=== PATIENT | female | born 1960 | race Caucasian/White ===

== ENCOUNTER → 2016-03-29 | Outpatient (CLI) | payer BC ==
[~2016-03-29] MED LIST: ATOR-22 PO; LISI-729 PO; OMEP40CA PO
[2016-03-29 14:24] LABS: BASO % 0.3 %; BASO ABS # 0.03 K/uL (0-0.2); COMPLETE YES; EOS % 0.4 %; HEMATOCRIT 40.2 % (37-47); IG% 0.8 %; LYMPH % 22.1 %; LYMPH ABS # 2.61 K/uL (1.2-3.4); MEAN CELL VOLUME 92.8 fL (80-100); MEAN CORPUSCULAR HEMOGLOBIN 32.1 pg (25-34); MEAN CORPUSCULAR HGB CONC 34.6 g/dl (32-36); MEAN PLATELET VOLUME 12.1 fL (7.4-10.4); MONO % 7.2 %; NEUT % 69.2 %; PLATELET COUNT 253 K/uL (130-400); RED BLOOD COUNT 4.33 M/uL (4.2-5.4); WHITE BLOOD COUNT 11.83 K/uL (4.8-10.8)
[2016-03-29 14:36] LABS: ALT/SGPT 29 U/L (12-78); AST/SGOT 15 U/L (15-37); BLOOD UREA NITROGEN 17 mg/dl (7-18); BUN/CREATININE RATIO 20.2 (10-20); CALCIUM 8.7 mg/dl (8.5-10.1); CARBON DIOXIDE 27 mmol/L (21-32); CHLORIDE 104 mmol/L (98-107); CREATININE 0.85 mg/dl (0.60-1.20); GLUCOSE 203 mg/dl (70-99); POTASSIUM 3.7 mmol/L (3.5-5.1); SODIUM 141 mmol/L (136-145)
[2016-03-29 14:41] LABS: ALB/GLOB RATIO 1.1 (0.9-2); ALKALINE PHOSPHATASE 72 U/L (45-117); AMYLASE 15 U/L (25-115)
== END | disposition home or self-care (01) ==
LOC: C.LABSPEC 13:22
PROVIDERS: ATTEND Family Medicine
DX: R10.13 Epigastric pain (principal)

== ENCOUNTER → 2016-06-07 | Outpatient (CLI) | payer BC ==
[2016-06-07 19:41] LABS: BASO % 0.2 %; BASO ABS # 0.02 K/uL (0-0.2); COMPLETE YES; EOS % 0.9 %; HEMATOCRIT 42.6 % (37-47); IG% 0.4 %; LYMPH % 32.6 %; LYMPH ABS # 3.17 K/uL (1.2-3.4); MEAN CELL VOLUME 89.5 fL (80-100); MEAN CORPUSCULAR HEMOGLOBIN 31.1 pg (25-34); MEAN CORPUSCULAR HGB CONC 34.7 g/dl (32-36); MEAN PLATELET VOLUME 12.2 fL (7.4-10.4); MONO % 4.5 %; NEUT % 61.4 %; PLATELET COUNT 269 K/uL (130-400); RED BLOOD COUNT 4.76 M/uL (4.2-5.4); WHITE BLOOD COUNT 9.73 K/uL (4.8-10.8)
[2016-06-07 19:47] LABS: ALT/SGPT 31 U/L (12-78); BLOOD UREA NITROGEN 18 mg/dl (7-18); BUN/CREATININE RATIO 22.5 (10-20); CALCIUM 9.7 mg/dl (8.5-10.1); CARBON DIOXIDE 29 mmol/L (21-32); CHLORIDE 98 mmol/L (98-107); CHOLESTEROL 210 mg/dl (0-200); CREATININE 0.81 mg/dl (0.60-1.20); GLUCOSE 320 mg/dl (70-99); POTASSIUM 3.5 mmol/L (3.5-5.1); SODIUM 137 mmol/L (136-145)
[2016-06-07 19:49] LABS: AST/SGOT 14 U/L (15-37); TRIGLYCERIDES 402 mg/dl (0-150)
[2016-06-07 19:57] LABS: ALKALINE PHOSPHATASE 74 U/L (45-117); CHOLESTEROL/HDL RATIO 6.4; HDL CHOLESTEROL 33 mg/dl
[2016-06-08 06:15] LABS: ESTIMATED AVERAGE GLUCOSE 171 mg/dl; HA1C FLAG Normal (Normal)
== END | disposition home or self-care (01) ==
LOC: C.LABSPEC 12:56
PROVIDERS: ATTEND Family Medicine
DX: E11.9 Type 2 diabetes mellitus without complications (principal); I10 Essential (primary) hypertension; F41.1 Generalized anxiety disorder

== ENCOUNTER → 2016-06-10 | Outpatient (CLI) | payer BC | END | disposition home or self-care (01) | LOC: C.LABSPEC 19:12 | PROVIDERS: ATTEND Family Medicine | DX: M54.5 Low back pain (principal) ==

== ENCOUNTER → 2017-06-23 | Outpatient (CLI) | payer BC ==
[2017-06-23 18:32] LABS: ALBUMIN 3.7 gm/dl (3.4-5.0); ALT/SGPT 24 U/L (12-78); AST/SGOT 12 U/L (15-37); BLOOD UREA NITROGEN 15 mg/dl (7-18); CALCIUM 9.7 mg/dl (8.5-10.1); CARBON DIOXIDE 31 mmol/L (21-32); CREATININE 0.75 mg/dl (0.60-1.20); GLUCOSE 149 mg/dl (70-99); POTASSIUM 3.5 mmol/L (3.5-5.1); SODIUM 137 mmol/L (136-145)
[2017-06-23 18:35] LABS: ALKALINE PHOSPHATASE 85 U/L (45-117); TOTAL PROTEIN 7.5 gm/dl (6.4-8.2)
== END | disposition home or self-care (01) ==
LOC: C.LABSPEC 17:57
PROVIDERS: ATTEND Family Medicine
DX: R51 Headache (principal)

== ENCOUNTER 2022-06-09 10:29 | Inpatient (IN) ==
[2022-06-09] MEDS ORDERED: MoRPHine SULFATE 2 MG/ML CARP IV STA (11:06)
[2022-06-09] MEDS ORDERED: ONDANSETRON INJ 2 MG/ML 2 ML VIAL IV STA (11:06)
--- NOTE | 2022-06-09 11:12 | Emergency Department Note ---
History of Present Illness General Chief complaint: Abdominal Pain Stated complaint: ABD PAIN, HAVENT EATEN SINCE TUESDAY Time Seen by Provider: 06/09/22 10:57 History of Present Illness Maximum Pain Intensity: 7 This is a 62-year-old female that presents to the emergency department via pr ivate vehicle with complaints of "abdominal pain, decreased appetite". The patient notes that 2 days ago she began with abdominal discomfort. She notes it is generalized but mainly near the periumbilical region. She notes decreased appetite since Tuesday evening. She notes that she has not had any vomiting or diarrhea. Last stool output was several days ago. She has never had pain like this before. She denies any fevers, chills, chest pain or shortness of breath. No trauma or injury. Patient notes history of cholecystectomy and appendectomy. She notes an allergy to penicillin. She notes type 2 diabetes. Home Medications Medication Instructions Recorded Confirmed Type atorvastatin 20 mg tablet 20 mg PO DAILY 06/09/22 06/09/22 History dulaglutide 0.75 mg/0.5 mL 0 mg subcut WE 06/09/22 06/09/22 History subcutaneous pen injector (Trulicity) duloxetine 60 mg capsule,delayed 60 mg PO DAILY 06/09/22 06/09/22 History release glipizide 5 mg tablet, extended 0 mg PO DAILY 06/09/22 06/09/22 History release 24 hr hydrochlorothiazide 50 mg tablet 50 mg PO BID 06/09/22 06/09/22 History insulin degludec 100 unit/mL (3 35 unit subcut HS 06/09/22 06/09/22 History mL) subcutaneous pen (Tresiba FlexTouch U-100 insulin) lorazepam 0.5 mg tablet 0.5 mg PO HS 06/09/22 06/09/22 History ondansetron HCl 8 mg tablet 8 mg PO DIRECTED PRN Nausea 06/09/22 06/09/22 History pregabalin 50 mg capsule 150 mg PO DAILY 06/09/22 06/09/22 History trazodone 50 mg tablet 50 mg PO HS 06/09/22 06/09/22 History valsartan 320 mg tablet 320 mg PO DAILY 06/09/22 06/09/22 History Allergies Allergy/AdvReac Type Severity Reaction Status Date / Time Penicillins Allergy Intermediate RASH Verified 06/09/22 14:22 celecoxib Allergy Unknown HIVES Verified 06/09/22 14:22 Past Med/Surg History Medical History Diabetes mellitus, type II Hyperlipidemia Hypertension Surgical History History of appendectomy History of cholecystectomy Social History Smoking Status: Current every day smoker Tobacco Type: Cigarettes Hx Alcohol Use: Yes Hx Substance Use: No Preferred Language: Polish Communication Ability: Effective 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 Beliefs That Will Affect Care: None Current Living Situation: Spouse Other Information That Helps Us Care for You: No Feels Safe at Home: Yes Safety Concerns: Feels Safe At This Time Review of Systems A total of 10 systems reviewed and were otherwise negative Physical Exam Vital Signs Vital Signs - 24 hr 06/09/22 10:48 06/09/22 12:43 06/09/22 12:05 Temperature 36.2 C L Temperature Source Temporal Artery Scan Pulse Rate 100 H 101 H Pulse Rate [Apical] 101 H Pulse Rate from SpO2 Sensor Pulse Rhythm [Apical] Respiratory Rate 20 20 Respiratory Effort / Characteristics Non-Labored Spontaneous Non-Labored Spontaneous Respiratory Depth Normal Normal Respiratory Pattern Blood Pressure 121/79 Blood Pressure [Right Arm] 127/69 Blood Pressure Mean 93 Blood Pressure Mean [Right Arm] 88 Blood Pressure Position [Right Arm] Pulse Oximetry 96 88 L Oxygen Delivery Method Room Air Room Air Oxygen Flow Rate Sepsis Recent Fever Within 48 Hours No Sepsis New/Unexplained Change in Mental Status N/A Sepsis Action Taken by Nursing No Action Required 06/09/22 12:10 06/09/22 13:23 06/09/22 12:41 Temperature Temperature Source Pulse Rate 100 H Pulse Rate [Apical] 97 H 99 H Pulse Rate from SpO2 Sensor 97 H Pulse Rhythm [Apical] Respiratory Rate 24 24 24 Respiratory Effort / Characteristics Non-Labored Spontaneous Non-Labored Spontaneous Respiratory Depth Normal Normal Respiratory Pattern Blood Pressure Blood Pressure [Right Arm] 140/88 Blood Pressure Mean Blood Pressure Mean [Right Arm] 105 Blood Pressure Position [Right Arm] Pulse Oximetry 94 94 92 Oxygen Delivery Method Nasal Cannula Nasal Cannula Room Air Oxygen Flow Rate 2 2 Sepsis Recent Fever Within 48 Hours Sepsis New/Unexplained Change in Mental Status Sepsis Action Taken by Nursing 06/09/22 13:23 06/09/22 14:02 06/09/22 17:12 Temperature 36.9 C 38.1 C H Temperature Source Oral Temporal Artery Scan Pulse Rate 100 H Pulse Rate [Apical] 94 H 103 H Pulse Rate from SpO2 Sensor 100 H Pulse Rhythm [Apical] Regular Regular Respiratory Rate 26 H 20 20 Respiratory Effort / Characteristics Non-Labored Spontaneous Normal for Patient Non-Labored Spontaneous Normal for Patient Respiratory Depth Normal Normal Respiratory Pattern Regular Regular Blood Pressure 140/88 Blood Pressure [Right Arm] 125/89 166/80 H Blood Pressure Mean 105 Blood Pressure Mean [Right Arm] 101 108 Blood Pressure Position [Right Arm] Semi-fowlers Semi-fowlers Pulse Oximetry 94 96 95 Oxygen Delivery Method Nasal Cannula Room Air Oxymask Oxygen Flow Rate 2 9 Sepsis Recent Fever Within 48 Hours Sepsis New/Unexplained Change in Mental Status Sepsis Action Taken by Nursing 06/09/22 17:20 Temperature Temperature Source Pulse Rate Pulse Rate [Apical] 99 H Pulse Rate from SpO2 Sensor Pulse Rhythm [Apical] Regular Respiratory Rate 20 Respiratory Effort / Characteristics Non-Labored Spontaneous Normal for Patient Respiratory Depth Normal Respiratory Pattern Regular Blood Pressure Blood Pressure [Right Arm] 134/88 Blood Pressure Mean Blood Pressure Mean [Right Arm] 103 Blood Pressure Position [Right Arm] Semi-fowlers Pulse Oximetry 95 Oxygen Delivery Method Oxymask Oxygen Flow Rate 9 Sepsis Recent Fever Within 48 Hours Sepsis New/Unexplained Change in Mental Status Sepsis Action Taken by Nursing VITAL SIGNS - Vital signs and triage nursing notes were reviewed. GENERAL -62-year-old female appearing her stated age who is in no acute distress. Communicates well with provider and answers questions appropriately. SKIN - Without rashes. No meningeal or petechial rash. HEAD - NC/AT. EYES - Sclera anicteric. NOSE - Midline and without cyanosis. MOUTH/OROPHARYNX - Without perioral cyanosis. NECK - Neck with FROM. LUNGS - Chest wall symmetric without accessory muscle use, intercostals retractions, or central cyanosis. Normal vesicular breath sounds CTA B/L. No wheezes, rales, or rhonchi appreciated. CARDIAC - RRR with S1/S2. No murmur, rubs, or gallops appreciated. ABDOMEN - Abdominal contour normal without pulsations or visible masses. There is guarding but no rigidity. There is diffuse abdominal tenderness throughout the entire abdomen. Bowel sounds normoactive. Mild abdominal distention present on exam. EXTREMITIES - +5/5 strength noted in UE/LE bilaterally. NEUROLOGIC - Cranial nerves II through XII grossly intact. PSYCH - A&O, and cooperates fully with examiner. Pt is very pleasant and interacts well with examiner. Course Administered Medications Metronidazole (Flagyl) 500 mg in 100 mls @ 100 mls/hr IV Q8H [facility] Stop: 06/19/22 21:29 Last Admin: 06/09/22 20:35 Dose: 100 mls/hr Documented By: JUAN ANTONIO Magnesium Sulfate/Dextrose (Magnesium Sulfate / D5w) 1 gm in 100 mls @ 50 mls/hr IV Q2H [facility] Stop: 06/10/22 03:59 Last Admin: 06/09/22 20:22 Dose: 50 mls/hr Documented By: JUAN ANTONIO Parenteral Electrolytes (Normosol-R) 1,000 mls @ 110 mls/hr IV .Q9H6M [facility] Stop: 07/09/22 19:59 Last Admin: 06/09/22 20:13 Dose: 110 mls/hr Documented By: JUAN ANTONIO Miscellaneous (Icu Protocol For Hyperglycemia) 1 each N/A ACHS [facility] Stop: 06/11/22 20:59 Last Admin: 06/09/22 20:33 Dose: 1 each Documented By: JUAN ANTONIO Discontinued Medications Acetaminophen (Acetaminophen 1000 Mg/100 Ml Iv) Confirm Administered Dose 1,000 mg IV .STK-MED ONE Stop: 06/09/22 17:18 Last Admin: 06/09/22 20:04 Dose: Not Given Documented By: JUAN ANTONIO Bupivacaine HCl (Bupivacaine 0.5 % 5 Mg/1 Ml Mpf 30ml Vial) Confirm Administered Dose 30 ml .ROUTE .STK-MED ONE Stop: 06/09/22 16:33 Last Admin: 06/09/22 16:37 Dose: 30 ml Documented By: ALEJANDRA Fentanyl Citrate (Fentanyl Citrate Pf 100 Mcg/2 Ml Vial) 50 mcg IV Q5M PRN PRN Reason: PACU Use Only-Pain Stop: 06/09/22 20:59 Last Admin: 06/09/22 17:57 Dose: 25 mcg Documented By: Admin: 06/09/22 17:52 Dose: 50 mcg Documented By: HIRAM Ciprofloxacin (Cipro / D5w) 400 mg in 200 mls @ 100 mls/hr IV NOW STA; Protocol Stop: 06/09/22 14:48 Last Infusion: 06/09/22 19:49 Dose: 0 mls/hr Documented By: JUAN ANTONIO Admin: 06/09/22 14:30 Dose: 100 mls/hr Documented By: [id number] Metronidazole (Flagyl) 500 mg in 100 mls @ 100 mls/hr IV NOW STA Stop: 06/09/22 13:48 Last Infusion: 06/09/22 19:49 Dose: 0 mls/hr Documented By: JUAN ANTONIO Admin: 06/09/22 13:47 Dose: 100 mls/hr Documented By: PRISCILLA Acetaminophen (Ofirmev) 1,000 mg in 100 mls @ 400 mls/hr IV NOW STA Stop: 06/09/22 17:36 Last Infusion: 06/09/22 19:39 Dose: 0 mls/hr Documented By: JUAN ANTONIO Admin: 06/09/22 17:22 Dose: 400 mls/hr Documented By: HIRAM Ioversol (Optiray 350 100ml) 88 ml IV ONCE ONE Stop: 06/09/22 12:07 Last Admin: 06/09/22 11:57 Dose: 88 ml Documented By: CHANO Morphine Sulfate (Morphine Sulfate 2 Mg/Ml Carp) 2 mg IV NOW STA Stop: 06/09/22 11:07 Last Admin: 06/09/22 11:39 Dose: 2 mg Documented By: MG Co-signed By: PRISCILLA Ondansetron HCl (Ondansetron Inj 2 Mg/Ml 2 Ml Vial) 4 mg IV NOW STA Stop: 06/09/22 11:07 Last Admin: 06/09/22 11:39 Dose: 4 mg Documented By: MG Co-signed By: PRISCILLA Vancomycin HCl (Vancomycin Hcl 1000mg/20ml Vial) Confirm Administered Dose 50 mg .ROUTE .STK-MED ONE Stop: 06/09/22 15:46 Last Admin: 06/09/22 15:54 Dose: 50 mg Documented By: ALEJANDRA Medical Decision Making Laboratory Data 06/09/22 11:15 06/09/22 11:15 Lab Results 06/09/22 06/09/22 06/09/22 Range/Units 11:15 11:15 11:26 WBC 12.09 H (4.8-10.8) K/ul RBC 5.66 H (4.20-5.40) M/uL Hgb 16.8 H (12.0-16.0) g/dl POC Hgb 17.0 H (12.0-16.0) g/dl Hct 47.5 H (37.0-47.0) % POC Hct 50 H (37-47) % MCV 83.9 (80.0-100.0) fL MCH 29.7 (25.0-34.0) pg MCHC 35.4 (32.0-36.0) g/dL RDW Std Deviation 42.8 (36.4-46.3) fL RDW Coeff of Javier 14.1 (11.5-14.5) % Plt Count 275 (130-400) K/uL MPV 12.3 (9.4-12.4) fL Immature Gran % (Auto) 0.4 % Neut % (Auto) 92.3 % Lymph % (Auto) 4.7 % Sauk % (Auto) 1.9 % Eos % (Auto) 0.3 % Baso % (Auto) 0.4 % Neut # (Auto) 11.15 H (1.40-6.50) K/uL Lymph # (Auto) 0.57 L (1.2-3.4) K/uL Sauk # (Auto) 0.23 (0.11-0.59) K/uL Eos # (Auto) 0.04 (0-0.50) K/uL Baso # (Auto) 0.05 (0-0.2) K/uL Immature Gran # (Auto) 0.05 (0.01-0.20) K/uL Echinocytes 2+ POC Sodium 139 (135-144) mmol/L Sodium 139 (136-145) mmol/L POC Potassium 3.8 (3.3-5.0) mmol/L Potassium 3.9 (3.5-5.1) mmol/L POC Chloride 102 (101-112) mmol/L Chloride 104 (98-107) mmol/L Carbon Dioxide 23 (21-32) mmol/L POC Total CO2 24 (24-31) mmol/L Anion Gap 12 H (3-11) POC Anion Gap 18.0 (16-25) mmol/L POC BUN 30 H (7-18) mg/dl BUN 30 H (6-23) mg/dl Creatinine 1.05 (0.6-1.2) mg/dl POC Creatinine 1.0 (0.6-1.3) mg/dl Est Cr Clr Drug Dosing 53.1 ml/min Est GFR ( Amer) 65.5 ml/min Est GFR (Non-Af Amer) 56.5 ml/min BUN/Creatinine Ratio 28.6 H (10-20) Glucose 135 H (70-99(Fasting)) mg/dl POC Glucose (70-99) mg/dl POC Glucose (other) 135 H (70-99) mg/dl Calcium 9.7 (8.6-10.3) mg/dl POC Ioniz Calcium Devante 1.17 (1.12-1.32) mmol/l Magnesium 1.5 L (1.7-2.4) mg/dl Total Bilirubin 1.8 H (0.2-1.0) mg/dl AST 21 (13-39) U/L ALT 18 (7-52) U/L Alkaline Phosphatase 65 (34-104) U/L Total Protein 6.7 (6.0-8.3) gm/dl Albumin 3.8 (3.4-5.0) gm/dl Globulin 2.9 (2.5-4.0) gm/dl Albumin/Globulin Ratio 1.3 (0.9-2) Lipase < 3 L (11-82) U/L Procalcitonin (0-0.5) ng/ml 06/09/22 06/09/22 Range/Units 13:39 17:14 WBC (4.8-10.8) K/ul RBC (4.20-5.40) M/uL Hgb (12.0-16.0) g/dl POC Hgb (12.0-16.0) g/dl Hct (37.0-47.0) % POC Hct (37-47) % MCV (80.0-100.0) fL MCH (25.0-34.0) pg MCHC (32.0-36.0) g/dL RDW Std Deviation (36.4-46.3) fL RDW Coeff of Javier (11.5-14.5) % Plt Count (130-400) K/uL MPV (9.4-12.4) fL Immature Gran % (Auto) % Neut % (Auto) % Lymph % (Auto) % Sauk % (Auto) % Eos % (Auto) % Baso % (Auto) % Neut # (Auto) (1.40-6.50) K/uL Lymph # (Auto) (1.2-3.4) K/uL Sauk # (Auto) (0.11-0.59) K/uL Eos # (Auto) (0-0.50) K/uL Baso # (Auto) (0-0.2) K/uL Immature Gran # (Auto) (0.01-0.20) K/uL Echinocytes POC Sodium (135-144) mmol/L Sodium (136-145) mmol/L POC Potassium (3.3-5.0) mmol/L Potassium (3.5-5.1) mmol/L POC Chloride (101-112) mmol/L Chloride (98-107) mmol/L Carbon Dioxide (21-32) mmol/L POC Total CO2 (24-31) mmol/L Anion Gap (3-11) POC Anion Gap (16-25) mmol/L POC BUN (7-18) mg/dl BUN (6-23) mg/dl Creatinine (0.6-1.2) mg/dl POC Creatinine (0.6-1.3) mg/dl Est Cr Clr Drug Dosing ml/min Est GFR ( Amer) ml/min Est GFR (Non-Af Amer) ml/min BUN/Creatinine Ratio (10-20) Glucose (70-99(Fasting)) mg/dl POC Glucose 124 H (70-99) mg/dl POC Glucose (other) (70-99) mg/dl Calcium (8.6-10.3) mg/dl POC Ioniz Calcium Devante (1.12-1.32) mmol/l Magnesium (1.7-2.4) mg/dl Total Bilirubin (0.2-1.0) mg/dl AST (13-39) U/L ALT (7-52) U/L Alkaline Phosphatase (34-104) U/L Total Protein (6.0-8.3) gm/dl Albumin (3.4-5.0) gm/dl Globulin (2.5-4.0) gm/dl Albumin/Globulin Ratio (0.9-2) Lipase (11-82) U/L Procalcitonin 14.32 H (0-0.5) ng/ml Imaging Data Radiologist's Impression: Abdomen/Pelvis CT 06/09/22 11:06 CT abd pelvis IV con only CLINICAL HISTORY: mid abd pain TECHNIQUE: Helical axial images of the abdomen and pelvis were obtained and displayed. Automated dose lowering techniques and/or adjustment according to patient size were utilized for this exam. This exam was performed with intravenous contrast. CT DOSE: 534.52 mGy.cm COMPARISON: None available at the time of this dictation. FINDINGS: Lower chest: Bibasilar atelectasis versus scarring is seen. Liver: Unremarkable. No focal lesions are seen. Gallbladder and biliary tree: Patient is status post cholecystectomy. No intra- or extrahepatic biliary ductal dilation. Pancreas: The pancreas is atrophic. Spleen: Unremarkable. 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 Kidneys and ureters: Unremarkable. Bladder: Limited evaluation due to underdistention. Reproductive organs: Bilateral tubal ligation clips are noted. Bowel: Bowel wall thickening is noted in the sigmoid with numerous diverticula. There is a rim-enhancing lesion containing stool and air between the uterus and rectum discontinuity of the rectal wall, suggestive of a contained bowel perforation. Patient is status post appendectomy. Lymph nodes Retroperitoneal: Unremarkable. Pelvic: Unremarkable. Mesenteric: Unremarkable. Peritoneum: A small amount of free fluid is seen. A few locules of free air are noted as well. Vessels: Atherosclerotic calcifications are seen. Abdominal wall: Unremarkable. Bones: Degenerative changes in the visualized spine. IMPRESSION: Perforation of the sigmoid colon, likely due to sigmoid diverticulitis. There is an abscess containing stool and air as well as some some uncontained pneumo peritoneum. Mild peritoneal fluid is seen. ACT 112: Negative or not required by law. Electronically signed by: Yunier Mehta M.D. 06/09/2022 12:30 PM MDM Narrative Patient was seen and evaluated as above in room C04. Review was performed of triage nursing notes and vital signs. After obtaining a thorough history and physical examination the above work up was performed. Patient presents to us today for evaluation of abdominal pain. She is tender in the abdomen on exam. Vital signs stable. Options of care were discussed with the patient. IV access was established. Labs were drawn. There is mild leukocytosis without anemia. No emergent metabolic disturbance. Procalcitonin is elevated. Blood culture pending. COVID testing negative. CT scan was obtained of the abdomen and pelvis. There is perforation of the sigmoid colon, likely due to sigmoid diverticulitis. There is an abscess containing stool and air as well as some uncontained pneumoperitoneum. Mild peritoneal fluid is seen. Case then discussed with the general surgery service. They came to evaluate the patient. Noting the patient's penicillin allergy, IV Cipro and Flagyl were ordered. Patient will be taken to the operative suite quite soon. Please refer to further documentation regarding the patient's stay. While here in the ED the patient did receive a small, 2 mg IV morphine dose. She was also given Zofran for any potential nausea. In the evaluation and treatment of this patient the following differential diagnoses were entertained: Acute abdomen, perforation, diverticulitis, dissection, UTI, pyelonephritis, among others. Impression & Plan Perforation of sigmoid colon due to diverticulitis, Periumbilical abdominal pain Discharge Plan Visit Data Chief Complaint: Abdominal Pain Stated Complaint: ABD PAIN, HAVENT EATEN SINCE TUESDAY ED Provider: Cecilia Orellana ED Midlevel Provider: Wilson Flores Discharge Problem: Perforation of sigmoid colon due to diverticulitis, Periumbilical abdominal pain Patient Disposition: Being Evaluated by Surgeon Condition: Good Discharge Instructions Interventions: ED Discharge Assessment Last Done: 06/09/22 13:56
[2022-06-09 11:42] LABS: iSTAT Ionized Calcium 1.17 mmol/l (1.12-1.32); iSTAT Potassium 3.8 mmol/L (3.3-5.0)
[2022-06-09 11:48] LABS: Anion Gap 12 (3-11); BUN Creatinine Ratio 28.6 (10-20); Blood Urea Nitrogen 30 mg/dl (6-23); Calcium 9.7 mg/dl (8.6-10.3); Carbon Dioxide 23 mmol/L (21-32); Chloride 104 mmol/L (98-107); Creatinine Clr Calc Pharmacy 53.1 ml/min; Est GFR (African American) 65.5 ml/min; Est GFR (Non-African American) 56.5 ml/min; Glucose 135 mg/dl (70-99(Fasting)); Potassium 3.9 mmol/L (3.5-5.1); Sodium 139 mmol/L (136-145)
[2022-06-09 11:52] LABS: Hematocrit (blood only) 47.5 % (37.0-47.0); Hemoglobin 16.8 g/dl (12.0-16.0); Mean Corpuscular Hemoglobin 29.7 pg (25.0-34.0); Mean Corpuscular Hgb Conc 35.4 g/dL (32.0-36.0); Mean Corpuscular Volume 83.9 fL (80.0-100.0); Mean Platelet Volume 12.3 fL (9.4-12.4); Platelet Count 275 K/uL (130-400); RDW Coefficient of Variation 14.1 % (11.5-14.5); RDW Standard Deviation 42.8 fL (36.4-46.3); Red Blood Count 5.66 M/uL (4.20-5.40); White Blood Count 12.09 K/ul (4.8-10.8)
[2022-06-09 12:02] LABS: Alanine Aminotransferase 18 U/L (7-52); Albumin Globulin Ratio 1.3 (0.9-2); Albumin Level 3.8 gm/dl (3.4-5.0); Alkaline Phosphatase 65 U/L (34-104); Aspartate Aminotransferase 21 U/L (13-39); Bilirubin,Total 1.8 mg/dl (0.2-1.0); Globulin 2.9 gm/dl (2.5-4.0); Lipase < 3 U/L (11-82); Magnesium 1.5 mg/dl (1.7-2.4); Total Protein 6.7 gm/dl (6.0-8.3)
[2022-06-09] MEDS ORDERED: OPTIRAY 350 100ml IV ONE (12:06)
--- NOTE | 2022-06-09 12:31 | CT Scan Report ---
CT abd pelvis IV con only CLINICAL HISTORY: mid abd pain TECHNIQUE: Helical axial images of the abdomen and pelvis were obtained and displayed. Automated dose lowering techniques and/or adjustment according to patient size were utilized for this exam. This e xam was performed with intravenous contrast. CT DOSE: 534.52 mGy.cm COMPARISON: None available at the time of this dictation. FINDINGS: Lower chest: Bibasilar atelectasis versus scarring is seen. Liver: Unremarkable. No focal lesions are seen. Gallbladder and biliary tree: Patient is status post cholecystectomy. No intra- or extrahepatic bilia ry ductal dilation. Pancreas: The pancreas is atrophic. Spleen: Unremarkable. 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 Kidneys and ureters: Unremarkable. Bladder: Limited evaluation due to underdistention. Reproductive organs: Bilateral tubal ligation clips are noted. Bowel: Bowel wall thickening is noted in the sigmoid with numerous diverticula. There is a rim-enhanc ing lesion containing stool and air between the uterus and rectum discontinuity of the rectal wall, s uggestive of a contained bowel perforation. Patient is status post appendectomy. Lymph nodes Retroperitoneal: Unremarkable. Pelvic: Unremarkable. Mesenteric: Unremarkable. Peritoneum: A small amount of free fluid is seen. A few locules of free air are noted as well. Vessels: Atherosclerotic calcifications are seen. Abdominal wall: Unremarkable. Bones: Degenerative changes in the visualized spine. IMPRESSION: Perforation of the sigmoid colon, likely due to sigmoid diverticulitis. There is an abscess containin g stool and air as well as some some uncontained pneumoperitoneum. Mild peritoneal fluid is seen. ACT 112: Negative or not required by law. Electronically signed by: Yunier Mehta M.D. 06/09/2022 12:30 PM
[2022-06-09 12:40] LABS: Basophils # (auto) 0.05 K/uL (0-0.2); Basophils % (auto) 0.4 %; Echinocytes 2+; Eosinophils # (auto) 0.04 K/uL (0-0.50); Eosinophils % (auto) 0.3 %; Immature Granulocytes # (auto) 0.05 K/uL (0.01-0.20); Immature Granulocytes % (auto) 0.4 %; Lymphocytes # (auto) 0.57 K/uL (1.2-3.4); Lymphocytes % (auto) 4.7 %; Monocytes # (auto) 0.23 K/uL (0.11-0.59); Monocytes % (auto) 1.9 %; Neutrophils # (auto) 11.15 K/uL (1.40-6.50); Neutrophils % (auto) 92.3 %
[2022-06-09] MEDS ORDERED: metroNIDAZOLE 500 MG/100 ML BAG IV STA (12:49)
[2022-06-09] MEDS ORDERED: CIPROFLOXACIN / D5W 400 MG/200 ML BAG IV STA (12:49)
[2022-06-09] MEDS ORDERED: ePHEDrine sulfate 50 MG/ML AMP IV PRN (12:59)
[2022-06-09] MEDS ORDERED: ONDANSETRON INJ 2 MG/ML 2 ML VIAL IV PRN ×2 (12:59→19:37)
[2022-06-09] MEDS ORDERED: HYDROmorphone INJ 1 MG/ML SYRINGE IV PRN (12:59)
[2022-06-09] MEDS ORDERED: ATROPINE SULFATE 0.1 MG/ML 10ML SYR IV PRN (12:59)
[2022-06-09] MEDS ORDERED: MIDAZOLAM HCL 1 MG/ML 2ML VIAL ONE (12:59)
[2022-06-09] MEDS ORDERED: fentaNYL citrate PF 100 MCG/2 ML VIAL ONE (13:00)
--- NOTE | 2022-06-09 13:23 | History & Physical Report ---
Date of Service June 09, 2022 Assessment & Plan (1) Perforation of sigmoid colon due to diverticulitis: (2) Systemic inflammatory response syndrome (SIRS) due to infection: Plan 62-year-old woman with perforated diverticulitis. Systemic inflammatory response syndrome is present. She has tachycardia, elevated white blood cell count, decreased temperature, evidence of intra-abdominal infection on CT scan. I have discussed with her the risks and benefits of exploratory laparotomy with sigmoid resection, washout, and colostomy placement. All her questions were answered, and she is agreeable to proceed. Consent has been obtained. We will take her to the operating room as soon as possible. History of Present Illness Primary Care Provider: Larry Cole DO 62-year-old woman presents to the emergency department with severe abdominal pain starting Tuesday evening. She has not had anything to eat since that time. She denies fevers or chills. She has not had a bowel movement since that time. She states the pain has been increasing. The pain is sharp and stabbing in character. It is mostly in the lower abdomen, but extends to the upper abdomen. CT scan demonstrates perforated diverticulitis with free air and fluid throughout the abdomen. Allergies Allergy/AdvReac Type Severity Reaction Status Date / Time Penicillins Allergy Intermediate RASH Verified 06/09/22 11:43 celecoxib Allergy Unknown HIVES Unverified 06/09/22 11:43 Home Medications Medication Instructions Recorded Confirmed Type atorvastatin 20 mg tablet 20 mg PO DAILY 06/09/22 06/09/22 History dulaglutide 0.75 mg/0.5 mL 0 mg subcut WE 06/09/22 06/09/22 History subcutaneous pen injector (Trulicity) duloxetine 60 mg capsule,delayed 60 mg PO DAILY 06/09/22 06/09/22 History release glipizide 5 mg tablet, extended 0 mg PO DAILY 06/09/22 06/09/22 History release 24 hr hydrochlorothiazide 50 mg tablet 50 mg PO BID 06/09/22 06/09/22 History insulin degludec 100 unit/mL (3 35 unit subcut HS 06/09/22 06/09/22 History mL) subcutaneous pen (Tresiba FlexTouch U-100 insulin) lorazepam 0.5 mg tablet 0.5 mg PO HS 06/09/22 06/09/22 History ondansetron HCl 8 mg tablet 8 mg PO DIRECTED PRN Nausea 06/09/22 06/09/22 History pregabalin 50 mg capsule 150 mg PO DAILY 06/09/22 06/09/22 History trazodone 50 mg tablet 50 mg PO HS 06/09/22 06/09/22 History valsartan 320 mg tablet 320 mg PO DAILY 06/09/22 06/09/22 History Past Med/Surg History Social History Smoking Status: Current every day smoker Tobacco Type: Cigarettes Feels Safe at Home: Yes Review of Systems Review of Systems: All systems reviewed & are unremarkable except as noted in HPI & below Physical Exam Constitutional: WD/WN, vitals as above Eyes: PERRL, conjunctivae normal, anicteric sclerae Neck: trachea midline, no thyromegaly Respiratory: normal respiratory effort, lungs clear to auscultation Cardiovascular: Rate/Rhythm: regular rhythm and + tachycardic Gastrointestinal (Abdomen): Inspection/Auscultation: + abdomen distended Percussion/Palpation: + abdomen tender (Diffusely tender to palpation), + guarding and abdomen soft Skin: no rashes, warm and dry Psychiatric: A+Ox3, euthymic affect Results & Data Results & Data Vital Signs (Past 12 Hours) Vital Signs Temp Pulse Resp BP Pulse Ox O2 Del Method 06/09/22 12:43 101 H 06/09/22 10:48 36.2 C L 100 H 20 121/79 96 Room Air Laboratory Results 06/09/22 06/09/22 06/09/22 Range/Units 11:26 11:15 11:15 WBC 12.09 H (4.8-10.8) K/ul RBC 5.66 H (4.20-5.40) M/uL Hgb 16.8 H (12.0-16.0) g/dl POC Hgb 17.0 H (12.0-16.0) g/dl Hct 47.5 H (37.0-47.0) % POC Hct 50 H (37-47) % MCV 83.9 (80.0-100.0) fL MCH 29.7 (25.0-34.0) pg MCHC 35.4 (32.0-36.0) g/dL RDW Std Deviation 42.8 (36.4-46.3) fL RDW Coeff of Javier 14.1 (11.5-14.5) % Plt Count 275 (130-400) K/uL MPV 12.3 (9.4-12.4) fL Immature Gran % (Auto) 0.4 % Neut % (Auto) 92.3 % Lymph % (Auto) 4.7 % [place] % (Auto) 1.9 % Eos % (Auto) 0.3 % Baso % (Auto) 0.4 % Neut # (Auto) 11.15 H (1.40-6.50) K/uL Lymph # (Auto) 0.57 L (1.2-3.4) K/uL [place] # (Auto) 0.23 (0.11-0.59) K/uL Eos # (Auto) 0.04 (0-0.50) K/uL Baso # (Auto) 0.05 (0-0.2) K/uL Immature Gran # (Auto) 0.05 (0.01-0.20) K/uL Echinocytes 2+ POC Sodium 139 (135-144) mmol/L Sodium 139 (136-145) mmol/L POC Potassium 3.8 (3.3-5.0) mmol/L Potassium 3.9 (3.5-5.1) mmol/L POC Chloride 102 (101-112) mmol/L Chloride 104 (98-107) mmol/L Carbon Dioxide 23 (21-32) mmol/L POC Total CO2 24 (24-31) mmol/L Anion Gap 12 H (3-11) POC Anion Gap 18.0 (16-25) mmol/L POC BUN 30 H (7-18) mg/dl BUN 30 H (6-23) mg/dl Creatinine 1.05 (0.6-1.2) mg/dl POC Creatinine 1.0 (0.6-1.3) mg/dl Est Cr Clr Drug Dosing 53.1 ml/min Est GFR ( Amer) 65.5 ml/min Est GFR (Non-Af Amer) 56.5 ml/min BUN/Creatinine Ratio 28.6 H (10-20) Glucose 135 H (70-99(Fasting)) mg/dl POC Glucose (other) 135 H (70-99) mg/dl Calcium 9.7 (8.6-10.3) mg/dl POC Ioniz Calcium Devante 1.17 (1.12-1.32) mmol/l Magnesium 1.5 L (1.7-2.4) mg/dl Total Bilirubin 1.8 H (0.2-1.0) mg/dl AST 21 (13-39) U/L ALT 18 (7-52) U/L Alkaline Phosphatase 65 (34-104) U/L Total Protein 6.7 (6.0-8.3) gm/dl Albumin 3.8 (3.4-5.0) gm/dl Globulin 2.9 (2.5-4.0) gm/dl Albumin/Globulin Ratio 1.3 (0.9-2) Lipase < 3 L (11-82) U/L SARS-CoV-2, RNA, NAAT 06/09/22 Range/Units 11:13 WBC (4.8-10.8) K/ul RBC (4.20-5.40) M/uL Hgb (12.0-16.0) g/dl POC Hgb (12.0-16.0) g/dl Hct (37.0-47.0) % POC Hct (37-47) % MCV (80.0-100.0) fL MCH (25.0-34.0) pg MCHC (32.0-36.0) g/dL RDW Std Deviation (36.4-46.3) fL RDW Coeff of Javier (11.5-14.5) % Plt Count (130-400) K/uL MPV (9.4-12.4) fL Immature Gran % (Auto) % Neut % (Auto) % Lymph % (Auto) % [place] % (Auto) % Eos % (Auto) % Baso % (Auto) % Neut # (Auto) (1.40-6.50) K/uL Lymph # (Auto) (1.2-3.4) K/uL [place] # (Auto) (0.11-0.59) K/uL Eos # (Auto) (0-0.50) K/uL Baso # (Auto) (0-0.2) K/uL Immature Gran # (Auto) (0.01-0.20) K/uL Echinocytes POC Sodium (135-144) mmol/L Sodium (136-145) mmol/L POC Potassium (3.3-5.0) mmol/L Potassium (3.5-5.1) mmol/L POC Chloride (101-112) mmol/L Chloride (98-107) mmol/L Carbon Dioxide (21-32) mmol/L POC Total CO2 (24-31) mmol/L Anion Gap (3-11) POC Anion Gap (16-25) mmol/L POC BUN (7-18) mg/dl BUN (6-23) mg/dl Creatinine (0.6-1.2) mg/dl POC Creatinine (0.6-1.3) mg/dl Est Cr Clr Drug Dosing ml/min Est GFR ( Amer) ml/min Est GFR (Non-Af Amer) ml/min BUN/Creatinine Ratio (10-20) Glucose (70-99(Fasting)) mg/dl POC Glucose (other) (70-99) mg/dl Calcium (8.6-10.3) mg/dl POC Ioniz Calcium Devante (1.12-1.32) mmol/l Magnesium (1.7-2.4) mg/dl Total Bilirubin (0.2-1.0) mg/dl AST (13-39) U/L ALT (7-52) U/L Alkaline Phosphatase (34-104) U/L Total Protein (6.0-8.3) gm/dl Albumin (3.4-5.0) gm/dl Globulin (2.5-4.0) gm/dl Albumin/Globulin Ratio (0.9-2) Lipase (11-82) U/L SARS-CoV-2, RNA, NAAT Pending Diagnostic Findings CT abd pelvis IV con only CLINICAL HISTORY: mid abd pain TECHNIQUE: Helical axial images of the abdomen and pelvis were obtained and displayed. Automated dose lowering techniques and/or adjustment according to patient size were utilized for this exam. This exam was performed with intravenous contrast. CT DOSE: 534.52 mGy.cm COMPARISON: None available at the time of this dictation. FINDINGS: Lower chest: Bibasilar atelectasis versus scarring is seen. Liver: Unremarkable. No focal lesions are seen. Gallbladder and biliary tree: Patient is status post cholecystectomy. No intra- or extrahepatic biliary ductal dilation. Pancreas: The pancreas is atrophic. Spleen: Unremarkable. 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 Kidneys and ureters: Unremarkable. Bladder: Limited evaluation due to underdistention. Reproductive organs: Bilateral tubal ligation clips are noted. Bowel: Bowel wall thickening is noted in the sigmoid with numerous diverticula. There is a rim-enhancing lesion containing stool and air between the uterus and rectum discontinuity of the rectal wall, suggestive of a contained bowel perforation. Patient is status post appendectomy. Lymph nodes Retroperitoneal: Unremarkable. Pelvic: Unremarkable. Mesenteric: Unremarkable. Peritoneum: A small amount of free fluid is seen. A few locules of free air are noted as well. Vessels: Atherosclerotic calcifications are seen. Abdominal wall: Unremarkable. Bones: Degenerative changes in the visualized spine. IMPRESSION: Perforation of the sigmoid colon, likely due to sigmoid diverticulitis. There is an abscess containing stool and air as well as some some uncontained pneumoperitoneum. Mild peritoneal fluid is seen.
--- NOTE | 2022-06-09 14:10 | Anesthesiology Consultation ---
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 History Surgery Operation Date: 06/09/22 09:10 Proposed Procedures p Exploratory Laparotomy, Sigmoid Resection, Colostomy Placement - Paul Cedillo MD Height/Weight Height: 5 ft 2 in Weight: 78.2 kg Allergies Allergy/AdvReac Type Severity Reaction Status Date / Time Penicillins Allergy Intermediate RASH Verified 06/09/22 11:43 celecoxib Allergy Unknown HIVES Unverified 06/09/22 11:43 Medications Home Medications Medication Instructions Recorded Confirmed Last Taken atorvastatin 20 mg tablet 20 mg PO DAILY 06/09/22 06/09/22 Unknown dulaglutide 0.75 mg/0.5 mL 0 mg subcut WE 06/09/22 06/09/22 Unknown subcutaneous pen injector (Trulicity) duloxetine 60 mg capsule,delayed 60 mg PO DAILY 06/09/22 06/09/22 Unknown release glipizide 5 mg tablet, extended 0 mg PO DAILY 06/09/22 06/09/22 Unknown release 24 hr hydrochlorothiazide 50 mg tablet 50 mg PO BID 06/09/22 06/09/22 Unknown insulin degludec 100 unit/mL (3 35 unit subcut HS 06/09/22 06/09/22 Unknown mL) subcutaneous pen (Tresiba FlexTouch U-100 insulin) lorazepam 0.5 mg tablet 0.5 mg PO HS 06/09/22 06/09/22 Unknown ondansetron HCl 8 mg tablet 8 mg PO DIRECTED PRN Nausea 06/09/22 06/09/22 Unknown pregabalin 50 mg capsule 150 mg PO DAILY 06/09/22 06/09/22 Unknown trazodone 50 mg tablet 50 mg PO HS 06/09/22 06/09/22 Unknown valsartan 320 mg tablet 320 mg PO DAILY 06/09/22 06/09/22 Unknown NPO Date Last Intake of Fluids: 06/09/22 Time Last Intake of Fluids: 10:00 Last Intake of Fluids Comment: sips of water Date Last Intake of Solids: 06/07/22 Social History Smoking Status: Current every day smoker Physical Exam Vital Signs Last Vital Signs Temp 98.4 F 06/09/22 14:02 Pulse 94 H 06/09/22 14:02 Resp 20 06/09/22 14:02 BP 125/89 06/09/22 14:02 Pulse Ox 96 06/09/22 14:02 O2 Del Method Room Air 06/09/22 14:02 O2 Flow Rate 2 06/09/22 13:23 Testing Laboratory Results 06/09/22 11:15 06/09/22 11:15 06/09/22 11:26 POC Glucose (other) 135 H Electrocardiogram Date: 06/09/22 Poor data quality, interpretation may be adversely affected Normal sinus rhythm with sinus arrhythmia, rate 99 bpm Possible Left atrial enlargement Borderline ECG When compared with ECG of 04-JAN-2015 20:27, Nonspecific T wave abnormality now evident in Lateral leads
--- NOTE | 2022-06-09 14:22 | Electrocardiogram Report ---
Test Reason : Blood Pressure : / mmHG Vent. Rate : 099 BPM Atrial Rate : 099 BPM P-R Int : 140 ms QRS Dur : 078 ms QT Int : 340 ms P-R-T Axes : 040 -15 069 degrees QTc Int : 436 ms Poor data quality, interpretation may be adversely affected Normal sinus rhythm with sinus arrhythmia Possible Left atrial enlargement Nonspecific ST abnormality Borderline ECG When compared with ECG of 04-JAN-2015 20:27, Nonspecific T wave abnormality now evident in Lateral leads Confirmed by John Schrader ([id number]) on 06/09/2022 2:22:09 PM Referred By: REFERRED SELF Confirmed By:Jonn Schrader
[2022-06-09] MEDS ORDERED: VANCOMYCIN HCL 1000MG/20ML VIAL ONE (15:45)
[2022-06-09] MEDS ORDERED: PROPOFOL IV EMULSION 10 MG/ML 20 ML VIAL IV ONE (16:13)
[2022-06-09] MEDS ORDERED: SUCCINYLCHOLINE CHLORIDE 20 MG/ML 10 ML VIAL IV ONE (16:13)
[2022-06-09] MEDS ORDERED: PHENYLEPHRINE HCL 10 MG/ML VIAL ONE (16:13)
[2022-06-09] MEDS ORDERED: DEXAMETHASONE SOD INJ 4 MG/ML VIAL ONE (16:13)
[2022-06-09] MEDS ORDERED: LIDOCAINE 2% MPF LOCAL 5 ML VIAL ONE (16:13)
[2022-06-09] MEDS ORDERED: PHENYLEPHRINE 100MCG/ML 5ML SYR ONE (16:13)
[2022-06-09] MEDS ORDERED: ROCURONIUM BROMIDE 10 MG/ML 5 ML VIAL IV ONE (16:13)
[2022-06-09] MEDS ORDERED: BUPIVACAINE 0.5 % 5 MG/1 ML MPF 30ML VIAL ONE (16:32)
[2022-06-09] MEDS ORDERED: ONDANSETRON INJ 2 MG/ML 2 ML VIAL ONE (16:32)
[2022-06-09] MEDS ORDERED: SUGAMMADEX SODIUM 200 MG/2 ML VIAL IV ONE (16:53)
[2022-06-09] MEDS ORDERED: HYDROmorphone INJ 1 MG/ML SYRINGE ONE (16:54)
--- NOTE | 2022-06-09 17:05 | Post Operative Brief Note ---
Immediate Post Op Note v1 Date of Surgery June 09, 2022 Pre & Post Diagnosis Operation Date: 06/09/22 09:10 Pre-Op Diagnosis: Perforation of sigmoid colon due to diverticulitis, systemic inflammatory response syndrome due to infection Post-Op Diagnosis: Perforation of sigmoid colon due to diverticulitis, systemic inflammatory response syndrome due to infection I identified the patient and participated in the time-out.: Yes Procedure Operation Date: 06/09/22 09:10 Actual Procedures p Exploratory Laparotomy, Sigmoid Resection, Colostomy Placement - Paul Cedillo MD Surgeon Paul Cedillo MD Chin Strap Maker VALENCIA Ballard assisted with tissue retraction, camera op, closure Estimated Blood Loss 100 Findings Consistent with Post-Op Diagnosis Severe inflammation of the sigmoid colon and inflammation of the left colon; large perforation in the low sigmoid with stool in the peritoneal cavity Drains Suero Catheter (clear, edelmira colored urine noted. Kenisha TATE made aware, anesthesia to monitor urine output during surgery), Vince-Deluca Drain (19 mexican) and [place] Drain (5/8 inch)
--- NOTE | 2022-06-09 17:13 | Operative Report ---
Post Operative Report Pre & Post Diagnosis Operation Date: 06/09/22 09:10 Pre-Op Diagnosis: Perforation of sigmoid colon due to diverticulitis, systemic inflammatory response syndrome due to infection Post-Op Diagnosis: Perforation of sigmoid colon due to diverticulitis, systemic inflammatory response syndrome due to infection I identified the patient and participated in the time-out.: Yes Procedure Operation Date: 06/09/22 09:10 Actual Procedures p Exploratory Laparotomy, Sigmoid Resection, Colostomy Placement - Paul Cedillo MD Surgeon Paul Cedillo MD Application Security Developer VALENCIA Ballard assisted with tissue retraction, camera op, closure Estimated Blood Loss 100 Findings Consistent with Post-Op Diagnosis Severe inflammatory change of the sigmoid colon; large perforation in the low sigmoid with stool in the cul-de-sac; inflammatory change of the small bowel and left colon; diverticulosis could be palpated in the entire colon Specimens Sigmoid colon Drains 19 Latvian round JENNI drain Anesthesia Type General Complications No immediate complications Description of Procedure Patient was taken to the operating room, placed supine on the operating table. A timeout is performed, perioperative antibiotics were administered, SCD boots were placed. After adequate anesthesia and analgesia was obtained, a Suero catheter was placed, the patient was placed in lithotomy position, and she was prepped and draped in a normal sterile fashion. Midline incision was made in the lower abdomen carried down to the level of the fascia. The fascia was opened at the umbilicus and the incision was opened to its fullest extent. We encountered murky and inflammatory fluid in this location. This was suctioned free. The omentum was reflected up and the small bowel was run. Approaching the pelvis, the drainage turned to feculent drainage. The sigmoid colon was identified and was noted to be severely scarred to the pelvic sidewall as well as the left side of the uterus and fallopian tube. A Bookwalter retractor was placed. The feculent drainage was suctioned free. We began along the white line of Toldt along the left colon and started to mobilize the colon moving down towards the sigmoid colon. This was done with blunt dissection and Bovie electrocautery. Care was taken to avoid any injury to the ureter. The colon was carefully dissected free from the fallopian tube and the uterus. Once we are able to reflect the sigmoid colon medially a large perforation in the lateral side of the sigmoid on the left was appreciated, and it was noted that there was formed stool sitting in the cul-de-sac outside the colon. This was removed. Distal to this large perforation, normal appearing rectum could be palpated and seen. A HARRISON stapler was used to transect the colon at the level of the descending sigmoid colon junction. The LigaSure device was then used to dissect the sigmoid colon mesentery. Large vessels were oversewn with 3-0 silk suture. We took the mesentery down to a point just distal to the large perforation in the left lateral sigmoid. I was able to get a TA stapler across below the perforation. This was fired and the sigmoid colon was removed from the body. When the TA stapler was removed, it was noted to have misfired. The rectal stump was closed with interrupted 3-0 silk suture and was oversewn with a 2-0 Prolene, the ends of which were left long to find the rectal stump in the subsequent operation. At this point, more stool was removed, and the pelvis and abdomen were copiously irrigated with multiple liters of fluid containing vancomycin. This was all suctioned free. Hemostasis at this point was excellent. The left colon was then mobilized off the white line of Toldt using the Bovie electrocautery, and additional mesentery was taken to allow the left colon to reach for the end colostomy. Once this is completed, a 19 Latvian round JENNI drain was placed through separate stab incision and was placed in the cul-de-sac and reaching up the left pelvic sidewall. This was secured with 3-0 nylon suture. A hoh of skin was removed in the left lower quadrant and the fat was taken do wn to the fascia. The fascia was incised in a cruciate manner to allow the colostomy to be delivered through. This was done carefully. The colon was attached to the fascia in 2 locations with 3-0 silk suture. At this point the abdomen was copiously irrigated once again. The fascia was closed with a running #1 PDS. A Roma drain was placed in the incision, and the incision was closed with surgical clips. The ostomy was then matured in a Gloria fashion with 3-0 Vicryl suture. Dressings were applied, and an ostomy appliance was applied. She tolerated the procedure without complication, was transferred in stable condition to the PACU. All instrument, needle, and sponge counts were correct at the end of the case. My assistant sales manager was necessary throughout the procedure for tissue retraction, possible camera operation, and closure of the wounds. I understand that section 1842(b)(7)(D) of the Social Security act generally prohibits Medicare physician fee schedule payment for the services of assistants at surgery in teaching hospitals when qualified residents are available to furnish such services. I certify that the services for which payment is claimed were medically necessary and that no qualified resident was available to perform the services. I further understand that these services are subject to postpayment review by the Medicare carrier. I attest to the content of the Intraoperative Record and any orders documented therein. Any exceptions are noted below.
[2022-06-09] MEDS ORDERED: ACETAMINOPHEN 1000 MG/100 ML IV IV ONE (17:17)
[2022-06-09] MEDS ORDERED: ACETAMINOPHEN 1,000 MG/100 ML VIAL IV STA (17:22)
[2022-06-09] MEDS: fentaNYL citrate PF 100 MCG/2 ML VIAL IV PRN ×2 (17:52→17:57)
--- NOTE | 2022-06-09 18:34 | Anesthesiology Progress Note ---
Date of Service June 09, 2022 Anesthesia Post Procedure Vital Signs Vital Signs: Temp Pulse Pulse Resp BP BP Pulse Ox 06/09/22 18:00 108 H 20 149/70 H 95 06/09/22 17:50 99 H 20 155/85 H 96 06/09/22 17:40 101 H 20 167/80 H 96 06/09/22 17:30 97 H 20 142/76 H 95 06/09/22 17:20 99 H 20 134/88 95 06/09/22 17:12 38.1 C H 103 H 20 166/80 H 95 06/09/22 14:02 36.9 C 94 H 20 125/89 96 06/09/22 13:23 100 H 26 H 140/88 94 06/09/22 12:41 100 H 24 92 06/09/22 13:23 99 H 24 140/88 94 06/09/22 12:10 97 H 24 94 06/09/22 12:05 101 H 20 127/69 88 L 06/09/22 12:43 101 H 06/09/22 10:48 36.2 C L 100 H 20 121/79 96 O2 Del Method O2 Flow Rate 06/09/22 18:00 Nasal Cannula 4 06/09/22 17:50 Nasal Cannula 4 06/09/22 17:40 Oxymask 6 06/09/22 17:30 Oxymask 6 06/09/22 17:20 Oxymask 9 06/09/22 17:12 Oxymask 9 06/09/22 14:02 Room Air 06/09/22 13:23 Nasal Cannula 2 06/09/22 12:41 Room Air 06/09/22 13:23 Nasal Cannula 2 06/09/22 12:10 Nasal Cannula 2 06/09/22 12:05 Room Air 06/09/22 12:43 06/09/22 10:48 Room Air Pain Intensity Abdomen: Pain Intensity: 6 Transfer of Care Handoff Completed per policy Notes Mental Status: participated in evaluation and see notes below Patient Amnestic to Procedure: Yes Nausea / Vomiting: adequately controlled Pain: adequately controlled Airway Patency, RR, SpO2: see Notes below BP & HR: stable & adequate Hydration State: stable & adequate Anesthetic Complications: no major complications apparent Notes: Pt suffered perforated diverticulum, had colectomy, colostomy under GA. Was awake in PACU postop, c/o pain. Medicated with small dose of fentanyl. Subsequently, pt is stuporous manifesting airway obstruction and arterial oxygen desaturation. Pt would benefit from SICU admission at this time. Presented case to PA covering SICU who agreed to evaluate pt for SICU admission. Staff to notify surgeon.
--- NOTE | 2022-06-09 18:52 | Communication Note ---
Date of Service: June 09, 2022 Hospital medicine consulted to see patient. Patient seen and examined in the PACU 62-year-old woman with history of diabetes, hypertension, laparoscopic a ppendectomy in 1996 who presents to the ER with abdominal pain since Tuesday and has not eaten since. Evaluation in the ER noted tachycardia, fever, WBC of 12,[address] abdomen and pelvis showing perforated diverticulitis with free air and fluid in the abdomen. Patient is currently status post exploratory laparotomy, sigmoid resection and colostomy placement by Dr. Cedillo. On exam, General: Drowsy ENMT: External ear and nose normal, oropharynx normal Respiratory: On nasal cannula, transmitted sounds Cardiovascular: Tachycardic, regular rhythm, S1 S2 Gastrointestinal (Abdomen): Dressing over surgical site, JENNI drain in situ, colostomy in place Musculoskeletal: No pedal edema Genitourinary: Suero in situ Neurologic: Drowsy. Limited exam at this time Psychiatric: Unable to assess at this time Labs notable for WBC of 12.09, hemoglobin of 16.8, magnesium of 1.5, total bilirubin of 1.8, procalcitonin of 14.3. Sepsis Perforated sigmoid colon likely perforated diverticulitis Status post ex lap with sigmoid resection and colostomy. Patient going to be transferred from PACU to ICU We will continue to follow. Continue IV antibiotics N.p.o. for now. Monitor respiration mental status as patient recovers from anesthesia. We will keep on insulin sliding scale for now and maintain optimal glycemic control. Check lactate. IV fluids for now. Other plans as detailed by Barbie Marte PA-C
--- NOTE | 2022-06-09 18:55 | Consultation ---
Date of Consultation June 09, 2022 Assessment & Plan (1) Perforation of sigmoid colon due to diverticulitis: (2) Sepsis: S/P exploratory laparotomy, sigmoid resection, colostomy placement 06/09/[address] Cedillo after presenting to ER with complaint of abdominal pain x 2 days In ER noted to be febrile, tachycardic, leukocytosis, elevated procalcitonin CT Abd/pelvis: Perforation of the sigmoid colon, likely due to sigmoid diverticulitis. There is an abscess containing stool and air as well as some some uncontained pneumoperitoneum. Mild peritoneal fluid is seen. Patient did receive IV Cipro, Flagyl, vancomycin In PACU patient requiring IV pain medication and noted to be stuporous and having oxygen desaturations. Patient transferred to ICU for further observation and treatment Recommend continuing IV antibiotics. 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 Glycemic control per ICU protocol (4) Hypomagnesemia: Magnesium: 1.5 Replace and monitor (5) Hypertension: Hold home valsartan, HCTZ (6) Hyperlipidemia: Hold home atorvastatin Pt was seen and care coordinated with Dr Singh. See addendum I spent a total of 70 minutes reviewing notes, outpatient records, labs, medication, coordinating, documenting and providing care for this patient excluding time spent in the performance of separately billed services. Supervising Physician Co-Signing Physician Notes Date of Service: June 09, 2022 Hospital medicine consulted to see patient. Patient seen and examined in the PACU 62-year-old woman with history of diabetes, hypertension, laparoscopic appendectomy in 1996 who presents to the ER with abdominal pain since Tuesday and has not eaten since. Evaluation in the ER noted tachycardia, fever, WBC of 12,[address] abdomen and pelvis showing perforated diverticulitis with free air and fluid in the abdomen. Patient is currently status post exploratory laparotomy, sigmoid resection and colostomy placement by Dr. Cedillo. On exam, General: Drowsy ENMT: External ear and nose normal, oropharynx normal Respiratory: On nasal cannula, transmitted sounds Cardiovascular: Tachycardic, regular rhythm, S1 S2 Gastrointestinal (Abdomen): Dressing over surgical site, JENNI drain in situ, colostomy in place Musculoskeletal: No pedal edema Genitourinary: Suero in situ Neurologic: Drowsy. Limited exam at this time Psychiatric: Unable to assess at this time Labs notable for WBC of 12.09, hemoglobin of 16.8, magnesium of 1.5, total bilirubin of 1.8, procalcitonin of 14.3. Sepsis Perforated sigmoid colon likely perforated diverticulitis Status post ex lap with sigmoid resection and colostomy. Patient going to be transferred from PACU to ICU We will continue to follow. Continue IV antibiotics N.p.o. for now. Monitor respiration mental status as patient recovers from anesthesia. We will keep on insulin sliding scale for now and maintain optimal glycemic control. Check lactate. IV fluids for now. Other plans as detailed by Barbie Marte PA-C History of Present Illness Requesting Physician: Dr. Paul Cedillo Reason for Consultation: Postop medical management Attending Physician: Dr. Paul Cedillo History of Present Illness Patient is 62-year-old female with PMH DM II, HLD, HTN seen in medical consultation s/p exploratory laparotomy, sigmoid resection, colostomy placement today by Dr. Cedillo after presenting to ER with complaint of abdominal pain x 2 days. History obtained from chart review. In ER was tachycardic, had leukocytosis and CT scan abdomen pelvis showed perforation of sigmoid colon, abscess containing stool and air, pneumoperitoneum. She was taken directly to OR. In PACU patient requiring IV pain medication and noted to be stuporous and having oxygen desaturations. Patient transferred to ICU for further observation and treatment. Patient did receive IV Cipro, Flagyl, vancomycin. Currently patient drowsy, awakens to voice however unable to provide history. Allergies Allergy/AdvReac Type Severity Reaction Status Date / Time Penicillins Allergy Intermediate RASH Verified 06/09/22 14:22 celecoxib Allergy Unknown HIVES Verified 06/09/22 14:22 Home Medications Medication Instructions Recorded Confirmed Type atorvastatin 20 mg tablet 20 mg PO DAILY 06/09/22 06/09/22 History dulaglutide 0.75 mg/0.5 mL 0 mg subcut WE 06/09/22 06/09/22 History subcutaneous pen injector (Trulicity) duloxetine 60 mg capsule,delayed 60 mg PO DAILY 06/09/22 06/09/22 History release glipizide 5 mg tablet, extended 0 mg PO DAILY 06/09/22 06/09/22 History release 24 hr hydrochlorothiazide 50 mg tablet 50 mg PO BID 06/09/22 06/09/22 History insulin degludec 100 unit/mL (3 35 unit subcut HS 06/09/22 06/09/22 History mL) subcutaneous pen (Tresiba FlexTouch U-100 insulin) lorazepam 0.5 mg tablet 0.5 mg PO HS 06/09/22 06/09/22 History ondansetron HCl 8 mg tablet 8 mg PO DIRECTED PRN Nausea 06/09/22 06/09/22 History pregabalin 50 mg capsule 150 mg PO DAILY 06/09/22 06/09/22 History trazodone 50 mg tablet 50 mg PO HS 06/09/22 06/09/22 History valsartan 320 mg tablet 320 mg PO DAILY 06/09/22 06/09/22 History Patient History Medical History Diabetes mellitus, type II Hyperlipidemia Hypertension Surgical History History of appendectomy History of cholecystectomy Social History Smoking Status: Current every day smoker Tobacco Type: Cigarettes Hx Alcohol Use: Yes Hx Substance Use: No Preferred Language: Luxembourgish Communication Ability: Effective Book Author Required: No Beliefs That Will Affect Care: None Current Living Situation: Spouse Other Information That Helps Us Care for You: No Feels Safe at Home: Yes Safety Concerns: Feels Safe At This Time Review of Systems Review of Systems: Unobtainable due to reduced consciousness Physical Exam Physical Exam: Per Dr Singh Results & Data Vital Signs (Past 12 Hours) Vital Signs Temp Pulse Pulse Resp BP BP Pulse Ox 06/09/22 18:50 37.5 C 103 H 18 112/85 95 06/09/22 18:30 110 H 18 135/72 95 06/09/22 18:20 113 H 18 123/74 94 06/09/22 18:10 37.8 C H 121 H 18 92/64 L 95 06/09/22 18:40 104 H 18 122/63 95 06/09/22 18:00 108 H 20 149/70 H 95 06/09/22 17:50 99 H 20 155/85 H 96 06/09/22 17:40 101 H 20 167/80 H 96 06/09/22 17:30 97 H 20 142/76 H 95 06/09/22 17:20 99 H 20 134/88 95 06/09/22 17:12 38.1 C H 103 H 20 166/80 H 95 06/09/22 14:02 36.9 C 94 H 20 125/89 96 06/09/22 13:23 100 H 26 H 140/88 94 06/09/22 12:41 100 H 24 92 06/09/22 13:23 99 H 24 140/88 94 06/09/22 12:10 97 H 24 94 06/09/22 12:05 101 H 20 127/69 88 L 06/09/22 12:43 101 H 06/09/22 10:48 36.2 C L 100 H 20 121/79 96 O2 Del Method O2 Flow Rate 06/09/22 18:50 Nasal Cannula 4 06/09/22 18:30 Nasal Cannula 4 06/09/22 18:20 Nasal Cannula 4 06/09/22 18:10 Nasal Cannula 4 06/09/22 18:40 Nasal Cannula 4 06/09/22 18:00 Nasal Cannula 4 06/09/22 17:50 Nasal Cannula 4 06/09/22 17:40 Oxymask 6 06/09/22 17:30 Oxymask 6 06/09/22 17:20 Oxymask 9 06/09/22 17:12 Oxymask 9 06/09/22 14:02 Room Air 06/09/22 13:23 Nasal Cannula 2 06/09/22 12:41 Room Air 06/09/22 13:23 Nasal Cannula 2 06/09/22 12:10 Nasal Cannula 2 06/09/22 12:05 Room Air 06/09/22 12:43 06/09/22 10:48 Room Air Laboratory Results Short CBC 06/09/22 Range/Units 11:15 WBC 12.09 H (4.8-10.8) K/ul Hgb 16.8 H (12.0-16.0) g/dl Hct 47.5 H (37.0-47.0) % Plt Count 275 (130-400) K/uL BMP 06/09/22 11:15 Sodium 139 Potassium 3.9 Chloride 104 Carbon Dioxide 23 BUN 30 H Creatinine 1.05 Glucose 135 H Calcium 9.7 Liver Function 06/09/22 Range/Units 11:15 Total Bilirubin 1.8 H (0.2-1.0) mg/dl AST 21 (13-39) U/L ALT 18 (7-52) U/L Alkaline Phosphatase 65 (34-104) U/L Albumin 3.8 (3.4-5.0) gm/dl Diagnostic Findings Abdomen/Pelvis CT 06/09/22 11:06 CT abd pelvis IV con only CLINICAL HISTORY: mid abd pain TECHNIQUE: Helical axial images of the abdomen and pelvis were obtained and displayed. Automated dose lowering techniques and/or adjustment according to patient size were utilized for this exam. This exam was performed with intravenous contrast. CT DOSE: 534.52 mGy.cm COMPARISON: None available at the time of this dictation. FINDINGS: Lower chest: Bibasilar atelectasis versus scarring is seen. Liver: Unremarkable. No focal lesions are seen. Gallbladder and biliary tree: Patient is status post cholecystectomy. No intra- or extrahepatic biliary ductal dilation. Pancreas: The pancreas is atrophic. Spleen: Unremarkable. 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 Kidneys and ureters: Unremarkable. Bladder: Limited evaluation due to underdistention. Reproductive organs: Bilateral tubal ligation clips are noted. Bowel: Bowel wall thickening is noted in the sigmoid with numerous diverticula. There is a rim-enhancing lesion containing stool and air between the uterus and rectum discontinuity of the rectal wall, suggestive of a contained bowel perforation. Patient is status post appendectomy. Lymph nodes Retroperitoneal: Unremarkable. Pelvic: Unremarkable. Mesenteric: Unremarkable. Peritoneum: A small amount of free fluid is seen. A few locules of free air are noted as well. Vessels: Atherosclerotic calcifications are seen. Abdominal wall: Unremarkable. Bones: Degenerative changes in the visualized spine. IMPRESSION: Perforation of the sigmoid colon, likely due to sigmoid diverticulitis. There is an abscess containing stool and air as well as some some uncontained pneumoperitoneum. Mild peritoneal fluid is seen. ACT 112: Negative or not required by law. Electronically signed by: Yunier Mehta M.D. 06/09/2022 12:30 PM
--- NOTE | 2022-06-09 19:10 | Critical Care Consultation ---
Date of Consultation June 09, 2022 Assessment & Plan (1) Hypomagnesemia: (2) Diabetes mellitus, type II: (3) Systemic inflammatory response syndrome (SIRS) due to infection: (4) Perforation of sigmoid colon due to diverticulitis: (5) Obtundation: (6) Postoperative hypoxia: (7) Hyperlipidemia: (8) Hypertension: (9) Anxiety: (10) Acute pain: Plan Reason Critically Ill: 62 YOF POD #0 HD#0 from exploratory laparotomy with colostomy in the setting of ruptured sigmoid colon. ICU consulted by PACU Anesthesia for obtundation and hypoxia. Status improving on arrival to the ICU. Neuro - Obtundatioin, Anxiety, Acute Pain CAM ICU: - Likely in the setting of delayed emergence and/or narcosis in PACU- patient required jaw thrust and NPA- she is now more awake and conversant - May have higher risk for delirium- maintain normal sleep wake cycles, frequent re-orientations, lights off at night, attempt to minimize interruptions - No focal deficits - No sustained hypotensive/hypoxia events noted on records - follow and support- no indication for imaging at this time - Anxiety- continue duloxetine when able - For her pain control post-surgical- currently with SUPERVISING NURSE- start when she is more awake to use - PRN dosing if needed - Rescue Narcan is available Cardiac - SIRS, HTN, HLD - Sirs in the setting of perforated bowel- follow organ dysfunction urine output - ID section below - Hold ARB follow renal function- PRN iv antihypertensives if needed Respiratory - Postoperative hypoxia, previous smoker - as above likely related to delayed emergence and/or narcosis - improved NPA removed- wean oxygen - ICS q1 - Consideration for BiPAP if needed GI - Sigmoid perforation, Colostomy, GERD - POD #0- drain management per surgery - wound/ostomy care - follow output - remain NPO - PPI daily IV RENAL/LYTES - KAIN, Hypomag, - KAIN PERFORMANCE TESTER 1.05 baseline 0.9-0.8- hydrate with Normosol follow - replete magnesium - rest of electrolytes per ICU protocol - No acute needs - Suero for accurate FIDENCIO ENDO - DMII - NPO- insulin sliding scale per ICU protocol Goal <180mg/Dl HEME - No acute needs ID - Perforated sigmoid colon secondary to diverticulitis- complicated - Portillo stool in peritoneal cavity- will cover with- allergy to PCN with Rash- evaluate when more awake- for now continue with Cipro and Flagyl - follow for worsening to sepsis/shock - Clinical course worsens consider adding antifungal - Await cultures LINES/IV ACCESS - Nimo CHAVARRIA Continue use of these lines DVT PROPHYLAXIS - SCDS DISPO: ICU care for neurological exam, respiratory support and hemodynamic monitoring I have personally spent 50 minutes of critical care time in the direct ma nagement of this patient. This is a life/limb threatening event. This includes time spent evaluating patient, direct bedside care, chart review, placing orders, interpretation of diagnostic studies, discussion with consultants, patient, and family members, as well as other required patient management activities. This time is exclusive of all separately billable procedures, and teaching time and separate from and in addition to any other critical care service time. Thank you for allowing us to participate in the care of this patient. Please refer to my attending physician's documentation for any further recommendations. History of Present Illness Reason for Consultation: obtundation/hypoxia following operative course Requesting Physician: Wilbur Ivan MD Attending Physician: Paul Cedillo History of Present Illness 62 YOF who is HD #0 and POD#0 from exploratory laparotomy with sigmoid resection and colostomy placement secondary to large perforation of the sigmoid colon. Gross contamination of stool noted in peritoneal cavity per surgical report. ICU was consulted by Anesthesia as patient reportedly was having difficulty waking up and need for closer monitoring overnight. On arrival to the PACU information was gathered from the MANAGING ATTORNEY and RESTORATIVE CARE TECHNICIAN. Reports that patient was recovering well in the PACU and then had episode of hypoxia that was likely to to obstruction from obtundation- she had jaw thrust performed as well as placement of Nasopharyngeal airway. Patient did receive Fentanyl earlier. She was reversed with Sugammadex following procedure. Induction with Rocuronium, Versed, Propofol. No significant sustained hypotension noted on review of records. Patient SPo2 noted at this time is 94%. HR 100s and BP adequate. Skin is warm and dry. Patient does awaken to voice but drifts back off to sleep easily and not following commands well. She is however moving all her extremities and was able to remove her NPA and NC to wipe her nose. Primary team was notified and orders for transfer to ICU placed. Brief discussion with surgical PA-C. Patient will be admitted to ICU continue metabolic enchephalopathy/obtundation workup, support ventilation and oxygenation. Currently no need for vasoactive medications. Patient arrived to ICU 1919- patient is more awake and conversant, she still drifts off to sleep but is able to hold conversation, without focal deficits and on minimal oxygen. Wean as approriate COVID on admission: NEGATIVE CODE: FULL Primary service: General Surgery Consultations: Medicine Allergies Allergy/AdvReac Type Severity Reaction Status Date / Time Penicillins Allergy Intermediate RASH Verified 06/09/22 14:22 celecoxib Allergy Unknown HIVES Verified 06/09/22 14:22 Home Medications Medication Instructions Recorded Confirmed Type atorvastatin 20 mg tablet 20 mg PO DAILY 06/09/22 06/09/22 History dulaglutide 0.75 mg/0.5 mL 0 mg subcut WE 06/09/22 06/09/22 History subcutaneous pen injector (Trulicity) duloxetine 60 mg capsule,delayed 60 mg PO DAILY 06/09/22 06/09/22 History release glipizide 5 mg tablet, extended 0 mg PO DAILY 06/09/22 06/09/22 History release 24 hr hydrochlorothiazide 50 mg tablet 50 mg PO BID 06/09/22 06/09/22 History insulin degludec 100 unit/mL (3 35 unit subcut HS 06/09/22 06/09/22 History mL) subcutaneous pen (Tresiba FlexTouch U-100 insulin) lorazepam 0.5 mg tablet 0.5 mg PO HS 06/09/22 06/09/22 History ondansetron HCl 8 mg tablet 8 mg PO DIRECTED PRN Nausea 06/09/22 06/09/22 History pregabalin 50 mg capsule 150 mg PO DAILY 06/09/22 06/09/22 History trazodone 50 mg tablet 50 mg PO HS 06/09/22 06/09/22 History valsartan 320 mg tablet 320 mg PO DAILY 06/09/22 06/09/22 History Patient History Medical History Diabetes mellitus, type II Hyperlipidemia Hypertension Surgical History History of appendectomy History of cholecystectomy Social History Smoking Status: Current every day smoker Tobacco Type: Cigarettes Hx Alcohol Use: Yes Hx Substance Use: No Preferred Language: Syriac Communication Ability: Effective Sail Cutter Required: No Beliefs That Will Affect Care: None Current Living Situation: Spouse Other Information That Helps Us Care for You: No Feels Safe at Home: Yes Safety Concerns: Feels Safe At This Time Review of Systems Review of Systems: REVIEW OF SYSTEMS: Unable to perform secondary to patient obtundation Physical Exam Physical Exam: PHYSICAL EXAM: General: obtunded, awakens to voice, not following commands Head: Normocephalic, atraumatic ENT: PERRLA, EOMI, no pharyngeal exudate, mucous membranes dry Neuro: Obtunded, moving all extremities, localizes discomfort, not following commands Chest: equal rise and fall of the chest, decreased in bases, strong cough, hypoxia Cardiac: Regular rate and rhythm, telemetry reviewed- sinus tachycardia no ectopy, skin warm dry, cap refill <3 seconds, peripheral pulses +2, no murmur, no edema GI: Abdominal binder on, with JENNI drain draining serous sang drainage, colostomy present, mucous : Suero to gravity Extremities: Normal inspection, no peripheral edema or erythema, calfs non tender to palpation Skin: no rash or erythema Results & Data Results & Data Vital Signs (Past 12 Hours) Vital Signs Temp Pulse Pulse Resp BP BP Pulse Ox 06/09/22 18:50 37.5 C 103 H 18 112/85 95 06/09/22 18:30 110 H 18 135/72 95 06/09/22 18:20 113 H 18 123/74 94 06/09/22 18:10 37.8 C H 121 H 18 92/64 L 95 06/09/22 18:40 104 H 18 122/63 95 06/09/22 18:00 108 H 20 149/70 H 95 06/09/22 17:50 99 H 20 155/85 H 96 06/09/22 17:40 101 H 20 167/80 H 96 06/09/22 17:30 97 H 20 142/76 H 95 06/09/22 17:20 99 H 20 134/88 95 06/09/22 17:12 38.1 C H 103 H 20 166/80 H 95 06/09/22 14:02 36.9 C 94 H 20 125/89 96 06/09/22 13:23 100 H 26 H 140/88 94 06/09/22 12:41 100 H 24 92 06/09/22 13:23 99 H 24 140/88 94 06/09/22 12:10 97 H 24 94 06/09/22 12:05 101 H 20 127/69 88 L 06/09/22 12:43 101 H 06/09/22 10:48 36.2 C L 100 H 20 121/79 96 O2 Del Method O2 Flow Rate 06/09/22 18:50 Nasal Cannula 4 06/09/22 18:30 Nasal Cannula 4 06/09/22 18:20 Nasal Cannula 4 06/09/22 18:10 Nasal Cannula 4 06/09/22 18:40 Nasal Cannula 4 06/09/22 18:00 Nasal Cannula 4 06/09/22 17:50 Nasal Cannula 4 06/09/22 17:40 Oxymask 6 06/09/22 17:30 Oxymask 6 06/09/22 17:20 Oxymask 9 06/09/22 17:12 Oxymask 9 06/09/22 14:02 Room Air 06/09/22 13:23 Nasal Cannula 2 06/09/22 12:41 Room Air 06/09/22 13:23 Nasal Cannula 2 06/09/22 12:10 Nasal Cannula 2 06/09/22 12:05 Room Air 06/09/22 12:43 06/09/22 10:48 Room Air Laboratory Results Laboratory Results - last 24 hr 06/09/22 06/09/22 06/09/22 11:13 11:15 11:15 WBC 12.09 H RBC 5.66 H Hgb 16.8 H POC Hgb Hct 47.5 H POC Hct MCV 83.9 MCH 29.7 MCHC 35.4 RDW Std Deviation 42.8 RDW Coeff of Javier 14.1 Plt Count 275 MPV 12.3 Immature Gran % (Auto) 0.4 Neut % (Auto) 92.3 Lymph % (Auto) 4.7 Dillon % (Auto) 1.9 Eos % (Auto) 0.3 Baso % (Auto) 0.4 Neut # (Auto) 11.15 H Lymph # (Auto) 0.57 L Dillon # (Auto) 0.23 Eos # (Auto) 0.04 Baso # (Auto) 0.05 Immature Gran # (Auto) 0.05 Echinocytes 2+ POC Sodium Sodium 139 POC Potassium Potassium 3.9 POC Chloride Chloride 104 Carbon Dioxide 23 POC Total CO2 Anion Gap 12 H POC Anion Gap POC BUN BUN 30 H Creatinine 1.05 POC Creatinine Est Cr Clr Drug Dosing 53.1 Est GFR ( Amer) 65.5 Est GFR (Non-Af Amer) 56.5 BUN/Creatinine Ratio 28.6 H Glucose 135 H POC Glucose POC Glucose (other) Calcium 9.7 POC Ioniz Calcium Devante Magnesium 1.5 L Total Bilirubin 1.8 H AST 21 ALT 18 Alkaline Phosphatase 65 Total Protein 6.7 Albumin 3.8 Globulin 2.9 Albumin/Globulin Ratio 1.3 Lipase < 3 L Procalcitonin SARS-CoV-2, RNA, NAAT Pending 06/09/22 06/09/22 06/09/22 11:26 13:39 17:14 WBC RBC Hgb POC Hgb 17.0 H Hct POC Hct 50 H MCV MCH MCHC RDW Std Deviation RDW Coeff of Javier Plt Count MPV Immature Gran % (Auto) Neut % (Auto) Lymph % (Auto) Dillon % (Auto) Eos % (Auto) Baso % (Auto) Neut # (Auto) Lymph # (Auto) Dillon # (Auto) Eos # (Auto) Baso # (Auto) Immature Gran # (Auto) Echinocytes POC Sodium 139 Sodium POC Potassium 3.8 Potassium POC Chloride 102 Chloride Carbon Dioxide POC Total CO2 24 Anion Gap POC Anion Gap 18.0 POC BUN 30 H BUN Creatinine POC Creatinine 1.0 Est Cr Clr Drug Dosing Est GFR ( Amer) Est GFR (Non-Af Amer) BUN/Creatinine Ratio Glucose POC Glucose 124 H POC Glucose (other) 135 H Calcium POC Ioniz Calcium Devante 1.17 Magnesium Total Bilirubin AST ALT Alkaline Phosphatase Total Protein Albumin Globulin Albumin/Globulin Ratio Lipase Procalcitonin 14.32 H SARS-CoV-2, RNA, NAAT Diagnostic Findings Abdomen/Pelvis CT 06/09/22 11:06 CT abd pelvis IV con only CLINICAL HISTORY: mid abd pain TECHNIQUE: Helical axial images of the abdomen and pelvis were obtained and displayed. Automated dose lowering techniques and/or adjustment according to patient size were utilized for this exam. This exam was performed with intravenous contrast. CT DOSE: 534.52 mGy.cm COMPARISON: None available at the time of this dictation. FINDINGS: Lower chest: Bibasilar atelectasis versus scarring is seen. Liver: Unremarkable. No focal lesions are seen. Gallbladder and biliary tree: Patient is status post cholecystectomy. No intra- or extrahepatic biliary ductal dilation. Pancreas: The pancreas is atrophic. Spleen: Unremarkable. 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 Kidneys and ureters: Unremarkable. Bladder: Limited evaluation due to underdistention. Reproductive organs: Bilateral tubal ligation clips are noted. Bowel: Bowel wall thickening is noted in the sigmoid with numerous diverticula. There is a rim-enhancing lesion containing stool and air between the uterus and rectum discontinuity of the rectal wall, suggestive of a contained bowel perforation. Patient is status post appendectomy. Lymph nodes Retroperitoneal: Unremarkable. Pelvic: Unremarkable. Mesenteric: Unremarkable. Peritoneum: A small amount of free fluid is seen. A few locules of free air are noted as well. Vessels: Atherosclerotic calcifications are seen. Abdominal wall: Unremarkable. Bones: Degenerative changes in the visualized spine. IMPRESSION: Perforation of the sigmoid colon, likely due to sigmoid diverticulitis. There is an abscess containing stool and air as well as some some uncontained pneumoperitoneum. Mild peritoneal fluid is seen. ACT 112: Negative or not required by law. Electronically signed by: Yunier Mehta M.D. 06/09/2022 12:30 PM Medications Administered Discontinued Medications Bupivacaine HCl (Bupivacaine 0.5 % 5 Mg/1 Ml Mpf 30ml Vial) Confirm Administered Dose 30 ml .ROUTE .STK-MED ONE Stop: 06/09/22 16:33 Last Admin: 06/09/22 16:37 Dose: 30 ml Documented By: ALEJANDRA Fentanyl Citrate (Fentanyl Citrate Pf 100 Mcg/2 Ml Vial) 50 mcg IV Q5M PRN PRN Reason: PACU Use Only-Pain Stop: 06/09/22 20:59 Last Admin: 06/09/22 17:57 Dose: 25 mcg Documented By: Admin: 06/09/22 17:52 Dose: 50 mcg Documented By: HIRAM Ciprofloxacin (Cipro / D5w) 400 mg in 200 mls @ 100 mls/hr IV NOW STA; Protocol Stop: 06/09/22 14:48 Last Admin: 06/09/22 14:30 Dose: 100 mls/hr Documented By: [id number] Metronidazole (Flagyl) 500 mg in 100 mls @ 100 mls/hr IV NOW STA Stop: 06/09/22 13:48 Last Admin: 06/09/22 13:47 Dose: 100 mls/hr Documented By: PRISCILLA Acetaminophen (Ofirmev) 1,000 mg in 100 mls @ 400 mls/hr IV NOW STA Stop: 06/09/22 17:36 Last Admin: 06/09/22 17:22 Dose: 400 mls/hr Documented By: HIRAM Ioversol (Optiray 350 100ml) 88 ml IV ONCE ONE Stop: 06/09/22 12:07 Last Admin: 06/09/22 11:57 Dose: 88 ml Documented By: CHANO Morphine Sulfate (Morphine Sulfate 2 Mg/Ml Carp) 2 mg IV NOW STA Stop: 06/09/22 11:07 Last Admin: 06/09/22 11:39 Dose: 2 mg Documented By: MG Co-signed By: PRISCILLA Ondansetron HCl (Ondansetron Inj 2 Mg/Ml 2 Ml Vial) 4 mg IV NOW STA Stop: 06/09/22 11:07 Last Admin: 06/09/22 11:39 Dose: 4 mg Documented By: MG Co-signed By: PRISCILLA Vancomycin HCl (Vancomycin Hcl 1000mg/20ml Vial) Confirm Administered Dose 50 mg .ROUTE .STK-MED ONE Stop: 06/09/22 15:46 Last Admin: 06/09/22 15:54 Dose: 50 mg Documented By: ALEJADNRA Coding Level of Care Code 56633 CRITICAL CARE 1ST 30-74M Diagnoses Hypomagnesemia E83.42 Diabetes mellitus, type II E11.9 Systemic inflammatory response syndrome (SIRS) due to infection Perforation of sigmoid colon due to diverticulitis K57.20 Obtundation R40.1 Postoperative hypoxia R09.02; Z98.890 Hyperlipidemia E78.5 Hypertension I10 Anxiety F41.9 Acute pain R52
[2022-06-09] MEDS ORDERED: LACTATED RINGER'S 1,000 ML IV SCH (19:37)
[2022-06-09] MEDS ORDERED: MoRPHine SULFATE PCA 30 MG/30 ML IV PRN (19:37)
[2022-06-09] MEDS ORDERED: SODIUM CHLORIDE 0.9% 1000ML 1,000 ML IV SCH (19:37)
[2022-06-09] MEDS ORDERED: PROMETHAZINE HCL 12.5 MG in SODIUM CHLORIDE 0.9% 50 ML IV PRN (19:37)
[2022-06-09] MEDS: PLASMA-LYTE A 1,000 ML IV SCH (20:13)
[2022-06-09] MEDS: MAGNESIUM SULFATE / D5W 1 GM/100 ML BAG IV SCH ×3 (20:22→23:56)
[2022-06-09] MEDS ORDERED: GLUCOSE 40% GEL 15 GM TUBE PO PRN (20:29)
[2022-06-09] MEDS ORDERED: GLUCOSE 10 TAB/TUBE PO PRN (20:29)
[2022-06-09] MEDS ORDERED: DEXTROSE 50% 50 ML SYRINGE IV PRN (20:29)
[2022-06-09] MEDS ORDERED: GLUCAGON FOR INJ 1 MG VIAL SQ PRN (20:29)
[2022-06-09] MEDS ORDERED: CARBOHYDRATES FOR HYPOGLYCEMIA PO PRN (20:29)
[2022-06-09 20:32] LABS: BUN Creatinine Ratio 32.6 (10-20); Calcium 8.6 mg/dl (8.6-10.3); Creatinine Clr Calc Pharmacy 64.8 ml/min; Est GFR (African American) 83.3 ml/min; Est GFR (Non-African American) 71.9 ml/min; Potassium 4.1 mmol/L (3.5-5.1)
[2022-06-09] MEDS: ICU Protocol for HYPERglycemia SCH (20:33)
[2022-06-09] MEDS: metroNIDAZOLE 500 MG/100 ML BAG IV SCH (20:35)
[2022-06-09 20:40] LABS: Basophils % (auto) 0.9 %; Echinocytes 2+; Eosinophils # (auto) 0.06 K/uL (0-0.50); Eosinophils % (auto) 0.6 %; Hematocrit (blood only) 45.5 % (37.0-47.0); Hemoglobin 15.4 g/dl (12.0-16.0); Immature Granulocytes # (auto) 0.08 K/uL (0.01-0.20); Immature Granulocytes % (auto) 0.7 %; Lymphocytes # (auto) 0.26 K/uL (1.2-3.4); Lymphocytes % (auto) 2.4 %; Mean Corpuscular Hemoglobin 29.7 pg (25.0-34.0); Mean Corpuscular Hgb Conc 33.8 g/dL (32.0-36.0); Mean Corpuscular Volume 87.8 fL (80.0-100.0); Mean Platelet Volume 12.1 fL (9.4-12.4); Monocytes # (auto) 0.28 K/uL (0.11-0.59); Monocytes % (auto) 2.6 %; Neutrophils # (auto) 9.91 K/uL (1.40-6.50); Neutrophils % (auto) 92.8 %; Platelet Count 235 K/uL (130-400); RDW Coefficient of Variation 14.3 % (11.5-14.5); Red Blood Count 5.18 M/uL (4.20-5.40); Toxic Vacuolation 1+; White Blood Count 10.69 K/ul (4.8-10.8)
[2022-06-09] MEDS: CIPROFLOXACIN / D5W 400 MG/200 ML BAG IV SCH (21:43)
[2022-06-09] MEDS ORDERED: cefUROXime 1,500 MG in DEXTROSE 5% 100 ML IV SCH (22:00)
[2022-06-10] MEDS: INSULIN ASPART PER UNIT CHARGE SC SCH ×4 (00:04→20:55)
[2022-06-10] MEDS: MAGNESIUM SULFATE / D5W 1 GM/100 ML BAG IV SCH (01:59)
[2022-06-10] MEDS ORDERED: CIPROFLOXACIN / D5W 400 MG/200 ML BAG IV SCH (02:30)
[2022-06-10] MEDS: metroNIDAZOLE 500 MG/100 ML BAG IV SCH ×3 (05:19→20:37)
[2022-06-10] MEDS: PLASMA-LYTE A 1,000 ML IV SCH ×2 (05:20→21:40)
[2022-06-10] MEDS: CIPROFLOXACIN / D5W 400 MG/200 ML BAG IV SCH ×3 (05:36→20:37)
[2022-06-10] MEDS ORDERED: ICU ELECTROLYTE REPLACEMENT PROTOCOL SCH (06:00)
[2022-06-10 06:05] LABS: Hematocrit (blood only) 39.5 % (37.0-47.0); Hemoglobin 13.3 g/dl (12.0-16.0); Mean Corpuscular Hemoglobin 29.6 pg (25.0-34.0); Mean Corpuscular Hgb Conc 33.7 g/dL (32.0-36.0); Mean Corpuscular Volume 87.8 fL (80.0-100.0); Mean Platelet Volume 11.8 fL (9.4-12.4); Platelet Count 214 K/uL (130-400); RDW Coefficient of Variation 14.1 % (11.5-14.5); RDW Standard Deviation 44.9 fL (36.4-46.3); White Blood Count 7.71 K/ul (4.8-10.8)
[2022-06-10 06:27] LABS: Albumin Globulin Ratio 1.1 (0.9-2); Albumin Level 2.7 gm/dl (3.4-5.0); BUN Creatinine Ratio 31.4 (10-20); Bilirubin,Total 0.7 mg/dl (0.2-1.0); Calcium 8.2 mg/dl (8.6-10.3); Creatinine Clr Calc Pharmacy 54.7 ml/min; Est GFR (African American) 67.8 ml/min; Est GFR (Non-African American) 58.5 ml/min; Globulin 2.5 gm/dl (2.5-4.0); Magnesium 2.9 mg/dl (1.7-2.4); Potassium 3.9 mmol/L (3.5-5.1); Total Protein 5.2 gm/dl (6.0-8.3)
[2022-06-10 06:32] LABS: Basophils # (auto) 0.03 K/uL (0-0.2); Basophils % (auto) 0.4 %; Echinocytes 2+; Immature Granulocytes # (auto) 0.03 K/uL (0.01-0.20); Immature Granulocytes % (auto) 0.4 %; Lymphocytes # (auto) 0.37 K/uL (1.2-3.4); Lymphocytes % (auto) 4.8 %; Monocytes # (auto) 0.27 K/uL (0.11-0.59); Monocytes % (auto) 3.5 %; Neutrophils # (auto) 7.01 K/uL (1.40-6.50); Neutrophils % (auto) 90.9 %; Toxic Vacuolation 1+
[2022-06-10 07:03] LABS: Estimated Average Glucose 154 mg/dl
[2022-06-10] MEDS: POTASSIUM CHLORIDE / WTR 10 MEQ/100 ML PLCT IV SCH ×4 (07:24→10:34)
--- NOTE | 2022-06-10 07:39 | XRay Report ---
XR chest 1V portable CLINICAL HISTORY: Postoperative hypoxia. COMPARISON STUDY: Chest radiograph January 04, 2015. FINDINGS: There is cardiomegaly with pulmonary vascular congestion. Mild elevation of the left hemidi aphragm is again noted. There is a trace left pleural effusion. There are minimal bibasilar opacities which favor atelectasis. No pneumothorax. IMPRESSION: 1. Cardiomegaly with pulmonary vascular congestion a trace left pleural effusion. 2. Bibasilar opacities which favor atelectasis. ACT 112: Negative or not required by law. Electronically signed by: Ronak Ferrell M.D. 06/10/2022 7:38 AM
--- NOTE | 2022-06-10 07:48 | Critical Care Progress Note ---
Date of Service June 10, 2022 Assessment & Plan (1) Hypomagnesemia: (2) Diabetes mellitus, type II: (3) Systemic inflammatory response syndrome (SIRS) due to infection: (4) Perforation of sigmoid colon due to diverticulitis: (5) Obtundation: (6) Postoperative hypoxia: (7) Hypertension: (8) Hyperlipidemia: (9) Anxiety: (10) Acute pain: Plan Reason Critically Ill: 62 YOF with past medical history of anxiety, HTN, HLD, DMII who is POD #1 HD#1 from exploratory laparotomy with colostomy placement in the setting of ruptured sigmoid colon presumed 2/2 diverticulitis. ICU consulted by PACU Anesthesia for obtundation and hypoxia. Status clinically improved on arrival to the ICU. Neuro -Obtundation, Anxiety, Acute Pain * CAM ICU: - Currently awake/conversant - Obtundation likely a/w delayed anesthesia emergence +/- narcosis in PACU (s/p jaw thrust and NPA) - May have higher risk for delirium- maintain normal sleep wake cycles, frequent re-orientations, lights off at night, attempt to minimize interruptions - No focal deficits appreciated - No sustained hypotensive/hypoxia events recorded * Anxiety- restart Duloxetine when possible (off NPO) * Pain Mgmt: MARINE SURVEYOR started this AM, PRN dosing, Narcan ordered Cardiac -SIRS,HTN, HLD * Noted to be SIRS + in setting of perforated bowel - Follow for organ dysfunction, monitor urine output (24 hr UO currently 676 mL) - Detailed further in ID - ARB held, follow renal function: Cr 1.02 (from 0.8), BUN 32 H, GFR 58.5 (from 71) * HTN - IV antihypertensives if needed, currently normotensive Respiratory -Postoperative hypoxia, previous smoker * Postoperative Hypoxia - Delayed emergence vs narcosis - Clinically improved and NPA removed - Wean O2 as tolerated, turned down to 3L NC at 0800 - Encouraged frequent incentive spirometry, educated patient on use - Consider BiPAP if needed * Smoking Hx: prior 1 PPD smoker GI -Sigmoid perforation, Colostomy, GERD * Sigmoid perforation/Colostomy placement - POD #1 - Drain managed by surgical team, intact and draining serosanguineous fluid - Colostomy intact w/o blood in the ostomy bag, stoma pink in color - Continue wound/ostomy care * NPO * No active bowel sounds, consider 2/2 to recent surgery, follow clinically * GERD - Continue PPI daily Renal/Electrolytes -KAIN, Hypomagnesemia * KAIN - Cr 1.02 (from 0.8), BUN 32 H, GFR 58.5 (from 71) - Patient hydrated with Normosol, currently 50 mL/hr - Continue to follow kidney function * Hypomagnesemia - Repleted - Continue ICU electrolyte protocol * Potassium replacement - No acute needs * Suero for accurate [facility] -DMII * DMII - Currently NPO - Insulin per ICU protocol (goal < 180 mg/Dl) HEME - No acute needs ID - Sigmoid Perforation 2/2 Diverticulitis * Sigmoid Perforation - Portillo stool noted in peritoneal cavity - Patient allergy to PCN - Currently receiving Ciprofloxacin/Flagyl coverage - Follow for acute development of sepsis/shock - Would consider antifungal if clinical picture deteriorated - Cultures pending Lines/ IVs: PIV/Suero (continue use) DVT Ppx: COVID: Negative Code Status: Full Primary: General Surgery Consultations: Medicine Disposition: ICU, respiratory support, hemodynamic monitoring Thank you for allowing us to participate in the care of this patient. Please refer to my attending physician's documentation for any further recommendations. Admission and Anticipated Discharge Date Admission Date: June 09, 2022 Supervising Physician Co-Signing Physician Notes Dr. Campbell was the resident-physician during care of patient. I separately evaluated patient for lopez portions of the history and the exam. I was present during the critical portion of medical decision making, and I discussed the case with the resident. I generally agree with the findings and plan except for any additions/exceptions noted. Patient seen and examined at bedside. No acute distress, no adverse events overnight Patient saturation was 93-94% on 3 L I went down to 2 L. She did complain of abdominal pain. She has been using incentive spirometry She was smoking prior to the procedure. Denies any chest pain, no shortness of breath No headache, no blurry vision No flatulence Constitutional: No acute distress HEENT: EOMI, PERRLA Respiratory system: Decreased air entry bilaterally, no wheeze, no rhonchi, positive mild crackles bilateral lower lobes CVS: S1-S2 positive, no murmurs or gallops Abdomen: Soft, nontender, nondistended, deep least bowel sounds x4, positive colostomy, JENNI drain in place Extremities: +2 pulses bilaterally radialis/ dorsalis pedis, no cyanosis, no edema Neuro: Awake alert oriented x3 Psych: Normal mood and affect G/U: Positive Suero --Prophylaxis VTE: Lovenox GI: Pantoprazole Lines: Peripheral Diet: N.p.o. Plan: In/out: Positive for liters, urine output and 46 Go down on IV fluids to 50 mL/h. Continue with incentive spirometry Continue with Cipro and Flagyl for perforated bowel. Kalemia being replaced Keep O2 saturation between 90-92%. Can use BiPAP nightly and as needed shortness of breath Patient hemodynamically stable to be downgrade to medical floor Please note the above document was generated using voice recognition software. It may contain grammatical, syntax or spelling errors.Any formal questions or concerns about the content, text or information contained within the body of this dictation should be directly addressed to the provider for clarification. Subjective 62F with past medical history of anxiety, HTN, HLD, DMII who is POD #1 HD#1 from exploratory laparotomy with colostomy placement in the setting of ruptured sigmoid colon presumed 2/2 diverticulitis. ICU consulted by PACU Anesthesia for obtundation and hypoxia. Today, patient notes that she is feeling okay. She started experiencing pain this morning around 6:30 and her MARINE SURVEYOR pump was started, which has since helped her pain. She denies any fevers or chills, chest pain or pleuritic pain. She endorses using her incentive spirometer and states she does not feel dyspneic. Reviewed spirometry goals and patient demonstrated understanding. Medications: Reviewed Allergies: Reviewed Review of Systems Review of Systems: As per HPI Physical Exam Physical Exam: General: Awake, responds to questions and commands, slow to speak, flat affect Head: NCAT Neuro: Moving all extremities symmetrically, following commands Chest: Non-labored, bilateral crackles, no wheezing, oxygenating at 91% on 4L NC Cardiac: RRR, normal S1/S2, no MRG Extremities: Capillary refill < 3 s, 2+ peripheral pulses, no LE edema GI: JENNI drain intact, draining serosanguinous fluid, colostomy intact w/ non-bloo dy drainage, hypoactive bowel sounds throughout : Suero intact Skin: No rash or erythema, no erythema/purulence at surgical sites Results & Data Results & Data Vital Signs (Past 12 Hours) Vital Signs Temp Pulse Resp BP Pulse Ox O2 Del Method O2 Flow Rate 06/10/22 06:00 78 20 96 06/10/22 06:00 114/50 L 06/10/22 05:00 84 22 99/54 L 96 06/10/22 04:00 36.7 C 85 20 95/52 L 94 Nasal Cannula 3 06/10/22 03:03 85 22 92/61 L 95 Nasal Cannula 3 06/10/22 02:00 85 19 101/53 L 96 Nasal Cannula 3 06/10/22 01:04 82 20 99/51 L 92 Nasal Cannula 3 06/10/22 00:00 36.9 C 86 25 H 101/55 L 94 Nasal Cannula 06/09/22 23:00 88 19 103/61 96 Nasal Cannula 06/10/22 00:00 81 06/09/22 22:30 89 20 95 Nasal Cannula 2 06/09/22 22:00 91 H 18 111/57 L 94 3 06/09/22 21:30 82 17 94 Nasal Cannula 3 06/09/22 21:00 92 H 20 123/88 95 3 06/09/22 20:30 93 H 18 95 4 06/09/22 20:13 37.4 C 97 H 19 129/70 96 06/09/22 20:00 103 H 06/09/22 20:00 Nasal Cannula 4 FiO2 06/10/22 06:00 06/10/22 06:00 06/10/22 05:00 06/10/22 04:00 06/10/22 03:03 06/10/22 02:00 06/10/22 01:04 06/10/22 00:00 3 06/09/22 23:00 3 06/10/22 00:00 06/09/22 22:30 06/09/22 22:00 06/09/22 21:30 06/09/22 21:00 06/09/22 20:30 06/09/22 20:13 06/09/22 20:00 06/09/22 20:00 Diagnostic Findings Abdomen/Pelvis CT 06/09/22 11:06 CT abd pelvis IV con only CLINICAL HISTORY: mid abd pain TECHNIQUE: Helical axial images of the abdomen and pelvis were obtained and displayed. Automated dose lowering techniques and/or adjustment according to patient size were utilized for this exam. This exam was performed with intra venous contrast. CT DOSE: 534.52 mGy.cm COMPARISON: None available at the time of this dictation. FINDINGS: Lower chest: Bibasilar atelectasis versus scarring is seen. Liver: Unremarkable. No focal lesions are seen. Gallbladder and biliary tree: Patient is status post cholecystectomy. No intra- or extrahepatic biliary ductal dilation. Pancreas: The pancreas is atrophic. Spleen: Unremarkable. 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 Kidneys and ureters: Unremarkable. Bladder: Limited evaluation due to underdistention. Reproductive organs: Bilateral tubal ligation clips are noted. Bowel: Bowel wall thickening is noted in the sigmoid with numerous diverticula. There is a rim-enhancing lesion containing stool and air between the uterus and rectum discontinuity of the rectal wall, suggestive of a contained bowel perforation. Patient is status post appendectomy. Lymph nodes Retroperitoneal: Unremarkable. Pelvic: Unremarkable. Mesenteric: Unremarkable. Peritoneum: A small amount of free fluid is seen. A few locules of free air are noted as well. Vessels: Atherosclerotic calcifications are seen. Abdominal wall: Unremarkable. Bones: Degenerative changes in the visualized spine. IMPRESSION: Perforation of the sigmoid colon, likely due to sigmoid diverticulitis. There is an abscess containing stool and air as well as some some uncontained pneumoperitoneum. Mild peritoneal fluid is seen. Chest X-Ray 06/09/22 19:39 XR chest 1V portable CLINICAL HISTORY: Postoperative hypoxia. COMPARISON STUDY: Chest radiograph January 04, 2015. FINDINGS: There is cardiomegaly with pulmonary vascular congestion. Mild elevation of the left hemidiaphragm is again noted. There is a trace left pleural effusion. There are minimal bibasilar opacities which favor atelectasis. No pneumothorax. IMPRESSION: 1. Cardiomegaly with pulmonary vascular congestion a trace left pleural effusion. 2. Bibasilar opacities which favor atelectasis. Resident Activity Tracking Resident Involvement: Resident Care Provided Care Provided: Adult [facility] Medicine
[2022-06-10] MEDS: ICU Protocol for HYPERglycemia SCH ×2 (08:28→12:48)
[2022-06-10] MEDS: ENOXAPARIN INJ 40 MG/0.4 ML SYR SQ SCH (08:29)
--- NOTE | 2022-06-10 08:33 | Billing Data ---
Date of Service June 10, 2022 Coding Level of Care Code 08504 SUB INP/OBS CARE MIN
[2022-06-10] MEDS: PANTOprazole 40 MG in SYRINGE 0 ML IV SCH (10:34)
--- NOTE | 2022-06-10 12:41 | Surgery Progress Note ---
Date of Service June 10, 2022 Assessment & Plan (1) Perforation of sigmoid colon due to diverticulitis: (2) Systemic inflammatory response syndrome (SIRS) due to infection: (3) Peritonitis: Plan: Feculent peritonitis secondary to perforated sigmoid diverticulitis (4) Pulmonary insufficiency following surgery: Plan: resolved hemodynamically stable now on 2-3 liters of oxygen via nasal cannula Plan POD # 1 s/p ex lap, Hartmans with end colostomy -avss - hemodynamically stable - postop pain moderate, controlled with Morphine CUSTOMER ENGAGEMENT ANALYST - no n,v - leukcoytosis resolved - drain with serosangunieous output Plan: Okay for downgrade out of ICU to pcu/telemetry Continue Morhpine CUSTOMER ENGAGEMENT ANALYST as needed for pain Clear liquids aditi drain to suction IV fluids IV cipro/flagyl Continue Suero for today Highly encouraged oob to chair today Lovenox and scds for DVT prophylaxis repeat am labs appreciate ICU and hospitalist assistance Dr. Cedillo has seen and examined pt, agrees with above. Admission and Anticipated Discharge Date Admission Date: June 09, 2022 Subjective feeling okay moderate postop pain no n,v no chest pain or shortness of breath per nurse using CUSTOMER ENGAGEMENT ANALYST for pain management on 2-3 liters oxygen via nasal cannula okay for downgrade out of ICU from olericulturist Physical Exam Constitutional: + obese, cooperative and + lethargic; no acute distress Neck: normal visual inspection and trachea midline Respiratory: no labored breathing and no retractions Auscultation: + diminished lung sounds; no crackles, no rales, no rhonchi and no wheezes Cardiovascular: Rate/Rhythm: regular rate and regular rhythm Heart Sounds: normal S1 and normal S2 Gastrointestinal (Abdomen): Inspection/Auscultation: abdomen normal to i nspection, + abdominal surgical incision (midline incision covered with clean/dry/dressing) and + abdominal surgical drain present (serosanguineous drainage); abdomen not distended Percussion/Palpation: + abdomen tender (generalized tenderness) and abdomen soft; no guarding, abdomen not rigid and abdomen not firm Colostomy which is pink : serosanguineous drainage out of ostomy, no stool Skin: no rashes, warm and dry Psychiatric: Orientation: alert and oriented x 3 Mood: + irritable mood Results & Data Vital Signs (Past 12 Hours) Vital Signs Temp Pulse Resp BP Pulse Ox O2 Del Method O2 Flow Rate 03/23/23 08:00 Nasal Cannula 3 06/10/22 10:30 81 20 92 06/10/22 10:30 128/61 06/10/22 10:01 84 24 93 06/10/22 10:01 105/78 06/10/22 10:00 82 18 94 06/10/22 09:45 119/66 06/10/22 09:45 82 22 94 06/10/22 09:30 115/70 06/10/22 09:30 80 19 94 06/10/22 09:15 80 22 93 06/10/22 09:15 120/66 06/10/22 09:00 79 22 93 06/10/22 09:00 129/72 06/10/22 08:45 120/63 06/10/22 08:45 77 21 92 06/10/22 08:31 109/52 L 06/10/22 08:31 78 22 93 Nasal Cannula 3 06/10/22 08:15 122/67 06/10/22 08:15 79 22 91 06/10/22 08:00 77 27 H 93 06/10/22 08:00 106/54 L 06/10/22 07:45 76 21 93 06/10/22 07:45 110/66 06/10/22 07:00 73 18 93 Nasal Cannula 4 06/10/22 07:00 105/55 L 06/10/22 06:00 78 20 96 06/10/22 06:00 114/50 L 06/10/22 05:00 84 22 99/54 L 96 06/10/22 04:00 36.7 C 85 20 95/52 L 94 Nasal Cannula 3 06/10/22 03:03 85 22 92/61 L 95 Nasal Cannula 3 06/10/22 02:00 85 19 101/53 L 96 Nasal Cannula 3 06/10/22 01:04 82 20 99/51 L 92 Nasal Cannula 3 Laboratory Results 06/10/22 06/10/22 06/10/22 Range/Units 08:27 05:48 05:48 WBC (4.8-10.8) K/ul RBC (4.20-5.40) M/uL Hgb (12.0-16.0) g/dl Hct (37.0-47.0) % MCV (80.0-100.0) fL MCH (25.0-34.0) pg MCHC (32.0-36.0) g/dL RDW Std Deviation (36.4-46.3) fL RDW Coeff of Javier (11.5-14.5) % Plt Count (130-400) K/uL MPV (9.4-12.4) fL Immature Gran % (Auto) % Neut % (Auto) % Lymph % (Auto) % [place] % (Auto) % Eos % (Auto) % Baso % (Auto) % Neut # (Auto) (1.40-6.50) K/uL Lymph # (Auto) (1.2-3.4) K/uL [place] # (Auto) (0.11-0.59) K/uL Eos # (Auto) (0-0.50) K/uL Baso # (Auto) (0-0.2) K/uL Immature Gran # (Auto) (0.01-0.20) K/uL Toxic Vacuolation Echinocytes Sodium 137 (136-145) mmol/L Potassium 3.9 (3.5-5.1) mmol/L Chloride 101 (98-107) mmol/L Carbon Dioxide 29 (21-32) mmol/L Anion Gap 7 (3-11) BUN 32 H (6-23) mg/dl Creatinine 1.02 (0.6-1.2) mg/dl Est Cr Clr Drug Dosing 54.7 ml/min Est GFR ( Amer) 67.8 ml/min Est GFR (Non-Af Amer) 58.5 ml/min BUN/Creatinine Ratio 31.4 H (10-20) Glucose 150 H (70-99(Fasting)) mg/dl POC Glucose 151 H (70-99) mg/dl Estimat Average Glucose 154 mg/dl Hemoglobin A1c 7.0 H (4.5-5.6) % Lactate (0.4-2.0) mmol/L Calcium 8.2 L (8.6-10.3) mg/dl Phosphorus 4.0 (2.5-4.9) mg/dl Magnesium 2.9 H (1.7-2.4) mg/dl Total Bilirubin 0.7 D (0.2-1.0) mg/dl AST 15 (13-39) U/L ALT 12 (7-52) U/L Alkaline Phosphatase 53 (34-104) U/L Total Protein 5.2 L D (6.0-8.3) gm/dl Albumin 2.7 L (3.4-5.0) gm/dl Globulin 2.5 (2.5-4.0) gm/dl Albumin/Globulin Ratio 1.1 (0.9-2) Procalcitonin (0-0.5) ng/ml Nasal Screen MRSA (PCR) (Negative) SARS-CoV-2, RNA, NAAT (NEGATIVE) 06/10/22 06/10/22 06/09/22 Range/Units 05:48 05:29 23:58 WBC 7.71 (4.8-10.8) K/ul RBC 4.50 (4.20-5.40) M/uL Hgb 13.3 (12.0-16.0) g/dl Hct 39.5 (37.0-47.0) % MCV 87.8 (80.0-100.0) fL MCH 29.6 (25.0-34.0) pg MCHC 33.7 (32.0-36.0) g/dL RDW Std Deviation 44.9 (36.4-46.3) fL RDW Coeff of Javier 14.1 (11.5-14.5) % Plt Count 214 (130-400) K/uL MPV 11.8 (9.4-12.4) fL Immature Gran % (Auto) 0.4 % Neut % (Auto) 90.9 % Lymph % (Auto) 4.8 % [place] % (Auto) 3.5 % Eos % (Auto) 0.0 % Baso % (Auto) 0.4 % Neut # (Auto) 7.01 H (1.40-6.50) K/uL Lymph # (Auto) 0.37 L (1.2-3.4) K/uL [place] # (Auto) 0.27 (0.11-0.59) K/uL Eos # (Auto) 0.00 (0-0.50) K/uL Baso # (Auto) 0.03 (0-0.2) K/uL Immature Gran # (Auto) 0.03 (0.01-0.20) K/uL Toxic Vacuolation 1+ Echinocytes 2+ Sodium (136-145) mmol/L Potassium (3.5-5.1) mmol/L Chloride (98-107) mmol/L Carbon Dioxide (21-32) mmol/L Anion Gap (3-11) BUN (6-23) mg/dl Creatinine (0.6-1.2) mg/dl Est Cr Clr Drug Dosing ml/min Est GFR ( Amer) ml/min Est GFR (Non-Af Amer) ml/min BUN/Creatinine Ratio (10-20) Glucose (70-99(Fasting)) mg/dl POC Glucose 138 H 245 H (70-99) mg/dl Estimat Average Glucose mg/dl Hemoglobin A1c (4.5-5.6) % Lactate (0.4-2.0) mmol/L Calcium (8.6-10.3) mg/dl Phosphorus (2.5-4.9) mg/dl Magnesium (1.7-2.4) mg/dl Total Bilirubin (0.2-1.0) mg/dl AST (13-39) U/L ALT (7-52) U/L Alkaline Phosphatase (34-104) U/L Total Protein (6.0-8.3) gm/dl Albumin (3.4-5.0) gm/dl Globulin (2.5-4.0) gm/dl Albumin/Globulin Ratio (0.9-2) Procalcitonin (0-0.5) ng/ml Nasal Screen MRSA (PCR) (Negative) SARS-CoV-2, RNA, NAAT (NEGATIVE) 06/09/22 06/09/22 06/09/22 Range/Units 20:02 20:02 20:02 WBC 10.69 (4.8-10.8) K/ul RBC 5.18 (4.20-5.40) M/uL Hgb 15.4 (12.0-16.0) g/dl Hct 45.5 (37.0-47.0) % MCV 87.8 (80.0-100.0) fL MCH 29.7 (25.0-34.0) pg MCHC 33.8 (32.0-36.0) g/dL RDW Std Deviation 46.0 (36.4-46.3) fL RDW Coeff of Javier 14.3 (11.5-14.5) % Plt Count 235 (130-400) K/uL MPV 12.1 (9.4-12.4) fL Immature Gran % (Auto) 0.7 % Neut % (Auto) 92.8 % Lymph % (Auto) 2.4 % [place] % (Auto) 2.6 % Eos % (Auto) 0.6 % Baso % (Auto) 0.9 % Neut # (Auto) 9.91 H (1.40-6.50) K/uL Lymph # (Auto) 0.26 L (1.2-3.4) K/uL [place] # (Auto) 0.28 (0.11-0.59) K/uL Eos # (Auto) 0.06 (0-0.50) K/uL Baso # (Auto) 0.10 (0-0.2) K/uL Immature Gran # (Auto) 0.08 (0.01-0.20) K/uL Toxic Vacuolation 1+ Echinocytes 2+ Sodium 137 (136-145) mmol/L Potassium 4.1 (3.5-5.1) mmol/L Chloride 104 (98-107) mmol/L Carbon Dioxide 25 (21-32) mmol/L Anion Gap 8 (3-11) BUN 28 H (6-23) mg/dl Creatinine 0.86 (0.6-1.2) mg/dl Est Cr Clr Drug Dosing 64.8 ml/min Est GFR ( Amer) 83.3 ml/min Est GFR (Non-Af Amer) 71.9 ml/min BUN/Creatinine Ratio 32.6 H (10-20) Glucose 198 H (70-99(Fasting)) mg/dl POC Glucose (70-99) mg/dl Estimat Average Glucose mg/dl Hemoglobin A1c (4.5-5.6) % Lactate 1.7 (0.4-2.0) mmol/L Calcium 8.6 (8.6-10.3) mg/dl Phosphorus (2.5-4.9) mg/dl Magnesium (1.7-2.4) mg/dl Total Bilirubin (0.2-1.0) mg/dl AST (13-39) U/L ALT (7-52) U/L Alkaline Phosphatase (34-104) U/L Total Protein (6.0-8.3) gm/dl Albumin (3.4-5.0) gm/dl Globulin (2.5-4.0) gm/dl Albumin/Globulin Ratio (0.9-2) Procalcitonin (0-0.5) ng/ml Nasal Screen MRSA (PCR) (Negative) SARS-CoV-2, RNA, NAAT (NEGATIVE) 06/09/22 06/09/22 06/09/22 Range/Units 20:00 19:30 17:14 WBC (4.8-10.8) K/ul RBC (4.20-5.40) M/uL Hgb (12.0-16.0) g/dl Hct (37.0-47.0) % MCV (80.0-100.0) fL MCH (25.0-34.0) pg MCHC (32.0-36.0) g/dL RDW Std Deviation (36.4-46.3) fL RDW Coeff of Javier (11.5-14.5) % Plt Count (130-400) K/uL MPV (9.4-12.4) fL Immature Gran % (Auto) % Neut % (Auto) % Lymph % (Auto) % [place] % (Auto) % Eos % (Auto) % Baso % (Auto) % Neut # (Auto) (1.40-6.50) K/uL Lymph # (Auto) (1.2-3.4) K/uL [place] # (Auto) (0.11-0.59) K/uL Eos # (Auto) (0-0.50) K/uL Baso # (Auto) (0-0.2) K/uL Immature Gran # (Auto) (0.01-0.20) K/uL Toxic Vacuolation Echinocytes Sodium (136-145) mmol/L Potassium (3.5-5.1) mmol/L Chloride (98-107) mmol/L Carbon Dioxide (21-32) mmol/L Anion Gap (3-11) BUN (6-23) mg/dl Creatinine (0.6-1.2) mg/dl Est Cr Clr Drug Dosing ml/min Est GFR ( Amer) ml/min Est GFR (Non-Af Amer) ml/min BUN/Creatinine Ratio (10-20) Glucose (70-99(Fasting)) mg/dl POC Glucose 186 H 124 H (70-99) mg/dl Estimat Average Glucose mg/dl Hemoglobin A1c (4.5-5.6) % Lactate (0.4-2.0) mmol/L Calcium (8.6-10.3) mg/dl Phosphorus (2.5-4.9) mg/dl Magnesium (1.7-2.4) mg/dl Total Bilirubin (0.2-1.0) mg/dl AST (13-39) U/L ALT (7-52) U/L Alkaline Phosphatase (34-104) U/L Total Protein (6.0-8.3) gm/dl Albumin (3.4-5.0) gm/dl Globulin (2.5-4.0) gm/dl Albumin/Globulin Ratio (0.9-2) Procalcitonin (0-0.5) ng/ml Nasal Screen MRSA (PCR) Negative (Negative) SARS-CoV-2, RNA, NAAT (NEGATIVE) 06/09/22 06/09/22 Range/Units 13:39 11:13 WBC (4.8-10.8) K/ul RBC (4.20-5.40) M/uL Hgb (12.0-16.0) g/dl Hct (37.0-47.0) % MCV (80.0-100.0) fL MCH (25.0-34.0) pg MCHC (32.0-36.0) g/dL RDW Std Deviation (36.4-46.3) fL RDW Coeff of Javier (11.5-14.5) % Plt Count (130-400) K/uL MPV (9.4-12.4) fL Immature Gran % (Auto) % Neut % (Auto) % Lymph % (Auto) % [place] % (Auto) % Eos % (Auto) % Baso % (Auto) % Neut # (Auto) (1.40-6.50) K/uL Lymph # (Auto) (1.2-3.4) K/uL [place] # (Auto) (0.11-0.59) K/uL Eos # (Auto) (0-0.50) K/uL Baso # (Auto) (0-0.2) K/uL Immature Gran # (Auto) (0.01-0.20) K/uL Toxic Vacuolation Echinocytes Sodium (136-145) mmol/L Potassium (3.5-5.1) mmol/L Chloride (98-107) mmol/L Carbon Dioxide (21-32) mmol/L Anion Gap (3-11) BUN (6-23) mg/dl Creatinine (0.6-1.2) mg/dl Est Cr Clr Drug Dosing ml/min Est GFR ( Amer) ml/min Est GFR (Non-Af Amer) ml/min BUN/Creatinine Ratio (10-20) Glucose (70-99(Fasting)) mg/dl POC Glucose (70-99) mg/dl Estimat Average Glucose mg/dl Hemoglobin A1c (4.5-5.6) % Lactate (0.4-2.0) mmol/L Calcium (8.6-10.3) mg/dl Phosphorus (2.5-4.9) mg/dl Magnesium (1.7-2.4) mg/dl Total Bilirubin (0.2-1.0) mg/dl AST (13-39) U/L ALT (7-52) U/L Alkaline Phosphatase (34-104) U/L Total Protein (6.0-8.3) gm/dl Albumin (3.4-5.0) gm/dl Globulin (2.5-4.0) gm/dl Albumin/Globulin Ratio (0.9-2) Procalcitonin 14.32 H (0-0.5) ng/ml Nasal Screen MRSA (PCR) (Negative) SARS-CoV-2, RNA, NAAT NEGATIVE (NEGATIVE)
--- NOTE | 2022-06-10 13:53 | Hospitalist Progress Note ---
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 She is being managed for the following: Perforation of sigmoid colon due to diverticulitis: Sepsis POA: Feculent peritonitis 2/2 perforated sigmoid diverticulitis: In ER noted to be febrile, tachycardic, leukocytosis, elevated procalcitonin Admitting CTAP w/ Perforation of the sigmoid colon, likely due to sigmoid diverticulitis. There is an abscess containing stool and air as well as some some uncontained pneumoperitoneum. Mild peritoneal fluid is seen. S/P exploratory laparotomy, sigmoid resection, colostomy placement 06/09/[address] Cedillo Being managed per Sx. on iv atb, pain mx, drain mx, IVF. c/w iv antibiotic. Diabetes mellitus, type II: Hold home medicines, a1c 7.0; SSI while in hospital. Hypomagnesemia: Admitting Magnesium: 1.5. Replace and monitor Hypertension: home valsartan, HCTZ on d/t low BP, resume as BP improves consistently. Hyperlipidemia: resume home statin when started/tolerating po diet. DVT Px: Enoxaparin. Admission and Anticipated Discharge Date Admission Date: June 09, 2022 Subjective Pt seen and examined at bedside as a f/u of medical Mx for s/p ex. lap/sigmoid resection/colostomy placement 06/09/[address] Cedillo for Perforation of sigmoid colon due to diverticulitis. 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 Pt has been afebrile last several hours. Per RN, pt is doing fairly ok after pain meds have been started, 40 ml SS output via JENNI drain since AM. Physical Exam Physical Exam: GENERAL: Alert and oriented x3. NAD, on 3L NC O2. HEENT: No pallor, no icterus. Pupils equal, round and reactive to light. Oral mucosa moist. NECK: No JVD, no neck masses. HEART: S1 and S2 heard. Regular rate and rhythm. No murmur, no gallop. RESPIRATORY SYSTEM: Normal AP diameter. No accessory muscle use. No wheezing, no crackles. ABDOMEN: Soft, bowel sounds present, no distention. Clean dressing - no soakage. JENNI drain - minimal serosanguinous collection noted. Colostomy in place. CENTRAL NERVOUS SYSTEM: No facial droop. Speech is clear. Obeys simple commands. Moves extremities. EXTREMITIES: No edema, no erythema seen. Results & Data Results & Data Vital Signs (Past 12 Hours) Vital Signs Temp Pulse Resp BP Pulse Ox O2 Del Method O2 Flow Rate 06/10/22 08:00 Nasal Cannula 3 06/10/22 10:30 81 20 92 06/10/22 10:30 128/61 06/10/22 10:01 84 24 93 06/10/22 10:01 105/78 06/10/22 10:00 82 18 94 06/10/22 09:45 119/66 06/10/22 09:45 82 22 94 06/10/22 09:30 115/70 06/10/22 09:30 80 19 94 06/10/22 09:15 80 22 93 06/10/22 09:15 120/66 06/10/22 09:00 79 22 93 06/10/22 09:00 129/72 06/10/22 08:45 120/63 06/10/22 08:45 77 21 92 06/10/22 08:31 109/52 L 06/10/22 08:31 78 22 93 Nasal Cannula 3 06/10/22 08:15 122/67 06/10/22 08:15 79 22 91 06/10/22 08:00 77 27 H 93 06/10/22 08:00 106/54 L 06/10/22 07:45 76 21 93 06/10/22 07:45 110/66 06/10/22 07:00 73 18 93 Nasal Cannula 4 06/10/22 07:00 105/55 L 06/10/22 06:00 78 20 96 06/10/22 06:00 114/50 L 06/10/22 05:00 84 22 99/54 L 96 06/10/22 04:00 36.7 C 85 20 95/52 L 94 Nasal Cannula 3 06/10/22 03:03 85 22 92/61 L 95 Nasal Cannula 3 06/10/22 02:00 85 19 101/53 L 96 Nasal Cannula 3
[2022-06-11] MEDS: INSULIN ASPART PER UNIT CHARGE SC SCH ×5 (00:54→20:56)
[2022-06-11] MEDS: metroNIDAZOLE 500 MG/100 ML BAG IV SCH ×3 (04:43→20:58)
[2022-06-11] MEDS: CIPROFLOXACIN / D5W 400 MG/200 ML BAG IV SCH ×3 (04:43→20:57)
[2022-06-11 06:09] LABS: Basophils # (auto) 0.02 K/uL (0-0.2); Basophils % (auto) 0.2 %; Eosinophils # (auto) 0.09 K/uL (0-0.50); Hematocrit (blood only) 35.6 % (37.0-47.0); Hemoglobin 11.8 g/dl (12.0-16.0); Immature Granulocytes # (auto) 0.04 K/uL (0.01-0.20); Immature Granulocytes % (auto) 0.5 %; Lymphocytes # (auto) 0.38 K/uL (1.2-3.4); Lymphocytes % (auto) 4.4 %; Mean Corpuscular Hemoglobin 29.8 pg (25.0-34.0); Mean Corpuscular Hgb Conc 33.1 g/dL (32.0-36.0); Mean Corpuscular Volume 89.9 fL (80.0-100.0); Mean Platelet Volume 12.3 fL (9.4-12.4); Monocytes # (auto) 0.35 K/uL (0.11-0.59); Neutrophils # (auto) 7.82 K/uL (1.40-6.50); Neutrophils % (auto) 89.9 %; Platelet Count 190 K/uL (130-400); RDW Coefficient of Variation 14.4 % (11.5-14.5); RDW Standard Deviation 47.4 fL (36.4-46.3); Red Blood Count 3.96 M/uL (4.20-5.40)
[2022-06-11 06:29] LABS: Albumin Globulin Ratio 1.1 (0.9-2); Albumin Level 2.7 gm/dl (3.4-5.0); BUN Creatinine Ratio 30.6 (10-20); Bilirubin,Total 0.4 mg/dl (0.2-1.0); Calcium 8.1 mg/dl (8.6-10.3); Creatinine Clr Calc Pharmacy 90.1 ml/min; Est GFR (African American) 111.2 ml/min; Globulin 2.5 gm/dl (2.5-4.0); Phosphorus 2.7 mg/dl (2.5-4.9); Potassium 4.5 mmol/L (3.5-5.1); Total Protein 5.2 gm/dl (6.0-8.3)
[2022-06-11] MEDS: DULoxetine HCL 60 MG CAP PO SCH (09:37)
[2022-06-11] MEDS: ENOXAPARIN INJ 40 MG/0.4 ML SYR SQ SCH ×2 (09:37→09:56)
[2022-06-11] MEDS: VALSARTAN 80 MG TAB PO SCH (09:37)
[2022-06-11] MEDS: PREGABALIN 150 MG CAP PO SCH (09:39)
[2022-06-11] MEDS ORDERED: oxyCODONE/ACETAMINOPHEN 5mg/325mg TAB PO PRN ×2 (09:41)
--- NOTE | 2022-06-11 09:51 | Surgery Progress Note ---
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 Taveras covering this weekend Dr. Cedillo has seen and examined pt, agrees with above. Admission and Anticipated Discharge Date Admission Date: June 09, 2022 Subjective feeling okay today pain controlled no n,v tolerated clear liquids this morning ostomy bag changed this morning but not any stool output yet has been OOB to chair no chest pain or shortness of breath Physical Exam Constitutional: WD/WN, vitals as above no acute distress and not ill appearing Neck: normal visual inspection and trachea midline Respiratory: normal respiratory effort; no respiratory distress Gastrointestinal (Abdomen): Inspection/Auscultation: abdomen normal to inspection, + abdominal surgical incision (clean/dry/intact with nahum and antonio drain) and + abdominal surgical drain present (serosanguineous drainage); abdomen not distended Percussion/Palpation: + abdomen tender (generalized and at midline incision) and abdomen soft; no guarding and abdomen not rigid LLQ colostomy beefy red without any drainage in bag currently (just changed) Skin: no rashes, warm and dry Psychiatric: Orientation: alert and oriented x 3 Results & Data Vital Signs (Past 12 Hours) Vital Signs Temp Pulse Resp BP Pulse Ox O2 Del Method O2 Flow Rate 06/11/22 08:55 Nasal Cannula 2 06/11/22 08:00 65 06/11/22 06:00 65 18 95 06/11/22 06:00 127/69 06/11/22 05:00 76 18 95 06/11/22 04:00 74 14 91 06/11/22 04:00 100/62 06/11/22 00:00 68 06/11/22 03:00 76 14 95 06/11/22 02:00 74 16 95 06/11/22 02:00 110/60 06/11/22 01:00 70 16 87 L 06/11/22 00:00 80 21 94 06/10/22 23:00 78 18 95 06/11/22 03:49 37.3 C 06/10/22 23:15 37.1 C 06/10/22 22:00 70 16 94 06/10/22 22:00 107/63 Laboratory Results 06/11/22 06/11/22 06/11/22 Range/Units 06:25 05:34 05:34 WBC 8.70 (4.8-10.8) K/ul RBC 3.96 L (4.20-5.40) M/uL Hgb 11.8 L (12.0-16.0) g/dl Hct 35.6 L (37.0-47.0) % MCV 89.9 (80.0-100.0) fL MCH 29.8 (25.0-34.0) pg MCHC 33.1 (32.0-36.0) g/dL RDW Std Deviation 47.4 H (36.4-46.3) fL RDW Coeff of Javier 14.4 (11.5-14.5) % Plt Count 190 (130-400) K/uL MPV 12.3 (9.4-12.4) fL Immature Gran % (Auto) 0.5 % Neut % (Auto) 89.9 % Lymph % (Auto) 4.4 % [place] % (Auto) 4.0 % Eos % (Auto) 1.0 % Baso % (Auto) 0.2 % Neut # (Auto) 7.82 H (1.40-6.50) K/uL Lymph # (Auto) 0.38 L (1.2-3.4) K/uL [place] # (Auto) 0.35 (0.11-0.59) K/uL Eos # (Auto) 0.09 (0-0.50) K/uL Baso # (Auto) 0.02 (0-0.2) K/uL Immature Gran # (Auto) 0.04 (0.01-0.20) K/uL Sodium 135 L (136-145) mmol/L Potassium 4.5 (3.5-5.1) mmol/L Chloride 102 (98-107) mmol/L Carbon Dioxide 28 (21-32) mmol/L Anion Gap 5 (3-11) BUN 19 (6-23) mg/dl Creatinine 0.62 D (0.6-1.2) mg/dl Est Cr Clr Drug Dosing 90.1 ml/min Est GFR ( Amer) 111.2 ml/min Est GFR (Non-Af Amer) 96.0 ml/min BUN/Creatinine Ratio 30.6 H (10-20) Glucose 137 H (70-99(Fasting)) mg/dl POC Glucose 134 H (70-99) mg/dl Calcium 8.1 L (8.6-10.3) mg/dl Phosphorus 2.7 D (2.5-4.9) mg/dl Magnesium 2.0 (1.7-2.4) mg/dl Total Bilirubin 0.4 (0.2-1.0) mg/dl AST 16 (13-39) U/L ALT 10 (7-52) U/L Alkaline Phosphatase 49 (34-104) U/L Total Protein 5.2 L (6.0-8.3) gm/dl Albumin 2.7 L (3.4-5.0) gm/dl Globulin 2.5 (2.5-4.0) gm/dl Albumin/Globulin Ratio 1.1 (0.9-2) 06/10/22 06/10/22 06/10/22 Range/Units 23:39 20:17 13:48 WBC (4.8-10.8) K/ul RBC (4.20-5.40) M/uL Hgb (12.0-16.0) g/dl Hct (37.0-47.0) % MCV (80.0-100.0) fL MCH (25.0-34.0) pg MCHC (32.0-36.0) g/dL RDW Std Deviation (36.4-46.3) fL RDW Coeff of Javier (11.5-14.5) % Plt Count (130-400) K/uL MPV (9.4-12.4) fL Immature Gran % (Auto) % Neut % (Auto) % Lymph % (Auto) % [place] % (Auto) % Eos % (Auto) % Baso % (Auto) % Neut # (Auto) (1.40-6.50) K/uL Lymph # (Auto) (1.2-3.4) K/uL [place] # (Auto) (0.11-0.59) K/uL Eos # (Auto) (0-0.50) K/uL Baso # (Auto) (0-0.2) K/uL Immature Gran # (Auto) (0.01-0.20) K/uL Sodium (136-145) mmol/L Potassium (3.5-5.1) mmol/L Chloride (98-107) mmol/L Carbon Dioxide (21-32) mmol/L Anion Gap (3-11) BUN (6-23) mg/dl Creatinine (0.6-1.2) mg/dl Est Cr Clr Drug Dosing ml/min Est GFR ( Amer) ml/min Est GFR (Non-Af Amer) ml/min BUN/Creatinine Ratio (10-20) Glucose (70-99(Fasting)) mg/dl POC Glucose 142 H 149 H 160 H (70-99) mg/dl Calcium (8.6-10.3) mg/dl Phosphorus (2.5-4.9) mg/dl Magnesium (1.7-2.4) mg/dl Total Bilirubin (0.2-1.0) mg/dl AST (13-39) U/L ALT (7-52) U/L Alkaline Phosphatase (34-104) U/L Total Protein (6.0-8.3) gm/dl Albumin (3.4-5.0) gm/dl Globulin (2.5-4.0) gm/dl Albumin/Globulin Ratio (0.9-2)
[2022-06-11] MEDS ORDERED: Nursing to Pharmacy Communication SCH (10:30)
[2022-06-11] MEDS: PANTOprazole 40 MG in SYRINGE 0 ML IV SCH (11:18)
--- NOTE | 2022-06-11 15:14 | Hospitalist Progress Note ---
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 She is being managed for the following: Perforation of sigmoid colon due to diverticulitis: Sepsis POA: Feculent peritonitis 2/2 perforated sigmoid diverticulitis: In ER noted to be febrile, tachycardic, leukocytosis, elevated procalcitonin Admitting CTAP w/ Perforation of the sigmoid colon, likely due to sigmoid diverticulitis. There is an abscess containing stool and air as well as some some uncontained pneumoperitoneum. Mild peritoneal fluid is seen. S/P exploratory laparotomy, sigmoid resection, colostomy placement 06/09/[address] Cedillo Being managed per Sx. on iv atb, pain mx, drain mx, IVF. c/w iv antibiotic. Diabetes mellitus, type II: Hold home medicines, a1c 7.0; SSI while in hospital. Hypomagnesemia: Admitting Magnesium: 1.5. Replace and monitor Hypertension: home HCTZ on d/t low BP, resume as BP improves consistently. Valsartan resumed today. Hyperlipidemia: Resume statin. DVT Px: Enoxaparin. Admission and Anticipated Discharge Date Admission Date: June 09, 2022 Subjective Pt seen and examined at bedside as a f/u of medical Mx for s/p ex. lap/sigmoid resection/colostomy placement 06/09/[address] Cedillo for Perforation of sigmoid colon due to diverticulitis. Pt was sitting up in chair, on 2 L nasal cannula oxygen, alert and awake, appears not in acute distress and denies any pain, more humorous today and was not able to get much ROS. Upon discussing with RN and Occupational Therapy who just had evaluated prior to me, patient appears to be doing fine and oriented x3 . Semisolid fecal Stoma output noted. Scant serosanguineous collection in JENNI drain noted. appears tolerating clear liquid diet. Appears pain under control. Physical Exam Physical Exam: GENERAL: Alert and awake. NAD, on 2L NC O2. HEENT: No pallor, no icterus. Pupils equal, round and reactive to light. Oral mucosa moist. NECK: No JVD, no neck masses. HEART: S1 and S2 heard. Regular rate and rhythm. No murmur, no gallop. RESPIRATORY SYSTEM: Normal AP diameter. No accessory muscle use. No wheezing, no crackles. ABDOMEN: Soft, bowel sounds present, no distention. Clean dressing - no soakage. EJNNI drain -scant serosanguinous collection noted. Colostomy bag with fecal material. CENTRAL NERVOUS SYSTEM: No facial droop. Speech is clear. Obeys simple commands. Moves extremities. EXTREMITIES: No edema, no erythema seen. Results & Data Results & Data Vital Signs (Past 12 Hours) Vital Signs Temp Pulse Pulse Resp BP BP Pulse Ox 06/11/22 12:43 37.0 C 74 20 105/61 92 06/11/22 08:00 36.9 C 74 17 124/68 95 06/11/22 08:55 06/11/22 08:00 65 06/11/22 06:00 65 18 95 06/11/22 06:00 127/69 06/11/22 05:00 76 18 95 06/11/22 04:00 74 14 91 06/11/22 04:00 100/62 06/11/22 03:49 37.3 C O2 Del Method O2 Flow Rate 06/11/22 12:43 Nasal Cannula 2 06/11/22 08:00 Nasal Cannula 2 06/11/22 08:55 Nasal Cannula 2 06/11/22 08:00 06/11/22 06:00 06/11/22 06:00 06/11/22 05:00 06/11/22 04:00 06/11/22 04:00 06/11/22 03:49
[2022-06-11] MEDS: PLASMA-LYTE A 1,000 ML IV SCH (17:46)
[2022-06-11] MEDS: NALOXONE HCL 0.4 MG/1 ML VIAL/CARP IV PRN ×4 (20:32→20:48)
--- NOTE | 2022-06-11 20:47 | Communication Note ---
Date of Service: June 11, 2022 8:35 PM Notified by RN of patient obtunded state. 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 Last dose was around noon time as per RN. O2 sats 90% on 8 L SBP 100s Some initial improvement in mentation after Narcan administration as per RN. BiPAP initiated by ICU provider due to end-tidal CO2 of 66 noted on patient's Alaris pump as per RN. Chest x-ray as per interpretation congestion AP Encephalopathy Multifactorial : Hypoxemic, hypercapnic respiratory failure secondary to pulmonary congestion Possible OHS, probable underlying narcotic sensitivity (similar circumstances noted postop 2 days ago requiring postop ICU monitoring on review of records) Ciprofloxacin and neuropsychotropic meds possibly contributory Baseline ABG Continue BiPAP Stop IV fluid Lasix albumin given borderline BP, nebs stat Stop narcotics for now, additional Narcan as needed Stop ciprofloxacin given anticholinergic effect, utilize Ertapenem as alternative Rx Appropriate to hold neuropsychotropic meds for now until patient more awake Pulmonary consult if without improvement. ADDENDUM : 06/12, 730AM Patient updated of overnight developments over the phone. Patient queried about possible sleep apnea concerns for patient. Patient snores during sleep as per . No witnessed apneic events during sleep at home as per account. Patient advised to mention symptoms to patient's PCP on follow-up to discuss outpatient testing for possible sleep disordered breathing possibly predisposing patient to hypoventilation.
[2022-06-11] MEDS ORDERED: XOPENEX/ATROVENT 1.25mg/0.5MG NEB COMBO NEB STA (21:22)
[2022-06-11 21:27] LABS: Base Excess ABG 3.6 mEq/L (-9-1.8); HCO3 ABG 32 mmol/L (19-24); Oxygen Saturation ABG 97.3 % (90-95); PCO2 ABG 65 mmHg (35-46); PO2 ABG 83 mmHg (80-95)
[2022-06-11] MEDS ORDERED: ACETAMINOPHEN 325 MG TAB PO PRN (21:27)
--- NOTE | 2022-06-11 21:33 | XRay Report ---
SINGLE VIEW CHEST CLINICAL HISTORY: Hypoxia. FINDINGS: An AP, portable, upright chest radiograph is compared to study dated 06/09/2022. The examina tion is degraded by portable technique and patient rotation. The heart is mildly enlarged. There is prominence of the pulmonary vasculature. The lungs and pleural spaces are clear noting bibasilar atel ectasis. No large pleural effusion or pneumothorax is seen. The skeletal structures are osteopenic. T he bony thorax is grossly intact. Degenerative change is noted in the spine. Cholecystectomy clips ar e seen in the right upper quadrant. IMPRESSION: 1. Cardiomegaly with prominence of the pulmonary vasculature. Correlate clinically for evidence of fl uid overload/mild congestive change. 2. No airspace consolidation or large pleural effusion is identified. ACT 112: Negative or not required by law. Electronically signed by: Bryant Nagel M.D. 06/11/2022 9:31 PM
[2022-06-11] MEDS ORDERED: IPRATROPIUM BROMIDE NEB SOLN 0.02% 2.5 ML VIAL INH STA (21:35)
[2022-06-11] MEDS ORDERED: LEVALBUTEROL 1.25MG/0.5ML NEB INH STA (21:35)
[2022-06-11 21:39] LABS: Allen Test POS (Pos)
[2022-06-11] MEDS ORDERED: FUROSEMIDE INJ 20 MG/2 ML VIAL IV ONE (21:45)
[2022-06-11] MEDS ORDERED: ALBUMIN 25% 12.5 GM/50 ML VIAL IV ONE (21:45)
[2022-06-11 22:54] LABS: Allen Test POS (Pos); Base Excess ABG 0.9 mEq/L (-9-1.8); HCO3 ABG 31 mmol/L (19-24); PCO2 ABG 80 mmHg (35-46); PO2 ABG 96 mmHg (80-95)
[2022-06-11] MEDS ORDERED: NALOXONE HCL 0.4 MG/1 ML VIAL/CARP IV STA (23:39)
[2022-06-12] MEDS ORDERED: NALOXONE HCL 0.4 MG/1 ML VIAL/CARP IV STA (00:03)
[2022-06-12] MEDS ORDERED: methylPREDNISolone 20 MG in SYRINGE 0 ML IV ONE (00:20)
[2022-06-12] MEDS: ERTAPENEM SODIUM 1,000 MG in SYRINGE 0 ML IV SCH ×2 (00:25→23:39)
[2022-06-12 01:13] LABS: iSTAT Allen Test Pass; iSTAT Art Bld Gas pCO2 Correct 58 mmHg (35-46); iSTAT Art Bld Gas pH Corrected 7.362 (7.35-7.45); iSTAT Arterial Blood Gas HCO3 33 meg/L (19-24); iSTAT Arterial Blood Gas pCO2 58 mmHg (35-46); iSTAT Arterial Blood Gas pH 7.36 (7.35-7.45); iSTAT Arterial Blood Gas pO2 91 mmHg (80-95); iSTAT Arterial Blood Gas pO2 C 91; iSTAT Carbon Dioxide 34 mmol/L (24-31); iSTAT FiO2 45 %; iSTAT Hematocrit 34 % (37-47); iSTAT Hemoglobin 11.6 g/dl (12.0-16.0); iSTAT Potassium 4.6 mmol/L (3.3-5.0); iSTAT Site R Brachial; iSTAT Sodium 134 mmol/L (135-144)
[2022-06-12 01:19] LABS: Hematocrit (blood only) 36.7 % (37.0-47.0); Hemoglobin 11.7 g/dl (12.0-16.0); Mean Corpuscular Hemoglobin 29.6 pg (25.0-34.0); Mean Corpuscular Hgb Conc 31.9 g/dL (32.0-36.0); Mean Corpuscular Volume 92.9 fL (80.0-100.0); Mean Platelet Volume 11.8 fL (9.4-12.4); Platelet Count 228 K/uL (130-400); RDW Coefficient of Variation 14.4 % (11.5-14.5); RDW Standard Deviation 48.5 fL (36.4-46.3); Red Blood Count 3.95 M/uL (4.20-5.40); White Blood Count 9.08 K/ul (4.8-10.8)
[2022-06-12 01:27] LABS: Albumin Level 2.8 gm/dl (3.4-5.0); BUN Creatinine Ratio 22.5 (10-20); Bilirubin,Total 0.3 mg/dl (0.2-1.0); Calcium 8.2 mg/dl (8.6-10.3); Creatinine Clr Calc Pharmacy 78.6 ml/min; Est GFR (African American) 105.1 ml/min; Est GFR (Non-African American) 90.7 ml/min; Globulin 2.8 gm/dl (2.5-4.0); Magnesium 1.9 mg/dl (1.7-2.4); Phosphorus 3.8 mg/dl (2.5-4.9); Potassium 4.8 mmol/L (3.5-5.1); Total Protein 5.6 gm/dl (6.0-8.3)
[2022-06-12 01:35] LABS: Basophils # (auto) 0.03 K/uL (0-0.2); Basophils % (auto) 0.3 %; Eosinophils # (auto) 0.06 K/uL (0-0.50); Eosinophils % (auto) 0.7 %; Immature Granulocytes # (auto) 0.06 K/uL (0.01-0.20); Immature Granulocytes % (auto) 0.7 %; Lymphocytes # (auto) 0.31 K/uL (1.2-3.4); Lymphocytes % (auto) 3.4 %; Monocytes # (auto) 0.44 K/uL (0.11-0.59); Monocytes % (auto) 4.8 %; Neutrophils # (auto) 8.18 K/uL (1.40-6.50); Neutrophils % (auto) 90.1 %; RBC Morphology Unremarkable
--- NOTE | 2022-06-12 01:37 | CT Scan Report ---
Exam(s): CT HEAD Without Contrast EXAM: CT Head Without Intravenous Contrast CLINICAL HISTORY: Reason for exam: ams. TECHNIQUE: Axial computed tomography images of the head/brain without intravenous contrast. CTDI is 81.99 mGy and DLP is 1400.53 mGy-cm. Automated exposure control was utilized for the study. A dose lowering technique was utilized adhering to the principles of ALARA. COMPARISON: No relevant prior studies available. FINDINGS: Brain: The cerebral and cerebellar sulci are mildly prominent consistent with mild brain atrophy. There are a few areas of decreased attenuation in the deep cerebral white matter consistent with mild small vessel ischemic/degenerative changes. No hemorrhage. Ventricles: Unremarkable. No ventriculomegaly. Bones/joints: Unremarkable. No acute fracture. Soft tissues: Unremarkable. Vasculature: Atherosclerotic disease. Sinuses: Unremarkable as visualized. No acute sinusitis. Mastoid air cells: Unremarkable as visualized. No mastoid effusion. IMPRESSION: No acute findings in the head/brain. Electronically signed by: Quincy Huerta MD 06/12/22 01:36 AM
[2022-06-12] MEDS ORDERED: MAGNESIUM SULFATE / D5W 1 GM/100 ML BAG IV ONE (01:45)
--- NOTE | 2022-06-12 08:04 | Surgery Progress Note ---
Date of Service June 12, 2022 Assessment & Plan (1) Perforation of sigmoid colon due to diverticulitis: Plan: Status post Rubio's procedure on 06/09/2022 (postop day #3) Continue analgesics Continue antiemetics Maintain patient on liquids until improved bowel function is noted Discussed with patient's the importance of increasing activity/mobilization Episode of obtundation/confusion noted last night. Patient was placed on BiPAP by medical service as it was felt she may have been suffering from hypercapnic respiratory failure. Patient also had narcotic pain medications discontinued and Narcan administered. A CT scan of the head was without acute intracranial findings. Antibiotics were switched to ertapenem. This episode appears to have resolved as patient was without any neurologic deficits, obtundation, or confusion at the time of my interview with her Lovenox is in place for DVT prevention Admission and Anticipated Discharge Date Admission Date: June 09, 2022 Supervising Physician Co-Signing Physician Notes pnt s&e, s/p rubio's. pain controlled, awaiting ostomy function. labs unremarkable. continue fulls. Subjective Patient seen sitting in a bedside chair. She denies any fevers, shakes, or chills. She denies any nausea or vomiting. She does note that she does not have much of an appetite. She does note some abdominal tenderness. Patient had an episode of confusion/obtundation last night which appears to have resolved. Physical Exam Respiratory: normal respiratory effort; no respiratory distress and no labored breathing Cardiovascular: Rate/Rhythm: regular rate and regular rhythm Gastrointestinal (Abdomen): Abdomen is soft with minimal distention. Ostomy is noted to be pink and viable with little in the collection bag. Appropriate tenderness noted near surgical incision Neurologic: Patient is alert and oriented x3. She is able to move all 4 extremities and follows simple commands without noted deficits Results & Data Vital Signs (Past 12 Hours) Vital Signs Temp Pulse Pulse Resp BP Pulse Ox O2 Del Method 06/12/22 00:00 93 H 06/12/22 04:00 36.9 C 78 20 135/75 96 06/12/22 03:00 77 22 92 06/12/22 02:00 78 19 96 06/12/22 01:00 79 20 99 06/12/22 00:00 95 H 18 111/67 98 06/12/22 00:00 36.5 C 111/67 06/12/22 03:25 80 21 93 06/11/22 23:51 91 H 22 93 06/11/22 23:00 94 H 16 96 06/11/22 22:00 91 H 16 93 06/11/22 22:00 102/77 06/11/22 21:00 89 18 97 06/11/22 20:00 100 H 16 89 L 06/11/22 20:00 120/85 06/11/22 22:12 93 H 21 97 06/11/22 22:15 BiPAP 06/11/22 21:45 90 18 90 BiPAP 06/11/22 21:05 94 H 34 H 95 FiO2 06/12/22 00:00 06/12/22 04:00 06/12/22 03:00 06/12/22 02:00 06/12/22 01:00 06/12/22 00:00 06/12/22 00:00 06/12/22 03:25 40 06/11/22 23:51 55 06/11/22 23:00 06/11/22 22:00 06/11/22 22:00 06/11/22 21:00 06/11/22 20:00 06/11/22 20:00 06/11/22 22:12 55 06/11/22 22:15 55 06/11/22 21:45 45 06/11/22 21:05 45 PG Care Time/CCT Total # of Minutes Spent Total Time Spent with Patient: Total time spent is greater than 50% in coordination of care (as documented) at patient's floor/unit and/or counseling patient: Coding Level of Care Code 91931 Post Operative Follow-Up Diagnoses Perforation of sigmoid colon due to diverticulitis K57.20
[2022-06-12] MEDS: DULoxetine HCL 60 MG CAP PO SCH (08:32)
[2022-06-12] MEDS: VALSARTAN 80 MG TAB PO SCH (08:32)
[2022-06-12] MEDS: ENOXAPARIN INJ 40 MG/0.4 ML SYR SQ SCH (08:33)
[2022-06-12] MEDS: INSULIN ASPART PER UNIT CHARGE SC SCH ×4 (08:35→19:46)
[2022-06-12] MEDS: PANTOprazole 40 MG in SYRINGE 0 ML IV SCH (12:51)
--- NOTE | 2022-06-12 14:54 | Hospitalist Progress Note ---
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 She is being managed for the following: Perforation of sigmoid colon due to diverticulitis: Sepsis POA: Feculent peritonitis 2/ perforated sigmoid diverticulitis: In ER noted to be febrile, tachycardic, leukocytosis, elevated procalcitonin Admitting CTAP w/ Perforation of the sigmoid colon, likely due to sigmoid diverticulitis. There is an abscess containing stool and air as well as some some uncontained pneumoperitoneum. Mild peritoneal fluid is seen. S/P exploratory laparotomy, sigmoid resection, colostomy placement 06/09/[address] Cedillo Being managed per Sx. on iv atb, pain mx, drain mx. c/w iv antibiotic. Switched to Ertapenem on 06/12; can switch back to cipro and metron on DC; when need for opiates pain meds are decreased significantly. Can use toradol for pain Mx. 06/09 Operative abdominal Cx: pending, f/u Likely metabolic and toxic encephalopathy Hypercapnic respiratory failure Possible OHS with possible underlying narcotic sensitivity Patient was noted to be obtunded overnight of 06/11 - 06/12 [similar event noted 2 days prior to this date requiring postop ICU monitoring], PaCO2 was elevated, Narcan was given with some improvement in mentation. CT head with no acute finding. --> Avoid opioids, can use Tylenol or Toradol for pain management, hold home neuropsychotropic meds for now, sleep study as outpatient ---> resolved. Diabetes mellitus, type II: Hold home medicines, a1c 7.0; SSI while in hospital. Hypomagnesemia: Admitting Magnesium: 1.5. Replace and monitor Hypertension: home HCTZ on d/t low BP, resume as BP improves consistently. c/w Valsartan Hyperlipidemia: c/w statin. DVT Px: Enoxaparin. Admission and Anticipated Discharge Date Admission Date: June 09, 2022 Subjective Pt seen and examined at bedside as a f/u of medical Mx for s/p ex. lap/sigmoid resection/colostomy placement 06/09/[address] Cedillo for Perforation of sigmoid colon due to diverticulitis. Pt was sitting up in a bedside chair, on 2 L nasal cannula oxygen, alert and awake, appears not in acute distress and reports pain under control, endorses poor appetite/hunger. Stoma bag w/ no output. JENNI drain w/ scant serosanguineous collection noted. Overnight, had an episode of confusion likely 2/2 CO2 narcosis likely 2/2 to narcotics pain meds, some improvement w/ narcan administration. Was put on BPAP overnight. Resolved in AM at bedside exam. Physical Exam Physical Exam: GENERAL: Alert, oriented x 3. NAD, on 2L NC O2. HEENT: No pallor, no icterus. Pupils equal, round and reactive to light. Oral mucosa moist. NECK: No JVD, no neck masses. HEART: S1 and S2 heard. Regular rate and rhythm. No murmur, no gallop. RESPIRATORY SYSTEM: Normal AP diameter. No accessory muscle use. No wheezing, b/b crackles. ABDOMEN: Soft, bowel sounds present, no distention. Clean dressing - no soakage. JENNI drain -scant serosanguinous collection noted. Colostomy bag with fecal material. CENTRAL NERVOUS SYSTEM: No facial droop. Speech is clear. Obeys simple commands. Moves extremities. EXTREMITIES: No edema, no erythema seen. Results & Data Results & Data Vital Signs (Past 12 Hours) Vital Signs Temp Pulse Pulse Resp BP BP Pulse Ox 06/12/22 13:06 129/70 06/12/22 13:06 75 23 98 06/12/22 13:00 68 15 95 06/12/22 12:00 70 19 96 06/12/22 11:00 73 20 95 06/12/22 10:00 75 15 96 06/12/22 09:00 76 15 95 06/12/22 08:00 75 25 H 94 06/12/22 07:27 80 20 96 06/12/22 07:27 121/65 06/12/22 07:00 63 16 97 06/12/22 08:00 06/12/22 08:00 36.4 C L 73 16 121/65 97 06/12/22 04:00 36.9 C 78 20 135/75 96 06/12/22 03:00 77 22 92 06/12/22 03:25 80 21 93 O2 Del Method O2 Flow Rate FiO2 06/12/22 13:06 06/12/22 13:06 06/12/22 13:00 06/12/22 12:00 06/12/22 11:00 06/12/22 10:00 06/12/22 09:00 06/12/22 08:00 06/12/22 07:27 06/12/22 07:27 06/12/22 07:00 06/12/22 08:00 Nasal Cannula 2 06/12/22 08:00 Nasal Cannula 2 06/12/22 04:00 06/12/22 03:00 06/12/22 03:25 40
[2022-06-13] MEDS: VALSARTAN 80 MG TAB PO SCH (00:33)
--- NOTE | 2022-06-13 05:24 | Surgery Progress Note ---
Date of Service June 13, 2022 Assessment & Plan (1) Perforation of sigmoid colon due to diverticulitis: Plan: Status post Rubio's procedure on 06/09/2022 (postop day #4) Continue analgesics Continue antiemetics Diet advanced to full liquids yesterday. Consideration be given to further advancing diet as ostomy appears to be functioning Increase activity as able Elevated blood pressure is being managed by the hospitalist service Episode of obtundation/confusion on 06/12/2022. There is been no noted recurrence of this issue. Lovenox is in place for DVT prevention Admission and Anticipated Discharge Date Admission Date: June 09, 2022 Supervising Physician Co-Signing Physician Notes pnt s&e, s/p rubio's. pain controlled, ostomy productive of stool and gas. labs unremarkable. advance to low fiber diet. medicine managing blood pressure. Subjective Patient currently denies any significant abdominal pain. She denies any nausea or vomiting. She denies any shortness of breath. Discussed with nurse attending the patient and only issue overnight was elevated blood pressure which the hospitalist are managing. Physical Exam Gastrointestinal (Abdomen): Abdomen is soft and nondistended. There is minimal pain with palpation. Patient's ostomy is pink and viable with a large amount of semiformed stool in the collection bag. Results & Data Vital Signs (Past 12 Hours) Vital Signs Temp Pulse Resp BP Pulse Ox O2 Del Method O2 Del Method 06/13/22 04:05 36.6 C 86 22 177/97 H 95 Nasal Cannula 06/13/22 00:09 170/95 H 06/12/22 23:47 36.9 C 86 20 170/103 H 94 Nasal Cannula 06/12/22 21:01 Nasal Cannula 06/12/22 19:00 Nasal Cannula 06/12/22 19:44 36.8 C 78 22 154/64 H 93 Nasal Cannula O2 Flow Rate 06/13/22 04:05 2 06/13/22 00:09 06/12/22 23:47 2 06/12/22 21:01 06/12/22 19:00 06/12/22 19:44 2 PG Care Time/CCT Total # of Minutes Spent Total Time Spent with Patient: Total time spent is greater than 50% in coordination of care (as documented) at patient's floor/unit and/or counseling patient: Coding Level of Care Code 18665 Post Operative Follow-Up Diagnoses Perforation of sigmoid colon due to diverticulitis K57.20
[2022-06-13] MEDS ORDERED: amLODIPine BESYLATE 5 MG TAB PO SCH (05:40)
--- NOTE | 2022-06-13 05:44 | Communication Note ---
Date of Service: June 13, 2022 Made aware by RN of uncontrolled blood pressure. SBP 170s in AM. No response to early administration of max dose of Valsartan. Patient sleeping as per RN. AP Hypertensive urgency Initiate amlodipine (Unable to resume HCTZ for now given hyponatremia on blood work yesterday) Will relay to AM provider.
[2022-06-13 06:14] LABS: BUN Creatinine Ratio 34.5 (10-20); Calcium 8.5 mg/dl (8.6-10.3); Est GFR (African American) 115.7 ml/min; Est GFR (Non-African American) 99.8 ml/min
[2022-06-13 06:42] LABS: Hematocrit (blood only) 38.2 % (37.0-47.0); Hemoglobin 12.5 g/dl (12.0-16.0); Mean Corpuscular Hemoglobin 29.3 pg (25.0-34.0); Mean Corpuscular Hgb Conc 32.7 g/dL (32.0-36.0); Mean Corpuscular Volume 89.7 fL (80.0-100.0); Mean Platelet Volume 11.4 fL (9.4-12.4); Platelet Count 285 K/uL (130-400); RDW Coefficient of Variation 13.8 % (11.5-14.5); RDW Standard Deviation 45.1 fL (36.4-46.3); Red Blood Count 4.26 M/uL (4.20-5.40); White Blood Count 9.32 K/ul (4.8-10.8)
[2022-06-13] MEDS: ATORVASTATIN 20 MG TAB PO SCH (07:53)
[2022-06-13] MEDS: ENOXAPARIN INJ 40 MG/0.4 ML SYR SQ SCH (07:53)
[2022-06-13] MEDS: DULoxetine HCL 60 MG CAP PO SCH (07:53)
[2022-06-13] MEDS: PREGABALIN 150 MG CAP PO SCH (07:58)
[2022-06-13] MEDS: INSULIN ASPART PER UNIT CHARGE SC SCH ×4 (07:59→20:44)
[2022-06-13] MEDS: hydroCHLOROthiazide 25 MG TAB PO SCH ×2 (09:20→20:45)
[2022-06-13] MEDS: PANTOprazole 40 MG in SYRINGE 0 ML IV SCH (11:44)
[2022-06-13 14:41] LABS: A calco-baum cmplx NotReported Not Detected (NotDetected); Bact fragilis Not Reported Not Detected (NotDetected); C auris Not Reported Not Detected (NotDetected); Calbicans Not Reported Not Detected (NotDetected); Candida glabrata Not Reported Not Detected (NotDetected); Candida krusei Not Reported Not Detected (NotDetected); Cneoformans/gatti Not Reported Not Detected (NotDetected); Cparapsilosis Not Reported Not Detected (NotDetected); Ctropicalis Not Reported Not Detected (NotDetected); E cloacae compx Not Reported Not Detected (NotDetected); Efaecalis Not Reported Not Detected (NotDetected); Efaecium Not Reported Not Detected (NotDetected); Enterobacterales Not Reported Not Detected (NotDetected); Escherichia coli Not Reported Not Detected (NotDetected); H influenzae Not Reported Not Detected (NotDetected); K aerogenes Not Reported Not Detected (NotDetected); Koxytoca Not Reported Not Detected (NotDetected); Kpneumoniae grp Not Reported Not Detected (NotDetected); Lmonocyt Not Reported Not Detected (NotDetected); N meningitidis Not Reported Not Detected (NotDetected); P aeruginosa Not Reported Not Detected (NotDetected); Proteus spp Not Reported Not Detected (NotDetected); Salmonella spp Not Reported Not Detected (NotDetected); Smarcescens Not Reported Not Detected (NotDetected); Staph lugdunensis Not Reported Not Detected (NotDetected); Staph spp. Not Reported Not Detected (NotDetected); Staphaureus Not Reported Not Detected (NotDetected); Staphepi Not Reported Not Detected (NotDetected); Stenmaltophilia Not Reported Not Detected (NotDetected); Strep agal(GrpB) Not Reported Not Detected (NotDetected); Strep pneum Not Reported Not Detected (NotDetected); Strep pyog (GrpA) Not Reported Not Detected (NotDetected); Strep spp Not Reported Not Detected (NotDetected)
--- NOTE | 2022-06-13 14:59 | Hospitalist Progress Note ---
Date of Service June 13, 2022 Assessment & Plan (1) Peritonitis: Plan 62 yo F w/ PMH of DM, HTN, laparoscopic appendectomy in 1996 presented to ED w/ abdominal pain since 2-3 days [employer] and was found to have perforation of sigmoid colon likely due to sigmoid diverticulitis. She is being managed for the following: Perforation of sigmoid colon due to diverticulitis: Sepsis POA: Feculent peritonitis 2/2 perforated sigmoid diverticulitis: Gram negative bacteremia: 1 of 4 (06/09) Blood Cx +ve for GNB on 06/13; Will repeat Bl Cx. Pt already on appropriate ATB. follow c/s. In ER noted to be febrile, tachycardic, leukocytosis, elevated procalcitonin Admitting CTAP w/ Perforation of the sigmoid colon, likely due to sigmoid diverticulitis. There is an abscess containing stool and air as well as some some uncontained pneumoperitoneum. Mild peritoneal fluid is seen. S/P exploratory laparotomy, sigmoid resection, colostomy placement 06/09/[address] Cedillo Being managed per Sx. on iv atb, pain mx, drain mx. c/w iv antibiotic. Switched to Ertapenem on 06/12; can switch back to cipro and metron on DC; when need for opiates pain meds are decreased significantly. Can use toradol for pain Mx. 06/09 Operative abdominal Cx: pending, f/u Likely metabolic and toxic encephalopathy Hypercapnic respiratory failure Possible OHS with possible underlying narcotic sensitivity Patient was noted to be obtunded overnight of 06/11 - 06/12 [similar event noted 2 days prior to this date requiring postop ICU monitoring], PaCO2 was elevated, Narcan was given with some improvement in mentation. CT head with no acute finding. --> Avoid opioids, can use Tylenol or Toradol for pain management, hold home neuropsychotropic meds for now, sleep study as outpatient ---> resolved. Diabetes mellitus, type II: Hold home medicines, a1c 7.0; SSI while in hospital. Hypomagnesemia: Admitting Magnesium: 1.5. Replace and monitor Hypertension: c/w Valsartan and HCTZ Hyperlipidemia: c/w statin. DVT Px: Enoxaparin. Admission and Anticipated Discharge Date Admission Date: June 09, 2022 Subjective Pt seen and examined at bedside as a f/u of medical Mx for s/p ex. lap/sigmoid resection/colostomy placement 06/09/[address] Cedillo for Perforation of sigmoid colon due to diverticulitis. Pt was sitting up in a bedside chair, on 2 L nasal cannula oxygen, alert and alcides ke, appears not in acute distress and reports pain under control,appears tolerating diet well. Stoma bag w/ some feculent output. JENNI drain w/ scant serosanguineous collection noted. Physical Exam Physical Exam: GENERAL: Alert, oriented x 3. NAD, on 2L NC O2. HEENT: No pallor, no icterus. Pupils equal, round and reactive to light. Oral mucosa moist. NECK: No JVD, no neck masses. HEART: S1 and S2 heard. Regular rate and rhythm. No murmur, no gallop. RESPIRATORY SYSTEM: Normal AP diameter. No accessory muscle use. No wheezing, b/b crackles. ABDOMEN: Soft, bowel sounds present, no distention. Clean dressing - no soakage. JENNI drain -scant serosanguinous collection noted. Colostomy bag with fecal material. CENTRAL NERVOUS SYSTEM: No facial droop. Speech is clear. Obeys simple commands. Moves extremities. EXTREMITIES: No edema, no erythema seen. Results & Data Results & Data Vital Signs (Past 12 Hours) Vital Signs Temp Pulse Resp BP Pulse Ox O2 Del Method O2 Flow Rate 06/13/22 12:10 36.5 C 74 24 138/89 98 Nasal Cannula 2 06/13/22 08:00 Nasal Cannula 2 06/13/22 09:20 76 153/87 H 06/13/22 08:00 36.8 C 76 20 170/107 H 95 Nasal Cannula 2 06/13/22 04:05 36.6 C 86 22 177/97 H 95 Nasal Cannula 2
[2022-06-13] MEDS: ERTAPENEM SODIUM 1,000 MG in SYRINGE 0 ML IV SCH (23:40)
[2022-06-14 06:24] LABS: BUN Creatinine Ratio 25.9 (10-20); Calcium 8.7 mg/dl (8.6-10.3); Creatinine Clr Calc Pharmacy 96.1 ml/min; Est GFR (African American) 113.7 ml/min; Est GFR (Non-African American) 98.1 ml/min; Magnesium 1.6 mg/dl (1.7-2.4); Phosphorus 2.6 mg/dl (2.5-4.9); Potassium 3.5 mmol/L (3.5-5.1)
[2022-06-14] MEDS: hydroCHLOROthiazide 25 MG TAB PO SCH ×2 (08:11→20:28)
[2022-06-14] MEDS: ATORVASTATIN 20 MG TAB PO SCH (08:11)
[2022-06-14] MEDS: ENOXAPARIN INJ 40 MG/0.4 ML SYR SQ SCH (08:11)
[2022-06-14] MEDS: DULoxetine HCL 60 MG CAP PO SCH (08:11)
[2022-06-14] MEDS: MAGNESIUM OXIDE 400 MG TAB PO SCH ×2 (08:12→23:48)
[2022-06-14] MEDS: VALSARTAN 80 MG TAB PO SCH (08:12)
[2022-06-14] MEDS: INSULIN ASPART PER UNIT CHARGE SC SCH ×4 (08:14→20:26)
[2022-06-14] MEDS: PREGABALIN 150 MG CAP PO SCH (08:14)
--- NOTE | 2022-06-14 09:44 | Surgery Progress Note ---
Date of Service June 14, 2022 Assessment & Plan (1) Perforation of sigmoid colon due to diverticulitis: (2) Systemic inflammatory response syndrome (SIRS) due to infection: (3) Peritonitis: Plan: Feculent peritonitis secondary to perforated sigmoid diverticulitis (4) Pulmonary insufficiency following surgery: Plan: Acute postoperatively resolved hemodynamically stable now off O2 Plan POD # 5 s/p ex lap, Sigmoid resection with end colostomy - avss - hemodynamically stable - postop pain moderate - no n,v - leukocytosis resolved - drain with serosanguineous output Plan: advance diet as tolerated OOB ambulate PT/OT case management - waiting for rehab placement remove drain prior to discharge to rehab Admission and Anticipated Discharge Date Admission Date: June 09, 2022 Subjective s/p ex. lap/sigmoid resection/colostomy placement 06/09/22 for Perforation of sigmoid colon due to diverticulitis. alert and awake, appears not in acute distress and reports pain under control,appears tolerating diet well. Stoma bag w/ some feculent output. JENNI drain w/ scant serosanguineous collection noted. Physical Exam Gastrointestinal (Abdomen): Inspection/Auscultation: abdomen normal to inspection, + abdominal surgical incision (clean/dry/intact with nahum and antonio drain) and + abdominal surgical drain present (serosanguineous drainage); abdomen not distended Percussion/Palpation: + abdomen tender (generalized and at midline incision) Results & Data Vital Signs (Past 12 Hours) Vital Signs Temp Pulse Resp BP Pulse Ox O2 Del Method O2 Flow Rate 06/14/22 05:24 36.4 C L 18 93 Room Air 06/14/22 05:24 149/83 H 06/13/22 23:45 36.8 C 151/99 H 96 Nasal Cannula 2 06/13/22 23:45 77 17 06/13/22 23:00 66 15 06/13/22 23:51 87
[2022-06-14] MEDS: PANTOprazole 40 MG in SYRINGE 0 ML IV SCH (12:14)
--- NOTE | 2022-06-14 17:08 | Hospitalist Progress Note ---
Date of Service June 14, 2022 Assessment & Plan (1) Peritonitis: Plan 62 yo F w/ PMH of DM, HTN, laparoscopic appendectomy in 1996 presented to ED w/ abdominal pain since 2-3 days [employer] and was found to have perforation of sigmoid colon likely due to sigmoid diverticulitis. She is being managed for the following: Perforation of sigmoid colon due to diverticulitis: Sepsis POA: Feculent peritonitis 2/ perforated sigmoid diverticulitis: Gram negative bacteremia: 1 of 4 (06/09) Blood Cx +ve for GNB on 06/13; f/u 06/13 repeat Bl Cx. Pt already on appropriate ATB. follow c/s. In ER noted to be febrile, tachycardic, leukocytosis, elevated procalcitonin Admitting CTAP w/ Perforation of the sigmoid colon, likely due to sigmoid diverticulitis. There is an abscess containing stool and air as well as some some uncontained pneumoperitoneum. Mild peritoneal fluid is seen. S/P exploratory laparotomy, sigmoid resection, colostomy placement 06/09/[address] Cedillo Being managed per Sx. on iv atb, pain mx, drain mx. c/w iv antibiotic. Switched to Ertapenem on 06/12; can switch back to cipro and metron on DC; when need for opiates pain meds are decreased significantly. Can use toradol for pain Mx. 06/09 Operative abdominal Cx: pending, f/u Likely metabolic and toxic encephalopathy Hypercapnic respiratory failure Possible OHS with possible underlying narcotic sensitivity Patient was noted to be obtunded overnight of 06/11 - 06/12 [similar event noted 2 days prior to this date requiring postop ICU monitoring], PaCO2 was elevated, Narcan was given with some improvement in mentation. CT head with no acute finding. --> Avoid opioids, can use Tylenol or Toradol for pain management, hold home neuropsychotropic meds for now, sleep study as outpatient ---> resolved. Diabetes mellitus, type II: Hold home medicines, a1c 7.0; SSI while in hospital. Hypomagnesemia: Admitting Magnesium: 1.5. Replace and monitor Hypertension: c/w Valsartan and HCTZ Hyperlipidemia: c/w statin. DVT Px: Enoxaparin. Dispo: per primary team Admission and Anticipated Discharge Date Admission Date: June 09, 2022 Subjective Pt seen and examined at bedside as a f/u of medical Mx for s/p ex. lap/sigmoid resection/colostomy placement 06/09/[address] Cedillo for Perforation of sigmoid colon due to diverticulitis. Pt was sitting up in a bedside chair, on RA, alert and awake, appears not in acute distress and reports pain under control, appears tolerating diet well. Stoma bag w/ some feculent output. JENNI drain w/ scant serosanguineous collection noted. Physical Exam Physical Exam: GENERAL: Alert, oriented x 3. NAD, on RA HEENT: No pallor, no icterus. Pupils equal, round and reactive to light. Oral mucosa moist. NECK: No JVD, no neck masses. HEART: S1 and S2 heard. Regular rate and rhythm. No murmur, no gallop. RESPIRATORY SYSTEM: Normal AP diameter. No accessory muscle use. No wheezing, b/b crackles. ABDOMEN: Soft, bowel sounds present, no distention. Clean dressing - no soakage. JENNI drain -scant serosanguinous collection noted. Colostomy bag with fecal material. CENTRAL NERVOUS SYSTEM: No facial droop. Speech is clear. Obeys simple commands. Moves extremities. EXTREMITIES: No edema, no erythema seen. Results & Data Results & Data Vital Signs (Past 12 Hours) Vital Signs Temp Pulse Resp BP BP Pulse Ox O2 Del Method 06/14/22 12:00 76 22 123/71 91 Room Air 06/14/22 08:00 36.8 C 85 18 167/85 H 92 Room Air 06/14/22 08:00 Room Air 06/14/22 08:00 36.8 C 85 18 167/85 H 92 Room Air 06/14/22 05:24 36.4 C L 18 93 Room Air 06/14/22 05:24 149/83 H
[2022-06-14] MEDS: ERTAPENEM SODIUM 1,000 MG in SYRINGE 0 ML IV SCH (23:48)
[2022-06-15 06:27] LABS: BUN Creatinine Ratio 25.9 (10-20); Calcium 8.5 mg/dl (8.6-10.3); Creatinine Clr Calc Pharmacy 102.2 ml/min; Est GFR (African American) 116.4 ml/min; Est GFR (Non-African American) 100.4 ml/min; Magnesium 1.6 mg/dl (1.7-2.4); Potassium 3.3 mmol/L (3.5-5.1)
[2022-06-15] MEDS: DULoxetine HCL 60 MG CAP PO SCH (07:45)
[2022-06-15] MEDS: ATORVASTATIN 20 MG TAB PO SCH (07:45)
[2022-06-15] MEDS: ENOXAPARIN INJ 40 MG/0.4 ML SYR SQ SCH (07:45)
[2022-06-15] MEDS: hydroCHLOROthiazide 25 MG TAB PO SCH ×2 (07:46→20:41)
[2022-06-15] MEDS: VALSARTAN 80 MG TAB PO SCH (07:46)
[2022-06-15] MEDS: MAGNESIUM OXIDE 400 MG TAB PO SCH ×2 (07:46→20:41)
[2022-06-15] MEDS: PREGABALIN 150 MG CAP PO SCH (07:49)
[2022-06-15] MEDS: INSULIN ASPART PER UNIT CHARGE SC SCH ×4 (07:49→20:44)
[2022-06-15] MEDS ORDERED: POTASSIUM CHLORIDE CRTAB 20 MEQ TABCR PO STA (08:14)
[2022-06-15] MEDS: MAGNESIUM SULFATE / D5W 1 GM/100 ML BAG IV SCH ×2 (08:39→10:42)
--- NOTE | 2022-06-15 09:09 | Surgery Progress Note ---
Date of Service June 15, 2022 Assessment & Plan (1) Perforation of sigmoid colon due to diverticulitis: (2) Systemic inflammatory response syndrome (SIRS) due to infection: (3) Peritonitis: Plan: Feculent peritonitis secondary to perforated sigmoid diverticulitis (4) Pulmonary insufficiency following surgery: Plan: Acute postoperatively resolved hemodynamically stable now off O2 Plan POD # 6 s/p ex lap, Sigmoid resection with end colostomy - avss - hemodynamically stable - postop pain moderate - no n,v - leukocytosis resolved - drain with serosanguineous output Plan: advance diet as tolerated OOB ambulate PT/OT Discharge to rehab today Removed Antonio, remove JENNI drain prior to discharge follow-up in clinic at the end of the week for staple removal Admission and Anticipated Discharge Date Admission Date: June 09, 2022 Subjective doing fairly well today. Tolerating diet. Advancing activity. No nausea or vomiting. No fevers or chills. Ostomy working. Physical Exam Gastrointestinal (Abdomen): Inspection/Auscultation: abdomen normal to inspection, + abdominal surgical incision (clean/dry/intact with nahum and antonio drain) and + abdominal surgical drain present (serosanguineous drainage); abdomen not distended Percussion/Palpation: + abdomen tender (generalized and at midline incision) Results & Data Vital Signs (Past 12 Hours) Vital Signs Temp Pulse Pulse Resp BP BP Pulse Ox 06/15/22 08:00 06/15/22 08:00 36.5 C 77 25 H 124/70 90 06/15/22 05:00 72 14 06/15/22 04:19 132/74 06/15/22 04:19 36.6 C 80 19 93 06/15/22 04:00 72 15 06/15/22 01:00 70 16 93 06/14/22 23:59 36.5 C 115/64 06/14/22 23:59 77 18 87 L 06/15/22 00:00 69 06/14/22 22:13 O2 Del Method O2 Flow Rate 06/15/22 08:00 Room Air 06/15/22 08:00 Room Air 06/15/22 05:00 06/15/22 04:19 06/15/22 04:19 Nasal Cannula 1 06/15/22 04:00 06/15/22 01:00 Nasal Cannula 2 06/14/22 23:59 06/14/22 23:59 06/15/22 00:00 06/14/22 22:13 Nasal Cannula 1
[2022-06-15] MEDS ORDERED: INSULIN ASPART PER UNIT CHARGE SC ONE (09:57)
[2022-06-15] MEDS: PANTOprazole 40 MG in SYRINGE 0 ML IV SCH (11:35)
--- NOTE | 2022-06-15 14:35 | Hospitalist Progress Note ---
Date of Service June 15, 2022 Assessment & Plan (1) Peritonitis: Plan 62 yo F w/ PMH of DM, HTN, laparoscopic appendectomy in 1996 presented to ED w/ abdominal pain since 2-3 days [employer]PRES[employer] and was found to have perforation of sigmoid colon likely due to sigmoid diverticulitis. She is being managed for the following: Perforation of sigmoid colon due to diverticulitis: Sepsis POA: Feculent peritonitis 2/2 perforated sigmoid diverticulitis: Gram negative bacteremia: 1 of 4 (06/09) Blood Cx +ve for GNB on 06/13; f/u 06/13 repeat Bl Cx. Pt already on appropriate ATB. follow c/s. In ER noted to be febrile, tachycardic, leukocytosis, elevated procalcitonin Admitting CTAP w/ Perforation of the sigmoid colon, likely due to sigmoid diverticulitis. There is an abscess containing stool and air as well as some some uncontained pneumoperitoneum. Mild peritoneal fluid is seen. S/P exploratory laparotomy, sigmoid resection, colostomy placement 06/09/[address] Cedillo Being managed per Sx. on iv atb, pain mx, drain mx. c/w iv antibiotic. Switched to Ertapenem on 06/12; can switch back to cipro and metron on DC; when need for opiates pain meds are decreased significantly. Can use toradol for pain Mx. 06/09 Operative abdominal Cx: Bacteroides fragilis Pt being discharged today, Patient will need to follow-up with PCP within a week time to follow-up on the culture and sensitivity of 06/09/2022 blood culture to make sure that she is on appropriate antibiotics. Likely metabolic and toxic encephalopathy Hypercapnic respiratory failure Possible OHS with possible underlying narcotic sensitivity Patient was noted to be obtunded overnight of 06/11 - 06/12 [similar event noted 2 days prior to this date requiring postop ICU monitoring], PaCO2 was elevated, Narcan was given with some improvement in mentation. CT head with no acute finding. --> Avoid opioids, can use Tylenol or Toradol for pain management, hold home neuropsychotropic meds for now, sleep study as outpatient ---> resolved. Diabetes mellitus, type II: Hold home medicines, a1c 7.0; SSI while in hospital. Hypomagnesemia: Admitting Magnesium: 1.5. Replace and monitor Hypertension: c/w Valsartan and HCTZ Hyperlipidemia: c/w statin. DVT Px: Enoxaparin. Dispo: per primary team Admission and Anticipated Discharge Date Admission Date: June 09, 2022 Subjective Pt seen and examined at bedside as a f/u of medical Mx for s/p ex. lap/sigmoid resection/colostomy placement 06/09/[address] Cedillo for Perforation of sigmoid colon due to diverticulitis. Pt was lying in bed, on RA, alert and awake, appears not in acute distress and reports pain under control, appears tolerating low fiber diet well. Stoma bag w/ some feculent output. Physical Exam Physical Exam: GENERAL: Alert, oriented x 3. NAD, on RA HEENT: No pallor, no icterus. Pupils equal, round and reactive to light. Oral mucosa moist. NECK: No JVD, no neck masses. HEART: S1 and S2 heard. Regular rate and rhythm. No murmur, no gallop. RESPIRATORY SYSTEM: Normal AP diameter. No accessory muscle use. No wheezing, b/b crackles. ABDOMEN: Soft, bowel sounds present, no distention. Clean dressing - no soakage. Colostomy bag with fecal material. CENTRAL NERVOUS SYSTEM: No facial droop. Speech is clear. Obeys simple commands. Moves extremities. EXTREMITIES: No edema, no erythema seen. Results & Data Results & Data Vital Signs (Past 12 Hours) Vital Signs Temp Pulse Pulse Resp BP BP Pulse Ox 06/15/22 08:00 06/15/22 08:00 36.5 C 77 25 H 124/70 90 06/15/22 05:00 72 14 06/15/22 04:19 132/74 06/15/22 04:19 36.6 C 80 19 93 06/15/22 04:00 72 15 O2 Del Method O2 Flow Rate 06/15/22 08:00 Room Air 06/15/22 08:00 Room Air 06/15/22 05:00 06/15/22 04:19 06/15/22 04:19 Nasal Cannula 1 06/15/22 04:00
--- NOTE | 2022-06-15 16:19 | XRay Report ---
SINGLE VIEW PELVIS; 2 VIEWS RIGHT HIP; 2 VIEWS LEFT HIP CLINICAL HISTORY: Fall. FINDINGS: An AP view of the pelvis with AP and frog leg views of the right and left hip are correlate d with pelvic CT dated 06/09/2022. The skeletal structures are osteopenic. There is no radiographic ev idence of acute fracture involving the hips or bony pelvis. Mild degenerative change is noted in the hip joints. The sacroiliac joints are normal. Enthesophytes arise from the anterior superior iliac sp gilles. There are midline skin clips projecting over the pelvis. A surgical drain is seen in the pelvis and there is a left lower quadrant ostomy. No bowel obstruction is seen. There is atherosclerotic ca lcification of the femoral arteries. IMPRESSION: No acute bony abnormality is identified. Electronically signed by: Bryant Nagel M.D. 06/15/2022 4:18 PM
[2022-06-16] MEDS: ERTAPENEM SODIUM 1,000 MG in SYRINGE 0 ML IV SCH (00:24)
[2022-06-16] MEDS: hydroCHLOROthiazide 25 MG TAB PO SCH ×2 (07:48→21:28)
[2022-06-16] MEDS: VALSARTAN 80 MG TAB PO SCH (07:48)
[2022-06-16] MEDS: DULoxetine HCL 60 MG CAP PO SCH (07:49)
[2022-06-16] MEDS: ATORVASTATIN 20 MG TAB PO SCH (07:49)
[2022-06-16] MEDS: MAGNESIUM OXIDE 400 MG TAB PO SCH ×2 (07:49→21:28)
[2022-06-16] MEDS: ENOXAPARIN INJ 40 MG/0.4 ML SYR SQ SCH (07:51)
[2022-06-16] MEDS: PREGABALIN 150 MG CAP PO SCH (07:54)
[2022-06-16] MEDS: INSULIN ASPART PER UNIT CHARGE SC SCH ×4 (07:54→21:27)
[2022-06-16] MEDS: PANTOprazole 40 MG in SYRINGE 0 ML IV SCH (11:38)
[2022-06-16] MEDS: PANTOprazole 40 MG TAB PO SCH (11:47)
--- NOTE | 2022-06-16 12:10 | Hospitalist Progress Note ---
Date of Service June 16, 2022 Assessment & Plan (1) Peritonitis: Plan 62 yo F w/ PMH of DM, HTN, laparoscopic appendectomy in 1996 presented to ED w/ abdominal pain since 2-3 days [employer] and was found to have perforation of sigmoid colon likely due to sigmoid diverticulitis. She is being managed for the following: Perforation of sigmoid colon due to diverticulitis: Sepsis POA: Feculent peritonitis 2/2 perforated sigmoid diverticulitis: Gram negative bacteremia: 1 of 4 (06/09) Blood Cx +ve for GNB on 06/13; f/u 06/13 repeat Bl Cx. Pt already on appropriate ATB. follow c/s. In ER noted to be febrile, tachycardic, leukocytosis, elevated procalcitonin Admitting CTAP w/ Perforation of the sigmoid colon, likely due to sigmoid diverticulitis. There is an abscess containing stool and air as well as some some uncontained pneumoperitoneum. Mild peritoneal fluid is seen. S/P exploratory laparotomy, sigmoid resection, colostomy placement 06/09/[address] Cedillo Being managed per Sx. on iv atb, pain mx, drain mx. c/w iv antibiotic. Switched to Ertapenem on 06/12; can switch back to cipro and metron on DC; 06/09 Operative abdominal Cx: Bacteroides fragilis Discussion done with microbiology lab regarding the blood culture results. Pinp oint growth noted in the culture; unable to identify and provide sensitivity at this time. Will need follow-up with her primary care doctor after discharge to follow-up on the results. Discharged on ciprofloxacin and Flagyl for now. Likely metabolic and toxic encephalopathy Hypercapnic respiratory failure Possible OHS with possible underlying narcotic sensitivity Patient was noted to be obtunded overnight of 06/11 - 06/12 [similar event noted 2 days prior to this date requiring postop ICU monitoring], PaCO2 was elevated, Narcan was given with some improvement in mentation. CT head with no acute finding. --> Avoid opioids, can use Tylenol or Toradol for pain management, hold home neuropsychotropic meds for now, sleep study as outpatient ---> resolved. Diabetes mellitus, type II: Hold home medicines, a1c 7.0; SSI while in hospital. Hypomagnesemia: Admitting Magnesium: 1.5. Replaced and monitor Hypertension: c/w Valsartan and HCTZ Hyperlipidemia: c/w statin. DVT Px: Enoxaparin. Dispo: per primary team Admission and Anticipated Discharge Date Admission Date: June 09, 2022 Subjective Patient seen and examined at bedside. She is sitting up on the chair at the side of the bed; not in any distress. She denies any cough, fever, chills or leg swelling. Review of Systems Review of Systems: All systems reviewed & are unremarkable except as noted in Subjective Physical Exam Physical Exam: GENERAL: Alert, oriented x 3. NAD, on RA HEENT: No pallor, no icterus. Pupils equal, round and reactive to light. Oral mucosa moist. NECK: No JVD, no neck masses. HEART: S1 and S2 heard. Regular rate and rhythm. No murmur, no gallop. RESPIRATORY SYSTEM: Normal AP diameter. No accessory muscle use. No wheezing, b/b crackles. ABDOMEN: Soft, bowel sounds present, no distention. Clean dressing - no soakage. Colostomy bag with fecal material. CENTRAL NERVOUS SYSTEM: No facial droop. Speech is clear. Obeys simple comman ds. Moves extremities. EXTREMITIES: No edema, no erythema seen. Results & Data Results & Data Vital Signs (Past 12 Hours) Vital Signs Temp Pulse Resp BP Pulse Ox O2 Del Method 06/16/22 11:02 36.5 C 75 18 98/57 L 96 Room Air 06/16/22 04:30 37.2 C 81 24 138/74 93 Room Air Laboratory Results Laboratory Results WBC 9.32 K/ul (4.8-10.8) 06/13/22 05:30 RBC 4.26 M/uL (4.20-5.40) 06/13/22 05:30 Hgb 12.5 g/dl (12.0-16.0) 06/13/22 05:30 POC Hgb 11.6 g/dl (12.0-16.0) L 06/12/22 01:00 Hct 38.2 % (37.0-47.0) 06/13/22 05:30 POC Hct 34 % (37-47) L 06/12/22 01:00 MCV 89.7 fL (80.0-100.0) 06/13/22 05:30 MCH 29.3 pg (25.0-34.0) 06/13/22 05:30 MCHC 32.7 g/dL (32.0-36.0) 06/13/22 05:30 RDW Std Deviation 45.1 fL (36.4-46.3) 06/13/22 05:30 RDW Coeff of Javier 13.8 % (11.5-14.5) 06/13/22 05:30 Plt Count 285 K/uL (130-400) 06/13/22 05:30 MPV 11.4 fL (9.4-12.4) 06/13/22 05:30 Immature Gran % (Auto) 0.7 % 06/12/22 00:41 Neut % (Auto) 90.1 % 06/12/22 00:41 Lymph % (Auto) 3.4 % 06/12/22 00:41 Searcy % (Auto) 4.8 % 06/12/22 00:41 Eos % (Auto) 0.7 % 06/12/22 00:41 Baso % (Auto) 0.3 % 06/12/22 00:41 Neut # (Auto) 8.18 K/uL (1.40-6.50) H 06/12/22 00:41 Lymph # (Auto) 0.31 K/uL (1.2-3.4) L 06/12/22 00:41 Searcy # (Auto) 0.44 K/uL (0.11-0.59) 06/12/22 00:41 Eos # (Auto) 0.06 K/uL (0-0.50) 06/12/22 00:41 Baso # (Auto) 0.03 K/uL (0-0.2) 06/12/22 00:41 Immature Gran # (Auto) 0.06 K/uL (0.01-0.20) 06/12/22 00:41 Toxic Vacuolation 1+ 06/10/22 05:48 RBC Morphology Unremarkable 06/12/22 00:41 Echinocytes 2+ 06/10/22 05:48 Sample Site R Brachial 06/12/22 01:00 POC pH 7.36 (7.35-7.45) 06/12/22 01:00 POC pCO2 58 mmHg (35-46) H 06/12/22 01:00 POC pO2 91 mmHg (80-95) 06/12/22 01:00 POC HCO3 33 becky/L (19-24) H 06/12/22 01:00 POC Total CO2 34 mmol/L (24-31) H 06/12/22 01:00 POC Base Excess 7.0 becky/L (-9-1.8) H 06/12/22 01:00 ABG pH 7.20 (7.35-7.45) L 06/11/22 22:44 ABG pH (Temp Correct) 7.362 (7.35-7.45) 06/12/22 01:00 ABG pCO2 80 mmHg (35-46) H 06/11/22 22:44 ABG pCO2 (Temp Corrct 58 mmHg (35-46) H 06/12/22 01:00 ABG pO2 96 mmHg (80-95) H 06/11/22 22:44 POC ABG pO2 at Pt Temp 91 06/12/22 01:00 ABG HCO3 31 mmol/L (19-24) H 06/11/22 22:44 POC ABG O2 Sat 96.0 % (90-95) H 06/12/22 01:00 ABG O2 Saturation 98.0 % (90-95) H 06/11/22 22:44 ABG Base Excess 0.9 mEq/L (-9-1.8) 06/11/22 22:44 Blayne Test Pass 06/12/22 01:00 Oxygen Given FiO2 55% 06/11/22 22:44 O2 Delivery Device BIPAP 06/12/22 01:00 POC O2 Rate 20 06/12/22 01:00 POC FiO2 45 % 06/12/22 01:00 IPAP 20 06/12/22 01:00 POC Sodium 134 mmol/L (135-144) L 06/12/22 01:00 Sodium 133 mmol/L (136-145) L 06/15/22 05:25 POC Potassium 4.6 mmol/L (3.3-5.0) 06/12/22 01:00 Potassium 3.3 mmol/L (3.5-5.1) L 06/15/22 05:25 POC Chloride 102 mmol/L (101-112) 06/09/22 11:26 Chloride 91 mmol/L (98-107) L 06/15/22 05:25 Carbon Dioxide 33 mmol/L (21-32) H 06/15/22 05:25 POC Total CO2 24 mmol/L (24-31) 06/09/22 11:26 Anion Gap 9 (3-11) 06/15/22 05:25 POC Anion Gap 18.0 mmol/L (16-25) 06/09/22 11:26 POC BUN 30 mg/dl (7-18) H 06/09/22 11:26 BUN 14 mg/dl (6-23) 06/15/22 05:25 Creatinine 0.54 mg/dl (0.6-1.2) L 06/15/22 05:25 POC Creatinine 1.0 mg/dl (0.6-1.3) 06/09/22 11:26 Est Cr Clr Drug Dosing 102.2 ml/min 06/15/22 05:25 Est GFR ( Amer) 116.4 ml/min 06/15/22 05:25 Est GFR (Non-Af Amer) 100.4 ml/min 06/15/22 05:25 BUN/Creatinine Ratio 25.9 (10-20) H 06/15/22 05:25 Glucose 188 mg/dl (70-99(Fasting)) H 06/15/22 05:25 POC Glucose 181 mg/dl (70-99) H 06/16/22 11:05 POC Glucose (other) 135 mg/dl (70-99) H 06/09/22 11:26 Estimat Average Glucose 154 mg/dl 06/10/22 05:48 Hemoglobin A1c 7.0 % (4.5-5.6) H 06/10/22 05:48 Lactate 1.7 mmol/L (0.4-2.0) 06/09/22 20:02 Calcium 8.5 mg/dl (8.6-10.3) L 06/15/22 05:25 POC Ioniz Calcium Devante 1.17 mmol/l (1.12-1.32) 06/09/22 11:26 Phosphorus 2.6 mg/dl (2.5-4.9) 06/14/22 05:34 Magnesium 1.6 mg/dl (1.7-2.4) L 06/15/22 05:25 Total Bilirubin 0.3 mg/dl (0.2-1.0) 06/12/22 00:41 AST 15 U/L (13-39) 06/12/22 00:41 ALT 10 U/L (7-52) 06/12/22 00:41 Alkaline Phosphatase 58 U/L (34-104) 06/12/22 00:41 Ammonia 41.0 umol/L (18-72) 06/12/22 00:47 Total Protein 5.6 gm/dl (6.0-8.3) L 06/12/22 00:41 Albumin 2.8 gm/dl (3.4-5.0) L 06/12/22 00:41 Globulin 2.8 gm/dl (2.5-4.0) 06/12/22 00:41 Albumin/Globulin Ratio 1.0 (0.9-2) 06/12/22 00:41 Lipase < 3 U/L (11-82) L 06/09/22 11:15 Procalcitonin 14.32 ng/ml (0-0.5) H 06/09/22 13:39 Nasal Screen MRSA (PCR) Negative (Negative) 06/09/22 20:00 SARS-CoV-2, RNA, NAAT NEGATIVE (NEGATIVE) 06/15/22 19:00 Bld Cult ID Panel PCR PCR Panel Negative (NotDetected) 06/09/22 13:38 Impressions Abdomen/Pelvis CT 06/09/22 11:06 CT abd pelvis IV con only CLINICAL HISTORY: mid abd pain TECHNIQUE: Helical axial images of the abdomen and pelvis were obtained and displayed. Automated dose lowering techniques and/or adjustment according to patient size were utilized for this exam. This exam was performed with intravenous contrast. CT DOSE: 534.52 mGy.cm COMPARISON: None available at the time of this dictation. FINDINGS: Lower chest: Bibasilar atelectasis versus scarring is seen. Liver: Unremarkable. No focal lesions are seen. Gallbladder and biliary tree: Patient is status post cholecystectomy. No intra- or extrahepatic biliary ductal dilation. Pancreas: The pancreas is atrophic. Spleen: Unremarkable. 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 Kidneys and ureters: Unremarkable. Bladder: Limited evaluation due to underdistention. Reproductive organs: Bilateral tubal ligation clips are noted. Bowel: Bowel wall thickening is noted in the sigmoid with numerous diverticula. There is a rim-enhancing lesion containing stool and air between the uterus and rectum discontinuity of the rectal wall, suggestive of a contained bowel perforation. Patient is status post appendectomy. Lymph nodes Retroperitoneal: Unremarkable. Pelvic: Unremarkable. Mesenteric: Unremarkable. Peritoneum: A small amount of free fluid is seen. A few locules of free air are noted as well. Vessels: Atherosclerotic calcifications are seen. Abdominal wall: Unremarkable. Bones: Degenerative changes in the visualized spine. IMPRESSION: Perforation of the sigmoid colon, likely due to sigmoid diverticulitis. There is an abscess containing stool and air as well as some some uncontained pneumoperitoneum. Mild peritoneal fluid is seen. ACT 112: Negative or not required by law. Electronically signed by: Yunier Mehta M.D. 06/09/2022 12:30 PM Chest X-Ray 06/11/22 20:39 SINGLE VIEW CHEST CLINICAL HISTORY: Hypoxia. FINDINGS: An AP, portable, upright chest radiograph is compared to study dated 06/09/2022. The examination is degraded by portable technique and patient rotatio n. The heart is mildly enlarged. There is prominence of the pulmonary vasculature. The lungs and pleural spaces are clear noting bibasilar atelectasis. No large pleural effusion or pneumothorax is seen. The skeletal structures are osteopenic. The bony thorax is grossly intact. Degenerative change is noted in the spine. Cholecystectomy clips are seen in the right upper quadrant. IMPRESSION: 1. Cardiomegaly with prominence of the pulmonary vasculature. Correlate clinically for evidence of fluid overload/mild congestive change. 2. No airspace consolidation or large pleural effusion is identified. ACT 112: Negative or not required by law. Electronically signed by: Bryant Nagel M.D. 06/11/2022 9:[address] 06/12/22 00:26 Exam(s): CT HEAD Without Contrast EXAM: CT Head Without Intravenous Contrast CLINICAL HISTORY: Reason for exam: ams. TECHNIQUE: Axial computed tomography images of the head/brain without intravenous contrast. CTDI is 81.99 mGy and DLP is 1400.53 mGy-cm. Automated exposure control was utilized for the study. A dose lowering technique was utilized adhering to the principles of ALARA. COMPARISON: No relevant prior studies available. FINDINGS: Brain: The cerebral and cerebellar sulci are mildly prominent consistent with mild brain atrophy. There are a few areas of decreased attenuation in the deep cerebral white matter consistent with mild small vessel ischemic/degenerative changes. No hemorrhage. Ventricles: Unremarkable. No ventriculomegaly. Bones/joints: Unremarkable. No acute fracture. Soft tissues: Unremarkable. Vasculature: Atherosclerotic disease. Sinuses: Unremarkable as visualized. No acute sinusitis. Mastoid air cells: Unremarkable as visualized. No mastoid effusion. IMPRESSION: No acute findings in the head/brain. Electronically signed by: Quincy Huerta MD 06/12/22 01:36 AM Hip/Pelvis X-Ray 06/15/22 15:27 SINGLE VIEW PELVIS; 2 VIEWS RIGHT HIP; 2 VIEWS LEFT HIP CLINICAL HISTORY: Fall. FINDINGS: An AP view of the pelvis with AP and frog leg views of the right and left hip are correlated with pelvic CT dated 06/09/2022. The skeletal structures are osteopenic. There is no radiographic evidence of acute fracture involving the hips or bony pelvis. Mild degenerative change is noted in the hip joints. The sacroiliac joints are normal. Enthesophytes arise from the anterior superior iliac spines. There are midline skin clips projecting over the pelvis. A surgical drain is seen in the pelvis and there is a left lower quadrant ostomy. No bowel obstruction is seen. There is atherosclerotic calcification of the femoral arteries. IMPRESSION: No acute bony abnormality is identified. Electronically signed by: Bryant Nagel M.D. 06/15/2022 4:18 PM
--- NOTE | 2022-06-16 15:55 | Surgery Progress Note ---
Date of Service June 16, 2022 Assessment & Plan (1) Perforation of sigmoid colon due to diverticulitis: (2) Systemic inflammatory response syndrome (SIRS) due to infection: (3) Peritonitis: Plan: Feculent peritonitis secondary to perforated sigmoid diverticulitis (4) Pulmonary insufficiency following surgery: Plan: Acute postoperatively resolved hemodynamically stable now off O2 Plan POD # 7 s/p ex lap, Sigmoid resection with end colostomy - avss - hemodynamically stable - postop pain moderate - no n,v - leukocytosis resolved Plan: awaiting placement for rehab Admission and Anticipated Discharge Date Admission Date: June 09, 2022 Subjective doing well. no complaints Physical Exam Gastrointestinal (Abdomen): Inspection/Auscultation: abdomen normal to inspection and + abdominal surgical incision (clean/dry/intact with nahum); abdomen not distended Percussion/Palpation: + abdomen tender (generalized and at midline incision) Results & Data Vital Signs (Past 12 Hours) Vital Signs Temp Pulse Resp BP Pulse Ox O2 Del Method 06/16/22 11:02 36.5 C 75 18 98/57 L 96 Room Air 06/16/22 04:30 37.2 C 81 24 138/74 93 Room Air
[2022-06-17] MEDS: ERTAPENEM SODIUM 1,000 MG in SYRINGE 0 ML IV SCH (00:23)
[2022-06-17] MEDS: hydroCHLOROthiazide 25 MG TAB PO SCH (07:46)
[2022-06-17] MEDS: ATORVASTATIN 20 MG TAB PO SCH (07:47)
[2022-06-17] MEDS: PANTOprazole 40 MG TAB PO SCH (07:47)
[2022-06-17] MEDS: VALSARTAN 80 MG TAB PO SCH (07:47)
[2022-06-17] MEDS: DULoxetine HCL 60 MG CAP PO SCH (07:47)
[2022-06-17] MEDS: INSULIN ASPART PER UNIT CHARGE SC SCH ×2 (07:53→12:18)
[2022-06-17] MEDS: ENOXAPARIN INJ 40 MG/0.4 ML SYR SQ SCH (07:53)
[2022-06-17] MEDS: PREGABALIN 150 MG CAP PO SCH (07:53)
--- NOTE | 2022-06-17 12:27 | Hospitalist Progress Note ---
Date of Service June 17, 2022 Assessment & Plan (1) Peritonitis: Plan 62 yo F w/ PMH of DM, HTN, laparoscopic appendectomy in 1996 presented to ED w/ abdominal pain since 2-3 days [employer] and was found to have perforation of sigmoid colon likely due to sigmoid diverticulitis. She is being managed for the following: Perforation of sigmoid colon due to diverticulitis: Sepsis POA: Feculent peritonitis 2/2 perforated sigmoid diverticulitis: Gram negative bacteremia: 1 of 4 (06/09) Blood Cx +ve for GNB on 06/13; f/u 06/13 repeat Bl Cx. Pt already on appropriate ATB. follow c/s. In ER noted to be febrile, tachycardic, leukocytosis, elevated procalcitonin Admitting CTAP w/ Perforation of the sigmoid colon, likely due to sigmoid diverticulitis. There is an abscess containing stool and air as well as some some uncontained pneumoperitoneum. Mild peritoneal fluid is seen. S/P exploratory laparotomy, sigmoid resection, colostomy placement 06/09/[address] Cedillo Being managed per Sx. on iv atb, pain mx, drain mx. c/w iv antibiotic. Switched to Ertapenem on 06/12; can switch back to cipro and metron on DC; 06/09 Operative abdominal Cx: Bacteroides fragilis Discussion done with microbiology lab regarding the blood culture results. Pinp oint growth noted in the culture; unable to identify and provide sensitivity at this time. Will need follow-up with her primary care doctor after discharge to follow-up on the results. Discharged on ciprofloxacin and Flagyl for now. Likely metabolic and toxic encephalopathy Hypercapnic respiratory failure Possible OHS with possible underlying narcotic sensitivity Patient was noted to be obtunded overnight of 06/11 - 06/12 [similar event noted 2 days prior to this date requiring postop ICU monitoring], PaCO2 was elevated, Narcan was given with some improvement in mentation. CT head with no acute finding. --> Avoid opioids, can use Tylenol or Toradol for pain management, hold home neuropsychotropic meds for now, sleep study as outpatient ---> resolved. Diabetes mellitus, type II: Hold home medicines, a1c 7.0; SSI while in hospital. Hypomagnesemia: Admitting Magnesium: 1.5. Replaced and monitor Hypertension: c/w Valsartan and HCTZ Hyperlipidemia: c/w statin. DVT Px: Enoxaparin. Dispo: per primary team Admission and Anticipated Discharge Date Admission Date: June 09, 2022 Subjective Patient seen and examined at bedside. She is comfortably sitting up on the side of the chair; not in any distress. She denies any fever, chills, chest pain or abdominal pain. Review of Systems Review of Systems: All systems reviewed & are unremarkable except as noted in Subjective Physical Exam Physical Exam: GENERAL: Alert, oriented x 3. NAD, on RA HEENT: No pallor, no icterus. Pupils equal, round and reactive to light. Oral mucosa moist. NECK: No JVD, no neck masses. HEART: S1 and S2 heard. Regular rate and rhythm. No murmur, no gallop. RESPIRATORY SYSTEM: Normal AP diameter. No accessory muscle use. No wheezing, b/b crackles. ABDOMEN: Soft, bowel sounds present, no distention. Clean dressing - no soakage. Colostomy bag with fecal material. CENTRAL NERVOUS SYSTEM: No facial droop. Speech is clear. Obeys simple commands. Moves extremities. EXTREMITIES: No edema, no erythema seen. Results & Data Results & Data Vital Signs (Past 12 Hours) Vital Signs Temp Pulse Pulse Resp BP BP Pulse Ox 06/17/22 11:49 36.7 C 66 20 99/56 L 92 06/17/22 08:00 66 25 H 06/17/22 07:39 68 22 100 06/17/22 07:39 110/62 06/17/22 07:00 67 17 06/17/22 08:25 06/17/22 07:25 36.6 C 06/17/22 04:33 37 C 66 18 115/63 97 O2 Del Method O2 Flow Rate 06/17/22 11:49 Room Air 06/17/22 08:00 06/17/22 07:39 Room Air 06/17/22 07:39 06/17/22 07:00 06/17/22 08:25 Room Air 06/17/22 07:25 06/17/22 04:33 Nasal Cannula 2 Laboratory Results Laboratory Results WBC 9.32 K/ul (4.8-10.8) 06/13/22 05:30 RBC 4.26 M/uL (4.20-5.40) 06/13/22 05:30 Hgb 12.5 g/dl (12.0-16.0) 06/13/22 05:30 POC Hgb 11.6 g/dl (12.0-16.0) L 06/12/22 01:00 Hct 38.2 % (37.0-47.0) 06/13/22 05:30 POC Hct 34 % (37-47) L 06/12/22 01:00 MCV 89.7 fL (80.0-100.0) 06/13/22 05:30 MCH 29.3 pg (25.0-34.0) 06/13/22 05:30 MCHC 32.7 g/dL (32.0-36.0) 06/13/22 05:30 RDW Std Deviation 45.1 fL (36.4-46.3) 06/13/22 05:30 RDW Coeff of Javier 13.8 % (11.5-14.5) 06/13/22 05:30 Plt Count 285 K/uL (130-400) 06/13/22 05:30 MPV 11.4 fL (9.4-12.4) 06/13/22 05:30 Immature Gran % (Auto) 0.7 % 06/12/22 00:41 Neut % (Auto) 90.1 % 06/12/22 00:41 Lymph % (Auto) 3.4 % 06/12/22 00:41 Beltrami % (Auto) 4.8 % 06/12/22 00:41 Eos % (Auto) 0.7 % 06/12/22 00:41 Baso % (Auto) 0.3 % 06/12/22 00:41 Neut # (Auto) 8.18 K/uL (1.40-6.50) H 06/12/22 00:41 Lymph # (Auto) 0.31 K/uL (1.2-3.4) L 06/12/22 00:41 Beltrami # (Auto) 0.44 K/uL (0.11-0.59) 06/12/22 00:41 Eos # (Auto) 0.06 K/uL (0-0.50) 06/12/22 00:41 Baso # (Auto) 0.03 K/uL (0-0.2) 06/12/22 00:41 Immature Gran # (Auto) 0.06 K/uL (0.01-0.20) 06/12/22 00:41 Toxic Vacuolation 1+ 06/10/22 05:48 RBC Morphology Unremarkable 06/12/22 00:41 Echinocytes 2+ 06/10/22 05:48 Sample Site R Brachial 06/12/22 01:00 POC pH 7.36 (7.35-7.45) 06/12/22 01:00 POC pCO2 58 mmHg (35-46) H 06/12/22 01:00 POC pO2 91 mmHg (80-95) 06/12/22 01:00 POC HCO3 33 becky/L (19-24) H 06/12/22 01:00 POC Total CO2 34 mmol/L (24-31) H 06/12/22 01:00 POC Base Excess 7.0 becky/L (-9-1.8) H 06/12/22 01:00 ABG pH 7.20 (7.35-7.45) L 06/11/22 22:44 ABG pH (Temp Correct) 7.362 (7.35-7.45) 06/12/22 01:00 ABG pCO2 80 mmHg (35-46) H 06/11/22 22:44 ABG pCO2 (Temp Corrct 58 mmHg (35-46) H 06/12/22 01:00 ABG pO2 96 mmHg (80-95) H 06/11/22 22:44 POC ABG pO2 at Pt Temp 91 06/12/22 01:00 ABG HCO3 31 mmol/L (19-24) H 06/11/22 22:44 POC ABG O2 Sat 96.0 % (90-95) H 06/12/22 01:00 ABG O2 Saturation 98.0 % (90-95) H 06/11/22 22:44 ABG Base Excess 0.9 mEq/L (-9-1.8) 06/11/22 22:44 Blayne Test Pass 06/12/22 01:00 Oxygen Given FiO2 55% 06/11/22 22:44 O2 Delivery Device BIPAP 06/12/22 01:00 POC O2 Rate 20 06/12/22 01:00 POC FiO2 45 % 06/12/22 01:00 IPAP 20 06/12/22 01:00 POC Sodium 134 mmol/L (135-144) L 06/12/22 01:00 Sodium 133 mmol/L (136-145) L 06/15/22 05:25 POC Potassium 4.6 mmol/L (3.3-5.0) 06/12/22 01:00 Potassium 3.3 mmol/L (3.5-5.1) L 06/15/22 05:25 POC Chloride 102 mmol/L (101-112) 06/09/22 11:26 Chloride 91 mmol/L (98-107) L 06/15/22 05:25 Carbon Dioxide 33 mmol/L (21-32) H 06/15/22 05:25 POC Total CO2 24 mmol/L (24-31) 06/09/22 11:26 Anion Gap 9 (3-11) 06/15/22 05:25 POC Anion Gap 18.0 mmol/L (16-25) 06/09/22 11:26 POC BUN 30 mg/dl (7-18) H 06/09/22 11:26 BUN 14 mg/dl (6-23) 06/15/22 05:25 Creatinine 0.54 mg/dl (0.6-1.2) L 06/15/22 05:25 POC Creatinine 1.0 mg/dl (0.6-1.3) 06/09/22 11:26 Est Cr Clr Drug Dosing 102.2 ml/min 06/15/22 05:25 Est GFR ( Amer) 116.4 ml/min 06/15/22 05:25 Est GFR (Non-Af Amer) 100.4 ml/min 06/15/22 05:25 BUN/Creatinine Ratio 25.9 (10-20) H 06/15/22 05:25 Glucose 188 mg/dl (70-99(Fasting)) H 06/15/22 05:25 POC Glucose 259 mg/dl (70-99) H 06/17/22 11:20 POC Glucose (other) 135 mg/dl (70-99) H 06/09/22 11:26 Estimat Average Glucose 154 mg/dl 06/10/22 05:48 Hemoglobin A1c 7.0 % (4.5-5.6) H 06/10/22 05:48 Lactate 1.7 mmol/L (0.4-2.0) 06/09/22 20:02 Calcium 8.5 mg/dl (8.6-10.3) L 06/15/22 05:25 POC Ioniz Calcium Devante 1.17 mmol/l (1.12-1.32) 06/09/22 11:26 Phosphorus 2.6 mg/dl (2.5-4.9) 06/14/22 05:34 Magnesium 1.6 mg/dl (1.7-2.4) L 06/15/22 05:25 Total Bilirubin 0.3 mg/dl (0.2-1.0) 06/12/22 00:41 AST 15 U/L (13-39) 06/12/22 00:41 ALT 10 U/L (7-52) 06/12/22 00:41 Alkaline Phosphatase 58 U/L (34-104) 06/12/22 00:41 Ammonia 41.0 umol/L (18-72) 06/12/22 00:47 Total Protein 5.6 gm/dl (6.0-8.3) L 06/12/22 00:41 Albumin 2.8 gm/dl (3.4-5.0) L 06/12/22 00:41 Globulin 2.8 gm/dl (2.5-4.0) 06/12/22 00:41 Albumin/Globulin Ratio 1.0 (0.9-2) 06/12/22 00:41 Lipase < 3 U/L (11-82) L 06/09/22 11:15 Procalcitonin 14.32 ng/ml (0-0.5) H 06/09/22 13:39 Nasal Screen MRSA (PCR) Negative (Negative) 06/09/22 20:00 SARS-CoV-2, RNA, NAAT NEGATIVE (NEGATIVE) 06/15/22 19:00 Bld Cult ID Panel PCR PCR Panel Negative (NotDetected) 06/09/22 13:38 Impressions Abdomen/Pelvis CT 06/09/22 11:06 CT abd pelvis IV con only CLINICAL HISTORY: mid abd pain TECHNIQUE: Helical axial images of the abdomen and pelvis were obtained and displayed. Automated dose lowering techniques and/or adjustment according to patient size were utilized for this exam. This exam was performed with intravenous contrast. CT DOSE: 534.52 mGy.cm COMPARISON: None available at the time of this dictation. FINDINGS: Lower chest: Bibasilar atelectasis versus scarring is seen. Liver: Unremarkable. No focal lesions are seen. Gallbladder and biliary tree: Patient is status post cholecystectomy. No intra- or extrahepatic biliary ductal dilation. Pancreas: The pancreas is atrophic. Spleen: Unremarkable. 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 Kidneys and ureters: Unremarkable. Bladder: Limited evaluation due to underdistention. Reproductive organs: Bilateral tubal ligation clips are noted. Bowel: Bowel wall thickening is noted in the sigmoid with numerous diverticula. There is a rim-enhancing lesion containing stool and air between the uterus and rectum discontinuity of the rectal wall, suggestive of a contained bowel perforation. Patient is status post appendectomy. Lymph nodes Retroperitoneal: Unremarkable. Pelvic: Unremarkable. Mesenteric: Unremarkable. Peritoneum: A small amount of free fluid is seen. A few locules of free air are noted as well. Vessels: Atherosclerotic calcifications are seen. Abdominal wall: Unremarkable. Bones: Degenerative changes in the visualized spine. IMPRESSION: Perforation of the sigmoid colon, likely due to sigmoid diverticulitis. There is an abscess containing stool and air as well as some some uncontained pneumope ritoneum. Mild peritoneal fluid is seen. ACT 112: Negative or not required by law. Electronically signed by: Yunier Mehta M.D. 06/09/2022 12:30 PM Chest X-Ray 06/11/22 20:39 SINGLE VIEW CHEST CLINICAL HISTORY: Hypoxia. FINDINGS: An AP, portable, upright chest radiograph is compared to study dated 06/09/2022. The examination is degraded by portable technique and patient rotation. The heart is mildly enlarged. There is prominence of the pulmonary vasculature. The lungs and pleural spaces are clear noting bibasilar atelectasis. No large pleural effusion or pneumothorax is seen. The skeletal structures are osteopenic. The bony thorax is grossly intact. Degenerative change is noted in the spine. Cholecystectomy clips are seen in the right upper quadrant. IMPRESSION: 1. Cardiomegaly with prominence of the pulmonary vasculature. Correlate clinically for evidence of fluid overload/mild congestive change. 2. No airspace consolidation or large pleural effusion is identified. ACT 112: Negative or not required by law. Electronically signed by: Bryant Nagel M.D. 06/11/2022 9:[address] 06/12/22 00:26 Exam(s): CT HEAD Without Contrast EXAM: CT Head Without Intravenous Contrast CLINICAL HISTORY: Reason for exam: ams. TECHNIQUE: Axial computed tomography images of the head/brain without intravenous contrast. CTDI is 81.99 mGy and DLP is 1400.53 mGy-cm. Automated exposure control was utilized for the study. A dose lowering technique was utilized adhering to the principles of ALARA. COMPARISON: No relevant prior studies available. FINDINGS: Brain: The cerebral and cerebellar sulci are mildly prominent consistent with mild brain atrophy. There are a few areas of decreased attenuation in the deep cerebral white matter consistent with mild small vessel ischemic/degenerative changes. No hemorrhage. Ventricles: Unremarkable. No ventriculomegaly. Bones/joints: Unremarkable. No acute fracture. Soft tissues: Unremarkable. Vasculature: Atherosclerotic disease. Sinuses: Unremarkable as visualized. No acute sinusitis. Mastoid air cells: Unremarkable as visualized. No mastoid effusion. IMPRESSION: No acute findings in the head/brain. Electronically signed by: Quincy Huerta MD 06/12/22 01:36 AM Hip/Pelvis X-Ray 06/15/22 15:27 SINGLE VIEW PELVIS; 2 VIEWS RIGHT HIP; 2 VIEWS LEFT HIP CLINICAL HISTORY: Fall. FINDINGS: An AP view of the pelvis with AP and frog leg views of the right and left hip are correlated with pelvic CT dated 06/09/2022. The skeletal structures are osteopenic. There is no radiographic evidence of acute fracture involving the hips or bony pelvis. Mild degenerative change is noted in the hip joints. The sacroiliac joints are normal. Enthesophytes arise from the anterior superior iliac spines. There are midline skin clips projecting over the pelvis. A surgical drain is seen in the pelvis and there is a left lower quadrant ostomy. No bowel obstruction is seen. There is atherosclerotic calcification of the femoral arteries. IMPRESSION: No acute bony abnormality is identified. Electronically signed by: Bryant Nagel M.D. 06/15/2022 4:18 PM
--- NOTE | 2022-06-17 12:51 | Surgery Progress Note ---
Date of Service June 17, 2022 Assessment & Plan (1) Perforation of sigmoid colon due to diverticulitis: (2) Systemic inflammatory response syndrome (SIRS) due to infection: (3) Peritonitis: Plan: Feculent peritonitis secondary to perforated sigmoid diverticulitis (4) Pulmonary insufficiency following surgery: Plan: Acute postoperatively resolved hemodynamically stable now off O2 Plan POD # 8 s/p ex lap, Sigmoid resection with end colostomy - avss - hemodynamically stable - postop pain moderate - no n,v - leukocytosis resolved Plan: awaiting placement for rehab Admission and Anticipated Discharge Date Admission Date: June 09, 2022 Subjective doing well. no complaints Physical Exam Gastrointestinal (Abdomen): Inspection/Auscultation: abdomen normal to inspection and + abdominal surgical incision (clean/dry/intact with nahum); abdomen not distended Percussion/Palpation: + abdomen tender (generalized and at midline incision) Results & Data Vital Signs (Past 12 Hours) Vital Signs Temp Pulse Pulse Resp BP BP Pulse Ox 06/17/22 11:49 36.7 C 66 20 99/56 L 92 06/17/22 08:00 66 25 H 06/17/22 07:39 68 22 100 06/17/22 07:39 110/62 06/17/22 07:00 67 17 06/17/22 08:25 06/17/22 07:25 36.6 C 06/17/22 04:33 37 C 66 18 115/63 97 O2 Del Method O2 Flow Rate 06/17/22 11:49 Room Air 06/17/22 08:00 06/17/22 07:39 Room Air 06/17/22 07:39 06/17/22 07:00 06/17/22 08:25 Room Air 06/17/22 07:25 06/17/22 04:33 Nasal Cannula 2
--- NOTE | 2022-06-18 10:15 | Discharge Summary ---
Date of Service June 18, 2022 Admission HPI Per Admitting Provider 62-year-old woman presents to the emergency department with severe abdominal pain starting Tuesday evening. She has not had anything to eat since that time. She denies fevers or chills. She has not had a bowel movement since that time. She states the pain has been increasing. The pain is sharp and stabbing in character. It is mostly in the lower abdomen, but extends to the upper abdomen. CT scan demonstrates perforated diverticulitis with free air and fluid throughout the abdomen. Principal Diagnosis Perforated sigmoid diverticulitis with peritonitis Discharge Data Allergies Allergy/AdvReac Type Severity Reaction Status Date / Time Penicillins Allergy Intermediate RASH Verified 06/09/22 14:22 celecoxib Allergy Unknown HIVES Verified 06/09/22 14:22 morphine AdvReac Severe CO2 Verified 06/12/22 04:45 narcosis Consultations 06/09/22 19:37 Consult Hospitalist Routine Consult Insulation Worker Routine Procedures Performed Operation Date: 06/09/22 09:10 Actual Procedures p Exploratory Laparotomy, Sigmoid Resection, Colostomy Placement - Paul Cedillo MD Ordered Studies 06/09/22 11:06 CT abd pelvis IV con only Stat 06/12/22 00:26 CT head/brain wo con Stat Hospital Course (1) Perforation of sigmoid colon due to diverticulitis: Patient was taken to operating room for exploratory laparotomy for bowel resection and colostomy formation with abdominal washout by Dr. Cedillo on . Patient was found to have perforated sigmoid diverticulitis with feculent peritonitis. She tolerated procedure without difficulty and was transferred to PACU. She became obtunded and hypoxic in PACU in which ICU team was called to evaluate patient. She was transferred to ICU from PACU for close observation overnight. She was hemodynamically stable and no further events transpired overnight. She was on oxygen via nasal cannula of 2-3 Liters. POD # 1 avss, hemodynamically stable, moderate postop pain, some sweat in colostomy bag. Diet was advanced to clear liquids. She was stable for downgrade to medical floor out of ICU. She was kept on IV Cipro and flagyl, GARBAGE STOKER Morphine as needed for pain, antiemetics, wagner catheter, Lovenox and SCDs for DVT prophylaxis. Hospitalist was also consulted postoperative for comanagement based on comorbidities. SHe did fairly well postoperatively, diet advanced to full liquids on POD # 2. She had another episode of confusion/obtundation on POD # 3 however with negative imaging and felt to be due to possible OHS vs narcosis. GARBAGE STOKER was discontinued. Diet advanced to low fiber diet on POD # 4. POD # 4 patient had some hypertensive urgency which was managed by hospitalist team. Case management, wound care, PT/OT were consulted. Patient was waiting for rehab placement. She was discharged to rehab on POD # 8 in stable condition. Omari drain and Maribel drain in incision were removed prior to discharge. She was hypotensive the day before discharge and hospitalist discontinued hydrochlorothiazide and decreased Valsartan dose to 160mg once daily. She was discharged with Cipro/flagyl for 7 more days and pain management as needed. CLose follow-up with surgery office and pcp office recommended (2) Systemic inflammatory response syndrome (SIRS) due to infection: resolved postoperatively (3) Peritonitis: Feculent peritonitis secondary to perforated sigmoid diverticulitis resolved postoperatively (4) Pulmonary insufficiency following surgery: Acute postoperatively and on POD# 3 ? OHS vs narcosis, GARBAGE STOKER was discontinued and narcotics avoided Total Time Total Time Spent Total Time Spent (In Minutes): 30 Total Time Includes: Examination of the Patient, Discharge Planning and Medication Reconciliation Discharge Plan Discharge Items Patient Disposition: Transfer Inpatient Rehab Fac Reason For Visit: PERFORATED SIGMOID COLON Discharge Diagnosis: Perforated sigmoid colon/diverticulitis Condition on Discharge: Good Activity: Per Instructions section Non-emergency contact: Primary Care Provider and Surgeon Call non-emergency contact if: you have any medication questions, your pain is not controlled, your pain is worsening, your pain is concerning for you, you have a fever, your temperature is above 101, your wound has increased redness, your wound has increased drainage and your wound pain has increased Follow-up/Referrals: Paul Cedillo MD [Physician] - Larry Cole DO [Primary Care Provider] - Diet: Regular Addtl Attending Provider Instructions: Post-Surgical ~Discharge Instructions Activity Recommendations: - lifting limitation: (10 pounds for at least 6 weeks), - exercise/sex/sports limit: (nonstrenuous for 6 weeks), - driving or machine use limit: (none for 1 week or until pain free), - Shower/bathe limit: (may shower) Diet: - Resume previous diet SPECIAL CARE INSTRUCTIONS: - May shower. No submerging underwater. Let water run over area and pat dry. - Surgical nahum will be removed in office. - Drain site will heal on its own from inside out. keep dressing on and change daily or as needed to keep clean and dry. - Call the surgeon's office with any questions or concerns - - (ex. temperature higher than 101 degrees F, excessive bleeding or pain). MEDICATIONS: - Resume previous medications unless instructed otherwise by your surgeon. - May alternate extra strength Tylenol and Ibuprofen as needed for mild to moderate pain -650 mg Tylenol every 6 hours as needed - Ibuprofen 600 mg every 6 hours as needed (take with food) - Percocet 1 tab every 6 hours as needed for moderate to severe pain. Take as directed. FOLLOW UP VISIT: - If not already scheduled, please call the office to schedule a one week follow-up appointment. Office number Addtl [facility]orem[facility] Provider Instructions: Follow-up with your PCP within a week time and likely you will need labs CBC/CMP/magnesium/phosphorus. Also you will need to follow-up on the final results including culture and sensitivity of the blood culture obtained on 06/09/2022 at hospital. This is to make sure that you are on appropriate antibiotics and evaluate if you need different antibiotics. You are prescribed ciprofloxacin and Flagyl for 7 more days. You will benefit from sleep study as outpatient. Coordinate with pcp office to set up this test. Your BP was found to be on lower side. Please stop hydrochlorothiazide. Decrease Valsartan dose to 160mg once daily. Pending Studies at Discharge: No Stand-Alone Forms: My [facility] Skilled Items Patient informed of condition?: Yes DNR: No Discharge Level of Care: Acute rehab Communicable Disease: No Discharge Prognosis: Improving Lines: None Urinary Catheter: No Medications and DC Order Prescriptions: New oxycodone-acetaminophen [Percocet] 5-325 mg tablet 1 tab PO Q6H PRN (Reason: pain) Qty: 15 0RF ciprofloxacin HCl 500 mg tablet 500 mg PO BID 7 Days Qty: 14 0RF metronidazole 500 mg tablet 500 mg PO Q8H 7 Days Qty: 21 0RF valsartan 160 mg tablet 160 mg PO DAILY Qty: 30 0RF Continued atorvastatin 20 mg tablet 20 mg PO DAILY Qty: 30 0RF trazodone 50 mg tablet 50 mg PO HS Qty: 30 0RF ondansetron HCl 8 mg tablet 8 mg PO DIRECTED PRN (Reason: Nausea) Qty: 6 0RF lorazepam 0.5 mg tablet 0.5 mg PO HS Qty: 30 0RF duloxetine 60 mg Capsule,Delayed Release(Dr/Ec) 60 mg PO DAILY Qty: 30 0RF pregabalin 50 mg capsule 150 mg PO DAILY Qty: 30 0RF Rx Instructions: PER DR 1ST insulin degludec [Tresiba FlexTouch U-100] 100 unit/mL (3 mL) insulin pen 35 unit SUBCUT HS Qty: 15 0RF Trulicity 0.75 mg/0.5 mL pen injector 0 mg SUBCUT WE Qty: 30 0RF Rx Instructions: the day varies Changed glipizide 5 mg tablet extended release 24hr 5 mg PO DAILY Qty: 60 0RF Rx Instructions: 360 mg for 90 day supply Discontinued hydrochlorothiazide 50 mg tablet 50 mg PO BID valsartan 320 mg tablet 320 mg PO DAILY Discharge Orders: Discharge Order (Routine); Ordered 06/17/22 Ordered By: Paul Tenorio/Other Patient Handouts: High Blood Sugar (Hyperglycemia), Hypoglycemia (Low Blood Sugar), Managing Type 2 Diabetes Admission Data Admit Date/Time: 06/09/22 17:30 Attending Provider: Paul Cedillo Admit Provider: Paul Cedillo Primary Care Provider: Larry Coel Other Providers: Crys Reynolds ; Iza Brewer I. ; Leena Calero ; Zechariah aPge ; Felicia Koehler ; Cat Black ; Karena Garcia ; Angel Villalobos ; Mayank Watkins ; Evan Nice ; Alannah Palencia ; Jayro Hu ; Barbie Marte ; Sara Shoemaker ; Jackie Ingram ; Won Wellington ; Carina Lopez ; Sandra Celestin ; Dorinda Flores ; Katarzyna Singh I. ; Abram Choi ; Felipe Kc ; Kimberly Carroll ; Joyce Gross ; Werner Patel ; Carlos Louise ; Andre Saeed ; Marck Villalobos ; Alla Hagen ; Jovani East ; Juvencio Camacho [place] Other Interventions: Discharge Summary Assessment (RN) Last Done: 06/17/22 15:43
== END 2022-06-17 16:50 | DRG 853 ==
LOC: ED 10:29 → 1E 13:56 → ED 13:56 → 1E 17:30

== ENCOUNTER 2023-07-08 20:01 | Inpatient (IN) ==
[2023-07-08 20:42] LABS: iSTAT Creatinine 3.2 mg/dl (0.6-1.3); iSTAT Hemoglobin 13.9 g/dl (12.0-16.0); iSTAT Ionized Calcium 1.11 mmol/l (1.12-1.32); iSTAT Potassium 3.6 mmol/L (3.3-5.0)
--- NOTE | 2023-07-08 20:43 | Emergency Department Note ---
Impression & Plan Acute respiratory failure with hypoxia and hypercarbia, Influenza A, KAIN (acute kidney injury) ED Provider Note NAME: MOISES FARLEY AGE: 63 SEX: F : 1960 ARRIVES VIA: Walk-In INFORMANT: Patient, ED PROVIDER(S): Stanislav Julio MD CHIEF COMPLAINT: Disorientation, stumbling, hypoxia MEDICAL DECISION MAKING: Patient presents with due to concern for disorientation found to be hypoxic in triage. IV was established and blood work is obtained along with sepsis protocols IV fluids procalcitonin lactate blood cultures CT of the head and VBG. Patient's blood work shows a normal white count with a normal H&H and platelet count. Reviewed the patient's chest x-ray does show concern for right lower lobe pneumonia. Cefepime ordered. Patient with a VBG pH is 7.21 with a pCO2 of 58 patient was to be placed on BiPAP. The patient was tolerating 2 to 4 L nasal cannula prior to this. Patient's creatinine of 2.84 which is an increase from prior. The patient was ordered a total of 3 L of IV fluids. Initial troponin 104. Lactate is 3. Procalcitonin is not elevated. I did reevaluate the patient and was comfortable on BiPAP and was a RT about titrating her oxygen to the low 90s. I did speak with Dr. Villalobos inpatient medicine service and the patient was admitted to the medicine service by Dr. Villalobos. Critical Care: I have personally spent 75 minutes of critical care time in direct management of this patient. This includes bedside care, interpretation of diagnostic studies, and testing, discussion with consultants, patient, and family members, and other require inpatient management activities. This 75 minutes is in excess of all separately billable procedures. Discussion w/ other healthcare providers: Respiratory therapists Dr. Villalobos [facility] medicine service Prior /Outside records reviewed: I reviewed a discharge summary from June 18, 2022 patient had a perforation of sigmoid colon secondary to diverticulitis and exploratory laparotomy bowel resection colostomy formation and washout. Differential diagnosis: Infection, dehydration, metabolic abnormality, hypo/hyperglycemia, electrolyte imbalance, anemia, UTI, pneumonia, thyroid dysfunction among others were considered. Diagnostics, as interpreted by me: ECG: Sinus, rate of 69, normal intervals, normal axis no ST elevations, PVC noted. Cardiac monitoring: An order was placed for continuous cardiac monitoring. The monitor shows a rate of 72 with sinus rhythm. Patient was placed on pulse oximetry Medical decision rules: Curb 65 score Imaging studies: I informally interpreted the patient's chest x-ray shows right lower lobe pneumonia with formal report to follow. HPI: Patient presents due to concern for disorientation and stumbling. The patient returned home from work around 1 PM and the was concerned. The patient states that she does not have any chest pains or shortness of breath. The patient does not wear oxygen at home but was noted to be hypoxic in triage to 82% was placed on 2 L nasal cannula. Patient's states that when she returned home from work today she was very sleepy and stumbling. He states that she slept all afternoon. He states that he did have difficulty getting her into the car in order to drive her here. No reported alcohol use but the patient does smoke. No formal history of COPD and the patient does not use inhalers or oxygen. Patient has had cough but it has been nonproductive. No known sick contacts or recent travel. 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 No vomiting or diarrhea. Patient denies any focal numbness tingling or weakness no reported slurred speech or facial droop. No falls or trauma. Patient denies any urinary symptoms. Patient does have a colostomy bag and states that it has been draining normally. Patient states that she does have some mild upper abdominal discomfort but she states that this is because of her coughing. PAST MEDICAL HISTORY: See Below PAST SURGICAL HISTORY: See Below SOCIAL HISTORY: See Below HOME MEDICATIONS: See Below ALLERGIES: See Below VITALS: See Below PHYSICAL EXAMINATION: GENERAL: Appears sleepy but follows commands and opens eyes. EYE EXAM: Normal conjunctiva. PERRL, no anisocoria and EOM's grossly intact w/o pain. OROPHARYNX: Moist mucus membranes, grossly normal dentition. NECK: Trachea midline, no stridor. LUNGS: Decreased breath sounds throughout. Normal chest wall mechanics. HEART: NSR, no MRG. ABDOMEN: Abdomen soft, non-tender, colostomy in the left abdomen noted with brown stool, no masses, no rebound or guarding. BACK: No CVA TTP. SKIN: No rashes and no bruising. UPPER EXTREMITIES: Upper extremities are grossly normal. LOWER EXTREMITIES: Grossly normal, no edema. NEURO EXAM: A&O x3, cranial nerves II-XII grossly intact, normal speech, moves all 4 extremities. Good [id number], no drift and no sensory deficits. Past Med/Surg History Medical History Pulmonary insufficiency following surgery Peritonitis Periumbilical abdominal pain Acute pain Postoperative hypoxia Obtundation Hypomagnesemia Sepsis Diabetes mellitus, type II Systemic inflammatory response syndrome (SIRS) due to infection Perforation of sigmoid colon due to diverticulitis Hypertension Hyperlipidemia Surgical History History of cholecystectomy History of appendectomy Social History Smoking Status: Unknown if ever smoked Tobacco Type: Cigarettes Hx Alcohol Use: Yes Hx Substance Use: No Preferred Language: Dutch Communication Ability: Effective 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 Beliefs That Will Affect Care: None Current Living Situation: Spouse Feels Safe at Home: Yes Assistive Devices: None Allergies Allergies Allergy/AdvReac Type Severity Reaction Status Date / Time Penicillins Allergy Intermediate RASH Verified 07/08/23 21:23 celecoxib Allergy Unknown HIVES Verified 07/08/23 21:23 morphine AdvReac Severe CO2 Verified 07/08/23 21:23 narcosis Home Meds Home Medications Medication Instructions Recorded Confirmed azithromycin 250 mg tablet 250 mg PO DAILY 07/08/23 07/08/23 citalopram 20 mg tablet 40 mg PO DAILY 07/08/23 07/08/23 dulaglutide 0.75 mg/0.5 mL 0.75 mg subcut WK 07/08/23 07/08/23 subcutaneous pen injector ([facility]) duloxetine 60 mg capsule,delayed 60 mg PO DAILY 07/08/23 07/08/23 release hydrochlorothiazide 50 mg tablet 50 mg PO DAILY 07/08/23 07/08/23 insulin degludec 100 unit/mL (3 43 unit subcut QAM 07/08/23 07/08/23 mL) subcutaneous pen (Tresiba FlexTouch U-100 insulin) insulin lispro 200 unit/mL (3 mL) 10 unit subcut TIDM 07/08/23 07/08/23 subcutaneous pen (Humalog KwikPen U-200 Insulin) lisinopril 20 mg tablet 20 mg PO DAILY 07/08/23 07/08/23 meclizine 25 mg tablet 25 mg PO TID PRN Dizziness 07/08/23 07/08/23 metoclopramide HCl 10 mg tablet 10 mg PO DIRECTED PRN NEEDED 07/08/23 07/08/23 (Reglan) omeprazole 40 mg capsule,delayed 40 mg PO DAILY 07/08/23 07/08/23 release ondansetron HCl 8 mg tablet 8 mg PO DIRECTED PRN 07/08/23 07/08/23 NAUSEA/VOMITING valsartan 320 mg tablet 320 mg PO DAILY 07/08/23 07/08/23 Previous Rx's Medication Instructions Recorded atorvastatin 20 mg tablet 20 mg PO DAILY #30 tabs 06/17/22 glipizide 5 mg tablet, extended 5 mg PO DAILY #60 tabs 06/17/22 release 24 hr lorazepam 0.5 mg tablet 0.5 mg PO HS #30 tabs 06/17/22 trazodone 50 mg tablet 50 mg PO HS #30 tabs 06/17/22 Results & Data (ED) Vital Signs Vital Signs - 24 hr 07/08/23 20:08 07/08/23 20:20 07/08/23 20:22 Temperature 36.5 C Temperature Source Temporal Artery Scan Pulse Rate 76 72 69 Pulse Rate from SpO2 Sensor 70 Pulse Rhythm Respiratory Rate 18 20 Respiratory Effort / Characteristics Non-Labored Spontaneous Respiratory Depth Normal Respiratory Pattern Blood Pressure 73/44 L 85/59 L Blood Pressure Mean 53 67 Pulse Oximetry 82 L 93 Oxygen Delivery Method Room Air Nasal Cannula Oxygen Flow Rate 4 Fraction of Inspired Oxygen Sepsis Recent Fever Within 48 Hours No Sepsis New/Unexplained Change in Mental Status No Sepsis Action Taken by Nursing No Action Required 07/08/23 20:30 07/08/23 20:40 07/08/23 20:41 Temperature Temperature Source Pulse Rate 71 65 Pulse Rate from SpO2 Sensor 67 76 Pulse Rhythm Respiratory Rate 18 21 Respiratory Effort / Characteristics Respiratory Depth Respiratory Pattern Blood Pressure 91/57 L 89/57 L 89/57 L Blood Pressure Mean 68 67 68 Pulse Oximetry 97 97 Oxygen Delivery Method Nasal Cannula Nasal Cannula Oxygen Flow Rate 4 4 Fraction of Inspired Oxygen Sepsis Recent Fever Within 48 Hours Sepsis New/Unexplained Change in Mental Status Sepsis Action Taken by Nursing 07/08/23 20:50 07/08/23 21:12 07/08/23 21:20 Temperature Temperature Source Pulse Rate 68 68 65 Pulse Rate from SpO2 Sensor 64 70 Pulse Rhythm Respiratory Rate 20 17 15 Respiratory Effort / Characteristics Non-Labored Spontaneous Respiratory Depth Normal Respiratory Pattern Regular Blood Pressure 94/63 L 103/59 L Blood Pressure Mean 73 73 Pulse Oximetry 97 96 96 Oxygen Delivery Method Nasal Cannula Nasal Cannula Oxygen Flow Rate 4 2 Fraction of Inspired Oxygen 30 Sepsis Recent Fever Within 48 Hours Sepsis New/Unexplained Change in Mental Status Sepsis Action Taken by Nursing 07/08/23 21:20 07/08/23 21:40 07/08/23 21:50 Temperature Temperature Source Pulse Rate 65 65 66 Pulse Rate from SpO2 Sensor 65 65 61 Pulse Rhythm Respiratory Rate 17 16 14 Respiratory Effort / Characteristics Respiratory Depth Respiratory Pattern Blood Pressure 118/58 L 101/44 L 96/50 L Blood Pressure Mean 78 63 65 Pulse Oximetry 96 97 95 Oxygen Delivery Method BiPAP BiPAP BiPAP Oxygen Flow Rate Fraction of Inspired Oxygen Sepsis Recent Fever Within 48 Hours Sepsis New/Unexplained Change in Mental Status Sepsis Action Taken by Nursing 07/08/23 22:00 07/08/23 22:10 07/08/23 22:20 Temperature Temperature Source Pulse Rate 70 68 65 Pulse Rate from SpO2 Sensor 66 69 64 Pulse Rhythm Respiratory Rate 13 12 15 Respiratory Effort / Characteristics Respiratory Depth Respiratory Pattern Blood Pressure 93/49 L 93/47 L 106/57 L Blood Pressure Mean 63 62 73 Pulse Oximetry 94 95 98 Oxygen Delivery Method BiPAP BiPAP BiPAP Oxygen Flow Rate Fraction of Inspired Oxygen Sepsis Recent Fever Within 48 Hours Sepsis New/Unexplained Change in Mental Status Sepsis Action Taken by Nursing 07/08/23 22:30 07/08/23 22:34 07/08/23 22:40 Temperature Temperature Source Pulse Rate 68 67 66 Pulse Rate from SpO2 Sensor 67 63 Pulse Rhythm Regular Respiratory Rate 12 14 12 Respiratory Effort / Characteristics Respiratory Depth Respiratory Pattern Blood Pressure 85/55 L 109/59 L Blood Pressure Mean 65 75 Pulse Oximetry 95 95 98 Oxygen Delivery Method BiPAP BiPAP BiPAP Oxygen Flow Rate Fraction of Inspired Oxygen Sepsis Recent Fever Within 48 Hours Sepsis New/Unexplained Change in Mental Status Sepsis Action Taken by Nursing 07/08/23 22:50 Temperature Temperature Source Pulse Rate 69 Pulse Rate from SpO2 Sensor 69 Pulse Rhythm Respiratory Rate 12 Respiratory Effort / Characteristics Respiratory Depth Respiratory Pattern Blood Pressure 117/59 L Blood Pressure Mean 78 Pulse Oximetry 91 Oxygen Delivery Method BiPAP Oxygen Flow Rate Fraction of Inspired Oxygen Sepsis Recent Fever Within 48 Hours Sepsis New/Unexplained Change in Mental Status Sepsis Action Taken by [facility] Medications Current Medication List: was personally reviewed by me Laboratory Data Attestation: I reviewed the patient's lab results. 07/08/23 19:20 07/08/23 23:11 Lab Results 07/08/23 07/08/23 07/08/23 Range/Units 19:20 20:30 20:33 WBC 5.89 (4.8-10.8) K/ul RBC 4.59 (4.20-5.40) M/uL Hgb 14.1 (12.0-16.0) g/dl POC Hgb 13.9 (12.0-16.0) g/dl Hct 42.1 (37.0-47.0) % POC Hct 41 (37-47) % MCV 91.7 (80.0-100.0) fL MCH 30.7 (25.0-34.0) pg MCHC 33.5 (32.0-36.0) g/dL RDW Std Deviation 46.2 (36.4-46.3) fL RDW Coeff of Javier 13.5 (11.5-14.5) % Plt Count 180 (130-400) K/uL MPV 11.5 (9.4-12.4) fL Immature Gran % (Auto) 0.7 % Neut % (Auto) 68.2 % Lymph % (Auto) 21.1 % Avery % (Auto) 9.0 % Eos % (Auto) 0.7 % Baso % (Auto) 0.3 % Neut # (Auto) 4.02 (1.40-6.50) K/uL Lymph # (Auto) 1.24 (1.20-3.40) K/uL Avery # (Auto) 0.53 (0.11-0.59) K/uL Eos # (Auto) 0.04 (0.00-0.50) K/uL Baso # (Auto) 0.02 (0.00-0.20) K/uL Immature Gran # (Auto) 0.04 (0.01-0.20) K/uL PT 10.1 (9.0-12.0) Seconds INR 0.9 (0.9-1.1) APTT 30 (21-31) Seconds PTT Ratio 1.1 VBG pH 7.21 L (7.36-7.41) VBG pCO2 58 H (38-50) mmHg VBG pO2 51 mmHg VBG HCO3 23 mmol/L VBG O2 Saturation 73.4 % VBG Base Excess -5.5 mEq/L POC Sodium 137 (135-144) mmol/L Sodium 137 (136-145) mmol/L POC Potassium 3.6 (3.3-5.0) mmol/L Potassium 3.5 (3.5-5.1) mmol/L POC Chloride 99 L (101-112) mmol/L Chloride 100 (98-107) mmol/L Carbon Dioxide 24 (21-32) mmol/L POC Total CO2 25 (24-31) mmol/L Anion Gap 13 H (3-11) POC Anion Gap 18.0 (16-25) mmol/L POC BUN 36 H (7-18) mg/dl BUN 41 H (6-23) mg/dl Creatinine 2.84 H (0.6-1.2) mg/dl POC Creatinine 3.2 H (0.6-1.3) mg/dl Est Cr Clr Drug Dosing 19.9 ml/min Est GFR ( Amer) 19.5 ml/min Est GFR (Non-Af Amer) 16.8 ml/min BUN/Creatinine Ratio 14.4 (10-20) Glucose 226 H (70-99(Fasting)) mg/dl POC Glucose (other) 220 H (70-99) mg/dl Estimat Average Glucose 137 mg/dl Hemoglobin A1c 6.4 H (4.5-5.6) % Lactate (0.4-2.0) mmol/L Calcium 8.7 (8.6-10.3) mg/dl POC Ioniz Calcium Devante 1.11 L (1.12-1.32) mmol/l Magnesium 2.2 (1.7-2.4) mg/dl Total Bilirubin 0.3 (0.2-1.0) mg/dl Direct Bilirubin 0.1 (0-0.2) mg/dl AST 18 (13-39) U/L ALT 17 (7-52) U/L Alkaline Phosphatase 59 (34-104) U/L Troponin I High Sens 104.1 H* (0-14) pg/ml Total Protein 6.8 (6.0-8.3) gm/dl Albumin 3.9 (3.4-5.0) gm/dl Procalcitonin 0.14 (0-0.5) ng/ml SARS-CoV-2 (PCR) (Negative) Influenza Type A (PCR) (Neg) Influenza Type B (PCR) (Neg) RSV (RT-PCR) (Neg) 07/08/23 07/08/23 Range/Units 20:38 21:38 WBC (4.8-10.8) K/ul RBC (4.20-5.40) M/uL Hgb (12.0-16.0) g/dl POC Hgb (12.0-16.0) g/dl Hct (37.0-47.0) % POC Hct (37-47) % MCV (80.0-100.0) fL MCH (25.0-34.0) pg MCHC (32.0-36.0) g/dL RDW Std Deviation (36.4-46.3) fL RDW Coeff of Javier (11.5-14.5) % Plt Count (130-400) K/uL MPV (9.4-12.4) fL Immature Gran % (Auto) % Neut % (Auto) % Lymph % (Auto) % Avery % (Auto) % Eos % (Auto) % Baso % (Auto) % Neut # (Auto) (1.40-6.50) K/uL Lymph # (Auto) (1.20-3.40) K/uL Avery # (Auto) (0.11-0.59) K/uL Eos # (Auto) (0.00-0.50) K/uL Baso # (Auto) (0.00-0.20) K/uL Immature Gran # (Auto) (0.01-0.20) K/uL PT (9.0-12.0) Seconds INR (0.9-1.1) APTT (21-31) Seconds PTT Ratio VBG pH (7.36-7.41) VBG pCO2 (38-50) mmHg VBG pO2 mmHg VBG HCO3 mmol/L VBG O2 Saturation % VBG Base Excess mEq/L POC Sodium (135-144) mmol/L Sodium (136-145) mmol/L POC Potassium (3.3-5.0) mmol/L Potassium (3.5-5.1) mmol/L POC Chloride (101-112) mmol/L Chloride (98-107) mmol/L Carbon Dioxide (21-32) mmol/L POC Total CO2 (24-31) mmol/L Anion Gap (3-11) POC Anion Gap (16-25) mmol/L POC BUN (7-18) mg/dl BUN (6-23) mg/dl Creatinine (0.6-1.2) mg/dl POC Creatinine (0.6-1.3) mg/dl Est Cr Clr Drug Dosing ml/min Est GFR ( Amer) ml/min Est GFR (Non-Af Amer) ml/min BUN/Creatinine Ratio (10-20) Glucose (70-99(Fasting)) mg/dl POC Glucose (other) (70-99) mg/dl Estimat Average Glucose mg/dl Hemoglobin A1c (4.5-5.6) % Lactate 3.0 H* (0.4-2.0) mmol/L Calcium (8.6-10.3) mg/dl POC Ioniz Calcium Devante (1.12-1.32) mmol/l Magnesium (1.7-2.4) mg/dl Total Bilirubin (0.2-1.0) mg/dl Direct Bilirubin (0-0.2) mg/dl AST (13-39) U/L ALT (7-52) U/L Alkaline Phosphatase (34-104) U/L Troponin I High Sens (0-14) pg/ml Total Protein (6.0-8.3) gm/dl Albumin (3.4-5.0) gm/dl Procalcitonin (0-0.5) ng/ml SARS-CoV-2 (PCR) NEGATIVE (Negative) Influenza Type A (PCR) Positive A (Neg) Influenza Type B (PCR) Negative (Neg) RSV (RT-PCR) Negative (Neg) Administered Medications Albumin Human (Albumin 25%) 25 gm in 100 mls @ 50 mls/hr IV ONE ONE Stop: 07/09/23 00:53 Last Admin: 07/09/23 00:22 Dose: 50 mls/hr Documented By: AKP Insulin Aspart (Insulin Aspart Per Unit Charge) 0 units SC Q6 [facility] Stop: 08/08/23 00:12 Last Admin: 07/09/23 00:31 Dose: 4 units Documented By: HOLLI Co-signed By: KAVON Insulin Glargine (Lantus Per Unit Charge) 5 units SQ HS [facility] Stop: 08/08/23 00:12 Last Admin: 07/09/23 00:32 Dose: 5 units Documented By: AKTristan Co-signed By: KAVON Discontinued Medications Albuterol (Albut/Ipratrop 3mg/0.5mg Neb 3 Ml Vial) 12 ml NEB ONE ONE; Protocol Stop: 07/08/23 20:35 Last Admin: 07/08/23 21:18 Dose: 12 ml Documented By: RAJINDER Sodium Chloride (Nss) 1,000 mls @ 999 mls/hr IV .Q1H1M ONE Stop: 07/08/23 21:34 Last Infusion: 07/09/23 00:18 Dose: Infused Documented By: Admin: 07/08/23 21:41 Dose: 999 mls/hr Documented By: Infusion: 07/08/23 21:41 Dose: Infused Documented By: Admin: 07/08/23 20:44 Dose: 999 mls/hr Documented By: IDA Cefepime HCl (Maxipime) 2,000 mg in 20 mls @ 5 mls/min IV NOW STA; Protocol Stop: 07/08/23 21:05 Last Admin: 07/08/23 21:40 Dose: 5 mls/min Documented By: IDA Sodium Chloride (Nss) 1,000 mls @ 999 mls/hr IV .Q1H1M ONE Stop: 07/08/23 22:03 Last Infusion: 07/09/23 00:18 Dose: Infused Documented By: Admin: 07/08/23 22:22 Dose: 999 mls/hr Documented By: IDA Sodium Chloride (Nss) 1,000 mls @ 999 mls/hr IV .Q1H1M ONE Stop: 07/09/23 00:22 Last Admin: 07/08/23 23:23 Dose: Not Given Documented By: IDA Methylprednisolone (Methylprednisolone 125 Mg/2 Ml Vial) 125 mg IV NOW STA Stop: 07/08/23 20:35 Last Admin: 07/08/23 20:44 Dose: 125 mg Documented By: KMO Imaging Data Radiologist's Impression: Head CT 07/08/23 20:34 Exam(s): CT HEAD Without Contrast EXAM: CT Head Without Intravenous Contrast CLINICAL HISTORY: Reason for exam: disorientation. TECHNIQUE: Axial computed tomography images of the head/brain without intravenous contrast. CTDI is 35.92 mGy and DLP is 624.41 mGy-cm. Automated exposure control was utilized for the study. A dose lowering technique was utilized adhering to the principles of ALARA. COMPARISON: 06/12/22 FINDINGS: Brain: Stable generalized parenchymal volume loss and chronic small vessel ischemic disease. Shen-white matter differentiation maintained. No hemorrhage, mass-effect, or parenchymal edema. Ventricles: Unremarkable. No hydrocephalus. Bones/joints: Unremarkable. No acute fracture. Soft tissues: Unremarkable. Vasculature: Intracranial atherosclerosis. Sinuses: Unremarkable as visualized. No acute sinusitis. Mastoid air cells: Unremarkable as visualized. No mastoid effusion. IMPRESSION: No acute intracranial process. Electronically signed by: Jorge Farrell M.D. 07/08/23 21:23 PM Discharge Plan Visit Data Chief Complaint: TIA Symptoms Stated Complaint: LETHARGIC, DISORIENTED/CONFUSED, DIZZY, MEM LOSS ED Provider: Stanislav Julio Discharge Problem: Acute respiratory failure with hypoxia and hypercarbia, Influenza A, KAIN (acute kidney injury) Discharge Instructions Interventions: ED Discharge Assessment Last Done: 07/08/23 23:26
[2023-07-08] MEDS: SODIUM CHLORIDE 0.9% 1,000 ML IV ONE ×3 (20:44→23:23)
[2023-07-08] MEDS: methylPREDNISolone 125 MG/2 ML VIAL IV STA (20:44)
[2023-07-08 20:49] LABS: Base Excess VBG -5.5 mEq/L; HCO3 VBG 23 mmol/L; Oxygen Saturation VBG 73.4 %; PCO2 VBG 58 mmHg (38-50); PO2 VBG 51 mmHg; pH VBG 7.21 (7.36-7.41)
[2023-07-08 20:59] LABS: Hematocrit (blood only) 42.1 % (37.0-47.0); Hemoglobin 14.1 g/dl (12.0-16.0); Mean Corpuscular Hemoglobin 30.7 pg (25.0-34.0); Mean Corpuscular Hgb Conc 33.5 g/dL (32.0-36.0); Mean Corpuscular Volume 91.7 fL (80.0-100.0); Mean Platelet Volume 11.5 fL (9.4-12.4); Platelet Count 180 K/uL (130-400); RDW Coefficient of Variation 13.5 % (11.5-14.5); RDW Standard Deviation 46.2 fL (36.4-46.3); Red Blood Count 4.59 M/uL (4.20-5.40); White Blood Count 5.89 K/ul (4.8-10.8)
[2023-07-08] MEDS: ALBUT/IPRATROP 3MG/0.5MG NEB 3 ML VIAL NEB ONE (21:18)
--- NOTE | 2023-07-08 21:23 | CT Scan Report ---
Exam(s): CT HEAD Without Contrast EXAM: CT Head Without Intravenous Contrast CLINICAL HISTORY: Reason for exam: disorientation. TECHNIQUE: Axial computed tomography images of the head/brain without intravenous contrast. CTDI is 35.92 mGy and DLP is 624.41 mGy-cm. Automated exposure control was utilized for the study. A dose lowering technique was utilized adhering to the principles of ALARA. COMPARISON: 06/12/22 FINDINGS: Brain: Stable generalized parenchymal volume loss and chronic small vessel ischemic disease. Shen-white matter differentiation maintained. No hemorrhage, mass-effect, or parenchymal edema. Ventricles: Unremarkable. No hydrocephalus. Bones/joints: Unremarkable. No acute fracture. Soft tissues: Unremarkable. Vasculature: Intracranial atherosclerosis. Sinuses: Unremarkable as visualized. No acute sinusitis. Mastoid air cells: Unremarkable as visualized. No mastoid effusion. IMPRESSION: No acute intracranial process. Electronically signed by: Jorge Farrell M.D. 07/08/23 21:23 PM
[2023-07-08 21:31] LABS: Influenza A virus by PCR Positive (Neg); Influenza B virus by PCR Negative (Neg); RSV by PCR Negative (Neg); SARS CoV2 RNA(COVID-19) Ceph NEGATIVE (Negative)
[2023-07-08 21:33] LABS: Albumin Level 3.9 gm/dl (3.4-5.0); BUN Creatinine Ratio 14.4 (10-20); Basophils # (auto) 0.02 K/uL (0.00-0.20); Basophils % (auto) 0.3 %; Bilirubin Direct 0.1 mg/dl (0-0.2); Bilirubin,Total 0.3 mg/dl (0.2-1.0); Calcium 8.7 mg/dl (8.6-10.3); Creatinine Clr Calc Pharmacy 19.9 ml/min; Eosinophils # (auto) 0.04 K/uL (0.00-0.50); Eosinophils % (auto) 0.7 %; Est GFR (African American) 19.5 ml/min; Est GFR (Non-African American) 16.8 ml/min; Immature Granulocytes # (auto) 0.04 K/uL (0.01-0.20); Immature Granulocytes % (auto) 0.7 %; Lymphocytes # (auto) 1.24 K/uL (1.20-3.40); Lymphocytes % (auto) 21.1 %; Magnesium 2.2 mg/dl (1.7-2.4); Monocytes # (auto) 0.53 K/uL (0.11-0.59); Neutrophils # (auto) 4.02 K/uL (1.40-6.50); Neutrophils % (auto) 68.2 %; Potassium 3.5 mmol/L (3.5-5.1); Total Protein 6.8 gm/dl (6.0-8.3)
[2023-07-08] MEDS: CEFEPIME 2,000 MG/20 ML VIAL IV STA (21:40)
[2023-07-08 21:45] LABS: INR 0.9 (0.9-1.1); Partial Thromboplastin Ratio 1.1; Partial Thromboplastin Time 30 Seconds (21-31); Prothrombin Time 10.1 Seconds (9.0-12.0); Troponin I High Sensitivity 104.1 pg/ml (0-14)
[2023-07-08 22:53] LABS: Estimated Average Glucose 137 mg/dl; Hemoglobin A1C 6.4 % (4.5-5.6)
--- NOTE | 2023-07-08 22:56 | History & Physical Report ---
Date of Service July 08, 2023 Assessment & Plan (1) Encephalopathy: Plan: Multifactorial: Hypoxemic, hypercapnic respiratory failure secondary to influenza pneumonia possible CHF, possible underlying sleep disordered breathing/OHS, hypercapnia noted on multiple blood gases last year ARF secondary to hypovolemia, right-sided hydronephrosis Neuropsychotropic medications contributory hyperlipidemia, on statin Rx DM2 on insulin requiring, well-controlled as of hemoglobin A1c of 7 last year NAFLD, no overt decompensation hx colonic polyp dysplasia, patient [place] [facility] ongoing tobacco abuse PCU Tweak BiPAP settings ABG Baseline UA, monitor creatinine response to IV albumin (preferred over crystalloid given concern for CHF) Appropriate to hold home BP meds for now given hypotension Hold neuropsychotropic medications given encephalopathy Pulmonary consult if without improvement Outpatient sleep study TTE Re: Hypotension, possible CHF Tamiflu once patient able to swallow safely Urology consult Re: Right hydronephrosis Basal bolus insulin adjusted for n.p.o. status, ISS BG goal 1 10-1 40, update hemoglobin A1c DVT prophylaxis. Heparin subcu Full code Patient requesting updates providers. Mr. Kris Alfonso, contact #[phone]. Total critical care time was 45 minutes. Text document was generated using [email or web address] voice recognition software. It may contain grammatical or spelling errors. Kindly contact undersigned for clarification of any documentation item in question. History of Present Illness Chief Complaint: Altered mental status Primary Care Provider: Larry Cole, History obtained from patient's family, and records. Limited history from patient secondary to obtunded state. Medical history significant for hypertension, hyperlipidemia, DM2 on insulin requiring, NAFLD, colonic polyp dysplasia, chronic back pain, ongoing tobacco abuse. Last confinement May 2022 under General Surgery service for perforated sigmoid diverticulitis status post surgery. 1 week history of cough, headache, SOB, and flulike symptoms along with her hu sband. Patient seen at [facility] in [place]. Outpatient COVID-19, flu and RSV tests were negative last week. Patient completed azithromycin course. Cough symptoms improved as per . Patient looked tired when she came home from work yesterday afternoon as per . Noted to be very sleepy, had to be dragged to dinner as per . Subsequently noted to be stumbling, speech somewhat slurred. Patient snores according to although no apneic episodes witnessed at home. Patient brought to ER for further evaluation. SBP 70s, O2 sats 80s upon arrival at the ER. BiPAP initiated, Solu-Medrol, cefepime, and neb treatment administered at the ER. Medical History as above Surgical History : BTL, cholecystectomy, appendectomy, sigmoid resection/colostomy placement Family History : DM Personal/Social history : 1 pack daily, occasional EtOH intake, home care Allergies Allergy/AdvReac Type Severity Reaction Status Date / Time Penicillins Allergy Intermediate RASH Verified 07/08/23 21:23 celecoxib Allergy Unknown HIVES Verified 07/08/23 21:23 morphine AdvReac Severe CO2 Verified 07/08/23 21:23 narcosis Home Medications Medication Instructions Recorded Confirmed Type atorvastatin 20 mg tablet 20 mg PO DAILY #30 tabs 06/17/22 07/08/23 Rx glipizide 5 mg tablet, extended 5 mg PO DAILY #60 tabs 06/17/22 07/08/23 Rx release 24 hr lorazepam 0.5 mg tablet 0.5 mg PO HS #30 tabs 06/17/22 07/08/23 Rx trazodone 50 mg tablet 50 mg PO HS #30 tabs 06/17/22 07/08/23 Rx azithromycin 250 mg tablet 250 mg PO DAILY 07/08/23 07/08/23 History citalopram 20 mg tablet 40 mg PO DAILY 07/08/23 07/08/23 History dulaglutide 0.75 mg/0.5 mL 0.75 mg subcut WK 07/08/23 07/08/23 History subcutaneous pen injector (Trulicity) duloxetine 60 mg capsule,delayed 60 mg PO DAILY 07/08/23 07/08/23 History release hydrochlorothiazide 50 mg tablet 50 mg PO DAILY 07/08/23 07/08/23 History insulin degludec 100 unit/mL (3 43 unit subcut QAM 07/08/23 07/08/23 History mL) subcutaneous pen (Tresiba FlexTouch U-100 insulin) insulin lispro 200 unit/mL (3 mL) 10 unit subcut TIDM 07/08/23 07/08/23 History subcutaneous pen (Humalog KwikPen U-200 Insulin) lisinopril 20 mg tablet 20 mg PO DAILY 07/08/23 07/08/23 History meclizine 25 mg tablet 25 mg PO TID PRN Dizziness 07/08/23 07/08/23 History metoclopramide HCl 10 mg tablet 10 mg PO DIRECTED PRN NEEDED 07/08/23 07/08/23 History (Reglan) omeprazole 40 mg capsule,delayed 40 mg PO DAILY 07/08/23 07/08/23 History release ondansetron HCl 8 mg tablet 8 mg PO DIRECTED PRN 07/08/23 07/08/23 History NAUSEA/VOMITING valsartan 320 mg tablet 320 mg PO DAILY 07/08/23 07/08/23 History Past Med/Surg History Medical History Pulmonary insufficiency following surgery Peritonitis Periumbilical abdominal pain Acute pain Postoperative hypoxia Obtundation Hypomagnesemia Sepsis Diabetes mellitus, type II Systemic inflammatory response syndrome (SIRS) due to infection Perforation of sigmoid colon due to diverticulitis Hypertension Hyperlipidemia Surgical History History of cholecystectomy History of appendectomy Social History Smoking Status: Unknown if ever smoked Tobacco Type: Cigarettes Hx Alcohol Use: Yes Hx Substance Use: No Preferred Language: Qatari Communication Ability: Effective Taxation Inspector Required: No Beliefs That Will Affect Care: None Current Living Situation: Spouse Feels Safe at Home: Yes Assistive Devices: None Review of Systems Review of Systems: Could not be reliably obtained secondary to obtunded state Physical Exam Physical Exam: GENERAL: Obtunded, obese, no respiratory distress SKIN: Normal color, warm HEENT: [place]imm[place] palpebral conjunctivae, no ptosis, dry buccal mucosa, BiPAP in place NECK : Supple, short neck, no tenderness CHEST : Decreased breath sounds, no overt wheezes, no tenderness HEART : RRR, no obvious murmurs ABDOMEN: Some distention, ostomy noted, nontender EXTREMITIES : Minimal LE swelling, no LE tenderness, no other conspicuous deformities noted NEUROLOGIC : Obtunded, no facial asymmetry, gait and stance not assessed Results & Data Results & Data Vital Signs (Past 12 Hours) Vital Signs Temp Pulse Resp BP Pulse Ox O2 Del Method O2 Flow Rate 07/08/23 22:34 67 14 95 BiPAP 07/08/23 22:30 68 12 85/55 L 95 BiPAP 07/08/23 22:20 65 15 106/57 L 98 BiPAP 07/08/23 22:10 68 12 93/47 L 95 BiPAP 07/08/23 22:00 70 13 93/49 L 94 BiPAP 07/08/23 21:50 66 14 96/50 L 95 BiPAP 07/08/23 21:40 65 16 101/44 L 97 BiPAP 07/08/23 21:20 65 17 118/58 L 96 BiPAP 07/08/23 21:20 65 15 96 07/08/23 21:12 68 17 103/59 L 96 Nasal Cannula 2 07/08/23 20:50 68 20 94/63 L 97 Nasal Cannula 4 07/08/23 20:41 89/57 L 07/08/23 20:40 65 21 89/57 L 97 Nasal Cannula 4 07/08/23 20:30 71 18 91/57 L 97 Nasal Cannula 4 07/08/23 20:22 69 07/08/23 20:20 72 20 85/59 L 93 Nasal Cannula 4 07/08/23 20:08 36.5 C 76 18 73/44 L 82 L Room Air FiO2 07/08/23 22:34 07/08/23 22:30 07/08/23 22:20 07/08/23 22:10 07/08/23 22:00 07/08/23 21:50 07/08/23 21:40 07/08/23 21:20 07/08/23 21:20 30 07/08/23 21:12 07/08/23 20:50 07/08/23 20:41 07/08/23 20:40 07/08/23 20:30 07/08/23 20:22 07/08/23 20:20 07/08/23 20:08 Laboratory Results Laboratory Results WBC 5.89 K/ul (4.8-10.8) 07/08/23 19:20 RBC 4.59 M/uL (4.20-5.40) 07/08/23 19:20 Hgb 14.1 g/dl (12.0-16.0) 07/08/23 19:20 POC Hgb 13.9 g/dl (12.0-16.0) 07/08/23 20:30 Hct 42.1 % (37.0-47.0) 07/08/23 19:20 POC Hct 41 % (37-47) 07/08/23 20:30 MCV 91.7 fL (80.0-100.0) 07/08/23 19:20 MCH 30.7 pg (25.0-34.0) 07/08/23 19:20 MCHC 33.5 g/dL (32.0-36.0) 07/08/23: RDW Std Deviation 46.2 fL (36.4-46.3) 07/08/23 19:20 RDW Coeff of Javier 13.5 % (11.5-14.5) 07/08/23: Plt Count 180 K/uL (130-400) 07/08/23 19:20 MPV 11.5 fL (9.4-12.4) 07/08/23 19:20 Immature Gran % (Auto) 0.7 % 07/08/23 19:20 Neut % (Auto) 68.2 % 07/08/23 19:20 Lymph % (Auto) 21.1 % 07/08/23 19:20 Evangeline % (Auto) 9.0 % 07/08/23 19:20 Eos % (Auto) 0.7 % 07/08/23 19:20 Baso % (Auto) 0.3 % 07/08/23 19:20 Neut # (Auto) 4.02 K/uL (1.40-6.50) 07/08/23 19:20 Lymph # (Auto) 1.24 K/uL (1.20-3.40) 07/08/23 19:20 Evangeline # (Auto) 0.53 K/uL (0.11-0.59) 07/08/23 19:20 Eos # (Auto) 0.04 K/uL (0.00-0.50) 07/08/23 19:20 Baso # (Auto) 0.02 K/uL (0.00-0.20) 07/08/23 19:20 Immature Gran # (Auto) 0.04 K/uL (0.01-0.20) 07/08/23 19:20 PT 10.1 Seconds (9.0-12.0) 07/08/23 19:20 INR 0.9 (0.9-1.1) 07/08/23 19:20 APTT 30 Seconds (21-31) 07/08/23 19:20 PTT Ratio 1.1 07/08/23 19:20 VBG pH 7.21 (7.36-7.41) L 07/08/23 20:33 VBG pCO2 58 mmHg (38-50) H 07/08/23 20:33 VBG pO2 51 mmHg 07/08/23 20:33 VBG HCO3 23 mmol/L 07/08/23 20:33 VBG O2 Saturation 73.4 % 07/08/23 20:33 VBG Base Excess -5.5 mEq/L 07/08/23 20:33 POC Sodium 137 mmol/L (135-144) 07/08/23 20:30 Sodium 137 mmol/L (136-145) 07/08/23 19:20 POC Potassium 3.6 mmol/L (3.3-5.0) 07/08/23 20:30 Potassium 3.5 mmol/L (3.5-5.1) 07/08/23 19:20 POC Chloride 99 mmol/L (101-112) L 07/08/23 20:30 Chloride 100 mmol/L (98-107) 07/08/23 19:20 Carbon Dioxide 24 mmol/L (21-32) 07/08/23 19:20 POC Total CO2 25 mmol/L (24-31) 07/08/23 20:30 Anion Gap 13 (3-11) H 07/08/23 19:20 POC Anion Gap 18.0 mmol/L (16-25) 07/08/23 20:30 POC BUN 36 mg/dl (7-18) H 07/08/23 20:30 BUN 41 mg/dl (6-23) H 07/08/23 19:20 Creatinine 2.84 mg/dl (0.6-1.2) H 07/08/23 19:20 POC Creatinine 3.2 mg/dl (0.6-1.3) H 07/08/23 20:30 Est Cr Clr Drug Dosing 19.9 ml/min 07/08/23 19:20 Est GFR ( Amer) 19.5 ml/min 07/08/23 19:20 Est GFR (Non-Af Amer) 16.8 ml/min 07/08/23 19:20 BUN/Creatinine Ratio 14.4 (10-20) 07/08/23 19:20 Glucose 226 mg/dl (70-99(Fasting)) H 07/08/23 19:20 POC Glucose (other) 220 mg/dl (70-99) H 07/08/23 20:30 Estimat Average Glucose 137 mg/dl 07/08/23 19:20 Hemoglobin A1c 6.4 % (4.5-5.6) H 07/08/23 19:20 Lactate 3.0 mmol/L (0.4-2.0) H* 07/08/23 21:38 Calcium 8.7 mg/dl (8.6-10.3) 07/08/23 19:20 POC Ioniz Calcium Devante 1.11 mmol/l (1.12-1.32) L 07/08/23 20:30 Magnesium 2.2 mg/dl (1.7-2.4) 07/08/23 19:20 Total Bilirubin 0.3 mg/dl (0.2-1.0) 07/08/23 19:20 Direct Bilirubin 0.1 mg/dl (0-0.2) 07/08/23 19:20 AST 18 U/L (13-39) 07/08/23 19:20 ALT 17 U/L (7-52) 07/08/23 19:20 Alkaline Phosphatase 59 U/L (34-104) 07/08/23 19:20 Troponin I High Sens 104.1 pg/ml (0-14) H* 07/08/23 19:20 Total Protein 6.8 gm/dl (6.0-8.3) 07/08/23 19:20 Albumin 3.9 gm/dl (3.4-5.0) 07/08/23 19:20 Procalcitonin 0.14 ng/ml (0-0.5) 07/08/23 19:20 SARS-CoV-2 (PCR) NEGATIVE (Negative) 07/08/23 20:38 Influenza Type A (PCR) Positive (Neg) A 07/08/23 20:38 Influenza Type B (PCR) Negative (Neg) 07/08/23 20:38 RSV (RT-PCR) Negative (Neg) 07/08/23 20:[address] 07/08/23 20:34 Exam(s): CT HEAD Without Contrast EXAM: CT Head Without Intravenous Contrast CLINICAL HISTORY: Reason for exam: disorientation. TECHNIQUE: Axial computed tomography images of the head/brain without intravenous contrast. CTDI is 35.92 mGy and DLP is 624.41 mGy-cm. Automated exposure control was utilized for the study. A dose lowering technique was utilized adhering to the principles of ALARA. COMPARISON: 06/12/22 FINDINGS: Brain: Stable generalized parenchymal volume loss and chronic small vessel ischemic disease. Shen-white matter differentiation maintained. No hemorrhage, mass-effect, or parenchymal edema. Ventricles: Unremarkable. No hydrocephalus. Bones/joints: Unremarkable. No acute fracture. Soft tissues: Unremarkable. Vasculature: Intracranial atherosclerosis. Sinuses: Unremarkable as visualized. No acute sinusitis. Mastoid air cells: Unremarkable as visualized. No mastoid effusion. IMPRESSION: No acute intracranial process. Electronically signed by: Jorge Farrell M.D. 07/08/23 21:[address] chest: Interseptal thickening could relate to atelectasis and/or pulmonary edema. CT abdomen pelvis: 1. Mild right hydronephrosis with no visualized nephrolithiasis. 2. Punctate nonobstructing left renal calculus. No left hydronephrosis. 3. There is a left lower quadrant colostomy with a small parastomal hernia. Diagnostic Findings EKG as per my interpretation : Rate 70, NSR, LAD, LAFB, no ischemia, PVCs
[2023-07-08] MEDS ORDERED: PROMETHAZINE HCL 6.25 MG in SODIUM CHLORIDE 0.9% 50 ML IV PRN (23:01)
[2023-07-08 23:52] LABS: BUN Creatinine Ratio 15.9 (10-20); Calcium 8.1 mg/dl (8.6-10.3); Creatinine Clr Calc Pharmacy 24.3 ml/min; Est GFR (African American) 24.9 ml/min; Est GFR (Non-African American) 21.5 ml/min
[2023-07-09 00:08] LABS: Troponin I High Sensitivity 110.9 pg/ml (0-14)
[2023-07-09 00:09] LABS: Thyroid Stimulating Hormone 0.966 uIu/ml (0.300-4.500)
[2023-07-09] MEDS ORDERED: GLUCOSE 40% GEL 15 GM TUBE PO PRN (00:13)
[2023-07-09] MEDS ORDERED: CARBOHYDRATES FOR HYPOGLYCEMIA PO PRN (00:13)
[2023-07-09] MEDS ORDERED: GLUCOSE 10 TAB/TUBE PO PRN (00:13)
[2023-07-09] MEDS ORDERED: DEXTROSE 50% 50 ML SYRINGE IV PRN (00:13)
[2023-07-09] MEDS ORDERED: GLUCAGON FOR INJ 1 MG VIAL SQ PRN (00:13)
[2023-07-09] MEDS: ALBUMIN 25% 25 GM/100 ML VIAL IV ONE ×2 (00:22→01:47)
[2023-07-09] MEDS: INSULIN ASPART PER UNIT CHARGE SC SCH ×2 (00:31→16:14)
[2023-07-09] MEDS: LANTUS PER UNIT CHARGE SQ SCH (00:32)
--- NOTE | 2023-07-09 00:40 | CT Scan Report ---
Exam(s): CT ABDOMEN + PELVIS Without Contrast EXAM: CT Abdomen and Pelvis Without Intravenous Contrast CLINICAL HISTORY: Pain. TECHNIQUE: Axial computed tomography images of the abdomen and pelvis without intravenous contrast. CTDI is 22.25 mGy and DLP is 1395.28 mGy-cm. Automated exposure control was utilized for the study. A dose lowering technique was utilized adhering to the principles of ALARA. COMPARISON: CT abdomen and pelvis 01/19/2023 FINDINGS: Lung bases: Unremarkable. No mass. No consolidation. ABDOMEN: Liver: Unremarkable. Gallbladder and bile ducts: Cholecystectomy. No ductal dilation. Pancreas: Unremarkable. No ductal dilation. Spleen: Unremarkable. No splenomegaly. Adrenals: Unremarkable. No mass. Kidneys and ureters: Mild right hydronephrosis with no visualized nephrolithiasis. Punctate nonobstructing left renal calculus. No left hydronephrosis. Stomach and bowel: Unremarkable. No obstruction. No mucosal thickening. PELVIS: Appendix: Appendectomy. Bladder: Unremarkable. No stones. Reproductive: Unremarkable as visualized. ABDOMEN and PELVIS: Intraperitoneal space: Unremarkable. No free air. No significant fluid collection. Bones/joints: There are degenerative changes of the spine. No acute fracture. No dislocation. Soft tissues: There is a left lower quadrant colostomy with a small parastomal hernia. Vasculature: Mild atherosclerosis. No abdominal aortic aneurysm. Lymph nodes: Unremarkable. No enlarged lymph nodes. IMPRESSION: 1. Mild right hydronephrosis with no visualized nephrolithiasis. 2. Punctate nonobstructing left renal calculus. No left hydronephrosis. 3. There is a left lower quadrant colostomy with a small parastomal hernia. Electronically signed by: Iza Geller MD 07/09/23 00:39 AM
[2023-07-09 00:54] LABS: Base Excess ABG -3.1 mEq/L (-9-1.8); HCO3 ABG 27 mmol/L (19-24); Oxygen Saturation ABG 96.5 % (90-95); PCO2 ABG 72 mmHg (35-46); PO2 ABG 91 mmHg (80-95)
[2023-07-09 00:55] LABS: Allen Test Pos (Pos)
[2023-07-09 00:56] LABS: pH ABG 7.18 (7.35-7.45)
[2023-07-09 00:59] LABS: Appearance Urine Clear (Clear); Bacteria Urine Automated None Seen (None Seen); Bilirubin Urine Negative (Negative); Blood Urine Negative (Negative); Color Urine Yellow; Glucose Urine UA Negative (Negative); Ketones Urine Negative (Negative); Leukocyte Esterase Urine Negative (Negative); Nitrite Urine Negative (Negative); Protein Urine 1+ (Negative); RBC Urine Automated 0-2 /hpf (0-2); Specific Gravity Urine 1.015 (1.000-1.030); Urobilinogen Urine Negative (Negative); WBC Urine Automated 0-5 /hpf (0-5)
[2023-07-09 01:00] LABS: Amphetamines+Metham, Urine Neg (Neg); Barbiturates, Urine Neg (Neg); Benzodiazepine, Urine Neg (Neg); Cocaine, Urine Neg (Neg); MDMA (Ecstacy), Urine Neg (Neg); Marijuana, Urine Neg (Neg); Methadone, Urine Neg (Neg); Opiate, Urine Neg (Neg); Phencyclidine, Urine Neg (Neg)
--- NOTE | 2023-07-09 01:05 | CT Scan Report ---
Exam(s): CT CHEST Without Contrast EXAM: CT Chest Without Intravenous Contrast CLINICAL HISTORY: Hypoxia. TECHNIQUE: Axial computed tomography images of the chest without intravenous contrast. CTDI is 22.25 mGy and DLP is 1385 mGy-cm. Automated exposure control was utilized for the study. A dose lowering technique was utilized adhering to the principles of ALARA. COMPARISON: No relevant prior studies available. FINDINGS: Lungs: Interseptal thickening could relate to atelectasis and/or pulmonary edema. No mass. Pleural space: Unremarkable. No pneumothorax. No significant effusion. Heart: Unremarkable. No cardiomegaly. No significant pericardial effusion. No significant coronary artery calcifications. Bones/joints: There are degenerative changes of the spine. No acute fracture. No dislocation. Soft tissues: Unremarkable. Vasculature: Mild atherosclerosis. No thoracic aortic aneurysm. Lymph nodes: Unremarkable. No enlarged lymph nodes. IMPRESSION: Interseptal thickening could relate to atelectasis and/or pulmonary edema. Electronically signed by: Iza Geller MD 07/09/23 01:04 AM
[2023-07-09 01:35] LABS: Mucus Urine Present (None Prsent)
[2023-07-09 02:24] LABS: Allen Test Pos (Pos); Base Excess ABG -2.6 mEq/L (-9-1.8); HCO3 ABG 27 mmol/L (19-24); Oxygen Saturation ABG 99.2 % (90-95); PCO2 ABG 67 mmHg (35-46); PO2 ABG 113 mmHg (80-95); pH ABG 7.21 (7.35-7.45)
[2023-07-09] MEDS: ATROPINE SULFATE 0.1 MG/ML 10ML SYR IV ONE (02:37)
--- NOTE | 2023-07-09 02:38 | Communication Note ---
Date of Service: July 09, 2023 2:30 AM Patient noted to have episodic bradycardia Heart rate 30s, SBP 90s. Code purple called. Heart rate and BP improved after 1 dose atropine. AP Symptomatic bradycardia ? Secondary to respiratory acidosis Atropine as needed symptomatic bradycardia
[2023-07-09] MEDS: ATROPINE SULFATE 0.1 MG/ML 10ML SYR IV STA (03:33)
[2023-07-09 05:57] LABS: HCO3 VBG 28 mmol/L; Oxygen Saturation VBG 93.9 %; PCO2 VBG 71 mmHg (38-50); PO2 VBG 73 mmHg
--- NOTE | 2023-07-09 06:13 | Electrocardiogram Report ---
Test Reason : Blood Pressure : / mmHG Vent. Rate : 069 BPM Atrial Rate : 069 BPM P-R Int : 170 ms QRS Dur : 084 ms QT Int : 438 ms P-R-T Axes : 049 002 010 degrees QTc Int : 469 ms Sinus rhythm with sinus arrhythmia with occasional Premature ventricular complexes Otherwise normal ECG When compared with ECG of 09-JUN-2022 13:19, Premature ventricular complexes are now Present T wave inversion less evident in Lateral leads Confirmed by John Schrader ([id number]) on 07/09/2023 6:13:02 AM Referred By: REFERRED SELF Confirmed By:Jonn Schrader
[2023-07-09] MEDS: HEPARIN SOD 5,000 UNIT/0.5 ML VIAL SQ SCH (06:16)
--- NOTE | 2023-07-09 06:16 | Electrocardiogram Report ---
Test Reason : Blood Pressure : / mmHG Vent. Rate : 053 BPM Atrial Rate : 053 BPM P-R Int : 172 ms QRS Dur : 090 ms QT Int : 476 ms P-R-T Axes : 044 018 -03 degrees QTc Int : 446 ms Sinus bradycardia with marked sinus arrhythmia Otherwise normal ECG When compared with ECG of 08-JUL-2023 20:22, Premature ventricular complexes are no longer Present Confirmed by John Schrader ([id number]) on 07/09/2023 6:15:53 AM Referred By: REFERRED SELF Confirmed By:Jonn Schrader
[2023-07-09 06:28] LABS: BUN Creatinine Ratio 21.7 (10-20); Calcium 8.3 mg/dl (8.6-10.3); Creatinine Clr Calc Pharmacy 37.1 ml/min; Est GFR (African American) 41.6 ml/min; Est GFR (Non-African American) 35.9 ml/min; Potassium 4.4 mmol/L (3.5-5.1); Troponin I High Sensitivity 90.6 pg/ml (0-14)
[2023-07-09] MEDS: ATROPINE SULFATE 0.1 MG/ML 10ML SYR IV PRN (06:37)
--- NOTE | 2023-07-09 07:10 | XRay Report ---
SINGLE VIEW CHEST CLINICAL HISTORY: Sepsis. FINDINGS: An AP, portable, upright chest radiograph is compared to study dated 06/11/2022. The heart i s enlarged noting atherosclerotic calcification of the thoracic aorta. There is mild pulmonary vascul ar congestion. Bibasilar opacities are noted. No large pleural effusion or pneumothorax is seen. The skeletal structures are osteopenic. The bony thorax is grossly intact. IMPRESSION: 1. Cardiomegaly with mild pulmonary vascular congestion. 2. Bibasilar airspace opacities likely represent scarring/atelectasis. Correlate clinically for evide nce of a superimposed infectious/inflammatory pneumonitis. Radiographic follow-up is recommended. ACT 112: Negative or not required by law. Electronically signed by: Bryant Nagel M.D. 07/09/2023 7:09 AM
[2023-07-09 07:13] LABS: Base Excess ABG -0.7 mEq/L (-9-1.8); HCO3 ABG 27 mmol/L (19-24); Oxygen Saturation ABG 99.5 % (90-95); PCO2 ABG 61 mmHg (35-46); PO2 ABG 107 mmHg (80-95); pH ABG 7.26 (7.35-7.45)
[2023-07-09 07:38] LABS: Allen Test Pos (Pos)
--- NOTE | 2023-07-09 08:54 | Hospitalist Progress Note ---
Date of Service July 09, 2023 Assessment & Plan (1) Encephalopathy: Plan Pt is a 63yoF with PMHx significant for history of diabetes, hypertension presenting from home with increased lethargy. Acute on Chronic hypoxic and Hypercapnic Respiratory failure Influenza Infection Pt presented with lethargy from home Hypoxemic, hypercapnic respiratory failure secondary to influenza, pneumonia, possible CHF, possible underlying sleep disordered breathing/OHS ABG with pH of 7.18, pCO2 72, HCO3 of 27 on admission hypercapnia noted on multiple blood gases last year Chest XR with bilateral airspace opacities CT chest noting interseptal thickening suggestive of pulm edema/atelectasis +Influenza A Blood Cx x2 pending On bipap, tamiflu for influenza A, supportive treatments Pulmonology consulted, appreciate recs Improving Altered Mental Status Acute metabolic/toxic encephalopathy Likely in setting of above Head CT unremarkable Tox screen negative Neuropsychotropic medications contributory Continue bipap, improving Bradycardia HR noted as low into the 30s Received atropine, ordered prn EKG on arrival sinus with PACs Echo EF 50%, otherwise unremarkable Cardiology consulted, appreciate recs Elevated Trop Demand ischemia Trops elevated and downtrended EKG on arrival sinus with PACs Echo EF 50%, otherwise unremarkable Cardiology consulted, appreciate recs Doubt ACS, likely elevated in setting of above Hydronephrosis, right Nephrolithiasis, nonobstructive Noted on CT abd/pelvis Urology consulted, appreciate recs Acute renal Failure Cr elevated at 2.84 on admission Likely secondary to hypovolemia, right-sided hydronephrosis Was on scheduled albumin while cardiac status unknown, concern for CHF based on CT chest Holding home nephrotoxic meds Improving, consider gentle hydration as needed HTN Holding home hctz, and both APURVA/ARB? in setting of hypotension Pt will need med reconciled as appears to be on both APURVA and ARB hyperlipidemia on statin Rx DMII insulin requiring hgba1c of 6.4 Hold home meds Basal/bolus while hospitalized resume home meds on discharge NAFLD no overt decompensation hx colonic polyp dysplasia patient follows [place] [facility] Tobacco abuse Encourage cessation Likely contributory to presentation Mood Holding home lorazepam as contributory Also on cymbalta with celexa and trazodone Diet: DMII/HH DVT prophylaxis: Heparin subcu Dispo: PT/OT ordered Admission and Anticipated Discharge Date Admission Date: July 08, 2023 Subjective Pt seen in the AM about 8:30. Resting comfortably, bipap in place. Unable to be aroused. Code purple overnight for bradycardia into the 30s. Notified by nursing that pt's had called twice this AM. Pt's called at about 8:45AM and updated. Review of Systems Review of Systems: Unobtainable due to reduced consciousness Physical Exam Physical Exam: General: unarousable Psych: mood and affect could not be determined HEENT: NC/AT, bipap in place CV: RRR Resp: bipap on Abdomen: Soft Results & Data Results & Data Vital Signs (Past 12 Hours) Vital Signs Temp Pulse Pulse Resp BP BP Pulse Ox 07/09/23 08:31 36.2 C L 07/09/23 07:30 36.0 C L 55 L 24 161/84 H 96 07/09/23 07:15 07/09/23 07:01 66 26 H 93 07/09/23 03:40 36.5 C 65 22 142/78 H 95 07/09/23 03:32 59 L 145/85 H 07/09/23 03:07 43 L 24 92 07/09/23 01:00 68 97 07/09/23 00:51 07/09/23 00:13 36.3 C L 18 110/70 93 07/09/23 00:12 83 07/08/23 23:45 77 12 92 07/08/23 23:26 68 30 H 101/74 100 07/08/23 23:00 81 15 109/56 L 90 07/08/23 22:50 69 12 117/59 L 91 07/08/23 22:40 66 12 109/59 L 98 07/08/23 22:34 67 14 95 07/08/23 22:30 68 12 85/55 L 95 07/08/23 22:20 65 15 106/57 L 98 07/08/23 22:10 68 12 93/47 L 95 07/08/23 22:00 70 13 93/49 L 94 07/08/23 21:50 66 14 96/50 L 95 07/08/23 21:40 65 16 101/44 L 97 07/08/23 21:20 65 17 118/58 L 96 07/08/23 21:20 65 15 96 07/08/23 21:12 68 17 103/59 L 96 07/08/23 20:50 68 20 94/63 L 97 O2 Del Method O2 Flow Rate FiO2 07/09/23 08:31 07/09/23 07:30 BiPAP 30 07/09/23 07:15 BiPAP 30 07/09/23 07:01 40 07/09/23 03:40 BiPAP 07/09/23 03:32 07/09/23 03:07 40 07/09/23 01:00 07/09/23 00:51 BiPAP 07/09/23 00:13 CPAP 07/09/23 00:12 07/08/23 23:45 40 07/08/23 23:26 BiPAP 07/08/23 23:00 BiPAP 07/08/23 22:50 BiPAP 07/08/23 22:40 BiPAP 07/08/23 22:34 BiPAP 07/08/23 22:30 BiPAP 07/08/23 22:20 BiPAP 07/08/23 22:10 BiPAP 07/08/23 22:00 BiPAP 07/08/23 21:50 BiPAP 07/08/23 21:40 BiPAP 07/08/23 21:20 BiPAP 07/08/23 21:20 30 07/08/23 21:12 Nasal Cannula 2 07/08/23 20:50 Nasal Cannula 4
[2023-07-09] MEDS: ALBUMIN 25% 25 GM/100 ML VIAL IV SCH (09:30)
[2023-07-09] MEDS: OSELTAMIVIR PHOSPHATE SUSP 30 MG/5 ML UDP PO SCH ×2 (09:57→20:45)
--- NOTE | 2023-07-09 10:14 | Urology Consultation ---
Date of Consultation July 09, 2023 Assessment & Plan (1) KAIN (acute kidney injury): Plan Acutely ill patient with upper respiratory infection/influenza I believe her creatinine is a response to her current illness and not a urological issue Given her improvement already this supports that feeling No involvement required or indicated at this time History of Present Illness Attending Physician: Jackie Ingram MD History of Present Illness Patient admitted acutely ill with a respiratory illness and abdominal discomfort from progressive coughing In the midst of this admission she was found to have KAIN and his CT was read as having mild hydronephrosis I have personally reviewed and interpreted the CT and I would state that her hydronephrosis is truly minimal if present at all I do not believe this even remotely explains her current KAIN She has already had a substantial improvement in creatinine with simple supportive care and hydration Her respiratory status is gradually improving but she remains on BiPAP She is otherwise hemodynamically stable at present Urine is clear with a Suero catheter in place Allergies Allergy/AdvReac Type Severity Reaction Status Date / Time Penicillins Allergy Intermediate RASH Verified 07/08/23 21:23 celecoxib Allergy Unknown HIVES Verified 07/08/23 21:23 morphine AdvReac Severe CO2 Verified 07/08/23 21:23 narcosis Home Medications Medication Instructions Recorded Confirmed Type atorvastatin 20 mg tablet 20 mg PO DAILY #30 tabs 06/17/22 07/08/23 Rx glipizide 5 mg tablet, extended 5 mg PO DAILY #60 tabs 06/17/22 07/08/23 Rx release 24 hr lorazepam 0.5 mg tablet 0.5 mg PO HS #30 tabs 06/17/22 07/08/23 Rx trazodone 50 mg tablet 50 mg PO HS #30 tabs 06/17/22 07/08/23 Rx azithromycin 250 mg tablet 250 mg PO DAILY 07/08/23 07/08/23 History citalopram 20 mg tablet 40 mg PO DAILY 07/08/23 07/08/23 History dulaglutide 0.75 mg/0.5 mL 0.75 mg subcut WK 07/08/23 07/08/23 History subcutaneous pen injector (Trulicity) duloxetine 60 mg capsule,delayed 60 mg PO DAILY 07/08/23 07/08/23 History release hydrochlorothiazide 50 mg tablet 50 mg PO DAILY 07/08/23 07/08/23 History insulin degludec 100 unit/mL (3 43 unit subcut QAM 07/08/23 07/08/23 History mL) subcutaneous pen (Tresiba FlexTouch U-100 insulin) insulin lispro 200 unit/mL (3 mL) 10 unit subcut TIDM 07/08/23 07/08/23 History subcutaneous pen (Humalog KwikPen U-200 Insulin) lisinopril 20 mg tablet 20 mg PO DAILY 07/08/23 07/08/23 History meclizine 25 mg tablet 25 mg PO TID PRN Dizziness 07/08/23 07/08/23 History metoclopramide HCl 10 mg tablet 10 mg PO DIRECTED PRN NEEDED 07/08/23 07/08/23 History (Reglan) omeprazole 40 mg capsule,delayed 40 mg PO DAILY 07/08/23 07/08/23 History release ondansetron HCl 8 mg tablet 8 mg PO DIRECTED PRN 07/08/23 07/08/23 History NAUSEA/VOMITING valsartan 320 mg tablet 320 mg PO DAILY 07/08/23 07/08/23 History Patient History Medical History Pulmonary insufficiency following surgery Peritonitis Periumbilical abdominal pain Acute pain Postoperative hypoxia Obtundation Hypomagnesemia Sepsis Diabetes mellitus, type II Systemic inflammatory response syndrome (SIRS) due to infection Perforation of sigmoid colon due to diverticulitis Hypertension Hyperlipidemia Surgical History History of cholecystectomy History of appendectomy Social History Smoking Status: Unknown if ever smoked Tobacco Type: Cigarettes Hx Alcohol Use: Yes Hx Substance Use: No Preferred Language: Italian Communication Ability: Effective Change Management Consultant Required: No Beliefs That Will Affect Care: None Current Living Situation: Spouse Feels Safe at Home: Yes Assistive Devices: None Physical Exam Physical Exam: No CVA tenderness on the right or the left Urine clear, Suero in place Results & Data Vital Signs (Past 12 Hours) Vital Signs Temp Pulse Pulse Resp BP BP Pulse Ox 07/09/23 08:31 36.2 C L 07/09/23 07:30 36.0 C L 55 L 24 161/84 H 96 07/09/23 07:15 07/09/23 07:01 66 26 H 93 07/09/23 03:40 36.5 C 65 22 142/78 H 95 07/09/23 03:32 59 L 145/85 H 07/09/23 03:07 43 L 24 92 07/09/23 01:00 68 97 07/09/23 00:51 07/09/23 00:13 36.3 C L 18 110/70 93 07/09/23 00:12 83 07/08/23 23:45 77 12 92 07/08/23 23:26 68 30 H 101/74 100 07/08/23 23:00 81 15 109/56 L 90 07/08/23 22:50 69 12 117/59 L 91 07/08/23 22:40 66 12 109/59 L 98 07/08/23 22:34 67 14 95 07/08/23 22:30 68 12 85/55 L 95 07/08/23 22:20 65 15 106/57 L 98 O2 Del Method FiO2 07/09/23 08:31 07/09/23 07:30 BiPAP 30 07/09/23 07:15 BiPAP 30 07/09/23 07:01 40 07/09/23 03:40 BiPAP 07/09/23 03:32 07/09/23 03:07 40 07/09/23 01:00 07/09/23 00:51 BiPAP 07/09/23 00:13 CPAP 07/09/23 00:12 07/08/23 23:45 40 07/08/23 23:26 BiPAP 07/08/23 23:00 BiPAP 07/08/23 22:50 BiPAP 07/08/23 22:40 BiPAP 07/08/23 22:34 BiPAP 07/08/23 22:30 BiPAP 07/08/23 22:20 BiPAP PG Care Time/CCT Total # of Minutes Spent Total Time Spent with Patient: Total time spent is greater than 50% in coordination of care (as documented) at patient's floor/unit and/or counseling patient: Coding Level of Care Code 15396 IN/OBS CONSULT LVL 3,45M Diagnoses KAIN (acute kidney injury) N17.9
[2023-07-09 12:56] LABS: Base Excess ABG 0.6 mEq/L (-9-1.8); HCO3 ABG 27 mmol/L (19-24); Oxygen Saturation ABG 98.4 % (90-95); PCO2 ABG 50 mmHg (35-46); PO2 ABG 114 mmHg (80-95); pH ABG 7.34 (7.35-7.45)
[2023-07-09 12:57] LABS: Allen Test Pos (Pos)
--- NOTE | 2023-07-09 13:44 | Cardiology Consultation ---
Date of Consultation July 09, 2023 Assessment & Plan (1) Bradycardia: (2) Encephalopathy: (3) KAIN (acute kidney injury): (4) Influenza A: (5) Acute respiratory failure with hypoxia and hypercarbia: (6) Acute hyperglycemia: (7) Tobacco abuse: Plan 07/09/23: -Significant bradycardia noted, but asymptomatic. Heart rates are lower while sleeping. Will need ESTELA evaluation. -She is not on any AVN blockers. She also does not have any cardiac history. -Echocardiogram completed today. Qualitatively EF 50% (low-normal) without valvular abnormalities. Unable to calculate pulmonary hypertension. -SB secondary to acute respiratory acidosis. Continue to monitor on telemetry. -Will need a Zio Monitor at discharge -Will also need outpatient Cardiology follow up as well. Case discussed with Dr. Mcclain I spent a total of 50 minutes on the date of service in preparation, delivery, and documentation of the care provided to this patient, excluding any time spent in the performance of separately billed services. ARIELLE Wood Department of Cardiology, [facility] This chart was completed in part utilizing Speech Voice Recognition Software. Grammatical errors, random word insertions, pronoun errors, and incomplete sentences are an occasional consequence of this system due to software limitations, ambient noise, and hardware issues. Any formal questions or concerns about the content, text, or information contained within the body of this dictation should be directly addressed to the provider for clarification. Supervising Physician Co-Signing Physician Notes 63-year-old female with known history of hypertension , diabetes mellitus .obesity tobacco use presents with altered mental status was noted to be in acute respiratory failure with hypercapnia and hypoxia since her admission has been in sinus bradycardia overnight on telemetry noted to be with a heart rate of 30 bpm sinus bradycardia she did receive a dose of atropine however at that time patient was lethargic could not assess her symptoms. On review of telemetry today morning her heart rate is improved up to 50s to 70s Sinus bradycardia in the setting of acute respite metabolic derangements with hypercapnia hypoxia and and multiple sedating medications and sleep apnea. She is now asymptomatic with heart rate of 60s to 70s avoid AV hardeep blockers reviewed echocardiogram which shows borderline EF no significant valvular abnormalities . Recommend outpatient Zio patch monitor avoid AV hardeep blockers and follow-up with cardiology as outpatient. I have reviewed the advanced practitioner's documentation on the date of service referenced in note, and I agree with, and take responsibility for the plan of care. I spent a total of [30] minutes coordinating, documenting, and providing care for this patient excluding time spent in the performance of separately billed services or time spent by another provider. History of Present Illness Reason for Consultation: Bradycardia Requesting Physician: Jackie Ingram MD Attending Physician: Dr. Mcclain History of Present Illness Presented to [facility] on 07/07 with cough, headache, shortness of breath, and flu- like symptoms x 1 week. Patient obtunded in the ED, placed on BiPAP for hypoxia. reported that she came home from work and napped for a long time. When she woke she was confused about the time of day. They went to dinner and she couldn't properly hold the utinsels. She was also drowsy. On 07/08, patient noted to have symptomatic bradycardia with rates in the 30s at 2:30 a.m. Code purpled called. Treated with 1 dose of Atropine and her heart rate improved. This morning patient is resting in bed wearing 3LNC. Mental status has much improved.Her ABG has shown improvement with BiPAP. states she does snore, but unsure if she stops breathing while asleep. She smokes about 1 PPD. No interest in quitting. Has a non-productive cough. Allergies Allergy/AdvReac Type Severity Reaction Status Date / Time Penicillins Allergy Intermediate RASH Verified 07/08/23 21:23 celecoxib Allergy Unknown HIVES Verified 07/08/23 21:23 morphine AdvReac Severe CO2 Verified 07/08/23 21:23 narcosis Home Medications Medication Instructions Recorded Confirmed Type atorvastatin 20 mg tablet 20 mg PO DAILY #30 tabs 06/17/22 07/08/23 Rx glipizide 5 mg tablet, extended 5 mg PO DAILY #60 tabs 06/17/22 07/08/23 Rx release 24 hr lorazepam 0.5 mg tablet 0.5 mg PO HS #30 tabs 06/17/22 07/08/23 Rx trazodone 50 mg tablet 50 mg PO HS #30 tabs 06/17/22 07/08/23 Rx azithromycin 250 mg tablet 250 mg PO DAILY 07/08/23 07/08/23 History citalopram 20 mg tablet 40 mg PO DAILY 07/08/23 07/08/23 History dulaglutide 0.75 mg/0.5 mL 0.75 mg subcut WK 07/08/23 07/08/23 History subcutaneous pen injector (Trulicity) duloxetine 60 mg capsule,delayed 60 mg PO DAILY 07/08/23 07/08/23 History release hydrochlorothiazide 50 mg tablet 50 mg PO DAILY 07/08/23 07/08/23 History insulin degludec 100 unit/mL (3 43 unit subcut QAM 07/08/23 07/08/23 History mL) subcutaneous pen (Tresiba FlexTouch U-100 insulin) insulin lispro 200 unit/mL (3 mL) 10 unit subcut TIDM 07/08/23 07/08/23 History subcutaneous pen (Humalog KwikPen U-200 Insulin) lisinopril 20 mg tablet 20 mg PO DAILY 07/08/23 07/08/23 History meclizine 25 mg tablet 25 mg PO TID PRN Dizziness 07/08/23 07/08/23 History metoclopramide HCl 10 mg tablet 10 mg PO DIRECTED PRN NEEDED 07/08/23 07/08/23 History (Reglan) omeprazole 40 mg capsule,delayed 40 mg PO DAILY 07/08/23 07/08/23 History release ondansetron HCl 8 mg tablet 8 mg PO DIRECTED PRN 07/08/23 07/08/23 History NAUSEA/VOMITING valsartan 320 mg tablet 320 mg PO DAILY 07/08/23 07/08/23 History Patient History Medical History (Updated 07/09/23 @ 14:30 by Kerwin Zheng MD) Tobacco abuse Pulmonary insufficiency following surgery Peritonitis Periumbilical abdominal pain Acute pain Postoperative hypoxia Obtundation Hypomagnesemia Sepsis Diabetes mellitus, type II Systemic inflammatory response syndrome (SIRS) due to infection Perforation of sigmoid colon due to diverticulitis Hypertension Hyperlipidemia Surgical History History of cholecystectomy History of appendectomy Social History Smoking Status: Unknown if ever smoked Tobacco Type: Cigarettes Hx Alcohol Use: Yes Hx Substance Use: No Preferred Language: Yoruba Communication Ability: Effective Steam Shovel Operator Required: No Beliefs That Will Affect Care: None Current Living Situation: Spouse Feels Safe at Home: Yes Assistive Devices: None Review of Systems Review of Systems: All systems reviewed & are unremarkable except as noted in HPI & below Physical Exam Constitutional: WD/WN, vitals as above Respiratory: normal respiratory effort, lungs clear to auscultation (3 LNC) Auscultation: lungs clear to auscultation bilaterally Cardiovascular: Rate/Rhythm: + bradycardic Heart Sounds: normal S1 and normal S2 Extremities: normal capillary refill; no edema Musculoskeletal: no cyanosis or clubbing, extremities motor strength 5/5 Neurologic: PERRL, EOMI, accommodation nl, no face palsy, no dysarthria A&O x3 Results & Data Vital Signs (Past 12 Hours) Vital Signs Temp Pulse Pulse Resp BP Pulse Ox O2 Del Method 07/09/23 11:14 36.5 C 50 L 30 H 162/74 H 99 BiPAP 07/09/23 10:24 70 22 93 07/09/23 08:31 36.2 C L 07/09/23 07:30 36.0 C L 55 L 24 161/84 H 96 BiPAP 07/09/23 07:15 BiPAP 07/09/23 07:01 66 26 H 93 07/09/23 03:40 36.5 C 65 22 142/78 H 95 BiPAP 07/09/23 03:32 59 L 145/85 H 07/09/23 03:07 43 L 24 92 FiO2 07/09/23 11:14 07/09/23 10:24 30 07/09/23 08:31 07/09/23 07:30 30 07/09/23 07:15 30 07/09/23 07:01 40 07/09/23 03:40 07/09/23 03:32 07/09/23 03:07 40 Laboratory Results Cardiac Enzymes 07/08/23 07/08/23 07/09/23 Range/Units 19:20 23:11 05:32 AST 18 (13-39) U/L Troponin I High Sens 104.1 H* 110.9 H* 90.6 H* D (0-14) pg/ml Coagulation 07/08/23 Range/Units 19:20 PT 10.1 (9.0-12.0) Seconds APTT 30 (21-31) Seconds CBC 07/08/23 Range/Units 19:20 WBC 5.89 (4.8-10.8) K/ul RBC 4.59 (4.20-5.40) M/uL Hgb 14.1 (12.0-16.0) g/dl Hct 42.1 (37.0-47.0) % Plt Count 180 (130-400) K/uL Neut # (Auto) 4.02 (1.40-6.50) K/uL Lymph # (Auto) 1.24 (1.20-3.40) K/uL [place] # (Auto) 0.53 (0.11-0.59) K/uL Eos # (Auto) 0.04 (0.00-0.50) K/uL Baso # (Auto) 0.02 (0.00-0.20) K/uL Comprehensive Metabolic Panel 07/08/23 07/08/23 07/09/23 Range/Units 19:20 23:11 05:32 Sodium 137 137 140 (136-145) mmol/L Potassium 3.5 4.0 4.4 (3.5-5.1) mmol/L Chloride 100 107 108 H (98-107) mmol/L Carbon Dioxide 24 25 26 (21-32) mmol/L BUN 41 H 37 H 33 H (6-23) mg/dl Creatinine 2.84 H 2.32 H D 1.52 H D (0.6-1.2) mg/dl Glucose 226 H 209 H 233 H (70-99(Fasting)) mg/dl Calcium 8.7 8.1 L 8.3 L (8.6-10.3) mg/dl Direct Bilirubin 0.1 (0-0.2) mg/dl AST 18 (13-39) U/L ALT 17 (7-52) U/L Alkaline Phosphatase 59 (34-104) U/L Total Protein 6.8 (6.0-8.3) gm/dl Albumin 3.9 (3.4-5.0) gm/dl Intake and Output 07/08/23 07/09/23 07/09/23 22:59 06:59 14:59 Intake Total 949.05 / 3116.05 2167 / 3116.05 100 / 100 Output Total 1000 / 1000 Balance 949.05 / 2116.05 1167 / 2116.05 100 / 100 Intake: IV 949.05 / 3116.05 2167 / 3116.05 100 / 100 Albumin 25% 25 gm In 100 ml @ 167 / 167 100 / 100 50 mls/hr IV Q8H [facility] Rx#: [id number] Sodium Chloride 0.9% 1,000 ml @ 949.05 / 2949.05 2000 / 2949.05 999 mls/hr IV .Q1H1M ONE Rx#: [id number] Output: Urine Amount (Catheter) 1000 / 1000 Suero/Indwelling 1000 / 1000 Other: Weight 82 kg Weight Measurement Method Built in [facility] Diagnostic Findings Telemetry Reviewed 07/09/23: SB 30-40s Echo 07/09/23 EKG 07/09/23 SB with SA 53 bpm EKG 07/08/23 NSR [address] 07/08/23 Interseptal thickening could relate to atelectasis and/or pulmonary edema. CT Abd/Pelvis 07/08/23 IMPRESSION: 1. Mild right hydronephrosis with no visualized nephrolithiasis. 2. Punctate nonobstructing left renal calculus. No left hydronephrosis. 3. There is a left lower quadrant colostomy with a small parastomal hernia. Head CT 07/08/23 IMPRESSION: No acute intracranial process
--- NOTE | 2023-07-09 13:54 | Pulmonary Consultation ---
Date of Consultation July 09, 2023 Assessment & Plan (1) Acute respiratory failure with hypoxia and hypercarbia: Patient has acute hypoxic and hypercapnic respiratory failure likely due to underlying viral pneumonia in a patient with morbid obesity and possible COPD. Agree with symptomatic treatment at this time and BiPAP as needed. Upon discharge, the patient will need referred to sleep medicine and pulmonary medicine. She would benefit from an outpatient polysomnography and PFT. We discussed smoking cessation at length, but the patient reiterates at this time that she is not interested. She will need an ambulatory oxygen saturation test on room air prior to discharge. We also discussed that combined usage of lorazepam twice daily and trazodone can contribute to oversedation and hypercapnia. I urged her to discuss this with her PCP and consider weaning off of benzodiazepines. Suspect the patient is not too far from her baseline and can likely be dismissed from the hospital in the next 1 to 2 days. Patient is not bronchospastic at this time and is not requiring any form of oral corticosteroids. (2) Influenza A: Defer to primary team regarding the use of Tamiflu. (3) KAIN (acute kidney injury): KAIN likely due to sepsis and ATN. Improving (4) Tobacco abuse: Patient has extensive tobacco abuse history. She has been smoking cigarettes since the age of 14 and continues smoke 1 pack/day. She is not interested in quitting. Recommend behavioral health referral to discuss different avenues towards smoking cessation. Plan Pulmonary to sign off at this time. Please call with questions. Thank you for the consult History of Present Illness Reason for Consultation: "Resp failure" Attending Physician: Jackie Ingram MD History of Present Illness 63-year-old female who presented to the ER with a history of hypertension, hyperlipidemia and diabetes mellitus. She also has a colostomy for bowel perforation in May. She presented for encephalopathy and hypoxia. She was noted to be encephalopathic in the ER with a pH of 7.21. She was placed on BiPAP therapy. Patient apparently has been stumbling and disoriented prior to her hospitalization. Her ABG has shown improvement with BiPAP and her most recent gases 7.34, 50, 114. She did test positive for influenza A. CT chest completed on admission revealed interseptal thickening consistent with pulmonary edema. No contrast was administered due to renal failure. CT abdomen pelvis revealed mild right hydronephrosis and punctate nonobstructing left renal stones. CT head negative for acute process. Patient is currently on Tamiflu 30 mg twice daily. She is alert and awake now. Her is at bedside. She wants the BiPAP mask taken off. Will place her on nasal cannula and she tolerated this well. She notes that she smokes about a pack of cigarettes a day and has no interest in quitting. She has smoked since the age of 14. He does not use any inhalers. She does endorse a bit of a cough. She does note shortness of breath with exertion but not at rest. She is eager to go home. No prior pulmonary function testing available for review. No significant eosinophilia on admission labs noted. Allergies Allergy/AdvReac Type Severity Reaction Status Date / Time Penicillins Allergy Intermediate RASH Verified 07/08/23 21:23 celecoxib Allergy Unknown HIVES Verified 07/08/23 21:23 morphine AdvReac Severe CO2 Verified 07/08/23 21:23 narcosis Home Medications Medication Instructions Recorded Confirmed Type atorvastatin 20 mg tablet 20 mg PO DAILY #30 tabs 06/17/22 07/08/23 Rx glipizide 5 mg tablet, extended 5 mg PO DAILY #60 tabs 06/17/22 07/08/23 Rx release 24 hr lorazepam 0.5 mg tablet 0.5 mg PO HS #30 tabs 06/17/22 07/08/23 Rx trazodone 50 mg tablet 50 mg PO HS #30 tabs 06/17/22 07/08/23 Rx azithromycin 250 mg tablet 250 mg PO DAILY 07/08/23 07/08/23 History citalopram 20 mg tablet 40 mg PO DAILY 07/08/23 07/08/23 History dulaglutide 0.75 mg/0.5 mL 0.75 mg subcut WK 07/08/23 07/08/23 History subcutaneous pen injector (Trulicity) duloxetine 60 mg capsule,delayed 60 mg PO DAILY 07/08/23 07/08/23 History release hydrochlorothiazide 50 mg tablet 50 mg PO DAILY 07/08/23 07/08/23 History insulin degludec 100 unit/mL (3 43 unit subcut QAM 07/08/23 07/08/23 History mL) subcutaneous pen (Tresiba FlexTouch U-100 insulin) insulin lispro 200 unit/mL (3 mL) 10 unit subcut TIDM 07/08/23 07/08/23 History subcutaneous pen (Humalog KwikPen U-200 Insulin) lisinopril 20 mg tablet 20 mg PO DAILY 07/08/23 07/08/23 History meclizine 25 mg tablet 25 mg PO TID PRN Dizziness 07/08/23 07/08/23 History metoclopramide HCl 10 mg tablet 10 mg PO DIRECTED PRN NEEDED 07/08/23 07/08/23 History (Reglan) omeprazole 40 mg capsule,delayed 40 mg PO DAILY 07/08/23 07/08/23 History release ondansetron HCl 8 mg tablet 8 mg PO DIRECTED PRN 07/08/23 07/08/23 History NAUSEA/VOMITING valsartan 320 mg tablet 320 mg PO DAILY 07/08/23 07/08/23 History Patient History Medical History (Updated 07/09/23 @ 14:30 by Kerwin Zheng MD) Tobacco abuse Pulmonary insufficiency following surgery Peritonitis Periumbilical abdominal pain Acute pain Postoperative hypoxia Obtundation Hypomagnesemia Sepsis Diabetes mellitus, type II Systemic inflammatory response syndrome (SIRS) due to infection Perforation of sigmoid colon due to diverticulitis Hypertension Hyperlipidemia Surgical History History of cholecystectomy History of appendectomy Social History Smoking Status: Unknown if ever smoked Tobacco Type: Cigarettes Hx Alcohol Use: Yes Hx Substance Use: No Preferred Language: Sami Communication Ability: Effective 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 Patient is in no apparent distress. Patient is well-developed. Eyes: Pupils are equal round and reactive to light. Conjunctivae are normal. Anicteric sclera. Ears nose, mouth and throat: Mallampati class 2. Normal posterior oropharynx. Uvula is midline. Neck: Trachea is midline. Visual inspection is normal. Respiratory: Clear to auscultation bilaterally. No use of accessory muscles. No significant clubbing noted. Cardiovascular: Regular rate and rhythm. No murmurs. No edema. Gastrointestinal: Normal bowel sounds, soft, nontender and nondistended. No hepatosplenomegaly noted. Musculoskeletal: No cyanosis. Patient is able to move all extremities. Strength is 5 out of 5 in the upper and lower extremities. Skin: No rashes, warm dry and intact. Neurologic: No obvious focal neurological deficits seen. Psychiatric: Alert and oriented x3 with a euthymic affect. Results & Data Results & Data Vital Signs (Past 12 Hours) Vital Signs Temp Pulse Pulse Resp BP Pulse Ox O2 Del Method 07/09/23 11:14 36.5 C 50 L 30 H 162/74 H 99 BiPAP 07/09/23 10:24 70 22 93 07/09/23 08:31 36.2 C L 07/09/23 07:30 36.0 C L 55 L 24 161/84 H 96 BiPAP 07/09/23 07:15 BiPAP 07/09/23 07:01 66 26 H 93 07/09/23 03:40 36.5 C 65 22 142/78 H 95 BiPAP 07/09/23 03:32 59 L 145/85 H 07/09/23 03:07 43 L 24 92 FiO2 07/09/23 11:14 07/09/23 10:24 30 07/09/23 08:31 07/09/23 07:30 30 07/09/23 07:15 30 07/09/23 07:01 40 07/09/23 03:40 07/09/23 03:32 07/09/23 03:07 40 PG Care Time/CCT Total # of Minutes Spent Total Time Spent with Patient: Total time spent is greater than 50% in coordination of care (as documented) at patient's floor/unit and/or counseling patient: Coding Level of Care Code 54575 IN/OBS CONSULT LVL 3,45M Diagnoses Acute respiratory failure with hypoxia and hypercarbia J96.01; J96.02 Influenza A J10.1 KAIN (acute kidney injury) N17.9 Tobacco abuse Z72.0
--- OUTSIDE RECORDS SUMMARY | 2023-07-09 18:08 | External Medical Summary | Summary of Care ---
Author Name Unknown Organization [facility] Address [address] [place] [address] Phone [phone] Care Team Providers Care Carousel Attendant Name Role Phone Larry Cole DO Primary Care Provider Reason for Visit * Reason Comments Cold Symptoms Encounter Details Date Type Department Care Team (Latest Contact Info) Description 07/03/2023 2:10 PM EDT [facility] Convenient Sandi Souza [address] [place] [address] Silvano Sinclair PA-C [address] [place] [id number] Upper respiratory tract infection, unspecified type* Allergies Active Allergy Reactions Criticality Noted Date Comments Medina-2 Inhibitors 01/09/2003 Celebrex - hives Penicillins 01/09/2003 documented as of this encounter (statuses as of 07/03/2023) Medications Medication Sig Dispensed Refills Start Date End Date Status omeprazole (PRILOSEC) 40 MG CPDR Take 1 Capsule by mouth in the morning. 0 Active lisinopril (PRINIVIL) 20 MG Tablet Take 1 Tablet by mouth in the morning. 0 Active atorvaSTATin (LIPITOR) 20 MG Tablet Take 1 Tablet by mouth in the morning. 0 Active Trulicity 0.75 MG/0.5ML Subcutaneous Solution Pen-injector (Dulaglutide) 0 05/12/2021 Active DULoxetine HCl 60 MG Oral Capsule Delayed Release Particles Take by mouth. 0 02/03/2021 Act tamara Tresiba FlexTouch 100 UNIT/ML Subcutaneous Solution Pen-injector 0 02/09/2022 Act tamara LORazepam 0.5 MG Oral Tablet (Ativan) 0 03/26/2022 Active Meclizine HCl 25 MG Oral Tablet (Antivert) Take by mouth. 0 09/22/2021 Active Metoclopramide HCl 10 MG Oral Tablet Take by mouth. 0 03/09/2022 Active Ondansetron HCl 8 MG Oral Tablet (Zofran) Take by mouth. 0 02/18/2022 Active traZODone HCl 50 MG Oral Tablet (Desyrel) 0 03/26/2022 Act tamara Valsartan 320 MG Oral Tablet (Diovan) 0 02/01/2022 Active hydroCHLOROthiazide 25 MG Oral Tablet (Hydrodiuril) Take 1 Tablet by mouth in the morning. 0 Active glipiZIDE ER 5 MG Oral Tablet Extended Release 24 Hour (Glucotrol XL) Take 1 Tablet by mouth daily. 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 documented as of this encounter (statuses as of 07/03/2023) Immunizations Name Administration Dates Next Due COVID-19 mRNA, LNP-s, No Pre serve, 2-Dose Series (Pfizer) 03/25/2021,06/02/2020,04/28/2020 TD - Tetanus/Diptheria (ADULT) 10/20/1999 documented as of this encounter Social History Tobacco Use Types Packs/Day Years Used Date Smoking Tobacco: Every Day Cigarettes 0.5 10 Smokeless Tobacco: Never Tobacco Cessation:Ready to Q uit: Not Asked; Counseling Given: Not Answered Alcohol Use Standard Drinks/Week Comments Yes 0 (1 standard drink = 0.6 oz pur e alcohol) 2 per month Sex and Gender Information Value Date Recorded Sex Assigned at Not on file Gender Identity Not on file Sexual Orientation Not on file Job Start Date Occupation Industry Not on file Not on file Not on file documented as of this encounter Last Filed Vital Signs Vital Sign Reading Time Taken Comments Blood Pressure 148/82 07/03/2023 2:08 PM EDT Pulse 75 07/03/2023 2:08 PM EDT Temperature 37.4 C (99.4 F) 07/03/2023 2:08 PM ED T Respiratory Rate 20 07/03/2023 2:08 PM EDT Oxygen Saturation 94% 07/03/2023 2:08 PM EDT Inhaled Oxygen Concentration - - Weight 84.6 kg (186 lb 9.6 oz) 07/03/2023 2:08 P M EDT Height - - Body Mass Index 34.13 12/30/2014 7:17 PM EDT documented in this encounter Patient Instructions * Patient Instructions* Silvano Sinclair PA-C - 07/03/2023 2:20 PM EDT Viral infection Fluids, rest, over counter medication as needed We will reach out w/ results/ advise May issue tamiflu if flu positive Go to ER if worsening documented in this encounter Progress Notes * Silvano Sinclair PA-C - 07/03/2023 2:23 PM EDT Images from the original note were not included. History of Present Illness Maday Alfonso is a 63 year old female that presents for Cold Symptoms Onset last night DAMON, fever, chills, cough, aches- slight SOB- nonlimtiing- feels tired/ worn out Cold Symptoms This is a new problem. The current episode started yesterday. The problem has been unchanged. Associated symptoms include congestion, coughing, headaches, joint pain, rhinorrhea, sinus pain, sneezingand a sore throat. She has tried nothing for the symptoms. The treatment provided no relief. Physical Exam Vitals: 07/03/23 1408 Temp: 37.4 C (99.4 F) Pulse: 75 Resp: 20 SpO2: 94% BP: 148/82 Physical Exam Constitutional: Appearance: Normal appearance. HENT: Head: Normocephalic and atraumatic. Right Ear: Tympanic membrane normal. Left Ear: Tympanic membrane normal. Nose: Congestion and rhinorrhea present. Mouth/Throat: Mouth: Mucous membranes are moist. Pharynx: Oropharynx is clear. No posterior oropharyngeal erythema. Eyes: Conjunctiva/sclera: Conjunctivae normal. Cardiovascular: Rate and Rhythm: Normal rate and regular rhythm. Heart sounds: Normal heart sounds. Pulmonary: Effort: Pulmonary effort is normal. No respiratory distress. Breath sounds: Normal breath sounds. No stridor. No wheezing, rhonchi or rales. Neurological: Mental Status: She is alert. I have reviewed the following results: Assessment and Plan Upper respiratory tract infection, unspecified type (Primary) - INFLUENZA A/B RSV SARS-COV2, PCR, POINT OF CARE (ENTER/EDIT) Follow Up: Return if symptoms worsen or fail to improve. Viral infection Fluids, rest, over counter medication as needed We will reach out w/ results/ advise May issue tamiflu if flu positive Go to ER if worsening Wrap-Up Follow Up: Return if symptoms worsen or fail to improve. Time: I spent a total of 10-19 minutes (exact time 15 mins) on the date of service in preparation, delivery, and documentation of the care provided to Maday Alfonso excluding any time spent in the performance of separately billed services. documented in this encounter Nursing Notes * Hazel Chavez CMA - 07/03/2023 2:08 PM EDT Maday Alfonso is a 63 year old female who presents to walk-in clinic today complaining of Chief Complaint Patient presents with Cold Symptoms Main Symptoms: ST, cough, SOB, DAMON Cause: unknown How long: last night Tried: Tylenol Pt accompanied by: self documented in this encounter Plan of Treatment Health Maintenance Due Date Last Done Comments Lipid Panel 1959 Depression Screening 1971 HIV Screening 1974 Hepatitis C Screening 1977 Pap Smear 1980 Cervical Cancer Screening 1989 HPV/Co-Test 1989 Mammogram 1999 DTaP,Tdap,and Td Vaccines (1 - Tdap) 10/21/1999 10/20/1999 Cologuard 2004 Colonoscopy 2004 Sigmoidoscopy 2004 Colorectal Cancer Screening 01/07/2009 Fecal Occult Blood Test 01/07/2009 01/08/2008 Zoster Vaccines (1 of 2) 2009 COVID-19 Vaccine (5 - season) 2022 05/20/2021, 03/25/2021, 06/02/2020, Additional history exists Influenza Vaccine (FLU shot) (Season Ended) 2023 12/01/2021 Pneumococcal Vaccine: Pediatrics (0 to 5 Years) and At-Risk Patients (6 to 64 Years) (3 of 3 - PPSV23 or PCV20) 2024 02/13/2019, 02/03/2016 GARDASIL-HPV IMMUNIZATION SERIES Aged Out No longer eligible based on patient's age to complete this topic Hepatitis B Aged Out No longer eligi ble based on patient's age to complete this topic MENINGOCOCCAL (MENACTRA/MENVEO) Aged Out No longer eligible based on patient's age to complete this topic documented as of this encounter Medical Devices Not on filedocumented as of this encounter Procedures Procedure Name Priority Date/Time Associated Diagnosis Comments INFLUENZA A/B RSV SARS-COV2, PCR, POINT OF CARE (ENTER/EDIT) Routine 07/03/2023 Upper respiratory tract infection, unspecified type documented in this encounter Results * INFLUENZA A/B RSV SARS-COV2, PCR, POINT OF CARE (ENTER/EDIT) (07/03/2023) SARS-CoV-2 (COVID-19) Result Negative Negative Influenza A PCR Result Negative Negative Influenza B PCR Result Negative Negative RSV PCR Result Negative Negative Upper Respiratory 07/03/2023 Silvano Sinclair PA-C LAB POINT OF CAR E TEST ENTER/EDIT ORDERABLES documented in this encounter Visit Diagnoses Diagnosis Upper respiratory tract infection, unspecified type- Primary documented in this encounter Care Teams Carousel Attendant Relationship Specialty Start Date End Date Larry Cole DO [address] [facility] [address] PCP - General Family Medicine 07/04/12 documented as of this encounter
--- OUTSIDE RECORDS SUMMARY | 2023-07-09 18:08 | External Medical Summary | Summary of Care ---
Author Name Unknown Organization [facility] Address [address] [place] [address] Phone [phone] Care Team Providers Care Voice And Data Technician Name Role Phone Cole, Larry Schaefer DO Primary Care Provider [phone] Reason for Visit * Reason Onset Date Comments Appointment 06/24/2023 Encounter Details Date Type Department Care Team (Late st Contact Info) Description 06/24/2023 Telephone General Surgery, [place] [address] [place] [address] A6, Wound Ostomy Nurse [address] [place] [address] Appointment Allergies Active Allergy Reactions Criticality Noted Date Comments Medina-2 Inhibitors 01/09/2003 Celebrex - hives Penicillins 01/09/2003 documented as of this encounter (statuses as of 06/24/2023) Medications Medication Sig Dispensed Refills Start Date [...] Tablet by mouth daily. 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 documented as of this encounter (statuses as of 06/24/2023) Immunizations Name Administration Dates Next Due COVID-19 mRNA, LNP-s, No Pre serve, 2-Dose Series (Pfizer) 03/25/2021,06/02/2020,04/28/2020 TD - Tetanus/Diptheria (ADULT) 10/20/1999 documented as of this encounter Social History Tobacco Use Types Packs/Day Years Used Date Smoking Tobacco: Every Day Cigarettes 0.5 10 Smokeless Tobacco: Never Alcohol Use Standard Drinks/Week Comments Yes 0 (1 standard drink = 0.6 oz pur e alcohol) 2 per month Sex and Gender Information Value Date Recorded Sex Assigned at Not on file Gender Identity Not on file Sexual Orientation Not on file Job Start Date Occupation Industry Not on file Not on file Not on file documented as of this encounter Miscellaneous Notes * Telephone Encounter - Montse Ann, MED ASSIST - 06/24/2023 11:05 AM EDT Left a message for her to come in [place] for the nurse to look at her ostomy wound. Anyone can schedule this when she calls back. documented in this encounter Plan of Treatment [...] Not on filedocumented as of this encounter Care Teams Voice And Data Technician Relationship Specialty Start Date End Date Larry Cole DO [address] [place] [address] PCP - General Family Medicine 07/04/12 documented as of this encounter
--- OUTSIDE RECORDS SUMMARY | 2023-07-09 18:08 | External Medical Summary | Summary of Care ---
Author Name Unknown Organization [facility] Address [address] [place] [address] Phone [phone] Care Team Providers Care Residential Carpet Installer Name Role Phone Cole, Larry Schaefer DO Primary Care Provider [phone] Reason for Visit * Reason Onset Date Comments Advice 05/30/2023 Encounter Details Date Type Department Care Team (Late st Contact Info) Description 05/30/2023 Telephone General Surgery, [place] [address] [place] [address] Services, [facility] [address] [place] [address] Advice Allergies Active Allergy Reactions Criticality Noted Date Comments Medina-2 Inhibitors 01/09/2003 Celebrex - hives Penicillins 01/09/2003 documented as of this encounter (statuses as of 05/30/2023) Medications Medication Sig Dispensed Refills Start Date [...] as of this encounter (statuses as of 05/30/2023) Active Problems Problem Noted Date Diagnosed Date 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 Ferrari doesn't do surgery at or [facility].Gave her the locations he does surgery. She asked if there would be a sooner appt with him before 07/13/23 I checked and left her know that he doesn't have anything sooner at . * Telephone Encounter - Marcela Jimenez OSA - 05/30/2023 8:37 AM EDT Pt wondering if Dr. Ferrari ever does surgery down at either [facility] or [facility]? Please contact pt documented in this encounter Plan of Treatment Upcoming Encounters Date Type Department Care Team (Late st Contact Info) Description 07/13/2023 9:00 AM EDT Office Visit General Surgery, [facility] [address] [facility] [place] [address] Crystal Ferrari MD [address] [facility] [address] Health Maintenance Due Date Last Done Comments Lipid Panel 1959 Depression Screening 1971 HIV Screening 1974 Hepatitis C Screening 1977 Pap Smear 1980 Cervical Cancer Screening 1989 HPV/Co-Test 1989 Mammogram 1999 DTaP,Tdap,and Td Vaccines (1 - Tdap) 10/21/1999 10/20/1999 Cologuard 2004 Colonoscopy 2004 Sigmoidoscopy 2004 Colorectal Cancer Screening 01/07/2009 Fecal Occult Blood Test 01/07/2009 01/08/2008 Zoster Vaccines (1 of 2) 2009 COVID-19 Vaccine ( - 2022-2 4 season) 2022 03/25/2021, 06/02/2020, 04/28/2020 Influenza Vaccine (FLU shot) (#1) 2022 Pneumococcal Vaccine: Pediatrics (0 to 5 Years) and At-Risk Patients (6 to 64 Years) (3 of 3 - PPSV23 or PCV20) 2024 02/13/2019, 02/03/2016 GARDASIL-HPV IMMUNIZATION SERIES Aged Out No longer eligible b ased on patient's age to complete this topic Hepatitis B Aged Out No longer eligi ble based on patient's age to complete this topic MENINGOCOCCAL (MENACTRA/MENVEO) Aged Out No longer eligible b ased on patient's age to complete this topic documented as of this encounter Medical Devices Not on filedocumented as of this encounter Care Teams Residential Carpet Installer Relationship Specialty Start Date End Date Larry Cole DO [address] [place] [address] [phone] PCP - General Family Medicine 07/04/12 documented as of this encounter
--- OUTSIDE RECORDS SUMMARY | 2023-07-09 18:08 | External Medical Summary | Summary of Care ---
Author Name Unknown Organization [facility] Address [address] [place] [address] Phone [phone] Care Team Providers Care Crude Oil Treater Name Role Phone Larry Cole DO Primary Care Provider [phone] Reason for Referral * Ancillary Services (Within 10 days (routine)) - Pending Review Specialty Diagnoses / Procedures Referred By Charlotte reyna Referred To Contact Gastroenterology Diagnoses High grade dysplasia in colonic adenoma Crystal Ferrari MD [address] [place] [address] Referral ID Status Reason Start Date Expiration Date Visits Requested Visits Authorized [id number] Pending Review Ancillary Services Required 06/15/[phone] Question Answer Referral Priority Within 10 days (routine) Where should this appointment be scheduled? [facility] Comments ALERT: Do not order for pediatric patients (18 years or younger). Cancel off screen and order PEDS GASTROENTEROLOGY CONSULT (Type: 1 visit only-Evaluate and Treat) The following Pt. Instructions are available: - Gastro Colonoscopy Prep Instructions [42810] - Gastro Colonoscopy Prep Instructions (Lao Version) [[id number]] Go to the Pt. Instructions section within the Visit Navigator to access. Colonoscopy ASGE Guidelines: Postadenoma resection: sessile adenoma of greater than or equal to 2 cm, removed piecemeal (2-6 mo intervals) ADDITIONAL INFORMATION 1. Is the patient on Coumadin? No 2. Is the patient on Pradaxa? No 63 year old female who underwent EMR of high grade dysplasia April 2023 recommended for a 3 month follow-up (July 2023) Reason for Visit * Reason Comments NEW PATIENT History of creation of ostomy. Encounter Details Date Type Department Care Team (Late st Contact Info) Description 06/15/2023 9:45 AM EDT Office Visit General Surgery, [facility] [address] [place] [address] Crystal [facility] [address] [facility] [address] High grade dysplasia in colonic adenoma* Allergies Active Allergy Reactions Criticality Noted Date Comments Medina-2 Inhibitors 01/09/2003 Celebrex - hives Penicillins 01/09/2003 documented as of this encounter (statuses as of 06/15/2023) Medications Medication Sig Dispensed Refills Start Date [...] Particles Take by mouth. 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 documented as of this encounter (statuses as of 06/15/2023) Immunizations Name Administration Dates Next Due COVID-19 mRNA, LNP-s, No Pre serve, 2-Dose Series ([employer]) 03/25/2021,06/02/2020,04/28/2020 TD - Tetanus/Diptheria (ADULT) 10/20/1999 documented [...] Sign Reading Time Taken Comments Blood Pressure 152/67 06/15/2023 9:25 AM EDT Pulse 70 06/15/2023 9:25 AM EDT Temperature - - Respiratory Rate - - Oxygen Saturation - - Inhaled Oxygen Concentration - - Weight 82 kg (180 lb 12.8 oz) 06/15/2023 9:25 AM EDT Height - - Body Mass Index 33.07 12/30/2014 7:17 PM EDT documented in this encounter Progress Notes * Crystal Ferrari MD - 06/15/2023 9:56 AM EDT COLORECTAL SURGERY [facility] Maday Pinkbianca [phone] 06/15/2023 HPI: Maday Nikole Kaden is a 63 year old female referred by Paul Cedillo MD who presents in clinic for colostomy reversal. The patient underwent Inna's procedure on 05/2022 for perforated diverticulitis. She was evaluated by [facility] regarding a colostomy reversal. She underwent colonoscopy 04/2023 in [place] and underwent EMR of two lesions once of which showed high grade dysplasia with a recommendation for a 3 month follow-up endoscopy. The patient would like to proceed withsurgery for a colostomy reversal and presents for a second opinion. She denies and melena or hematochezia. Denies any history of colon cancer. She denies any fever, chills, CP or shortness of breath. Past Medical History: Diagnosis Date Back disorder Past Surgical History: Procedure Laterality Date BX BREAST PERCUT W/O IMAGE 1997 LAPAROSCOPY;APPENDECTOMY 1996 LIGATE/CUT OVIDUCT(S) REMOVE GALLBLADDER Cholecystectomy Current Outpatient Medications Medication Sig Dispense Refill omeprazole (PRILOSEC) 40 MG CPDR Take 1 Capsule by mouth in the morning. lisinopril (PRINIVIL) 20 MG Tablet Take 1 Tablet by mouth in the morning. atorvaSTATin (LIPITOR) 20 MG Tablet Take 1 Tablet by mouth in the morning. Trulicity 0.75 MG/0.5ML Subcutaneous Solution Pen-injector (Dulaglutide) DULoxetine HCl 60 MG Oral Capsule Delayed Release Particles Take by mouth. Tresiba FlexTouch 100 UNIT/ML Subcutaneous Solution Pen-injector LORazepam 0.5 MG Oral Tablet (Ativan) Meclizine HCl 25 MG Oral Tablet (Antivert) Take by mouth. Metoclopramide HCl 10 MG Oral Tablet Take by mouth. Ondansetron HCl 8 MG Oral Tablet (Zofran) Take by mouth. traZODone HCl 50 MG Oral Tablet (Desyrel) Valsartan 320 MG Oral Tablet (Diovan) hydroCHLOROthiazide 25 MG Oral Tablet (Hydrodiuril) Take 1 Tablet by mouth in the morning. glipiZIDE ER 5 MG Oral Tablet Extended Release 24 Hour (Glucotrol XL) Take 1 Tablet by mouth daily. Current Facility-Administered Medications Medication Dose Route Frequency Provider Last Rate Last Admin atropine sulfate inj 0.4 mg 0.4 mg IV Push PRN Kendell Stanley DO Review of patient's allergies indicates: Allergen Reactions Medina-2 Inhibitors Celebrex - hives Penicillins Family History Problem Relation Age of Onset Social History Socioeconomic History Marital status: Spouse name: Not on file Number of children: Not on file Years of education: Not on file Highest education level: Not on file Occupational History Not on file Tobacco Use Smoking status: Every Day Current packs/day: 0.50 Average packs/day: 0.5 packs/day for 10.0 years (5.0 ttl pk-yrs) Types: Cigarettes Smokeless tobacco: Never Substance and Sexual Activity Alcohol use: Yes Comment: 2 per month Drug use: Not on file Sexual activity: Not on file Other Topics Concern Not on file Social History Narrative Not on file Social Determinants of Health Financial Resource Strain: Not on file Food Insecurity: Not on file Transportation Needs: Not on file Physical Activity: Not on file Stress: Not on file Social Connections: Not on file Intimate Partner Violence: Not on file Housing Stability: Not on file Review of Systems: A comprehensive review of systems is negative unless otherwise noted in the HPI. Physical Examination: BP 152/67 | Pulse 70 | Wt 82 kg (180 lb 12.8 oz) | BMI 33.07 kg/m | BSA 1.89 m General:alert and oriented x 3 HEENT: PERRLA Heart: rrr Lungs: bilaterally clear to auscultation Abdomen:Soft, non distended, non tender, well-healed lower midline incision, left lower quadrant colostomy with appliance in place, productive of stool. Extremities: no CCE Skin: no skin changes Musculoskeletal: FROM Labs: N/A Radiology: CT Abd/Pelvis (11/12/22): IMPRESSION: There is a diverting colostomy in the left lower quadrant with a small parastomal hernia without evidence for obstruction. Assessment: 63 year old female with an end colostomy s/p inna's procedure for perforated diverticulitis. Plan: I discussed with the patient that given the findings of high-grade dysplasia requiring EMR she may benefit from delaying surgery until after her repeat endoscopy to ensure that there was no malignancy seen in her colon. Explained that a reversal surgery could be done but if a cancer is identified following this surgery she may require an additional operation. She is agreeable to delay her surgery until after her repeat endoscopy will would like to be referred to Gastroenterology in [place] to have this completed. She will follow-up after her repeat endoscopy. Crystal Ferrari MD General Surgery, [address] [place] [address] documented in this encounter Nursing Notes * Sera Burrell MED ASSIST - 06/15/2023 9:25 AM EDT Chief Complaint Patient presents with NEW PATIENT History of creation of ostomy. Verified patient. No pain. documented in this encounter Plan of Treatment Scheduled Referrals Name Type Priority Associated Diagnoses Orde r Schedule COLONOSCOPY, GI REFERRAL OP Referral Within 10 days (routine) High grade dysplasia in colonic adenoma Ordered: 06/15/2023 Health Maintenance Due Date Last Done Comments [...] of 2) 2009 COVID-19 Vaccine (5 - 24 season) 2022 05/20/2021, 03/25/2021, 06/02/2020, Additional history exists Influenza Vaccine (FLU shot) (#1) 2022 12/01/2021 Pneumococcal Vaccine: Pediatrics (0 to 5 [...] Not on filedocumented as of this encounter Visit Diagnoses Diagnosis High grade dysplasia in colonic adenoma- Primary Benign neoplasm of colon documented in this encounter Care Teams Crude Oil Treater Relationship Specialty Start Date End Date Larry Cole DO [address] [place] [address] PCP - General Family Medicine 07/04/12 documented as of this encounter"
--- OUTSIDE RECORDS SUMMARY | 2023-07-09 18:08 | External Medical Summary | Summary of Care ---
Author Name Unknown Organization [facility] Address [address] [place] [address] Phone [phone] Care Team Providers Care Hair Dryer Name Role Phone Cole, Larry Shcaefer DO Primary Care Provider [phone] Reason for Visit * Reason Comments Follow Up Encounter Details Date Type Department Care Team (Late st Contact Info) Description 06/20/2023 11:00 AM EDT Nurse Only General Surgery, [facility] [address] [place], [place] [phone] A6, Wound Ostomy Nurse [address] [place], [place] [id number] Follow Up Allergies Active Allergy Reactions Criticality Noted Date Comments Medina-2 Inhibitors 01/09/2003 Celebrex - hives Penicillins 01/09/2003 documented as of this encounter (statuses as of 06/20/2023) Medications Medication Sig Dispensed Refills Start Date [...] as of this encounter (statuses as of 06/20/2023) Active Problems Problem Noted Date Diagnosed Date 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 Reports frequent leaking from pouching. 1-2 days wear time. Surgery was done at an OSH and she did not have an ostomy nurse. Currently using Cleveland cut to fit flat wafer/pouch with catrachita ring. Pouching removed from colostomy L abd stoma 1 1/2" round, flush with recessing along inferior edge.Peristomal skin intact. Repouched with Convatec 1 1/2" 1 piece precut convex pouch with ostomy belt. She was able to manipulate the clip closure Additional supplies and product numbers given Convatec 1 1/2" 1 piece precut convex pouch [id number], ostomy belt [id number] Agreeable to samples from Convatec Expect wear time 2-3 days at most given stoma characteristics Given [facility] contact number to call w/pouching questions Hoping for reversal surgery in the near future with Dr. Ferrari documented in this encounter Plan of Treatment [...] of 2) 2009 COVID-19 Vaccine ( - season) 2022 05/20/2021, 03/25/2021, 06/02/2020, Additional [...] filedocumented as of this encounter Care Teams Hair Dryer Relationship Specialty Start Date End Date Laryr Cole DO [address] [place] [address] PCP - General Family Medicine 07/04/12 documented as of this encounter
--- OUTSIDE RECORDS SUMMARY | 2023-07-09 18:08 | External Medical Summary | Summary of Care ---
Author Name Unknown Organization [facility] Address [address] [place] [address] Phone [phone] Care Team Providers Care Combatant Diver Qualified Name Role Phone ColeLarry DO Primary Care Provider Reason for Visit * Reason Onset Date Comments Test Results 07/03/2023 Encounter Details Date Type Department Care Team (Late st Contact Info) Description 07/03/2023 Telephone [facility]i Souza [address] [place] [address] Silvano Sinclair PA-C [address] [facility] [address] [place] [phone] Test Results Allergies Active Allergy Reactions Criticality Noted Date [...] encounter Miscellaneous Notes * Telephone Encounter - Silvano Sinclair PA-C - 07/03/2023 3:45 PM EDT Pt aware flu covid, rsv all negative- likely has other viral infection Fluids, rest, over counter medication as needed- follow up if sx worsen or persist- DH documented in this encounter Plan of Treatment [...] filedocumented as of this encounter Care Teams Combatant Diver Qualified Relationship Specialty Start Date End Date Larry Cole DO [address] [place] [address] PCP - General Family Medicine 07/04/12 documented as of this encounter
--- OUTSIDE RECORDS SUMMARY | 2023-07-09 18:09 | External Medical Summary | Continuity of Care Document ---
Author Name Unknown Organization [facility] [address] [place] [phone] Care Team Providers Care Water/Wastewater Project Manager Name Role Phone Larry Cole Primary Care Physician [phone] [id number] Date[facility]s): 03/01/23 - 03/01/23 [facility] [address] [facility] [address], [address], [address] [place] [address] [phone] Encounter Diagnosis Body mass index [BMI] 31.0-31.9, adult(Discharge Diagnosis) - 03/01/23 Status post Inna procedure(Discharge Diagnosis) - 03/01/23 Diverticulitis(Discharge Diagnosis) - 03/01/23 Discharge Disposition: Home or Self Care Attending Physician: MD Jazzmine, Thony Medina Referring Physician: MD Cedillo Stephen E Allergies, Adverse Reactions, Alerts Substance Reaction Severity Status PCN (penicillin) UNKNOWN Moderate Active CeleBREX Hives Moderate Active Medications atorvastatin Start: 12/17/22 14:21:00 EDT, 20 mg =, Daily Start Date: 12/17/22 Status: Ordered DULoxetine Start: 12/17/22 14:37:00 EDT, 60 mg =, Daily Start Date: 12/17/22 Status: Ordered glipiZIDE Start: 12/17/22 14:37:00 EDT, 5 mg =, bid, 1 tablet twice a day Start Date: 12/17/22 Status: Ordered hydroCHLOROthiazide Start: 12/17/22 14:38:00 EDT, 25 mg =, Daily Start Date: 12/17/22 Status: Ordered lisinopril Start: 12/17/22 14:38:00 EDT, 20 mg =, Daily Start Date: 12/17/22 Status: Ordered LORazepam 0.5 mg oral tablet Start: 12/17/22 14:36:00 EDT, 2 tab, Daily Start Date: 12/17/22 Status: Ordered meclizine Start: 12/17/22 14:39:00 EDT, 25 mg =, as needed Start Date: 12/17/22 Status: Ordered metoclopramide Start: 12/17/22 14:39:00 EDT, 10 mg =, bid Start Date: 12/17/22 Status: Ordered omeprazole Start: 12/17/22 14:39:00 EDT, 40 mg =, Daily Start Date: 12/17/22 Status: Ordered ondansetron Start: 12/17/22 14:39:00 EDT, 8 mg =, as needed Start Date: 12/17/22 Status: Ordered traZODone Start: 12/17/22 14:39:00 EDT, 75 mg =, qhs Start Date: 12/17/22 Status: Ordered Tresiba FlexTouch 100 units/mL subcutaneous solution Start: 12/17/22 14:38:00 EDT, 38 units, Daily Start Date: 12/17/22 Status: Ordered Trulicity Pen 0.75 mg/0.5 mL subcutaneous solution Start: 12/17/22 14:37:00 EDT, 0.75 mg =, q7days Start Date: 12/17/22 Status: Ordered valsartan Start: 12/17/22 14:40:00 EDT, 320 mg =, Daily Start Date: 12/17/22 Status: Ordered varenicline 1 mg oral tablet Start: 12/17/22 14:36:00 EDT, 1 tab, Daily Start Date: 12/17/22 Status: Ordered Mental Status 03/01/23 Barriers to Learning one year None evide nt Mandatory Health Literacy Documentation Yes Health Literacy Communication Barriers N ever Primary Language Ukrainian Problem List No Chronic Problems Diagnosis Diagnosis Type Effective Dates Health Status Clinical Service Informant Status post Inna procedure Discharge Diagnosis 03/01/23 Body mass index [BMI] 31.0-31.9, adult Discharge Diagnosis 03/01/23 Non-Specified Diverticulitis Discharge Diagnosis 03/01/23 Vital Signs Most recent to oldest [Reference Range]: 1 Height 161 cm (03/01/23 10:17 AM) Patient Weight 81.6 kg (03/01/23 10:17 AM) Body Mass Index 31.48 kg/m2 (03/01/23 10:17 AM) Temperature [36.5-37.9 DegC] 36.0 DegC *LOW* (03/01/23 10:17 AM) Heart Rate 64 bpm (03/01/23 10:17 AM) Blood Pressure 116/80mmHg (03/01/23 10:17 AM) Cuff Pulse Pressure 36 mmHg (03/01/23 10:17 AM) BP Location # 1 Right Arm (03/01/23 10:17 AM) Social History Social History Type Response Smoking Status [facility] Sex Female Patient Care team information Care Team Personnel Name: DO Cole Sean D Position: Referring Member Role: Primary Care Provider Address: Address: [address] [place] [address] [place] Care Team Related Persons Name: SAGRARIO FARLEY Address: [address] [place] [address]
--- OUTSIDE RECORDS SUMMARY | 2023-07-09 18:09 | External Medical Summary | Summary of Care ---
Author Name Unknown Organization [facility] Address [address] [place] [address] Phone [phone] Care Team Providers Care Extrusion Process Operator Name Role Phone ColeRonald dacostajacqueline Schaefer DO Primary Care Provider [phone] Reason for Visit * Reason Onset Date Comments Order Request 03/08/2023 Ostomy supplies Encounter Details Date Type Department Care Team (Late st Contact Info) Description 03/08/2023 Telephone General Surgery, 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 Said it was send on 03/02. None in chart. Lisa phone [phone] option 1 then 3 Thanks ESTELA Brunson documented in this encounter Plan of Treatment [...] 01/08/2008 Zoster Vaccines (1 of 2) 2009 Hepatitis B (1 of 3 - Risk 3-dose series) 2019 COVID-19 Vaccine (4 - 2022-2 4 season) 2022 03/25/2021, 06/02/2020, 04/28/2020 Influenza Vaccine (FLU shot) (#1) 2022 Pneumococcal Vaccine: Pediatrics (0 to 5 Years) and At-Risk Patients (6 to 64 Years) (3 - PPSV23 or PCV20) 2024 02/13/2019, 02/03/2016 GARDASIL-HPV IMMUNIZATION SERIES Aged Out No longer eligible b ased on patient's age to complete this topic MENINGOCOCCAL (MENACTRA/MENVEO) Aged Out No longer eligible b ased on patient's age to complete this topic documented as of this encounter Medical Devices Not on filedocumented as of this encounter Care Teams Extrusion Process Operator Relationship Specialty Start Date End Date Larry Cole DO [address] [place] [address] PCP - General Family Medicine 07/04/12 documented as of this encounter
--- OUTSIDE RECORDS SUMMARY | 2023-07-09 18:09 | External Medical Summary | Continuity of Care Document ---
Author Name Unknown Organization [facility] [address] Address [address] [place] [id number] Care Team Providers Care Pastry Sous Chef Name Role Phone Larry Cole Primary Care Physician [phone] [id number] Date[facility] 02/16/23 - 02/16/23 [facility] [address] [place] [id number] Encounter Diagnosis Benign neoplasm of ascending colon(Final) - Benign neoplasm of cecum(Final) - Benign neoplasm of transverse colon(Final) - Benign lipomatous neoplasm of other sites(Final) - Type 2 diabetes mellitus without complications(Final) - Hyperlipidemia, unspecified(Final) - Essential (primary) hypertension(Final) - Nicotine dependence, cigarettes, uncomplicated(Final) - buttermaker (current) use of insulin(Final) - buttermaker (current) use of oral hypoglycemic drugs(Final) - Long-term (current) use of injectable non-insulin antidiabetic drugs(Final) - Other buttermaker (current) drug therapy(Final) - Discharge Disposition: Home or Self Care Attending Physician: MD Ortiz, See Hogan Referring Physician: MD Dover Patricio B Allergies, Adverse Reactions, Alerts Substance Reaction Severity [...] tab, Daily Start Date: 12/17/22 Status: Ordered Problem List No Known Problems Results Laboratory List Name Date Glucose Meter (GLUCOSE METER) 02/16/23 Glucose Meter (GLUCOSE METER) 02/16/23 Most recent to oldest [Refer ence Range]: 1 2 Gluc (comment) Testing performed at : 1 *Unknown* (02/16/23 1:41 PM) Testing performed at: 2 *Unknown* (02/16/23 12:53 PM) Gluc Meter [74-109 mg/dL] 125 mg/dL *HI* (02/16/23 1:41 PM) 54 mg/dL *LOW* (02/16/23 12:53 PM) 1Result Comment: [facility] [address] [place] [address] 2Result Comment: [facility] [address] [place] [address] Vital Signs Most recent to oldest [Reference Range]: 1 2 3 Patient Weight 80.1 kg (02/16/23 12:41 PM) Temperature [36.5-37.9 DegC] 36.3 DegC *LOW* (02/16/23 1:58 PM) 36.3 DegC *LOW* (02/16/23 1:52 PM) 36.3 DegC *LOW* (02/16/23 12:46 PM) Heart Rate 68 bpm (02/16/23 1:58 PM) 68 bpm (02/16/23 1:52 PM) 74 bpm (02/16/23 12:46 PM) Respiratory Rate 16 br/min (02/16/23 1:58 PM) 16 br/min (02/16/23 1:52 PM) 15 br/min (02/16/23 12:46 PM) Blood Pressure 109/83mmHg (02/16/23 1:58 PM) 109/83mmHg (02/16/23 1:52 PM) 101/73mmHg (02/16/23 12:46 PM) Social History Social History Type Response Smoking Status Current every day he sarita smoker Sex Female Endoscopy study * MD Ortiz, See R: MODIFY, PERFORM, VERIFY Event Display: Endoscopy Authored Date: Please click on link to see image. Anes H&P * DO Diaz Shane M: MODIFY, PERFORM, SIGN, VERIFY Event Display: Anes H&P Authored Date: Patient: MOISES AFRLEY Age: 62 years Sex: Female : 1960 Associated Diagnoses: None Author: DO Diaz Shane M Preoperative Information Pre-Operative Diagnosis: Diverticulitis . Anesthiesia Preop Info: Procedure: Colonoscopy Date: 02/16/23 13:00 Surgeons: MD Alcantar Thomas R Diagnosis: diverticulitis . Reference Report Created By: 02/15/2023 16:29:00, DANIELE Edwards, Chad King, By Chart review. History of Present Illness 62 year old female here for the above procedure. She has a past medical history of DM (on insulin),tobacco abuse (1ppd, denies COPD), HTN, HLD, & emergent ex- lap and Inna's procedure for perforated diverticulitis and feculent peritonitis in May 2022. Appropriately NPO for procedure Preop blood sugar checked, blood glucose 54, asymptomatic, plan to give IV dextrose No previous anesthetic in [facility] system. Medical History Medical Devices: Medical Devices: none . Anesthesia History: Patient's history: hx of slow emergence. Functional Capacity: 4-6 METs = moderate. Health Status Allergies: Allergic Reactions (Selected) Moderate CeleBREX- Hives. PCN (penicillin)- Unknown.. Medications: Medication List (Selected) Documented Medications Documented DULoxetine: 60 mg, Daily LORazepam 0.5 mg oral tablet: 2 tab, Daily Tresiba FlexTouch 100 units/mL subcutaneous solution: 38 units, Daily Trulicity Pen 0.75 mg/0.5 mL subcutaneous solution: 0.75 mg, q7days atorvastatin: 20 mg, Daily glipiZIDE: 5 mg, bid, 1 tablet twice a day hydroCHLOROthiazide: 25 mg, Daily lisinopril: 20 mg, Daily meclizine: 25 mg, as needed metoclopramide: 10 mg, bid omeprazole: 40 mg, Daily ondansetron: 8 mg, as needed traZODone: 75 mg, qhs valsartan: 320 mg, Daily varenicline 1 mg oral tablet: 1 tab, Daily. Problem List: All Problems No Chronic Problems / Cerner NKP. Histories Procedure History: No active procedure history items have been selected or recorded.. Social History: Cigarrette Smoker? Other Tobacco Use: Alcohol: Recreational Drugs: . Physical Examination VS/Measurements: Vital Signs 02/16/2023 12:46 EST Temperature 36.3 DegC LOW Heart Rate 74 bpm Respiratory Rate 15 br/min Systolic Blood Pressure 101 mmHg Diastolic Blood Pressure 73 mmHg SpO2 95 % . Airway: Mallampati classification: III (soft palate, base of uvula visible). Mouth: Within normal limits, Teeth ( Within normal limits ). Neck: Full range of motion. Respiratory: Lungs are clear to auscultation, Respirations are non-labored, Breath sounds are equal, Symmetrical chest wall expansion. Cardiovascular: Normal rate, Regular rhythm, No murmur. Neurologic: Alert, Oriented. Anesthesiologist Assessment and Plan Problems: No active cardiac conditions, No previous anesthetic complications. Cardiac risk factors: IDDM. ASA Classification: Class III. Anesthetic Plan: Anesthetic technique discussed: General anesthesia. Airway plan discussed: Nasal Cannula. Risks discussed: Nausea-vomiting, Headache, Sore throat, Dental injury, Eye injury, Allergic reaction, Serious complications, Nerve damage, Aspiration. Informed consent: Signed by patient. Anesthesia provided by other physicians and anesthesia team: DISH CLOTH INSPECTOR/Resident/Fellow. History, Physical Exam, Assessment and Plan Completed: 02/16/2023 12:55:00, DO Diaz Shane M. Electronic Signature on File Electronically Reviewed/Signed by: Anibal Diaz DO Author Signature Dt/Tm:02/16/2023 01:01 PM Department of Anesthesia B Surgical pathology study * MD Perez Guoli: VERIFY MD Perez Guoli: VERIFY, PERFORM Event Display: SP Gross Authored Date: [id number] 1. Received in formalin, labeled with the patients name and medical record and `` transverse colon polyps are multiple irregularly shaped pink-isaac fragments of soft tissue measuring 1.7 x 1.4 x0.2 cm in aggregate and ranging from 0.1 up to 0.5 cm. Entirely submitted in a tissue processing bag. Block Summary: 1A-1B. 2. Received in formalin, labeled with the patients name and medical record and `` cecal polypare two irregularly shaped pink-isaac fragments of soft tissue measuring from 0.1 up to 0.3 cm. Entirely submitted in a tissue processing bag. Block Summary: 2A. 3. Received in formalin, labeled with the patients name and medical record and `` ascending colonpolyp are four irregularly shaped pink-isaac fragments of soft tissue measuring from 0.1 up to 0.5 cm. Entirely submitted in a tissue processing bag. Block Summary: 3A. ([facility]) * MD Perez Guoli: TRANSCRIBE, PERFORM, VERIFY Event Display: SP Dx Authored Date: [id number] 1. Colon, transverse, polypectomy: -Fragments of tubular adenoma. 2. Colon, cecum, polypectomy: -Tubular adenoma. 3. Colon, ascending, polypectomy: -Fragments of tubular adenoma. Stone Perez MD (Electronically signed by) Verified: 02/17/2023 11:20 EST Performing Location: [facility] * MD Perez Guoli: VERIFY MD Perez Guoli: VERIFY, PERFORM Event Display: SP Clinical History Authored Date: Pre-operative diagnosis: Not provided. Post-operative diagnosis: _ Signs and symptoms: _ _ Time out of body: _ Time in fixative: _ Special instructions: _ * MD Perez Guoli: TRANSCRIBE, PERFORM, VERIFY Event Display: SP Micro Authored Date: _Microscopic examination performed; see Final Diagnosis. * MD Perez Guoli: VERIFY MD Perez Guoli: VERIFY, PERFORM Event Display: SP Disclaimer Authored Date: The following statement applies to flow cytometry, immunohistochemical, histochemical, molecular genetics, immunofluorescence, and in situ hybridization assays. These tests were developed and their performance characteristics determined by a [facility] Department of Pathology Laboratory. All controls show appropriate reactivity. Not all tests have been cleared or approved by the U.S. Food and Drug Administration. The FDA has determined that such clearance or approval is not necessary. For decalcified specimen types, focused validation may have been done that may or may not apply to all decalcified specimen types. Results should be interpreted with caution. Patient Care team information Care Team Personnel Name: DO Cole Sean D Position: Referring Member Role: Primary Care Provider Address: Address: [address] [place] [address] [place] Care Team Related Persons Name: SAGRARIO FARLEY Address: [address] [place] [address]
--- OUTSIDE RECORDS SUMMARY | 2023-07-09 18:09 | External Medical Summary | Summary of Care ---
Author Name Unknown Organization [facility] Address [address] [place] [address] Phone [phone] Care Team Providers Care Incoming Freight Clerk Name Role Phone ColeRonald dacostajacqueline Schaefer DO Primary Care Provider [phone] Reason for Visit * Reason Onset Date Comments Order Request 03/08/2023 Ostomy supplies Encounter Details Date Type Department Care Team (Late st Contact Info) Description 03/08/2023 Telephone General Surgery, [facility] [address] [facility] [place] [address] Paul Cedillo MD [address] [facility] [place] [address] Order Request (Ostomy supplies) Allergies Active Allergy [...] encounter Miscellaneous Notes * Telephone Encounter - Mikayla Benedict LPN - 03/08/2023 10:14 AM EST Another form was sent for Dr Cedillo to fill out. * Telephone Encounter - Renny Schwartz OSA - 03/08/2023 10:07 AM EST Lisa from [employer] called Following up on order for 2 piece ostomy pouch [id number]. Said it was send on 03/02. None in chart. Lisa phone [phone] option 1 then 3 Thanks ESETLA Brunson documented in this encounter Plan of [...] filedocumented as of this encounter Care Teams Incoming Freight Clerk Relationship Specialty Start Date End Date Larry Cole DO [address] [place] [address] PCP - General Family Medicine 07/04/12 documented as of this encounter
--- OUTSIDE RECORDS SUMMARY | 2023-07-09 18:09 | External Medical Summary | Continuity of Care Document ---
Author Name Unknown Organization [facility] [address] [place] [id number] Care Team Providers Care Campaign Management Senior Manager Name Role Phone Larry Cole Primary Care Physician [id number] [id number] Date[facility]s): 05/17/23 - 05/17/23 [facility] [address] [facility] [address], [address], [address] [place] [address] [phone] Encounter Diagnosis Diverticulitis(Discharge Diagnosis) - 05/17/23 Pre-op testing(Discharge Diagnosis) - 05/17/23 Discharge Disposition: Home or Self Care Attending Physician: MD Dover Patricio B Referring Physician: MD Cedillo Stephen E Allergies, Adverse Reactions, Alerts Substance Reaction Severity Status PCN (penicillin) UNKNOWN Moderate Active CeleBREX Hives Moderate Active Assessment and Plan Extracted from: Title:Clinical Document Author:VALENCIA Rodriguez M eghann Date:05/17/23 COLORECTAL OUTPATIENT NOTE Name: MADAY FARLEY Patient Number: [id number] : 1960 Date of Service: 05/17/2023 Chief Complaint: Discuss Surgery HPI: Maday Farley is a 62 yo female with PMHx of DM on insulin, HLD, and HTN who underwent emergent ex-lap and Inna's for perforated diverticulitis and feculent peritonitis in May [address] [facility]. Previously presented for ostomy reversal on 01/11/23. He had undergone CT that demonstrated diverting colostomy in the LLQ and small parastomal hernia and a GGE that did not show any obstruction or evidence of leakage. Patient underwent colonoscopy on 02/16/2023 which revealed a 3.5 cm polyp in the ascending colon, 2.5 cm polyp in the transverse colon and 2 cm polyp in distal ascending colon. Additionally, a 3 mm and a 6 mm polyp were identified and removed in both the cecum and transverse colon respectively. Biopsies were taken of the polyps in the ascending, transverse and descending colon all of which revealed tubular adenoma. These polyps however were not removed. Patient was noted to have a bad bowel prep. As such, the patient was recommended to have a repeat colonoscopy. On 04/26/23, she had a colonoscopy. This showed three 4 to 9 mm polyps in the ascending colon and at the ileocecal valve, removed with a cold snare. Pathology showed tubular adenomas. One 45 mm polyp in the ascending colon, removed with mucosal resection. Clip (MR conditional) was placed. Pathology showed tubular adenoma with focus of high grade dysplasia. One 7 mm polyp at the splenic flexure, removed with a cold snare. Pathology showed a tubular adenoma. One 30 mm polyp in the transverse colon, removed with mucosal resection. Pathology showed a tubular adenoma involving the mucosal margin. One 30 mm polyp in the descending colon, removed with mucosal resection. Clip (MR conditional) was placed. Clip gore cutter: [employer]. Pathology showed a tubulovillous adenoma. The patient was recommended to have a repeat colonoscopy in 3 months. The patient returns to the colorectal surgery clinic today. She reports that she would like to have surgery DAQUAN. She desires to have surgery prior to the summer because she wants to attend her grandson's baseball games. She does not like living with the stoma. She has cut back on smoking, but does continue to smoke cigarettes, about 1/2 PPD. Her colostomy is functioning well. She is not having issues with leaking. She denies fevers or chills. She is diabetic. She believes her last Hgb A1C was around 6.9. Current Home Meds: (Last Updated 05/17 15:08) DULoxetine 60 mg Daily LORazepam (LORazepam 0.5 mg oral tablet) 1 mg Daily atorvastatin 20 mg Daily bisacodyl (Dulcolax Laxative 5 mg oral delayed release tablet) use as directed prior to procedure. bisacodyl (Dulcolax Laxative 5 mg oral tablet) Follow Bowel Prep Instructions dulaglutide (Trulicity Pen 0.75 mg/0.5 mL subcutaneous solution) 0.75 mg q7days glipiZIDE 5 mg bid 1 tablet twice a day hydroCHLOROthiazide 25 mg Daily insulin degludec (Tresiba FlexTouch 100 units/mL subcutaneous solution) Daily insulin lispro (HumaLOG Cartridge 100 units/mL injectable solution) lisinopril 20 mg Daily magnesium sulfate/potassium sulfate/sodium sulfate (Suprep Bowel Prep Kit oral liquid) Take as directed before the procedure. meclizine 25 mg as needed omeprazole 40 mg Daily ondansetron 8 mg as needed polyethylene glycol 3350 (MiraLax oral powder for reconstitution) Follow Extended bowel prep instructions traZODone 75 mg qhs valsartan 320 mg Daily varenicline (varenicline 1 mg oral tablet) 1 mg Daily Allergies and Sensitivities: CeleBREX(Hives) PCN (penicillin)(UNKNOWN) Past Medical History: Problems: No Chronic Problems OBJECTIVE Vitals: Last Updated 05/17/23 15:08 Date Temp BP Location Pulse RR SpO2 Pain 05/17/23 0 04/26/23 36.4 118/74 67 15 97 04/26/23 36.4 118/74 67 15 97 0 Vital Signs are the last 3 documented. No Orthostatic Data Available Height and Weight: Last Updated 04/26/23 09:03 Date BMI Wt(kg) Wt(lb) Method Ht(cm) (ft-in) Method 04/26/23 80.1 176 03/01/23 31.48 81.6 180 Standing Scale 161 5-3 Standing 02/16/23 80.1 176 Heights and Weights are the last 3 documented. Physical Exam General: 63 year old female in NAD HEENT: NCAT. Sclera anicteric. MMM Neck: Supple Cardiac: RRR Lungs: Non labored breathing Abdomen: Obese. Soft, non-tender, non-distended. No rebound tenderness or guarding. Colostomy pink and patent. Wafer was visibly cut much too large and peristomal skin was red. Patient was not receptive to suggestions on appropriate ostomy care. Extremities: Well perfused. Moves extremities spontaneously x 4 Neuro: Alert and oriented x 3 30 Day Labs: 04/26/23 1145 Gluc (comment) Testing performed at: Gluc Meter 119 H 04/26/23 0859 Gluc Meter 137 H Gluc (comment) Testing performed at: ASSESSMENT: 62-year-old female with a history of ex lap and Rubio's procedure for perforated diverticulitis PLAN: - We will obtain an updated Hgb A1C - Repeat colonoscopy in 3 months, given size and number of polyps on colonoscopy - Importance of smoking cessation was discussed. Patient must be tobacco free x 2 months in order to undergo an elective Inna Reversal - Follow-up in the colorectal surgery clinic after repeat colonoscopy The supervising physician Dr. Thony Dover MD spent 8 minutes of discrete time performing the activities of this visit. The PA, Nadege Rodriguez PA-C spent 7 minutes of discrete time performing the activities of this visit. The overlapping/shared time by the PA and physician is 10 minutes. The total visit time includes 25 minutes of shared time between the PA and physician. Activities include: X review of the medical record X obtaining a history X physical exam/evaluation X counseling/educating patient/family/caregiver discussion/referral to other healthcare professional X documenting care in the medical record X independent interpretation of results X communication of results to patient/family/caregiver coordination of care COLORECTAL SURGERY ATTENDING ATTESTATION I have personally seen, evaluated and examined the patient. The medical file was reviewed. I agree with the history, review of systems, and physical exam for this patient. I have reviewed the existing laboratory results and radiographic images. I also agree with the assessment and plan from the advanced practice provider/residents note. Thank you for entrusting the care of your patients to the Colon & Rectal Surgery Division at [facility]. Medications atorvastatin Start: 12/17/22 14:21:00 EDT, 20 mg =, Daily Start Date: 12/17/22 Status: Ordered Dulcolax Laxative 5 mg oral delayed release tablet Start: 03/07/23 16:29:00 EST, See Instructions, Disp# 2 tab, Refills: 0, use as directed prior to procedure., Pharmacy: [id number] Start Date: 03/07/23 Status: Ordered Dulcolax Laxative 5 mg oral tablet Start: 04/11/23 15:29:00 EST, See Instructions, Disp# 2 tab, Refills: 0, Follow Bowel Prep Instructions, Pharmacy: [id number] Start Date: 04/11/23 Status: Ordered DULoxetine Start: 12/17/22 14:37:00 EDT, 60 mg =, Daily Start Date: 12/17/22 Status: Ordered glipiZIDE Start: 12/17/22 14:37:00 EDT, 5 mg =, bid, 1 tablet twice a day Start Date: 12/17/22 Status: Ordered HumaLOG Cartridge 100 units/mL injectable solution Start: 04/26/23 9:02:00 EST Start Date: 04/26/23 Status: Ordered hydroCHLOROthiazide Start: 12/17/22 14:38:00 EDT, 25 mg =, Daily Start Date: 12/17/22 Status: Ordered lisinopril Start: 12/17/22 14:38:00 EDT, 20 mg =, Daily Start Date: 12/17/22 Status: Ordered LORazepam 0.5 mg oral tablet Start: 12/17/22 14:36:00 EDT, 2 tab, Daily Start Date: 12/17/22 Status: Ordered meclizine Start: 12/17/22 14:39:00 EDT, 25 mg =, as needed Start Date: 12/17/22 Status: Ordered MiraLax oral powder for reconstitution Start: 04/11/23 15:29:00 EST, See Instructions, Disp# 119 g, Refills: 0, Follow Extended bowel prepinstructions, Pharmacy: [id number] Start Date: 04/11/23 Status: Ordered omeprazole Start: 12/17/22 14:39:00 EDT, 40 mg =, Daily Start Date: 12/17/22 Status: Ordered ondansetron Start: 12/17/22 14:39:00 EDT, 8 mg =, as needed Start Date: 12/17/22 Status: Ordered Suprep Bowel Prep Kit oral liquid Start: 03/07/23 16:29:00 EST, See Instructions, Disp# 1 kit, Refills: 0, Take as directed before the procedure., Pharmacy: [id number] Start Date: 03/07/23 Status: Ordered traZODone Start: 12/17/22 14:39:00 EDT, [...] Start Date: 12/17/22 Status: Ordered Mental Status 05/17/23 Barriers to Learning one year None evide nt Mandatory Health Literacy Documentation Yes Health Literacy Communication Barriers N ever Primary Language Yemeni Problem List No Chronic Problems Diagnosis Diagnosis Type Effective Dates Health Status Cl inical Service Informant Diverticulitis Discharge Diagnosis 05/17/23 Non-Specified Pre-op testing Discharge Diagnosis 05/17/23 Non-Specified Social History Social History Type Response Smoking Status Current every day he sarita smoker Sex Female Colorectal Outpt Note * VALENCIA Rodriguez, Nadege: PERFORM, MODIFY MD Jazzmine, Thony Medina: MODIFY Event Display: Colorectal Outpt Note Authored Date: [id number] COLORECTAL OUTPATIENT NOTE Name: MADAY FARLEY Patient Number: [id number] : 1960 Date of Service: 05/17/2023 Chief Complaint: Discuss Surgery HPI: Maday Farley is a 62 yo female with PMHx of DM on insulin, HLD, and HTN who underwent emergent ex-lap and Inna's for perforated diverticulitis and feculent peritonitis in May 2022 at [facility]. Previously presented for ostomy reversal on 01/11/23. He had undergone CT that demonstrated diverting colostomy in the LLQ and small parastomal hernia and a GGE that did not show any obstruction or evidence of leakage. Patient underwent colonoscopy on 02/16/2023 which revealed a 3.5 cm polyp in the ascending colon, 2.5 cm polyp in the transverse colon and 2 cm polyp in distal ascending colon. Additionally, a 3 mm and a 6 mm polyp were identified and removed in both the cecum and transverse colon respectively. Biopsies were taken of the polyps in the ascending, transverse anddescending colon all of which revealed tubular adenoma. These polyps however were not removed. Patient was noted to have a bad bowel prep. As such, the patient was recommended to have a repeat colonoscopy. On 04/26/23, she had a colonoscopy. This showed three 4 to 9 mm polyps in the ascending colon and at the ileocecal valve, removed witha cold snare. Pathology showed tubular adenomas. One 45 mm polyp in the ascending colon, removed with mucosal resection. Clip (MR conditional) was placed. Pathology showed tubular adenoma with focus of high grade dysplasia. One 7 mm polyp at the splenic flexure, removed with a cold snare. Pathologyshowed a tubular adenoma. One 30 mm polyp in the transverse colon, removed with mucosal resection. Pathology showed a tubular adenoma involving the mucosal margin. One 30 mm polyp in the descending colon, removed with mucosal resection. Clip (MR conditional) was placed. Clip gore cutter: [employer]. Pathology showed a tubulovillous adenoma. The patient was recommended to have a repeat colonoscopy in 3 months. The patient returns to the colorectal surgery clinic today. She reports that she would like to havesurgery DAQUAN. She desires to have surgery prior to the summer because she wants to attend her grandson's baseball games. She does not like living with the stoma. She has cut back on smoking, but doescontinue to smoke cigarettes, about 1/2 PPD. Her colostomy is functioning well. She is not having issues with leaking. She denies fevers or chills. She is diabetic. She believes her last Hgb A1C was around 6.9. Current Home Meds: (Last Updated 05/17 15:08) DULoxetine 60 mg Daily LORazepam (LORazepam 0.5 mg oral tablet) 1 mg Daily atorvastatin 20 mg Daily bisacodyl (Dulcolax Laxative 5 mg oral delayed release tablet) use as directed prior to procedure. bisacodyl (Dulcolax Laxative 5 mg oral tablet) Follow Bowel Prep Instructions dulaglutide (Trulicity Pen 0.75 mg/0.5 mL subcutaneous solution) 0.75 mg q7days glipiZIDE 5 mg bid 1 tablet twice a day hydroCHLOROthiazide 25 mg Daily insulin degludec (Tresiba FlexTouch 100 units/mL subcutaneous solution) Daily insulin lispro (HumaLOG Cartridge 100 units/mL injectable solution) lisinopril 20 mg Daily magnesium sulfate/potassium sulfate/sodium sulfate (Suprep Bowel Prep Kit oral liquid) Take as directed before the procedure. meclizine 25 mg as needed omeprazole 40 mg Daily ondansetron 8 mg as needed polyethylene glycol 3350 (MiraLax oral powder for reconstitution) Follow Extended bowel prep instructions traZODone 75 mg qhs valsartan 320 mg Daily varenicline (varenicline 1 mg oral tablet) 1 mg Daily Allergies and Sensitivities: CeleBREX(Hives) PCN (penicillin)(UNKNOWN) Past Medical History: Problems: No Chronic Problems OBJECTIVE Vitals: Last Updated 05/17/23 15:08 Date Temp BP Location Pulse RR SpO2 Pain 05/17/23 0 04/26/23 36.4 118/74 67 15 97 04/26/23 36.4 118/74 67 15 97 0 Vital Signs are the last 3 documented. No Orthostatic Data Available Height and Weight: Last Updated 04/26/23 09:03 Date BMI Wt(kg) Wt(lb) Method Ht(cm) (ft-in) Method 04/26/23 80.1 176 03/01/23 31.48 81.6 180 Standing Scale 161 5-3 Standing 02/16/23 80.1 176 Heights and Weights are the last 3 documented. Physical Exam General: 63 year old female in NAD HEENT: NCAT. Sclera anicteric. MMM Neck: Supple Cardiac: RRR Lungs: Non labored breathing Abdomen: Obese. Soft, non-tender, non-distended. No rebound tenderness or guarding. Colostomy pink and patent. Wafer was visibly cut much too large and peristomal skin was red. Patient was not receptive to suggestions on appropriate ostomy care. Extremities: Well perfused. Moves extremities spontaneously x 4 Neuro: Alert and oriented x 3 30 Day Labs: 04/26/23 1145 Gluc (comment) Testing performed at: Gluc Meter 119 H 04/26/23 0859 Gluc Meter 137 H Gluc (comment) Testing performed at: ASSESSMENT: 62-year-old female with a history of ex lap and Rubio's procedure for perforated diverticulitis PLAN: - We will obtain an updated Hgb A1C - Repeat colonoscopy in 3 months, given size and number of polyps on colonoscopy - Importance of smoking cessation was discussed. Patient must be tobacco free x 2 months in order to undergo an elective Inna Reversal - Follow-up in the colorectal surgery clinic after repeat colonoscopy The supervising physician Dr. Thony Dover MD spent 8 minutes of discrete time performing the activities of this visit. The PA, Nadege Rodriguez PA-C spent 7 minutes of discrete time performing the activities of this visit. The overlapping/shared time by the PA and physician is 10 minutes. The total visit time includes 25 minutes of shared time between the PA and physician. Activities include: X review of the medical record X obtaining a history X physical exam/evaluation X counseling/educating patient/family/caregiver discussion/referral to other healthcare professional X documenting care in the medical record X independent interpretation of results X communication of results to patient/family/caregiver coordination of care COLORECTAL SURGERY ATTENDING ATTESTATION I have personally seen, evaluated and examined the patient. The medical file was reviewed. I agree with the history, review of systems, and physical exam for this patient. I have reviewed the existing laboratory results and radiographic images. I also agree with the assessment and plan from the advanced practice provider/residents note. Thank you for entrusting the care of your patients to the Colon & Rectal Surgery Division at [facility]. Electronic Signature on File Electronically Reviewed/Signed by: Nadege Rodriguez PA-C Author Signature Dt/Tm:05/18/2023 01:35 PM Division of Colorectal Surgery Electronically Reviewed/Signed by: Thony Dover MD Cosigner Signature Dt/Tm: 05/19/2023 08:48 AM Division of Colorectal Surgery [place] Patient Care team information Care Team Personnel Name: DO Cole Sean D Position: Referring Member Role: Primary Care Provider Address: Address: [address] [place] [id number] [place] Care Team Related Persons Name: SAGRARIO FRALEY Address: home [address] [address]
--- OUTSIDE RECORDS SUMMARY | 2023-07-09 18:09 | External Medical Summary | Continuity of Care Document ---
Author Name Unknown Organization [facility] [address] [place] [id number] Care Team Providers Care Cellar Supervisor Name Role Phone Cole Larry D Primary Care Physician [phone] [id number] Date(s): 04/26/23 - 04/26/23 [facility] [address] [place] [id number] Encounter Diagnosis Benign neoplasm of cecum(Final) - Benign neoplasm of ascending colon(Final) - Benign neoplasm of transverse colon(Final) - Benign neoplasm of descending colon(Final) - Type 2 diabetes mellitus without complications(Final) - Hyperlipidemia, unspecified(Final) - Essential (primary) hypertension(Final) - Other alf (current) drug therapy(Final) - Discharge Disposition: Home or Self Care Attending Physician: MD Mayfield Hadie Referring Physician: MD Ortiz, See Hogan Allergies, Adverse Reactions, Alerts Substance Reaction Severity Status PCN (penicillin) UNKNOWN Moderate Active CeleBREX Hives Moderate Active Medications atorvastatin Start: 12/17/22 14:21:00 EDT, 20 mg =, Daily Start Date: 12/17/22 Status: Ordered Dulcolax Laxative 5 mg oral delayed release tablet Start: 03/07/23 16:29:00 EST, See Instructions, Disp# 2 tab, Refills: 0, use as directed prior to procedure., Pharmacy: [id number] Start Date: 03/07/23 Status: Ordered Dulcolax Laxative 5 mg oral tablet Start: 04/11/23 15:29:00 EST, See Instructions, Disp# 2 tab, Refills: 0, Follow Bowel Prep Instructions, Pharmacy: [id number] Start Date: 04/11/23 Status: [...] Refills: 0, Follow Extended bowel prepinstructions, Pharmacy: [id number] Start Date: 04/11/23 Status: Ordered omeprazole Start: 12/17/22 14:39:00 EDT, 40 mg =, Daily Start Date: 12/17/22 Status: Ordered ondansetron Start: 12/17/22 14:39:00 EDT, 8 mg =, as needed Start Date: 12/17/22 Status: Ordered Suprep Bowel Prep Kit oral liquid Start: 03/07/23 16:29:00 EST, See Instructions, Disp# 1 kit, Refills: 0, Take as directed before the procedure., Pharmacy: [id number] Start Date: 03/07/23 Status: [...] List Name Date Glucose Meter (GLUCOSE METER) 04/26/23 Glucose Meter (GLUCOSE METER) 04/26/23 Most recent to oldest [Refer ence Range]: 1 2 Gluc (comment) Testing performed at : 1 *Unknown* (04/26/23 11:45 AM) Testing performed at: 2 *Unknown* (04/26/23 8:59 AM) Gluc Meter [74-109 mg/dL] 119 mg/dL *HI* (04/26/23 11:45 AM) 137 mg/dL *HI* (04/26/23 8:59 AM) 1Result Comment: [facility] [address] [place] [address] [place] [address] 2Result Comment: [facility] [address] [place] [address] [place] [address] Vital Signs Most recent to oldest [Reference Range]: 1 2 3 Patient Weight 80.1 kg (04/26/23 9:03 AM) Temperature [36.5-37.9 DegC] 36.4 DegC *LOW* (04/26/23 11:57 AM) 36.4 DegC *LOW* (04/26/23 11:54 AM) 36.2 DegC *LOW* (04/26/23 9:03 AM) Heart Rate 67 bpm (04/26/23 11:57 AM) 67 bpm (04/26/23 11:54 AM) Respiratory Rate 15 br/min (04/26/23 11:57 AM) 15 br/min (04/26/23 11:54 AM) 16 br/min (04/26/23 9:03 AM) Blood Pressure 118/74mmHg (04/26/23 11:57 AM) 118/74mmHg (04/26/23 11:54 AM) 119/65mmHg (04/26/23 9:03 AM) Mean Blood Pressure 84 mmHg (04/26/23 11:54 AM) Cuff Pulse Pressure 44 mmHg (04/26/23 11:54 AM) 54 mmHg (04/26/23 9:03 AM) Social History Social History Type Response Smoking Status Current every day smith romero smoker Sex Female Endoscopy study * MD Mayfield Hadie: VERIFY, PERFORM Event Display: Endoscopy Authored Date: [id number] Please click on link to see image. Anes H&P * DO Diaz Shane M: MODIFY, PERFORM, SIGN, VERIFY Event Display: Anes H&P Authored Date: [id number] Patient: MOISES FARLEY Age: 63 years Sex: Female : 1960 Associated Diagnoses: None Author: DO Diaz Shane M Preoperative Information Pre-Operative Diagnosis: Colonic polyp . Anesthiesia Preop Info: Procedure: Colonoscopy Date: 04/26/23 10:00 Surgeons: MD Mayfield Hadie Diagnosis: colon polyp . History of Present Illness 62-year-old female with a past medical history of tobacco abuse (1/2ppd, since teenage years, denies COPD) ,diabetes on insulin, hypertension, hyperlipidemia who recently underwent an emergent ex lapand Rubio's procedure for perforated diverticulitis and feculent peritonitis in May 2022 outside hospital. She later had ostomy reversal in December 2022 and later had a colonoscopy in January 2023 which revealed several polyps that were biopsied but not removed due to bad bowel prep. Now for colonoscopy. Previous colonoscopy 02/16/23: Tolerated propofol with nasal cannula Appropriately NPO for procedure Medical History Medical Devices: Medical Devices: none . Anesthesia History: Patient's history: Negative. Functional Capacity: 4-6 METs = moderate. Health Status Allergies: Allergic Reactions (Selected) Moderate CeleBREX- Hives. PCN (penicillin)- Unknown.. Medications: Medication List (Selected) Prescriptions Prescribed Dulcolax Laxative 5 mg oral delayed release tablet: See Instructions, use as directed prior to procedure., 2 tab, 0 Refill(s) Dulcolax Laxative 5 mg oral tablet: See Instructions, Follow Bowel Prep Instructions, 2 tab, 0 Refill(s) MiraLax oral powder for reconstitution: See Instructions, Follow Extended bowel prep instructions, 119 g, 0 Refill(s) Suprep Bowel Prep Kit oral liquid: See Instructions, Take as directed before the procedure., 1 kit,0 Refill(s) Documented Medications Documented DULoxetine: 60 mg, Daily [...] 1 mg oral tablet: 1 tab, Daily. Histories Procedure History: No active procedure history items have been selected or recorded.. Social History: Cigarrette Smoker? Other Tobacco Use: Alcohol: Recreational Drugs: . Physical Examination VS/Measurements: Vital Signs 04/26/2023 09:03 EST Temperature 36.2 DegC LOW Temperature Route Temporal Respiratory Rate 16 br/min Systolic Blood Pressure 119 mmHg Diastolic Blood Pressure 65 mmHg Cuff Pulse Pressure 54 mmHg Pulse 66 SpO2 97 % . General: Alert and oriented, No acute distress. Airway: Mallampati classification: III (soft palate, base of uvula visible). Mouth: Teeth ( Within normal limits ), small mouth. Neck: Full range of motion. Respiratory: Lungs are clear to auscultation, Respirations are non-labored, Breath sounds are equal, Symmetrical chest wall expansion. Cardiovascular: Normal rate, Regular rhythm, No murmur. Neurologic: Alert, Oriented. Anesthesiologist Assessment and Plan Problems: No active cardiac conditions. Cardiac risk factors: IDDM. ASA Classification: Class III. Anesthetic Plan: Premedication: Intravenous. Anesthetic technique discussed: General anesthesia, TIVA. Induction discussed: Intravenously. Airway plan discussed: Oral endotracheal tube, Nasal Cannula. Risks discussed: Nausea-vomiting, Headache, Sore throat, Dental injury, Eye injury, Allergic reaction, Serious complications, Nerve damage, Aspiration. Informed consent: Signed by patient. Anesthesia provided by other physicians and anesthesia team: CARDIOLOGY TEACHER/Resident/Fellow. Special techniques and precautions discussed: Aspiration precautions, Nausea-vomiting. History, Physical Exam, Assessment and Plan Completed: 04/26/2023 09:12:00, DO Diaz Shane M. Electronic Signature on File Electronically Reviewed/Signed by: Anibal Diaz DO Author Signature Dt/Tm:04/26/2023 09:18 AM Department of Anesthesia SMB Patient Care team information Care Team Personnel Name: DO Cole Sean D Position: Referring Member Role: Primary Care Provider Address: Address: [address] [place] [id number] [place] Care Team Related Persons Name: SAGRARIO FARLEY Address: [address] [place] [address]
--- OUTSIDE RECORDS SUMMARY | 2023-07-09 18:09 | External Medical Summary | Summary of Care ---
Author Name Unknown Organization [facility] Address [address] [place] [address] Phone [phone] Care Team Providers Care Clinical Education Consultant Name Role Phone Cole, Larry Schaefer DO Primary Care Provider [phone] Reason for Visit * Reason Onset Date Comments Advice 05/30/2023 Encounter Details Date Type Department Care Team (Late st Contact Info) Description 05/30/2023 Telephone General Surgery, [place] [address] [place] [address] Services, [facility] [address] [place] [address] Advice Allergies Active Allergy Reactions Criticality Noted [...] encounter Miscellaneous Notes * Telephone Encounter - Marcela Jimenez OSA - 05/30/2023 8:37 AM EDT Pt wondering if Dr. Ferrari ever does surgery down at either [facility] or [facility]? Please contact pt documented in this encounter Plan of Treatment Upcoming Encounters Date Type Department Care Team (Nicol st Contact Info) Description 07/13/2023 9:00 AM EDT Office Visit General Surgery, [facility] [address] [facility] [place] [address] Crystal Ferrari MD [address] [facility] [phone] Health Maintenance Due Date Last Done Comments Lipid Panel 1960 Depression Screening 1971 HIV Screening 1974 Hepatitis C Screening 1977 Pap Smear 1980 Cervical Cancer Screening 1989 HPV/Co-Test 1989 Mammogram 1999 DTaP,Tdap,and Td Vaccines (1 - Tdap) 10/21/1999 10/20/1999 Cologuard 2004 Colonoscopy 2004 Sigmoidoscopy 2004 Colorectal Cancer Screening 01/07/2009 Fecal Occult Blood Test 01/07/2009 01/08/2008 Zoster Vaccines (1 of 2) 2009 COVID-19 Vaccine (4 - 2022-2 4 season) [...] filedocumented as of this encounter Care Teams Clinical Education Consultant Relationship Specialty Start Date End Date Larry Cole DO [address] [place] [address] PCP - General Family Medicine 07/04/12 documented as of this encounter
--- OUTSIDE RECORDS SUMMARY | 2023-07-09 18:09 | External Medical Summary | Continuity of Care Document ---
Author Name Unknown Organization [facility] [address] [place] [address] [place] [phone] Care Team Providers Care Nursing Techn Name Role Phone Larry Cole Primary Care Physician [phone] Encounter [facility] [id number] Date(s): 01/11/23 - 01/11/23 [facility] [address] [facility] [address], [address], [address] [place] [address] [phone] Encounter Diagnosis Diverticulitis(Discharge Diagnosis) - 01/11/23 Perforated diverticulum(Discharge Diagnosis) - 01/11/23 Discharge Disposition: Home or Self Care Attending Physician: MD Dover Patricio B Allergies, Adverse [...] Date: 12/17/22 Status: Ordered Problem List No Chronic Problems Diagnosis Diagnosis Type Effective Dates Health Status Clinical Service Informant Diverticulitis Discharge Diagnosis 01/11/23 Non-Specified Perforated diverticulum Discharge Diagnosis 01/11/23 Vital Signs Most recent to oldest [Reference Range]: 1 Temperature [36.5-37.9 DegC] 36.6 DegC (01/11/23 2:57 PM) Heart Rate 59 bpm (01/11/23 2:57 PM) Blood Pressure 110/60mmHg (01/11/23 2:57 PM) Cuff Pulse Pressure 50 mmHg (01/11/23 2:57 PM) Social History Social History Type Response Smoking Status Current every day he sarita smoker Sex Female Patient Care team information Care Team Personnel Name: DO Cole Sean D Position: Referring Member Role: Primary Care Provider Address: Address: [address] [facility] [place] [address] Care Team Related Persons Name: ERICKALadySAGRARIO Address: [address] [place] [address]
--- OUTSIDE RECORDS SUMMARY | 2023-07-09 18:09 | External Medical Summary | Summary of Care ---
Author Name Unknown Organization [facility] Address [address] [place] [address] Phone [phone] Care Team Providers Care Technology Support Analyst Name Role Phone ColeLarry DO Primary Care Provider [phone] Encounter Details Date Type Department Care Team (Latest Contact Info) Description 01/18/2023 11:17 AM EDT - 01/18/2023 11:59 PM EDT Hospital Encounter Radiology, [facility] [address] [place] [address] Arrived Discharge Disposition: Home - Self Care Allergies Active Allergy Reactions Criticality Noted Date Comments Medina-2 Inhibitors 01/09/2003 Celebrex - hives Penicillins 01/09/2003 documented as of this encounter (statuses as of 01/19/2023) Medications Medication Sig Dispensed Refills Start Date [...] as of this encounter (statuses as of 01/19/2023) Active Problems Problem Noted Date Diagnosed Date Back disorder 02/05/2002 documented as of this encounter (statuses as of 01/19/2023) Immunizations Name Administration Dates Next Due COVID-19 [...] on file documented as of this encounter Plan of Treatment Health Maintenance Due Date Last Done Comments Lipid Panel 1960 Pneumococcal Vaccine: Pediatrics (0 to 5 Years) and At-Risk Patients (6 to 64 Years) (1 - PCV) 1965 Depression Screening 1971 HIV Screening 1974 Hepatitis [...] 04/28/2020 Influenza Vaccine (FLU shot) (#1) 2022 GARDASIL-HPV IMMUNIZATION SERIES Aged Out No longer eligible b ased on patient's age to complete this topic MENINGOCOCCAL (MENACTRA/MENVEO) Aged Out No longer eligible b ased on patient's age to complete this topic documented as of this encounter Medical Devices Not on filedocumented as of this encounter Procedures Procedure Name Priority Date/Time Associated Diagnosis Comments XR ABDOMEN 2 VIEWS Routine 01/18/2023 11 :30 AM EDT Abdominal tenderness, left lower quadrant Epigastric pain documented in this encounter Results * XR ABDOMEN 2 VIEWS (01/18/2023 11:30 AM EDT) Anatomical Region Laterality Modality Abdomen, Pelvis Digital Radiogra phy 01/19/2023 12:3 9 PM EDT Impressions 01/19/2023 12:36 PM EDT IMPRESSION 1. No acute finding. 2. Chronic findings, as above. Narrative 01/19/2023 12:36 PM EDT EXAM XR ABDOMEN 2 VIEWS - 01/18/2023 11:30 am HISTORY left lower quadrant pain TECHNIQUE Three radiographs of the abdomen including an upright radiograph. COMPARISON None. FINDINGS There is no free air under the diaphragm. Bowel gas pattern is within normal limits. Mild to moderate stool burden. Surgical clips project over the bilateral pelvis and right lower quadrant. There are degenerative changes of the spine. Left-sided nephrolithiasis. No discrete ureteral calculus is seen. Procedure Note Aryan Little MD - 01/19/2023 EXAM XR ABDOMEN 2 VIEWS - 01/18/2023 11:30 am HISTORY left lower quadrant pain TECHNIQUE Three radiographs of the abdomen including an upright radiograph. COMPARISON None. FINDINGS There is no free air under the diaphragm. Bowel gas pattern is withinnormal limits. Mild to moderate stool burden. Surgical clips projectover the bilateral pelvis and right lower quadrant. There aredegenerative changes of the spine. Left-sided nephrolithiasis. Nodiscrete ureteral calculus is seen. IMPRESSION IMPRESSION 1. No acute finding. 2. Chronic findings, as above. Larry Cole DO RADIOLOGY (RAD GENER AL) documented in this encounter Visit Diagnoses Diagnosis Abdominal tenderness, left lower quadrant Epigastric pain Abdominal pain, epigastric documented in this encounter Care Teams Technology Support Analyst Relationship Specialty Start Date End Date Larry Cole DO [address] [place] [address] PCP - General Family Medicine 07/04/12 documented as of this encounter
--- OUTSIDE RECORDS SUMMARY | 2023-07-09 18:09 | External Medical Summary | Summary of Care ---
Author Name Unknown Organization [facility] Address [address] [place] [address] Phone [phone] Care Team Providers Care Unclaimed Property Officer Name Role Phone ColeRonald dacostajacqueline Schaefer DO Primary Care Provider [phone] Reason for Visit * Reason Onset Date Comments Order Request 03/08/2023 Ostomy supplies Encounter Details Date Type Department Care Team (Late st Contact Info) Description 03/08/2023 Telephone General Surgery, [facility] [address] [facility] [place] [address] Paul Cedillo MD [address] [place] [address] Order Request (Ostomy supplies) Allergies Active Allergy [...] fill out. * Telephone Encounter - Renny Schwarzt OSA - 03/08/2023 10:07 AM EST Lisa from [employer] called Following up on order for 2 piece ostomy pouch [id number]. Said it was send on 03/02. None in chart. Lisa phone [phone] option 1 then 3 Thanks ESTELA Brunson [...] filedocumented as of this encounter Care Teams Unclaimed Property Officer Relationship Specialty Start Date End Date Larry Cole DO [address] [place] [address] PCP - General Family Medicine 07/04/12 documented as of this encounter
[2023-07-09] MEDS: BENZONATATE 100 MG CAPSULE PO PRN (21:03)
[2023-07-10 05:56] LABS: Base Excess ABG 4.9 mEq/L (-9-1.8); HCO3 ABG 31 mmol/L (19-24); Oxygen Saturation ABG 98.7 % (90-95); PCO2 ABG 53 mmHg (35-46); PO2 ABG 94 mmHg (80-95); pH ABG 7.38 (7.35-7.45)
[2023-07-10 06:04] LABS: Basophils # (auto) 0.02 K/uL (0.00-0.20); Basophils % (auto) 0.3 %; Eosinophils # (auto) 0.01 K/uL (0.00-0.50); Eosinophils % (auto) 0.1 %; Hemoglobin 11.9 g/dl (12.0-16.0); Immature Granulocytes # (auto) 0.06 K/uL (0.01-0.20); Immature Granulocytes % (auto) 0.8 %; Lymphocytes # (auto) 1.56 K/uL (1.20-3.40); Lymphocytes % (auto) 21.4 %; Mean Corpuscular Hemoglobin 30.8 pg (25.0-34.0); Mean Corpuscular Hgb Conc 33.1 g/dL (32.0-36.0); Mean Corpuscular Volume 93.3 fL (80.0-100.0); Mean Platelet Volume 10.7 fL (9.4-12.4); Monocytes # (auto) 0.45 K/uL (0.11-0.59); Monocytes % (auto) 6.2 %; Neutrophils % (auto) 71.2 %; Platelet Count 169 K/uL (130-400); RDW Coefficient of Variation 13.2 % (11.5-14.5); RDW Standard Deviation 45.4 fL (36.4-46.3); Red Blood Count 3.86 M/uL (4.20-5.40)
[2023-07-10 06:26] LABS: BUN Creatinine Ratio 32.1 (10-20); Creatinine Clr Calc Pharmacy 67.9 ml/min; Est GFR (Non-African American) 76.8 ml/min; Potassium 3.8 mmol/L (3.5-5.1)
[2023-07-10] MEDS: COUGH DROP (SUGAR FREE) LOZ 24 LOZ/1 BOX BUCCAL PRN (06:30)
[2023-07-10 08:18] LABS: Allen Test Pos (Pos)
[2023-07-10] MEDS ORDERED: POTASSIUM PHOS 3 MMOL/1 ML INFUSION IV STA (08:52)
[2023-07-10] MEDS: POTASSIUM PHOSPHATE 21 MMOL in SODIUM CHLORIDE 0.9% 500 ML IV ONE (09:58)
--- NOTE | 2023-07-10 10:31 | Cardiology Progress Note ---
Date of Service July 10, 2023 Assessment & Plan (1) Bradycardia: (2) Encephalopathy: (3) KAIN (acute kidney injury): (4) Influenza A: (5) Acute respiratory failure with hypoxia and hypercarbia: (6) Acute hyperglycemia: (7) Tobacco abuse: Plan 07/09/23: -Significant bradycardia noted, but asymptomatic. Heart rates are lower while sleeping. Will need ESTELA evaluation. -She is not on any AVN blockers. She also does not have any cardiac history. -Echocardiogram completed today. Qualitatively EF 50% (low-normal) without valvular abnormalities. Unable to calculate pulmonary hypertension. -SB secondary to acute respiratory acidosis. Continue to monitor on telemetry. -Will need a Zio Monitor at discharge -Will also need outpatient Cardiology follow up as well. 07/10/2023: -Continues to be bradycardic in the 50s with PAT in the 130s. -Avoid AVN blockers. -EF low normal 50%. No valvular abnormalities. -Noted to be apneic overnight. Definitely will require an outpatient sleep study. Remains on 2LNC. -Discussed smoking cessation, however patient is not interested in quitting. -Avoid AVN blockers. -Recommend zio monitor at discharge with out patient cardiology follow up in 4-6 weeks. This should allow enough time for us to have the results. -Cardiology will sign off at this time. Case discussed with Dr. Mcclain I spent a total of 30 minutes on the date of service in preparation, delivery, and documentation of the care provided to this patient, excluding any time spent in the performance of separately billed services. ARIELLE Wood Department of Cardiology, [facility] This chart was completed in part utilizing Speech Voice Recognition Software. Grammatical errors, random word insertions, pronoun errors, and incomplete sentences are an occasional consequence of this system due to software limitations, ambient noise, and hardware issues. Any formal questions or concerns about the content, text, or information contained within the body of this dictation should be directly addressed to the provider for clarification. Admission and Anticipated Discharge Date Admission Date: July 08, 2023 Supervising Physician Co-Signing Physician Notes 63-year-old female with known history of hypertension , diabetes mellitus ,obesity, tobacco use presents with altered mental status, Infuenza A positive, acute respiratory failure with hypercapnia and hypoxia PH 7.18, pco2 72 [address]ipap, CT chest possible pulmonary edema received one dose of IV lasix 20 ED, Acute kidney injury 2.8 on admission improved to baseline . elevated troponin peak 110 down trended on telemetry 07/07 was sinus bradycardia 30 bpm received a dose of atropine heart rate improved to 50 heart rate improved sinus bradycardia 50 to 60 yesterday evening had episodes of brief periods of atrial tachycardia with Heart rate in 120 has remained in sinus bradycardia heart rate ranging from 50 to high 60 bpm. denies palpitations , no chest pain Tachy vandana syndrome : sinus bradycardia in setting of acute hypercapnic respiratory failure and multiple sedating medications. Her heart rate has improved but still remains sinus bradycardia with episodes of brief atrial tachycardia. need Zio patch monitor as outpatient Echo shows mildly reduced ejection fraction 45-50, mildly elevated troponin in the setting of acute respiratory failure and need ischemic workup nuclear stress test as outpatient. I have reviewed the advanced practitioner's documentation on the date of service referenced in note, and I agree with, and take responsibility for the plan of care. I spent a total of [30] minutes coordinating, documenting, and providing care for this patient excluding time spent in the performance of separately billed services or time spent by another provider. Subjective Yesterday patient had some PAT noted on telemetry. Patient very eager to go home. Still requiring at least 2 LNC. Review of Systems Review of Systems: All systems reviewed & are unremarkable except as noted in HPI & below Physical Exam Constitutional: WD/WN, vitals as above Respiratory: normal respiratory effort, lungs clear to auscultation (2 LNC) Auscultation: lungs clear to auscultation bilaterally Cardiovascular: Rate/Rhythm: + bradycardic Heart Sounds: normal S1 and normal S2 Extremities: normal capillary refill; no edema Musculoskeletal: no cyanosis or clubbing, extremities motor strength 5/5 Neurologic: PERRL, EOMI, accommodation nl, no face palsy, no dysarthria Results & Data Vital Signs (Past 12 Hours) Vital Signs Temp Pulse Pulse Resp BP Pulse Ox O2 Del Method 07/10/23 07:29 Nasal Cannula 07/10/23 07:26 36.7 C 51 L 19 137/78 97 Nasal Cannula 07/10/23 03:13 36.8 C 57 L 16 129/72 97 Nasal Cannula 07/10/23 01:15 55 L 23 97 07/09/23 22:45 36.7 C 49 L 22 126/68 98 BiPAP O2 Flow Rate FiO2 07/10/23 07:29 2 07/10/23 07:26 2.0 07/10/23 03:13 2 07/10/23 01:15 30 07/09/23 22:45 Laboratory Results CBC 07/10/23 Range/Units 05:35 WBC 7.30 (4.8-10.8) K/ul RBC 3.86 L (4.20-5.40) M/uL Hgb 11.9 L (12.0-16.0) g/dl Hct 36.0 L (37.0-47.0) % Plt Count 169 (130-400) K/uL Neut # (Auto) 5.20 (1.40-6.50) K/uL Lymph # (Auto) 1.56 (1.20-3.40) K/uL [place] # (Auto) 0.45 (0.11-0.59) K/uL Eos # (Auto) 0.01 (0.00-0.50) K/uL Baso # (Auto) 0.02 (0.00-0.20) K/uL Comprehensive Metabolic Panel 07/10/23 Range/Units 05:35 Sodium 142 (136-145) mmol/L Potassium 3.8 (3.5-5.1) mmol/L Chloride 108 H (98-107) mmol/L Carbon Dioxide 30 (21-32) mmol/L BUN 26 H (6-23) mg/dl Creatinine 0.81 D (0.6-1.2) mg/dl Glucose 108 H (70-99(Fasting)) mg/dl Calcium 9.0 (8.6-10.3) mg/dl Intake and Output 07/09/23 07/10/23 07/10/23 22:59 06:59 14:59 Intake Total 475 / 975 400 / 975 Output Total 450 / 1850 550 / 1850 Balance 25 / -875 -150 / -875 Intake: IV 100 / 300 100 / 300 Albumin 25% 25 gm In 100 ml @ 100 / 300 100 / 300 50 mls/hr IV Q8H [facility] Rx#: [id number] Oral 375 / 675 300 / 675 Output: Urine Amount (Catheter) 450 / 1750 450 / 1750 Suero/Indwelling 450 / 1750 450 / 1750 Gastric Drainage 100 / 100 Ileostomy/Colostomy 100 / 100 Other: Weight 79.379 kg 78.2 kg Weight Measurement Method Built in [facility] Built in [facility] Diagnostic Findings Telemetry Reviewed 07/10/23: SB 57 bpm. Yesterday had PAT 130s. Asymptomatic. EKG 07/09/23 SB with SA 53 bpm EKG 07/08/23 NSR [address] 07/08/23 Interseptal thickening could relate to atelectasis and/or pulmonary edema. CT Abd/Pelvis 07/08/23 IMPRESSION: 1. Mild right hydronephrosis with no visualized nephrolithiasis. 2. Punctate nonobstructing left renal calculus. No left hydronephrosis. 3. There is a left lower quadrant colostomy with a small parastomal hernia. Head CT 07/08/23 IMPRESSION: No acute intracranial process
--- NOTE | 2023-07-10 12:18 | Hospitalist Progress Note ---
Date of Service July 10, 2023 Assessment & Plan (1) Encephalopathy: Plan Pt is a 63yoF with PMHx significant for history of diabetes, hypertension presenting from home with increased lethargy. Acute on Chronic hypoxic and Hypercapnic Respiratory failure Influenza Infection Pt presented with lethargy from home Hypoxemic, hypercapnic respiratory failure secondary to influenza, pneumonia, possible CHF, possible underlying sleep disordered breathing/OHS ABG with pH of 7.18, pCO2 72, HCO3 of 27 on admission hypercapnia noted on multiple blood gases last year Chest XR with bilateral airspace opacities CT chest noting interseptal thickening suggestive of pulm edema/atelectasis +Influenza A Blood Cx x2 NGTD Treated with bipap, tamiflu for influenza A, supportive treatments Pulmonology consulted, appreciate recs -bipap prn -wean off benzos -smoking cessation -outpt PFTs and polysomnography testing -sleep medicine and pulm referrals/followup Improving Altered Mental Status Acute metabolic/toxic encephalopathy Likely in setting of above Head CT unremarkable Tox screen negative Neuropsychotropic medications contributory Continue bipap improving Bradycardia HR noted as low into the 30s Received atropine, ordered prn EKG on arrival sinus with PACs Echo EF 45-50%, otherwise unremarkable Cardiology consulted, appreciate recs -Zio patch on discharge -"Echo shows mildly reduced ejection fraction 45-50, mildly elevated troponin in the setting of acute respiratory failure and need ischemic workup nuclear stress test as outpatient." Elevated Trop Demand ischemia Trops elevated and downtrended, 104-110-90 EKG on arrival sinus with PACs Echo EF 50%, otherwise unremarkable Doubt ACS, likely elevated in setting of above Cardiology consulted, appreciate recs -as noted above recommending ischemic workup nuclear stress test as outpatient Hydronephrosis, right Nephrolithiasis, nonobstructive Noted on CT abd/pelvis Urology consulted, appreciate recs -hydronephrosis minimal and less likely cause of KAIN as improving -No involvement required or indicated at this time Acute renal Failure Cr elevated at 2.84 on admission Likely secondary to hypovolemia, right-sided hydronephrosis Was on scheduled albumin while cardiac status unknown, concern for CHF based on CT chest Holding home nephrotoxic meds Improving, consider gentle hydration as needed HTN Holding home hctz, and ARB Pt most recently prescribed valsartan hyperlipidemia on statin Rx DMII insulin requiring hgba1c of 6.4 Hold home meds Basal/bolus while hospitalized resume home meds on discharge NAFLD no overt decompensation hx colonic polyp dysplasia patient follows with [facility] Tobacco abuse Encourage cessation Likely contributory to presentation Mood Holding home lorazepam as contributory Also on cymbalta with celexa and trazodone Diet: DMII/HH DVT prophylaxis: Heparin subcu Dispo: PT/OT ordered, awaiting recs Admission and Anticipated Discharge Date Admission Date: July 08, 2023 Subjective Pt was seen in the AM. Was on RA. Asking about going home, stating that she was feeling better. Awaiting PT/OT evals. Review of Systems Review of Systems: All systems reviewed & are unremarkable except as noted in Subjective Physical Exam Physical Exam: General: AAO HEENT: NC/AT CV: RRR Resp: breath sounds clear, no increased effort of breathing Abdomen: Soft, ostomy bag in place Results & Data Results & Data Vital Signs (Past 12 Hours) Vital Signs Temp Pulse Pulse Resp BP Pulse Ox O2 Del Method 07/10/23 10:49 36.7 C 46 L 19 168/69 H 97 Nasal Cannula 07/10/23 07:29 Nasal Cannula 07/10/23 07:26 36.7 C 51 L 19 137/78 97 Nasal Cannula 07/10/23 03:13 36.8 C 57 L 16 129/72 97 Nasal Cannula 07/10/23 01:15 55 L 23 97 O2 Flow Rate FiO2 07/10/23 10:49 2.0 07/10/23 07:29 2 07/10/23 07:26 2.0 07/10/23 03:13 2 07/10/23 01:15 30
[2023-07-10] MEDS: OSELTAMIVIR PHOSPHATE 75 MG CAP PO SCH (20:30)
[2023-07-10] MEDS: ACETAMINOPHEN 500 MG TAB PO PRN (23:31)
[2023-07-11 07:51] LABS: Calcium 9.3 mg/dl (8.6-10.3); Creatinine Clr Calc Pharmacy 115.8 ml/min; Est GFR (African American) 118.5 ml/min; Est GFR (Non-African American) 102.3 ml/min; Magnesium 1.7 mg/dl (1.7-2.4); Phosphorus 2.3 mg/dl (2.5-4.9); Potassium 3.4 mmol/L (3.5-5.1)
[2023-07-11 08:10] LABS: Basophils # (auto) 0.02 K/uL (0.00-0.20); Basophils % (auto) 0.3 %; Eosinophils # (auto) 0.02 K/uL (0.00-0.50); Eosinophils % (auto) 0.3 %; Hematocrit (blood only) 36.6 % (37.0-47.0); Hemoglobin 12.4 g/dl (12.0-16.0); Immature Granulocytes # (auto) 0.04 K/uL (0.01-0.20); Immature Granulocytes % (auto) 0.5 %; Lymphocytes # (auto) 1.09 K/uL (1.20-3.40); Lymphocytes % (auto) 14.8 %; Mean Corpuscular Hemoglobin 30.4 pg (25.0-34.0); Mean Corpuscular Hgb Conc 33.9 g/dL (32.0-36.0); Mean Corpuscular Volume 89.7 fL (80.0-100.0); Mean Platelet Volume 11.4 fL (9.4-12.4); Monocytes # (auto) 0.61 K/uL (0.11-0.59); Monocytes % (auto) 8.3 %; Neutrophils % (auto) 75.8 %; Platelet Count 179 K/uL (130-400); RDW Coefficient of Variation 12.8 % (11.5-14.5); RDW Standard Deviation 42.2 fL (36.4-46.3); Red Blood Count 4.08 M/uL (4.20-5.40); White Blood Count 7.38 K/ul (4.8-10.8)
[2023-07-11] MEDS ORDERED: POTASSIUM PHOS 3 MMOL/1 ML INFUSION IV STA (08:39)
[2023-07-11] MEDS: POTASSIUM CHLORIDE CRTAB 20 MEQ TABCR PO STA (09:03)
[2023-07-11] MEDS: POTASSIUM PHOSPHATE 15 MMOL in SODIUM CHLORIDE 0.9% 250 ML IV ONE (09:03)
--- NOTE | 2023-07-11 12:36 | Discharge Summary ---
Discharge Summary Date of Service July 11, 2023 Notes For Next Care Provider Viral Pneumonia Per Pulmonology: -smoking cessation imperative -consider weaning off the benzodiazepine lorazepam due to respiratory drive suppression. PCP follow up for this -outpatient PFTs and polysomnography testing -consider sleep medicine and pulmonology referrals after discharge-PCP followup for this Per Cardiology: -Zio patch after discharge -ischemic workup with nuclear stress test as an outpatient Pt discharged with 2L of oxygen with ambulation, tamiflu Please ensure close followup with Cardiology, Pulmonology and Sleep Medicine after discharge. Medication Changes From Visit Tamiflu 75mg BID x 3 more days Stop taking home azithromycin previously prescribed Admission HPI Per Admitting Provider History obtained from patient's family, and records. Limited history from patient secondary to obtunded state. Medical history significant for hypertension, hyperlipidemia, DM2 on insulin requiring, NAFLD, colonic polyp dysplasia, chronic back pain, ongoing tobacco abuse. Last confinement May 2022 under General Surgery service for perforated sigmoid diverticulitis status post surgery. 1 week history of cough, headache, SOB, and flulike symptoms along with her . Patient seen at [facility] [place]. Outpatient COVID-19, flu and RSV tests were negative last week. Patient completed azithromycin course. Cough symptoms improved as per . Patient looked tired when she came home from work yesterday afternoon as per . Noted to be very sleepy, had to be dragged to dinner as per . Subsequently noted to be stumbling, speech somewhat slurred. Patient snores according to although no apneic episodes witnessed at home. Patient brought to ER for further evaluation. SBP 70s, O2 sats 80s upon arrival at the ER. BiPAP initiated, Solu-Medrol, cefepime, and neb treatment administered at the ER. Medical History as above Surgical History : BTL, cholecystectomy, appendectomy, sigmoid resection/colostomy placement Family History : DM Personal/Social history : 1 pack daily, occasional EtOH intake, home care Admission Exam Per Admitting Provider GENERAL: Obtunded, obese, no respiratory distress SKIN: Normal color, warm HEENT: Cope palpebral conjunctivae, no ptosis, dry buccal mucosa, BiPAP in place NECK : Supple, short neck, no tenderness CHEST : Decreased breath sounds, no overt wheezes, no tenderness HEART : RRR, no obvious murmurs ABDOMEN: Some distention, ostomy noted, nontender EXTREMITIES : Minimal LE swelling, no LE tenderness, no other conspicuous deformities noted NEUROLOGIC : Obtunded, no facial asymmetry, gait and stance not assessed Principal Dx & Hospital Course #1 = Principal Diagnosis (1) Encephalopathy: Plan Pt is a 63yoF with PMHx significant for history of diabetes, hypertension presenting from home with increased lethargy. Acute on Chronic hypoxic and Hypercapnic Respiratory failure Influenza Infection Pt presented with lethargy from home Hypoxemic, hypercapnic respiratory failure secondary to influenza, pneumonia, possible CHF, possible underlying sleep disordered breathing/OHS ABG with pH of 7.18, pCO2 72, HCO3 of 27 on admission hypercapnia noted on multiple blood gases last year Chest XR with bilateral airspace opacities CT chest noting interseptal thickening suggestive of pulm edema/atelectasis +Influenza A Blood Cx x2 NGTD Treated with bipap, tamiflu for influenza A, supportive treatments Pulmonology consulted,recommended the following: -bipap prn -wean off benzos -smoking cessation -outpt PFTs and polysomnography testing -sleep medicine and pulm referrals/followup Pt improved, was discharged on 2L of oxygen with ambulation only. PCP, pulmonology and sleep medicine close followup after discharge Altered Mental Status Acute metabolic/toxic encephalopathy Likely in setting of above Head CT unremarkable Tox screen negative Neuropsychotropic medications contributory Treated with bipap Resolved on discharge. Bradycardia HR noted as low into the 30s, however per cardiology would also be very high. Likely tachybrady syndrome per Engineering Document Control Clerk Received atropine, ordered prn for bradycardia EKG on arrival sinus with PACs Echo EF 45-50%, otherwise unremarkable Cardiology consulted, appreciate recs -Zio patch on discharge -Per Dr Sarahi GARCIA, "Tachy vandana syndrome : sinus bradycardia in setting of acute hypercapnic respiratory failure and multiple sedating medications. Her heart rate has improved but still remains sinus bradycardia with episodes of brief atrial tachycardia. need Zio patch monitor as outpatient. Echo shows mildly reduced ejection fraction 45-50, mildly elevated troponin in the setting of acute respiratory failure and need ischemic workup nuclear stress test as outpatient." Close cardiology followup after discharge. Elevated Trop Demand ischemia Trops elevated and downtrended, 104-110-90 EKG on arrival sinus with PACs Echo EF 50%, otherwise unremarkable Doubt ACS, likely elevated in setting of above Cardiology consulted, appreciate recs -as noted above recommending ischemic workup with nuclear stress test as outpatient Cardiology followup Hydronephrosis, right Nephrolithiasis, nonobstructive Noted on CT abd/pelvis Urology consulted, appreciate recs -hydronephrosis minimal and less likely cause of KAIN as improving -No involvement required or indicated at this time Acute renal Failure Cr elevated at 2.84 on admission Likely secondary to hypovolemia, right-sided hydronephrosis Was on scheduled albumin while cardiac status unknown, concern for CHF based on CT chest Held home nephrotoxic meds Improved and was wnl on discharge HTN Held home hctz, and ARB Pt most recently prescribed valsartan Resumed on discharge hyperlipidemia on statin Rx, continue DMII insulin requiring hgba1c of 6.4 Held home meds Basal/bolus while hospitalized resumed home meds on discharge NAFLD no overt decompensation hx colonic polyp dysplasia patient follows with [facility] Tobacco abuse Encourage cessation Likely contributory to presentation Mood Held home lorazepam as contributory Also on cymbalta with celexa and trazodone Discharge Exam General: AAO HEENT: NC/AT CV: RRR Resp: breath sounds clear, no increased effort of breathing Abdomen: Soft, ostomy bag in place Updated Medication List Medication Instructions Recorded Confirmed Type atorvastatin 20 mg tablet 20 mg PO DAILY #30 tabs 06/17/22 07/08/23 Rx glipizide 5 mg tablet, extended 5 mg PO DAILY #60 tabs 06/17/22 07/08/23 Rx release 24 hr lorazepam 0.5 mg tablet 0.5 mg PO HS #30 tabs 06/17/22 07/08/23 Rx trazodone 50 mg tablet 50 mg PO HS #30 tabs 06/17/22 07/08/23 Rx citalopram 20 mg tablet 40 mg PO DAILY 07/08/23 07/08/23 History dulaglutide 0.75 mg/0.5 mL 0.75 mg subcut WK 07/08/23 07/08/23 History subcutaneous pen injector (Trulicity) duloxetine 60 mg capsule,delayed 60 mg PO DAILY 07/08/23 07/08/23 History release hydrochlorothiazide 50 mg tablet 50 mg PO DAILY 07/08/23 07/08/23 History insulin degludec 100 unit/mL (3 43 unit subcut QAM 07/08/23 07/08/23 History mL) subcutaneous pen (Tresiba FlexTouch U-100 insulin) insulin lispro 200 unit/mL (3 mL) 10 unit subcut TIDM 07/08/23 07/08/23 History subcutaneous pen (Humalog KwikPen U-200 Insulin) meclizine 25 mg tablet 25 mg PO TID PRN Dizziness 07/08/23 07/08/23 History metoclopramide HCl 10 mg tablet 10 mg PO DIRECTED PRN NEEDED 07/08/23 07/08/23 History (Reglan) omeprazole 40 mg capsule,delayed 40 mg PO DAILY 07/08/23 07/08/23 History release ondansetron HCl 8 mg tablet 8 mg PO DIRECTED PRN 07/08/23 07/08/23 History NAUSEA/VOMITING valsartan 320 mg tablet 320 mg PO DAILY 07/08/23 07/08/23 History oseltamivir 75 mg capsule (Tamiflu) 75 mg PO BID #6 caps 07/11/23 Rx Hospital Stay Data Consultations 07/08/23 21:38 ED Decision to Admit Stat 07/09/23 00:46 Consult Urology Routine 07/09/23 06:20 Consult Pulmonology Routine 07/09/23 13:21 Consult Cardiology Routine Diagnostic Imagining Performed 07/08/23 20:34 CT head/brain wo con Stat 07/08/23 23:01 CT Abd and Pelvis [CT abd pelvis wo con] Stat CT chest diagnostic wo con Stat Chest X-Ray 07/08/23 20:23 SINGLE VIEW CHEST CLINICAL HISTORY: Sepsis. FINDINGS: An AP, portable, upright chest radiograph is compared to study dated 06/11/2022. The heart is enlarged noting atherosclerotic calcification of the thoracic aorta. There is mild pulmonary vascular congestion. Bibasilar opacities are noted. No large pleural effusion or pneumothorax is seen. The skeletal structures are osteopenic. The bony thorax is grossly intact. IMPRESSION: 1. Cardiomegaly with mild pulmonary vascular congestion. 2. Bibasilar airspace opacities likely represent scarring/atelectasis. Correlate clinically for evidence of a superimposed infectious/inflammatory pneumonitis. Radiographic follow-up is recommended. ACT 112: Negative or not required by law. Electronically signed by: Bryant Nagel M.D. 07/09/2023 7:[address] 07/08/23 20:34 Exam(s): CT HEAD Without Contrast EXAM: CT Head Without Intravenous Contrast CLINICAL HISTORY: Reason for exam: disorientation. TECHNIQUE: Axial computed tomography images of the head/brain without intravenous contrast. CTDI is 35.92 mGy and DLP is 624.41 mGy-cm. Automated exposure control was utilized for the study. A dose lowering technique was utilized adhering to the principles of ALARA. COMPARISON: 06/12/22 FINDINGS: Brain: Stable generalized parenchymal volume loss and chronic small vessel ischemic disease. Shen-white matter differentiation maintained. No hemorrhage, mass-effect, or parenchymal edema. Ventricles: Unremarkable. No hydrocephalus. Bones/joints: Unremarkable. No acute fracture. Soft tissues: Unremarkable. Vasculature: Intracranial atherosclerosis. Sinuses: Unremarkable as visualized. No acute sinusitis. Mastoid air cells: Unremarkable as visualized. No mastoid effusion. IMPRESSION: No acute intracranial process. Electronically signed by: Jorge Farrell M.D. 07/08/23 21:23 PM Abdomen/Pelvis CT 07/08/23 23:01 Exam(s): CT ABDOMEN + PELVIS Without Contrast EXAM: CT Abdomen and Pelvis Without Intravenous Contrast CLINICAL HISTORY: Pain. TECHNIQUE: Axial computed tomography images of the abdomen and pelvis without intravenous contrast. CTDI is 22.25 mGy and DLP is 1395.28 mGy-cm. Automated exposure control was utilized for the study. A dose lowering technique was utilized adhering to the principles of ALARA. COMPARISON: CT abdomen and pelvis 01/19/2023 FINDINGS: Lung bases: Unremarkable. No mass. No consolidation. ABDOMEN: Liver: Unremarkable. Gallbladder and bile ducts: Cholecystectomy. No ductal dilation. Pancreas: Unremarkable. No ductal dilation. Spleen: Unremarkable. No splenomegaly. Adrenals: Unremarkable. No mass. Kidneys and ureters: Mild right hydronephrosis with no visualized nephrolithiasis. Punctate nonobstructing left renal calculus. No left hydronephrosis. Stomach and bowel: Unremarkable. No obstruction. No mucosal thickening. PELVIS: Appendix: Appendectomy. Bladder: Unremarkable. No stones. Reproductive: Unremarkable as visualized. ABDOMEN and PELVIS: Intraperitoneal space: Unremarkable. No free air. No significant fluid collection. Bones/joints: There are degenerative changes of the spine. No acute fracture. No dislocation. Soft tissues: There is a left lower quadrant colostomy with a small parastomal hernia. Vasculature: Mild atherosclerosis. No abdominal aortic aneurysm. Lymph nodes: Unremarkable. No enlarged lymph nodes. IMPRESSION: 1. Mild right hydronephrosis with no visualized nephrolithiasis. 2. Punctate nonobstructing left renal calculus. No left hydronephrosis. 3. There is a left lower quadrant colostomy with a small parastomal hernia. Electronically signed by: Iza Geller MD 07/09/23 00:[address] 07/08/23 23:01 Exam(s): CT CHEST Without Contrast EXAM: CT Chest Without Intravenous Contrast CLINICAL HISTORY: Hypoxia. TECHNIQUE: Axial computed tomography images of the chest without intravenous contrast. CTDI is 22.25 mGy and DLP is 1385 mGy-cm. Automated exposure control was utilized for the study. A dose lowering technique was utilized adhering to the principles of ALARA. COMPARISON: No relevant prior studies available. FINDINGS: Lungs: Interseptal thickening could relate to atelectasis and/or pulmonary edema. No mass. Pleural space: Unremarkable. No pneumothorax. No significant effusion. Heart: Unremarkable. No cardiomegaly. No significant pericardial effusion. No significant coronary artery calcifications. Bones/joints: There are degenerative changes of the spine. No acute fracture. No dislocation. Soft tissues: Unremarkable. Vasculature: Mild atherosclerosis. No thoracic aortic aneurysm. Lymph nodes: Unremarkable. No enlarged lymph nodes. IMPRESSION: Interseptal thickening could relate to atelectasis and/or pulmonary edema. Electronically signed by: Iza Geller MD 07/09/23 01:04 AM Discharge Instructions Given to Patient (Per Discharging Provider) Ms. Alfonso, Nelson were admitted with significant trouble breathing and altered mental status on arrival. You were found to have a VIRAL pneumonia in the setting of a flu infection. We treated you with a bipap machine, Tamiflu and oxygen support as needed and you got better. You were seen by the investigator vice and they recommended the following: -that you STOP smoking as this is affecting your underlying respiratory status -that you consider weaning off the benzodiazepine lorazepam as it can suppress your respiratory drive, please follow up with your primary care provider about this -that you have testing done outpatient for pulmonary function tests and polysomnography testing to rule out underlying sleep apnea and obesity hypoventilation syndrome -that you be seen by sleep medicine and pulmonology specialists after discharge- your primary care provider can refer you to these specialists You were also seen by the commonwealth attorney as your heart rate would alternate between low and high rates. They recommended the following -Zio patch after discharge to continue to monitor your heart - ischemic workup nuclear stress test as an outpatient We also determined that you currently need 2L of oxygen with ambulation at this time. Please use it as prescribed. Please continue taking the Tamiflu for 3 more days. Please keep close follow up with your primary care provider after discharge. Again also keep close followup with Cardiology, Pulmonology and Sleep Medicine after discharge. Please do not hesitate to come back to the emergency room if your symptoms worsen or return. It was a pleasure taking care of you while you were here. Total Time Total Time Spent Total Time Spent (In Minutes): > 30 minutes
[2023-07-11] MEDS ORDERED: ATROPINE SULFATE 0.1 MG/ML 10ML SYR IV ONE (15:22)
== END 2023-07-11 15:23 | disposition home or self-care (01) | DRG 193 ==
LOC: ED 20:01 → 2S 22:58
DX: N17.9 Acute kidney failure, unspecified; Z79.4 Long term (current) use of insulin; E11.9 Type 2 diabetes mellitus without complications; G93.41 Metabolic encephalopathy; Z88.5 Allergy status to narcotic agent; N20.0 Calculus of kidney; Z79.84 Long term (current) use of oral hypoglycemic drugs; Z88.0 Allergy status to penicillin; F17.210 Nicotine dependence, cigarettes, uncomplicated; E78.5 Hyperlipidemia, unspecified; Z88.8 Allergy status to other drugs, medicaments and biological substances; J96.21 Acute and chronic respiratory failure with hypoxia; J10.00 Influenza due to other identified influenza virus with unspecified type of pneumonia; Z79.899 Other long term (current) drug therapy; N13.30 Unspecified hydronephrosis; K76.0 Fatty (change of) liver, not elsewhere classified; J96.22 Acute and chronic respiratory failure with hypercapnia; I24.89 Other forms of acute ischemic heart disease; Z11.52 Encounter for screening for COVID-19; I10 Essential (primary) hypertension